=== PATIENT | male | born 1970 | race Caucasian/White ===

== ENCOUNTER 2021-03-01 17:20 | Inpatient (IN) | payer OTHER ==
[2021-03-01] MEDS ORDERED: ACETAMINOPHEN TAB 325 MG TAB PO STA (19:12)
--- NOTE | 2021-03-01 19:26 | ED ---
General Adult HPI - General Chief complaint: Recheck/Abnormal Lab/Rx Stated complaint: SOB/Weakness Time Seen by Provider: 03/01/21 19:06 Source: patient Mode of arrival: ambulatory Limitations: no limitations - History of Present Illness Initial comments: 50 year-old male patient presents to the emergency department for evaluation of multiple complaints. Patient believes he has COVID. States for the last 1.5 weeks he has had chills, body aches, vomiting, and diarrhea. State he does have a dry cough and shortness of breath as well. Denies ever having the COVID vaccine. Denies taking any medication for his symptoms. Denies any chest pain. States he has had lower extremity swelling over the last couple of weeks as well. Also states he has felt weak and confused. Denies any leg or calf pain. Does admit to smoking cigarettes. Patient denies any recent abdominal pain, constipation, back pain, numbness, tingling, dizziness, weakness, hematuria, dys uria, urinary urgency, urinary frequency, headache, visual changes, or any other complaints. - Related Data Home Medications Medication Instructions Recorded Confirmed Omeprazole Magnesium [PriLOSEC OTC] 20 mg PO BID PRN 03/01/21 03/01/21 Allergies Allergy/AdvReac Type Severity Reaction Status Date / Time Penicillins Allergy Unknown Verified 03/01/21 19:33 Review of Systems ROS Statement: Those systems with pertinent positive or pertinent negative responses have been documented in the HPI. ROS Other: All systems not noted in ROS Statement are negative. Past Medical History Past Medical History: GERD/Reflux History of Any Multi-Drug Resistant Organisms: None Reported Past Surgical History: No Surgical Hx Reported Past Psychological History: No Psychological Hx Reported Smoking Status: Current every day smoker Past Alcohol Use History: None Reported Past Drug Use History: None Reported General Exam Limitations: no limitations General appearance: alert, in no apparent distress, other (This is a well- developed, well-nourished adult male patient in no acute distress. Vital signs upon presentation are temperature 99.6F, pulse 109, respirations 20, blood pressure 111/75, pulse ox 99% on room air.) Eye exam: Present: normal appearance, PERRL, EOMI. Absent: scleral icterus, conjunctival injection, periorbital swelling ENT exam: Present: normal exam, normal oropharynx, mucous membranes moist Respiratory exam: Present: normal lung sounds bilaterally. Absent: respiratory distress, wheezes, rales, rhonchi, stridor Cardiovascular Exam: Present: normal rhythm, tachycardia, normal heart sounds. Absent: systolic murmur, diastolic murmur, rubs, gallop, clicks GI/Abdominal exam: Present: soft, normal bowel sounds. Absent: distended, tenderness, guarding, rebound, rigid Neurological exam: Present: alert, oriented X3, CN II-XII intact Psychiatric exam: Present: normal affect, normal mood Skin exam: Present: warm, dry, intact, normal color. Absent: rash Course Vital Signs 03/01/21 03/01/21 03/01/21 17:42 19:47 23:59 Temperature 99.6 F 98.1 F 98.2 F Pulse Rate 109 H 88 73 Respiratory 20 16 16 Rate Blood Pressure 111/75 110/77 106/73 O2 Sat by Pulse 99 98 96 Oximetry EKG Findings - EKG Comments: EKG Findings:: EKG obtained in 1949 shows normal sinus rhythm with prolonged QT interval. Ventricular rate is 88, NV interval 156, QRS duration 86, QT 446, QTC 539. No evidence of ST elevation or depression. Medical Decision Making - Medical Decision Making 50-year-old male patient presents for evaluation of feeling generally unwell, diarrhea, vomiting, shortness of breath, cough, chills. Wanted to be tested for Covid. Covid test was negative. White blood cell count is normal. D-dimer was 6.55, sodium 124, potassium 3.0, lactic acid 2.7, calcium 7.1, magnesium 1.3. Liver enzymes are mildly elevated. Total bili is 1.4. LDH was 1574. C- reactive protein 1.6. Urinalysis negative. Patient did admit to heavy alcohol use, states he quit 3 weeks ago. He admitted to the hospital for electrolyte replacement and further evaluation. He is agreeable this plan. Case discussed with my attending Dr. Cameron. - Lab Data Result diagrams: 03/01/21 19:12 03/01/21 19:12 Lab Results 03/01/21 03/01/21 03/01/21 Range/Units 19:12 19:12 19:12 WBC 8.2 (3.8-10.6) k/uL RBC 3.50 L (4.30-5.90) m/uL Hgb 13.3 (13.0-17.5) gm/dL Hct 39.1 (39.0-53.0) % MCV 111.6 H (80.0-100.0) fL MCH 37.8 H (25.0-35.0) pg MCHC 33.9 (31.0-37.0) g/dL RDW 15.8 H (11.5-15.5) % Plt Count 206 (150-450) k/uL MPV 7.3 Neutrophils % 86 % Lymphocytes % 8 % Monocytes % 4 % Eosinophils % 0 % Basophils % 1 % Neutrophils # 7.1 (1.3-7.7) k/uL Lymphocytes # 0.6 L (1.0-4.8) k/uL Monocytes # 0.4 (0-1.0) k/uL Eosinophils # 0.0 (0-0.7) k/uL Basophils # 0.0 (0-0.2) k/uL Manual Slide Review Performed Macrocytosis Marked A PT 13.8 H (9.0-12.0) sec INR 1.4 H (<1.2) APTT 26.5 (22.0-30.0) sec D-Dimer 6.55 H (<0.60) mg/L FEU Sodium 124 L (137-145) mmol/L Potassium 3.0 L (3.5-5.1) mmol/L Chloride 98 (98-107) mmol/L Carbon Dioxide 25 (22-30) mmol/L Anion Gap 1 mmol/L BUN 3 L (9-20) mg/dL Creatinine 0.49 L (0.66-1.25) mg/dL Est GFR (CKD-EPI)AfAm >90 (>60 ml/min/1.73 sqM) Est GFR (CKD-EPI)NonAf >90 (>60 ml/min/1.73 sqM) Glucose 96 (74-99) mg/dL Lactic Ac Sepsis Rflx Plasma Lactic Acid Flavio (0.7-2.0) mmol/L Calcium 7.1 L (8.4-10.2) mg/dL Magnesium 1.3 L (1.6-2.3) mg/dL Total Bilirubin 1.4 H (0.2-1.3) mg/dL AST 88 H (17-59) U/L ALT 59 H (4-49) U/L Alkaline Phosphatase 113 (38-126) U/L Lactate Dehydrogenase 1574 H (313-618) U/L C-Reactive Protein 1.6 H (<1.0) mg/dL NT-Pro-B Natriuret Pep pg/mL Total Protein 6.6 (6.3-8.2) g/dL Albumin 2.5 L (3.5-5.0) g/dL Urine Color Urine Appearance (Clear) Urine pH (5.0-8.0) Ur Specific [place] (1.001-1.035) Urine Protein (Negative) Urine Glucose (UA) (Negative) Urine Ketones (Negative) Urine Blood (Negative) Urine Nitrite (Negative) Urine Bilirubin (Negative) Urine Urobilinogen (<2.0) mg/dL Ur Leukocyte Esterase (Negative) Coronavirus (PCR) (Not Detectd) 03/01/21 03/01/21 03/01/21 Range/Units 19:12 19:12 19:13 WBC (3.8-10.6) k/uL RBC (4.30-5.90) m/uL Hgb (13.0-17.5) gm/dL Hct (39.0-53.0) % MCV (80.0-100.0) fL MCH (25.0-35.0) pg MCHC (31.0-37.0) g/dL RDW (11.5-15.5) % Plt Count (150-450) k/uL MPV Neutrophils % % Lymphocytes % % Monocytes % % Eosinophils % % Basophils % % Neutrophils # (1.3-7.7) k/uL Lymphocytes # (1.0-4.8) k/uL Monocytes # (0-1.0) k/uL Eosinophils # (0-0.7) k/uL Basophils # (0-0.2) k/uL Manual Slide Review Macrocytosis PT (9.0-12.0) sec INR (<1.2) APTT (22.0-30.0) sec D-Dimer (<0.60) mg/L FEU Sodium (137-145) mmol/L Potassium (3.5-5.1) mmol/L Chloride (98-107) mmol/L Carbon Dioxide (22-30) mmol/L Anion Gap mmol/L BUN (9-20) mg/dL Creatinine (0.66-1.25) mg/dL Est GFR (CKD-EPI)AfAm (>60 ml/min/1.73 sqM) Est GFR (CKD-EPI)NonAf (>60 ml/min/1.73 sqM) Glucose (74-99) mg/dL Lactic Ac Sepsis Rflx Plasma Lactic Acid Flavio 2.7 H* (0.7-2.0) mmol/L Calcium (8.4-10.2) mg/dL Magnesium (1.6-2.3) mg/dL Total Bilirubin (0.2-1.3) mg/dL AST (17-59) U/L ALT (4-49) U/L Alkaline Phosphatase (38-126) U/L Lactate Dehydrogenase (313-618) U/L C-Reactive Protein (<1.0) mg/dL NT-Pro-B Natriuret Pep 827 pg/mL Total Protein (6.3-8.2) g/dL Albumin (3.5-5.0) g/dL Urine Color Urine Appearance (Clear) Urine pH (5.0-8.0) Ur Specific [place] (1.001-1.035) Urine Protein (Negative) Urine Glucose (UA) (Negative) Urine Ketones (Negative) Urine Blood (Negative) Urine Nitrite (Negative) Urine Bilirubin (Negative) Urine Urobilinogen (<2.0) mg/dL Ur Leukocyte Esterase (Negative) Coronavirus (PCR) Not Detected (Not Detectd) 03/01/21 03/01/21 Range/Units 19:59 21:07 WBC (3.8-10.6) k/uL RBC (4.30-5.90) m/uL Hgb (13.0-17.5) gm/dL Hct (39.0-53.0) % MCV (80.0-100.0) fL MCH (25.0-35.0) pg MCHC (31.0-37.0) g/dL RDW (11.5-15.5) % Plt Count (150-450) k/uL MPV Neutrophils % % Lymphocytes % % Monocytes % % Eosinophils % % Basophils % % Neutrophils # (1.3-7.7) k/uL Lymphocytes # (1.0-4.8) k/uL Monocytes # (0-1.0) k/uL Eosinophils # (0-0.7) k/uL Basophils # (0-0.2) k/uL Manual Slide Review Macrocytosis PT (9.0-12.0) sec INR (<1.2) APTT (22.0-30.0) sec D-Dimer (<0.60) mg/L FEU Sodium (137-145) mmol/L Potassium (3.5-5.1) mmol/L Chloride (98-107) mmol/L Carbon Dioxide (22-30) mmol/L Anion Gap mmol/L BUN (9-20) mg/dL Creatinine (0.66-1.25) mg/dL Est GFR (CKD-EPI)AfAm (>60 ml/min/1.73 sqM) Est GFR (CKD-EPI)NonAf (>60 ml/min/1.73 sqM) Glucose (74-99) mg/dL Lactic Ac Sepsis Rflx Y Plasma Lactic Acid Flavio (0.7-2.0) mmol/L Calcium (8.4-10.2) mg/dL Magnesium (1.6-2.3) mg/dL Total Bilirubin (0.2-1.3) mg/dL AST (17-59) U/L ALT (4-49) U/L Alkaline Phosphatase (38-126) U/L Lactate Dehydrogenase (313-618) U/L C-Reactive Protein (<1.0) mg/dL NT-Pro-B Natriuret Pep pg/mL Total Protein (6.3-8.2) g/dL Albumin (3.5-5.0) g/dL Urine Color Light Yellow Urine Appearance Clear (Clear) Urine pH 6.5 (5.0-8.0) Ur Specific [place] 1.023 (1.001-1.035) Urine Protein Negative (Negative) Urine Glucose (UA) Negative (Negative) Urine Ketones Negative (Negative) Urine Blood Negative (Negative) Urine Nitrite Negative (Negative) Urine Bilirubin Negative (Negative) Urine Urobilinogen <2.0 (<2.0) mg/dL Ur Leukocyte Esterase Negative (Negative) Coronavirus (PCR) (Not Detectd) - Radiology Data Radiology results: report reviewed, image reviewed Single view X-ray of the chest is obtained. Report was reviewed in its entirety. Impression by Dr. Vitale shows some pleural fluid and atelectasis at both lung bases. Bilateral lower lobe pneumonia is not excluded. CT chest angio for PE shows no evidence of pulmonary embolism. Bilateral pleural effusions and basilar atelectasis. Abdominal ascites. Liver is slightly irregular that could be cirrhosis. Venous Doppler duplex of left lower extremity was obtained. Report was reviewed in its entirety. Impression by Dr. Vitale shows no evidence of DVT in the left leg. Disposition Clinical Impression: Pleural effusion, Weakness, Hypomagnesemia, Hypokalemia, Hyponatremia Disposition: ADMITTED IP TO THIS [facility] Condition: Serious Decision to Admit Reason: Admit from EC Decision Date: 03/01/21 Decision Time: 22:57
[2021-03-01 19:52] LABS: Basophils % (A) 1 %; Eosinophils % (A) 0 %; HCT 39.1 % (39.0-53.0); HGB 13.3 gm/dL (13.0-17.5); Lymphocytes # (A) 0.6 k/uL (1.0-4.8); Lymphocytes % (A) 8 %; MCH 37.8 pg (25.0-35.0); MCHC 33.9 g/dL (31.0-37.0); MCV 111.6 fL (80.0-100.0); Macrocytosis Marked; Mean Platelet Volume 7.3; Monocytes # (A) 0.4 k/uL (0-1.0); Monocytes % (A) 4 %; Neutrophils # (A) 7.1 k/uL (1.3-7.7); Neutrophils % (A) 86 %; Platelet Count 206 k/uL (150-450); RDW 15.8 % (11.5-15.5); WBC 8.2 k/uL (3.8-10.6)
[2021-03-01 19:56] LABS: ALT 59 U/L (4-49); AST 88 U/L (17-59); African American GFR (CKD) >90 (>60 ml/min/1.73 sqM); Albumin 2.5 g/dL (3.5-5.0); Alkaline Phosphatase 113 U/L (38-126); Anion Gap 1 mmol/L; Blood Urea Nitrogen 3 mg/dL (9-20); C Reactive Protein 1.6 mg/dL (<1.0); Calcium 7.1 mg/dL (8.4-10.2); Carbon Dioxide 25 mmol/L (22-30); Chloride 98 mmol/L (98-107); Glucose 96 mg/dL (74-99); LDH 1574 U/L (313-618); Magnesium 1.3 mg/dL (1.6-2.3); Non-African American GFR(CKD) >90 (>60 ml/min/1.73 sqM); Sodium 124 mmol/L (137-145); Total Bilirubin 1.4 mg/dL (0.2-1.3); Total Protein 6.6 g/dL (6.3-8.2)
[2021-03-01 20:02] LABS: INR 1.4 (<1.2); Partial Thromboplastin Time 26.5 sec (22.0-30.0); Prothrombin Time 13.8 sec (9.0-12.0)
[2021-03-01] MEDS ORDERED: Magnesium Replacement Protocol 1 EACH MISC MISCELLANE PRN (20:05)
[2021-03-01] MEDS ORDERED: POTASSIUM CHLORIDE ER 20 MEQ TAB.ER PO STA (20:05)
[2021-03-01] MEDS ORDERED: SODIUM CHLORIDE 0.9% 1,000 ML IV ONE (20:06)
--- NOTE | 2021-03-01 20:14 | XR ---
EXAMINATION TYPE: XR chest 1V portable DATE OF EXAM: 03/01/2021 COMPARISON: NONE HISTORY: Cough and fever TECHNIQUE: Single view FINDINGS: There is some atelectasis and blunting at the lung bases. There is no gross heart failure. Heart size is normal. Bony thorax is intact. IMPRESSION: There is some pleural fluid and atelectasis at both lung bases. Bilateral lower lobe pneu monia not excluded.
[2021-03-01] MEDS: MAGNESIUM SULFATE-D5W PMX 1 GM in DEXTROSE/WATER 1 100ML.BAG IVPB SCH ×2 (20:36→22:36)
[2021-03-01 21:10] LABS: Appearance,Urine Clear (Clear); Bilirubin,Urine Negative (Negative); Blood,Urine Negative (Negative); Color,Urine Light Yellow; Glucose,Urine (UA) Negative (Negative); Ketones,Urine Negative (Negative); Leukocyte Esterase,Urine Negative (Negative); Nitrite,Urine Negative (Negative); PH, Urine 6.5 (5.0-8.0); Protein,Urine Negative (Negative); Specific Gravity,Urine 1.023 (1.001-1.035); Urobilinogen,Urine <2.0 mg/dL (<2.0)
--- NOTE | 2021-03-01 21:36 | CT ---
EXAMINATION TYPE: CT chest angio for PE DATE OF EXAM: 03/01/2021 COMPARISON: None HISTORY: SOB and weakness CT DLP: 330.7 mGycm Automated exposure control for dose reduction was used. CONTRAST: Performed with IV Contrast, patient injected with 100 mL of Isovue 370. Images obtained from the thoracic inlet to the diaphragm with IV contrast. There are 3-D post process ed images. There is moderate right pleural effusion. There is small left pleural effusion. There is moderate chante unt of abdominal ascites fluid. Heart size is normal. There is no pericardial effusion. There are no hilar masses. There is no medias tinal adenopathy. There are no hilar masses. Thoracic aorta appears intact. Ascending aorta measures 3.6 cm. There is no aneurysm or dissection. There is no evidence of filling defect in the pulmonary arteries. The thoracic spine is intact. Sternum is intact. I see no bony destructive process. IMPRESSION: No evidence of pulmonary embolism. Bilateral pleural effusions and basilar atelectasis. Abdominal ascites. Liver is slightly irregular that could be cirrhosis.
[2021-03-01] MEDS ORDERED: NALOXONE 0.4 MG/ML 1 ML VIAL IV PRN (22:52)
--- NOTE | 2021-03-01 23:49 | US ---
EXAMINATION TYPE: US venous doppler duplex LE LT DATE OF EXAM: 03/01/2021 11:34 PM COMPARISON: NONE CLINICAL HISTORY: Left leg swelling; pos d-dimer. Swelling, pos d-dimer per order. SIDE PERFORMED: Left TECHNIQUE: The lower extremity deep venous system is examined utilizing real time linear array sonog christopher with graded compression, doppler sonography and color-flow sonography. VESSELS IMAGED: Common Femoral Vein Deep Femoral Vein Greater Saphenous Vein * Femoral Vein Popliteal Vein Small Saphenous Vein * Proximal Calf Veins (* superficial vessels) Left Leg: No evidence of DVT in veins imaged at this time. IMPRESSION: No evidence of deep vein thrombosis in the left leg.
[2021-03-02 00:26] LABS: Lactic Acid, Venous 1.6 mmol/L (0.7-2.0)
[2021-03-02 05:02] LABS: Ferritin 1251.1 ng/mL (22.0-322.0)
[2021-03-02] MEDS ORDERED: ONDANSETRON 4 MG/2 ML VIAL IVP PRN (05:59)
[2021-03-02] MEDS ORDERED: ACETAMINOPHEN TAB 325 MG TAB PO PRN (05:59)
[2021-03-02 08:51] LABS: African American GFR (CKD) >90 (>60 ml/min/1.73 sqM); Anion Gap 6 mmol/L; Blood Urea Nitrogen <2 mg/dL (9-20); Calcium 7.4 mg/dL (8.4-10.2); Carbon Dioxide 26 mmol/L (22-30); Chloride 103 mmol/L (98-107); Glucose 87 mg/dL (74-99); Magnesium 2.1 mg/dL (1.6-2.3); Non-African American GFR(CKD) >90 (>60 ml/min/1.73 sqM); Potassium 3.2 mmol/L (3.5-5.1); Sodium 135 mmol/L (137-145)
[2021-03-02] MEDS ORDERED: Potassium Replacement Protocol 1 EACH MISC MISCELLANE PRN (08:55)
[2021-03-02] MEDS ORDERED: PANTOPRAZOLE 40 MG/10 ML VIAL IVP SCH (09:00)
[2021-03-02] MEDS: HEPARIN SODIUM,PORCINE/PF 5,000 UNIT/0.5 ML SYRINGE SQ SCH ×3 (09:33→22:41)
[2021-03-02] MEDS: VANCOMYCIN 125 MG CAPSULE PO SCH ×4 (09:33→22:42)
[2021-03-02] MEDS: POTASSIUM CHLORIDE ER 20 MEQ TAB.ER PO SCH (09:41)
[2021-03-02] MEDS: SODIUM CHLORIDE 0.9% 1,000 ML IV SCH (10:55)
--- NOTE | 2021-03-02 12:18 | US ---
EXAMINATION TYPE: US abdomen limited DATE OF EXAM: 03/02/2021 COMPARISON: Chest CT CLINICAL HISTORY: ascites. ETOH abuse, ascites EXAM MEASUREMENTS: Liver Length: 13.2 cm CBD: 0.5 cm Right Kidney: 11.8 x 5.4 x 5.7 cm Pancreas: 3mm panc duct, otherwise difficult to visualize Liver: Left lobe enlarged, right lobe small in size with lobulated contour consistent with cirrhosis Gallbladder: Surgically absent Evidence for sonographic Small's sign: No CBD: wnl Right Kidney: wnl Please note: Mild amount of ascites present IMPRESSION: 1. Ascites. 2. Ultrasound changes suggestive for cirrhosis of the liver. 3. Pancreatic duct at the proximal body is 3 mm. Normal less than 2 mm. Consider additional workup of the pancreas which has some limitation on this evaluation.
--- NOTE | 2021-03-02 12:21 | P.CNPUL ---
History of Present Illness Consult date: 03/02/21 Requesting physician: Brooklyn Marcano Reason for consult: pleural effusion, other Chief complaint: Bilateral pleural effusions History of present illness: 50-year-old white male patient with history of liver cirrhosis, EtOH abuse, current every day smoker, who came into the emergency department on 03/01/2021 for evaluation of multiple complaints. Patient believed he has the COVID 19. He states for the past 1,5-2 weeks he has had chills, body aches, multiple episodes of diarrhea on a daily basis. Denies recent antibiotic use, reports some dry cough and shortness of breath. He has not been vaccinated for COVID- 19. Denies any known COVID-19 positive contacts. Denies any chest pain. States she lost 15-20 pounds in the last several weeks. He has had increased lower extremity swelling. His been feeling weak and confused. Reports abdominal bloating, but no abdominal pain, no urinary symptoms. His chest x-ray shows some atelectasis and blunting at the lung bases consistent with small pleural effusions. Lab work has been reviewed, patient was tested for C. diff and was found to be positive, he was started on oral vancomycin. His white count is normal at 8.2, hemoglobin is 13.3, INR is 1.4, d-dimer 6.5, sodium is 124, potassium is 3.0, chloride is 98, CO2 is 25, BUN is 3, creatinine 0.49, lactic acid is 2.7, calcium was 7.1, magnesium was 1.3, total bilirubin was 1.4, AST was 88, ALT was 59, alkaline phosphatase was 113, ammonia level was 29, LDH was 1574, CRP was 1.6, proBNP was 827, pro calcitonin level was negative at 0.09, urinalysis was within normal limits, COVID-19 PCR was negative. US Doppler of the left lower extremity showed no evidence of DVT. CT chest showed no evidence of pulmonary embolism, bilateral pleural effusions and basilar atelectasis. A digital abdominal ascites, and irregular liver with correlation to cirrhosis. Patient states he does not follow up with the GI specialist on the regular basis, he recently moved to this area, and had previously seen a GI specialist at a [facility]. He states he refused a liver biopsy, states he continues to drink cold [place] 3 weeks he did not drink at all. Patient continues to have frequent episodes of liquid diarrhea, but appears to be reading comfortably, he is on room air pulse ox of 94%, afebrile, he does get short of breath with exertion, denies any cough, denies any chest pain, no wheezing, lungs are clear, diminished at the bases. Ultrasound the chest has been ordered and pending at this time. Ultrasound of the abdomen has been ordered and pending at this time Review of Systems All systems: negative Constitutional: Denies chills, Denies fever Eyes: denies blurred vision, denies pain Ears, nose, mouth and throat: Denies headache, Denies sore throat Cardiovascular: Denies chest pain, Denies shortness of breath Respiratory: Denies cough Gastrointestinal: Reports abdominal pain, Reports diarrhea, Denies nausea, Denies vomiting Musculoskeletal: Denies myalgias Integumentary: Denies pruritus, Denies rash Neurological: Denies numbness, Denies weakness Psychiatric: Denies anxiety, Denies depression Endocrine: Denies fatigue, Denies weight change Past Medical History Past Medical History: GERD/Reflux History of Any Multi-Drug Resistant Organisms: None Reported Past Surgical History: No Surgical Hx Reported Past Anesthesia/Blood Transfusion Reactions: No Reported Reaction Past Psychological History: No Psychological Hx Reported Smoking Status: Current every day smoker Past Alcohol Use History: None Reported, Heavy Past Drug Use History: None Reported Medications and Allergies Home Medications Medication Instructions Recorded Confirmed Type Omeprazole Magnesium [PriLOSEC OTC] 20 mg PO BID PRN 03/01/21 03/01/21 History Allergies Allergy/AdvReac Type Severity Reaction Status Date / Time Penicillins Allergy Unknown Verified 03/01/21 19:33 Physical Exam Vitals: Vital Signs Temp Pulse Pulse Resp BP BP Pulse Ox 03/02/21 07:37 97 03/02/21 05:57 98.9 F 83 15 104/70 94 L 03/02/21 01:15 98.1 F 73 15 101/69 99 03/01/21 23:59 98.2 F 73 16 106/73 96 03/01/21 20:21 16 03/01/21 19:47 98.1 F 88 16 110/77 98 03/01/21 17:42 99.6 F 109 H 20 111/75 99 Intake and Output 03/01/21 03/02/21 03/02/21 22:59 06:59 14:59 Other: Voiding Method Toilet # Bowel Movements 1 Weight 77.111 kg 77.111 kg GENERAL EXAM: Alert, pleasant, chronically ill-looking, 50-year-old white male, resting in bed, on room air pulse ox of 97% comfortable in no apparent distress. HEAD: Normocephalic/atraumatic. EYES: Normal reaction of pupils, equal size. Conjunctiva pink, sclera white. NOSE: Clear with pink turbinates. THROAT: No erythema or exudates. NECK: No masses, no JVD, no thyroid enlargement, no adenopathy. CHEST: No chest wall deformity. Symmetrical expansion. LUNGS: Equal air entry with no crackles, wheeze, rhonchi or dullness. Diminished breath sounds at the bases CVS: Regular rate and rhythm, normal S1 and S2, no gallops, no murmurs, no rubs ABDOMEN: Soft, nontender. No hepatosplenomegaly, normal bowel sounds, no guarding or rigidity. Abdomen is distended, but nontender EXTREMITIES: No clubbing, no cyanosis, 2+ pulses and upper and lower extremities. Mild nonpitting edema involving bilateral lower extremities, chronic venous stasis discoloration of lower extremities MUSCULOSKELETAL: Muscle strength and tone normal. SPINE: No scoliosis or deformity SKIN: No rashes CENTRAL NERVOUS SYSTEM: Alert and oriented -3. No focal deficits, tone is normal in all 4 extremities. PSYCHIATRIC: Alert and oriented -3. Appropriate affect. Intact judgment and insight. Results - Laboratory Findings CBC and BMP: 03/01/21 19:12 03/02/21 07:48 PT/INR, D-dimer PT 13.8 sec (9.0-12.0) H 03/01/21 19:12 INR 1.4 (<1.2) H 03/01/21 19:12 D-Dimer 6.55 mg/L FEU (<0.60) H 03/01/21 19:12 Abnormal lab findings: Abnormal Labs 03/01/21 03/01/21 03/01/21 19:12 19:12 19:12 RBC 3.50 L MCV 111.6 H MCH 37.8 H RDW 15.8 H Lymphocytes # 0.6 L Macrocytosis Marked A PT 13.8 H INR 1.4 H D-Dimer 6.55 H Sodium 124 L Potassium 3.0 L BUN 3 L Creatinine 0.49 L Plasma Lactic Acid Flavio Calcium 7.1 L Magnesium 1.3 L Ferritin 1251.1 H Total Bilirubin 1.4 H AST 88 H ALT 59 H Lactate Dehydrogenase 1574 H C-Reactive Protein 1.6 H Albumin 2.5 L C. difficile (EIA) Intrp 03/01/21 03/02/21 03/02/21 19:12 03:30 07:48 RBC MCV MCH RDW Lymphocytes # Macrocytosis PT INR D-Dimer Sodium 135 L Potassium 3.2 L BUN <2 L Creatinine 0.40 L Plasma Lactic Acid Flavio 2.7 H* Calcium 7.4 L Magnesium Ferritin Total Bilirubin AST ALT Lactate Dehydrogenase C-Reactive Protein Albumin C. difficile (EIA) Intrp Positive A - Diagnostic Findings Chest x-ray: report reviewed, image reviewed CT scan - chest: report reviewed, image reviewed Additional studies: Left leg Doppler ultrasound results reviewed, EKG reviewed Assessment and Plan Plan: Assessment: #1. Small bilateral pleural effusions, related to abdominal ascites, secondary to liver cirrhosis. Possibility of pneumonia is felt to be less likely. COVID- 19 PCR negative #2. Acute C. difficile infection with multiple episodes of diarrhea #3. Dehydration #4. Acute and multiple electrolyte abnormalities related to C. diff colitis, and dehydration, including hyponatremia, hypokalemia, hypomagnesemia, being corrected per protocol and IV fluids #5. Liver cirrhosis, possibly related to EtOH, hepatitis panel is pending. Patient has previously refused a liver biopsy, currently not under the observation of a GI specialist #6. History of heavy EtOH use #7. Elevated d-dimer, CTA chest showed no evidence of pulmonary embolism, left lower extremity DVT was ruled out by a Doppler ultrasound #8. Chronic smoker #9. GERD/reflux Plan: We'll obtain ultrasound of the chest and ultrasound of the abdomen Chest x-ray and CT chest reviewed and the pleural effusions are small, will not likely be able to drain Depending on the findings of the ultrasound of the abdomen patient may need a paracentesis We'll obtain hepatitis panel Continue oral vancomycin for C. diff, IV hydration with 0.9 normal saline at 75 ML Correct electrolytes per protocol No evidence of any respiratory distress We'll continue to follow and make further recommendations Consult GI specialist for liver cirrhosis I performed a history & physical examination of the patient and discussed their management with my nurse practitioner, Estephania Tejada. I reviewed the nurse practitioner's note and agree with the documented findings and plan of care. Lung sounds are positive for diminished breath sounds. The findings and the im pression was discussed with the patient. I attest to the documentation by the nurse practitioner. Time with Patient: Greater than 30
[2021-03-02] MEDS: MAGNESIUM SULFATE-D5W PMX 1 GM in DEXTROSE/WATER 1 100ML.BAG IVPB SCH ×3 (14:22→14:23)
[2021-03-02 15:01] VITALS: BMI 23.7
[2021-03-02 18:51] LABS: Hepatitis A Antibody IgM Non-Reactive (Non-Reactive); Hepatitis B Core IgM Non-Reactive (Non-Reactive); Hepatitis B Surface Antigen Non-Reactive (Non-Reactive); Hepatitis C IgG Antibody Non-Reactive (Non-Reactive)
[2021-03-02] MEDS: PANTOPRAZOLE 40 MG TABLET PO SCH (22:41)
--- NOTE | 2021-03-03 00:56 | CONS ---
CONSULTATION DATE OF SERVICE: 03/02/2021 REASON FOR CONSULTATION: C difficile colitis. HISTORY OF PRESENT ILLNESS: The patient is a 50-year-old male presenting to the ER last evening for evaluation of multiple symptoms. The patient has been complaining of chills, body aches and vomiting and diarrhea. Symptoms have been going on for about a week and a half. The patient did have a dry cough and shortness of breath on minimal exertion. No sputum production though. The patient has been complaining of diarrhea with multiple loose stools during the day every hour on the hour. No blood or mucus in the stools. The patient is not very clear if he has been exposed to antibiotic in the recent past. No urinary symptoms. On presentation to the hospital, the patient was afebrile. No fever has been recorded subsequently. The patient did have a normal white count with lymphopenia. D dimer was elevated as well as lactic acid. BUN and creatinine were normal. Liver enzymes were mildly elevated and as well as LDH. Procalcitonin was normal. Urine was negative. Auguste PCR came back negative. Stool for C difficile came back positive and hepatitis profile was negative. The patient did have a chest x-ray. Pleural fluid and atelectasis at both lung bases. Bilateral lower lobe pneumonia not excluded. The patient did have a CT angiogram of the chest that was negative for PE. Patient has bilateral effusion and basilar atelectasis, did not show any ground glass opacity with the Covid 19 infection. The patient has been started on vancomycin. Infectious Disease was consulted for further management. REVIEW OF SYSTEMS: Positive points have been mentioned in HPI. Rest of the systems are negative. PAST MEDICAL HISTORY: Gastroesophageal reflux disease. PAST SURGICAL HISTORY: No surgeries. SOCIAL HISTORY: Current everyday smoker. No drinking or drug use. FAMILY HISTORY: No pertinent findings noticed. ALLERGIES: ALLERGIES TO PENICILLIN WITH A RASH. NO HISTORY OF ANAPHYLAXIS. MEDICATIONS: The patient currently on vancomycin. He is on Protonix, Zofran, Narcan, heparin and Tylenol. PHYSICAL EXAMINATION: Blood pressure 111/77, pulse of 83, temperature 98.3. He is 98% on room air. General description is a middle-aged male lying in bed in no distress. No tachypnea or accessory muscles of respiration use. HEENT: Examination shows pallor. No scleral icterus. Oral mucous membranes dry. NECK: Trachea central. No thyromegaly. LUNGS unlabored breathing. Clear to auscultation anteriorly. HEART S1, S2. Regular rate and rhythm. ABDOMEN: Soft, mildly distended, tender to touch. No guarding or rigidity. EXTREMITIES: No edema of the feet. SKIN examination: No rash or mass palpable. NEUROLOGICAL: Patient is awake, alert, oriented times three. Mood and affect normal. LABS: Hemoglobin is 13.8, white count 8.2, BUN of 3, creatinine 0.49, liver enzymes are elevated. 1.6, procalcitonin 0.09. DIAGNOSTIC IMPRESSION AND PLAN: 1. Patient admitted to hospital with generalized body aches, fever and chills, abdominal pain, diarrhea with multiple loose stools, now with positive stool for C diff, likely etiology of his symptoms. 2. Patient with some effusion and atelectasis clinically not behaving as pneumonia. PLAN: 1. Vancomycin 125 mg p.o. q.6 hours. 2. Discontinue Protonix. May need workup for any GI symptoms. 3. Patient advised to increase the probiotic and yogurt intake. 4. We will follow on his clinical condition and further adjust medication if needed. Thank you for this consultation. We will follow this patient along with you. MMODL / IJN: [id number] /
[2021-03-03] MEDS: SODIUM CHLORIDE 0.9% 1,000 ML IV SCH ×2 (03:41→13:04)
[2021-03-03] MEDS ORDERED: PANTOPRAZOLE 40 MG TABLET PO SCH (07:30)
[2021-03-03 07:52] LABS: Basophils % (A) 1 %; Eosinophils # (A) 0.1 k/uL (0-0.7); Eosinophils % (A) 1 %; HCT 37.8 % (39.0-53.0); HGB 12.4 gm/dL (13.0-17.5); Hypochromasia Slight; Lymphocytes # (A) 0.8 k/uL (1.0-4.8); Lymphocytes % (A) 10 %; MCH 37.5 pg (25.0-35.0); MCHC 32.8 g/dL (31.0-37.0); MCV 114.3 fL (80.0-100.0); Macrocytosis Marked; Mean Platelet Volume 7.9; Monocytes # (A) 0.5 k/uL (0-1.0); Monocytes % (A) 6 %; Neutrophils # (A) 6.2 k/uL (1.3-7.7); Neutrophils % (A) 80 %; Platelet Count 194 k/uL (150-450); RBC 3.31 m/uL (4.30-5.90); RDW 14.6 % (11.5-15.5); WBC 7.8 k/uL (3.8-10.6)
[2021-03-03] MEDS: HEPARIN SODIUM,PORCINE/PF 5,000 UNIT/0.5 ML SYRINGE SQ SCH ×3 (08:01→22:57)
[2021-03-03] MEDS: NICOTINE 14MG/24HR PATCH TRANSDERM SCH (08:01)
[2021-03-03] MEDS: VANCOMYCIN 125 MG CAPSULE PO SCH ×4 (08:01→22:57)
[2021-03-03] MEDS: PANTOPRAZOLE 40 MG TABLET PO SCH (08:01)
[2021-03-03 08:02] LABS: African American GFR (CKD) >90 (>60 ml/min/1.73 sqM); Anion Gap 2 mmol/L; Blood Urea Nitrogen 3 mg/dL (9-20); Calcium 7.7 mg/dL (8.4-10.2); Carbon Dioxide 28 mmol/L (22-30); Chloride 105 mmol/L (98-107); Glucose 99 mg/dL (74-99); Non-African American GFR(CKD) >90 (>60 ml/min/1.73 sqM); Potassium 3.4 mmol/L (3.5-5.1); Sodium 135 mmol/L (137-145)
[2021-03-03] MEDS ORDERED: POTASSIUM CHLORIDE ER 20 MEQ TAB.ER PO STA (08:16)
--- NOTE | 2021-03-03 09:45 | P.HPIM ---
History of Present Illness H&P Date: 03/02/21 This is a 50-year-old male who came in with complaints of feeling generalized weakness, headache, shortness of breath and experiencing symptoms of Covid and has been tested in the outpatient setting at local pharmacies with negative 3 and 1 send out test was emailed to him stating indeterminant and also was having extreme amounts of diarrhea and some abdominal discomfort and distention. Patient's electrolytes were deficient and replaced per protocol. Sodium level on admission is 124 with a potassium of 3.0 and magnesium was 1.3. Lactic acid elevated at 2.7. ALT, AST elevated and CRP elevated as well 1.6. BNP is 827. Patient was tested again here for Covid and was negative. Patient also had C. diff testing which was found to be positive and being started on oral vancomycin. Pulmonary was consulted. Chest x-ray on admission showed some pleural fluid and atelectasis at both lung bases with bilateral lower lobe pneumonia not excluded. Patient underwent CTA due to elevated d-dimer and continued shortness of breath showing no evidence of pulmonary embolism with bilateral pleural effusions and basilar atelectasis along with abdominal ascites and the liver is slightly irregular but could represent cirrhosis. Abdominal ultrasound ordered along with pulmonary consult. Patient is currently on oxygen via nasal cannula. Ammonia level was 29 and repeat lactic acid was 1.6. Review of Systems Constitutional: Reports chills, Reports fever, Reports lethargy, Reports malaise, Reports poor appetite, Reports weakness Ears, nose, mouth and throat: Denies headache, Denies sore throat Cardiovascular: Reports shortness of breath Respiratory: Reports cough, Reports dyspnea Gastrointestinal: Reports abdominal pain, Reports bloating, Reports change in bowel habits, Reports diarrhea, Reports excessive gas, Reports nausea Musculoskeletal: Reports myalgias Integumentary: Denies pruritus, Denies rash Neurological: Reports headaches, Reports weakness Psychiatric: Denies anxiety, Denies depression Endocrine: Denies fatigue, Denies weight change Past Medical History Past Medical History: GERD/Reflux History of Any Multi-Drug Resistant Organisms: None Reported Past Surgical History: No Surgical Hx Reported Past Anesthesia/Blood Transfusion Reactions: No Reported Reaction Past Psychological History: No Psychological Hx Reported Smoking Status: Current every day smoker Past Alcohol Use History: None Reported, Rare (patient reports recently quit when symptoms started 1.5 weeks ago, fiancee states it is daily) Past Drug Use History: None Reported Medications and Allergies Home Medications Medication Instructions Recorded Confirmed Type Omeprazole Magnesium [PriLOSEC OTC] 20 mg PO BID PRN 03/01/21 03/01/21 History Allergies Allergy/AdvReac Type Severity Reaction Status Date / Time Penicillins Allergy Unknown Verified 03/01/21 19:33 Physical Exam Vitals: Vital Signs Temp Pulse Pulse Resp BP BP Pulse Ox 03/02/21 07:37 97 03/02/21 05:57 98.9 F 83 15 104/70 94 L 03/02/21 01:15 98.1 F 73 15 101/69 99 03/01/21 23:59 98.2 F 73 16 106/73 96 03/01/21 20:21 16 03/01/21 19:47 98.1 F 88 16 110/77 98 03/01/21 17:42 99.6 F 109 H 20 111/75 99 Intake and Output 03/01/21 03/02/21 03/02/21 22:59 06:59 14:59 Other: Voiding Method Toilet # Bowel Movements 1 Weight 77.111 kg 77.111 kg GENERAL: The patient is alert and oriented x3, not in any acute distress. discheveled, unkempt HEENT: Pupils are round and equally reacting to light. EOMI. No scleral icterus. No conjunctival pallor. Normocephalic, atraumatic. No pharyngeal erythema. No thyromegaly. CARDIOVASCULAR: S1 and S2 present. No murmurs, rubs, or gallops. PULMONARY: Diminished breath sounds bilaterally with no wheezing or rhonchi noted. ABDOMEN: Soft, nontender, distended, normoactive bowel sounds. No palpable organomegaly. MUSCULOSKELETAL: No joint swelling or deformity. EXTREMITIES: No cyanosis, clubbing, no bilateral lower extremity edema noted NEUROLOGICAL: Gross neurological examination did not reveal any focal deficits. Diffusely weak SKIN: No rashes. no petechiae. Results CBC & Chem 7: 03/03/21 07:21 03/03/21 07:21 Labs: Abnormal Lab Results - Last 24 Hours (Table) 03/01/21 03/01/21 03/01/21 Range/Units 19:12 19:12 19:12 RBC 3.50 L (4.30-5.90) m/uL MCV 111.6 H (80.0-100.0) fL MCH 37.8 H (25.0-35.0) pg RDW 15.8 H (11.5-15.5) % Lymphocytes # 0.6 L (1.0-4.8) k/uL Macrocytosis Marked A PT 13.8 H (9.0-12.0) sec INR 1.4 H (<1.2) D-Dimer 6.55 H (<0.60) mg/L FEU Sodium 124 L (137-145) mmol/L Potassium 3.0 L (3.5-5.1) mmol/L BUN 3 L (9-20) mg/dL Creatinine 0.49 L (0.66-1.25) mg/dL Plasma Lactic Acid Flavio (0.7-2.0) mmol/L Calcium 7.1 L (8.4-10.2) mg/dL Magnesium 1.3 L (1.6-2.3) mg/dL Ferritin 1251.1 H (22.0-322.0) ng/mL Total Bilirubin 1.4 H (0.2-1.3) mg/dL AST 88 H (17-59) U/L ALT 59 H (4-49) U/L Lactate Dehydrogenase 1574 H (313-618) U/L C-Reactive Protein 1.6 H (<1.0) mg/dL Albumin 2.5 L (3.5-5.0) g/dL C. difficile (EIA) Intrp (Negative) 03/01/21 03/02/21 03/02/21 Range/Units 19:12 03:30 07:48 RBC (4.30-5.90) m/uL MCV (80.0-100.0) fL MCH (25.0-35.0) pg RDW (11.5-15.5) % Lymphocytes # (1.0-4.8) k/uL Macrocytosis PT (9.0-12.0) sec INR (<1.2) D-Dimer (<0.60) mg/L FEU Sodium 135 L (137-145) mmol/L Potassium 3.2 L (3.5-5.1) mmol/L BUN <2 L (9-20) mg/dL Creatinine 0.40 L (0.66-1.25) mg/dL Plasma Lactic Acid Flavio 2.7 H* (0.7-2.0) mmol/L Calcium 7.4 L (8.4-10.2) mg/dL Magnesium (1.6-2.3) mg/dL Ferritin (22.0-322.0) ng/mL Total Bilirubin (0.2-1.3) mg/dL AST (17-59) U/L ALT (4-49) U/L Lactate Dehydrogenase (313-618) U/L C-Reactive Protein (<1.0) mg/dL Albumin (3.5-5.0) g/dL C. difficile (EIA) Intrp Positive A (Negative) Thrombosis Risk Factor Assmnt - DVT/VTE Prophylaxis DVT/VTE Prophylaxis: Pharmacologic Prophylaxis ordered - Choose All That Apply Any of the Below Risk Factors Present?: Yes Each Factor Represents 1 point: Serious lung disease incl. pneumonia (< 1month) Other Risk Factors: No Other congenital or acquired thrombophilia - If yes, enter type in comment: No Thrombosis Risk Factor Assessment Total Risk Factor Score: 1 Thrombosis Risk Factor Assessment Level: Low Risk Assessment and Plan Assessment: Abdominal pain with diarrhea, present on admission C. diff Lactic acidosis, present on admission possibly secondary to above Shortness of breath with bilateral pleural effusions noted on CT Pulmonary embolism ruled out on CT with elevated d-dimer Generalized weakness Continued ongoing nicotine dependence Possibly alcoholic cirrhosis as noted on scan Gastroesophageal reflux disease Alcohol abuse DVT prophylaxis Full code Plan: Patient will be continued current medications pulmonary has been consulted for p leural effusions noted on CT and elevated d-dimer which showed no evidence of PE. Patient also showing some mild ascites and most likely liver cirrhosis noted on scans and GI was consulted although no GI coverage at this time. Patient was found to have C. diff positive and was started on oral Vanco and will continue and have consulted infectious disease. Patient is negative for COVID-19. Patient continues on oxygen and discussed with nursing staff about weaning FiO2 as tolerated as patient does not use oxygen in the outpatient setting. Encouraged oral intake along with increasing activity. Time with Patient: Greater than 30
--- NOTE | 2021-03-03 11:21 | P.PN ---
Subjective Progress Note Date: 03/03/21 Principal diagnosis: Small bilateral pleural effusions 50-year-old white male patient with history of liver cirrhosis, EtOH abuse, current every day smoker, who came into the emergency department on 03/01/2021 for evaluation of multiple complaints. Patient believed he has the COVID 19. He states for the past 1,5-2 weeks he has had chills, body aches, multiple episodes of diarrhea on a daily basis. Denies recent antibiotic use, reports some dry cough and shortness of breath. He has not been vaccinated for COVID- 19. Denies any known COVID-19 positive contacts. Denies any chest pain. States she lost 15-20 pounds in the last several weeks. He has had increased lower extremity swelling. His been feeling weak and confused. Reports abdominal bloating, but no abdominal pain, no urinary symptoms. His chest x-ray shows some atelectasis and blunting at the lung bases consistent with small pleural effusions. Lab work has been reviewed, patient was tested for C. diff and was found to be positive, he was started on oral vancomycin. His white count is normal at 8.2, hemoglobin is 13.3, INR is 1.4, d-dimer 6.5, sodium is 124, potassium is 3.0, chloride is 98, CO2 is 25, BUN is 3, creatinine 0.49, lactic acid is 2.7, calcium was 7.1, magnesium was 1.3, total bilirubin was 1.4, AST was 88, ALT was 59, alkaline phosphatase was 113, ammonia level was 29, LDH was 1574, CRP was 1.6, proBNP was 827, pro calcitonin level was negative at 0.09, urinalysis was within normal limits, COVID-19 PCR was negative. US Doppler of the left lower extremity showed no evidence of DVT. CT chest showed no evidence of pulmonary embolism, bilateral pleural effusions and basilar atelectasis. A digital abdominal ascites, and irregular liver with correlation to cirrhosis. Patient states he does not follow up with the GI specialist on the regular basis, he recently moved to this area, and had previously seen a GI specialist at a [facility]. He states he refused a liver biopsy, states he continues to drink cold [place] 3 weeks he did not drink at all. Patient continues to have frequent episodes of liquid diarrhea, but appears to be reading comfortably, he is on room air pulse ox of 94%, afebrile, he does get short of breath with exertion, denies any cough, denies any chest pain, no wheezing, lungs are clear, diminished at the bases. Ultrasound the chest has been ordered and pending at this time. Ultrasound of the abdomen has been ordered and pending at this time On 03/03/2021 patient seen in follow-up on medical surgical floor. He is awake and alert, in no acute distress, he is on 2 L of oxygen pulse ox is 98%. Reports no worsening cough, no chest discomfort no worsening shortness of breath. His been afebrile, hemodynamically has been stable, remains on vancomycin for C. diff colitis. His abdominal ultrasound showed mild amount of ascites, enlarged left lobe of the liver, and small right lobe which was lobulated consistent with cirrhosis. We consulted GI service for evaluation. Hepatitis spent was negative. GI service consultation is not available this week. From pulmonary perspective he has remained stable. Reports no acute even ts overnight Objective - Vital Signs Vital signs: Vital Signs Temp 98.5 F 03/03/21 08:26 Pulse 78 03/03/21 08:26 Resp 17 03/03/21 08:26 BP 104/74 03/03/21 08:26 Pulse Ox 98 03/03/21 08:26 Intake & Output 03/02/21 03/03/21 03/03/21 18:59 06:59 18:59 Weight 77.111 kg Other: # Voids 2 # Bowel Movements 2 - Exam GENERAL EXAM: Alert, pleasant, chronically ill-looking, 50-year-old white male, resting in bed, on room air pulse ox of 97% comfortable in no apparent distress. HEAD: Normocephalic/atraumatic. EYES: Normal reaction of pupils, equal size. Conjunctiva pink, sclera white. NOSE: Clear with pink turbinates. THROAT: No erythema or exudates. NECK: No masses, no JVD, no thyroid enlargement, no adenopathy. CHEST: No chest wall deformity. Symmetrical expansion. LUNGS: Equal air entry with no crackles, wheeze, rhonchi or dullness. Dimin ished breath sounds at the bases CVS: Regular rate and rhythm, normal S1 and S2, no gallops, no murmurs, no rubs ABDOMEN: Soft, nontender. No hepatosplenomegaly, normal bowel sounds, no guarding or rigidity. Abdomen is distended, but nontender EXTREMITIES: No clubbing, no cyanosis, 2+ pulses and upper and lower extremities. Mild nonpitting edema involving bilateral lower extremities, chronic venous stasis discoloration of lower extremities MUSCULOSKELETAL: Muscle strength and tone normal. SPINE: No scoliosis or deformity SKIN: No rashes CENTRAL NERVOUS SYSTEM: Alert and oriented -3. No focal deficits, tone is normal in all 4 extremities. PSYCHIATRIC: Alert and oriented -3. Appropriate affect. Intact judgment and insight. - Labs CBC & Chem 7: 03/03/21 07:21 08 07:21 Labs: Abnormal Lab Results - Last 24 Hours (Table) 03/03/21 03/03/21 Range/Units 07:21 07:21 RBC 3.31 L (4.30-5.90) m/uL Hgb 12.4 L (13.0-17.5) gm/dL Hct 37.8 L (39.0-53.0) % MCV 114.3 H (80.0-100.0) fL MCH 37.5 H (25.0-35.0) pg Lymphocytes # 0.8 L (1.0-4.8) k/uL Macrocytosis Marked A Sodium 135 L (137-145) mmol/L Potassium 3.4 L (3.5-5.1) mmol/L BUN 3 L (9-20) mg/dL Creatinine 0.45 L (0.66-1.25) mg/dL Calcium 7.7 L (8.4-10.2) mg/dL Assessment and Plan Plan: Assessment: #1. Small bilateral pleural effusions, related to abdominal ascites, secondary to liver cirrhosis. Possibility of pneumonia is felt to be less likely. COVID- 19 PCR negative #2. Acute C. difficile infection with multiple episodes of diarrhea #3. Dehydration #4. Acute and multiple electrolyte abnormalities related to C. diff colitis, and dehydration, including hyponatremia, hypokalemia, hypomagnesemia, being corrected per protocol and IV fluids #5. Liver cirrhosis, possibly related to EtOH, hepatitis panel is pending. Wiley krause has previously refused a liver biopsy, currently not under the observation of a GI specialist #6. History of heavy EtOH use #7. Elevated d-dimer, CTA chest showed no evidence of pulmonary embolism, left lower extremity DVT was ruled out by a Doppler ultrasound #8. Chronic smoker #9. GERD/reflux #10. Mild ascites seen on the ultrasound of the abdomen and pelvis Plan: Patient is breathing comfortably, maintaining stable O2 saturations on 2 L of oxygen Wean FiO2 Ultrasound of the abdomen and pelvis shows mild amount of ascites We'll defer to the GI service to make a recommendation regarding the paracentesis From pulmonary perspective patient is stable, does not require thoracentesis Pulmonary service will sign off and follow on as-needed basis. I performed a history & physical examination of the patient and discussed their management with my nurse practitioner, Estephania Tejada. I reviewed the nurse practitioner's note and agree with the documented findings and plan of care. Lung sounds are positive for diminished breath sounds. The findings and the impression was discussed with the patient. I attest to the documentation by the nurse practitioner. Time with Patient: Less than 30
[2021-03-03] MEDS ORDERED: ALPRAZolam 0.5 MG TAB PO STA (15:21)
--- NOTE | 2021-03-03 23:43 | PN ---
PROGRESS NOTE DATE OF SERVICE: 03/03/2021. REASON FOR FOLLOW UP: C difficile colitis. INTERVAL HISTORY: Patient is currently afebrile. The patient is breathing comfortably. The patient has slight decreased intensity. No vomiting or significant abdominal pain. No urinary symptoms. EXAMINATION: Blood pressure 108/72 with a pulse of 69, temperature 98.6, 95% on 2 L nasal cannula. General description is a middle-aged male lying in bed in no distress. Respiratory system: Unlabored breathing, clear to auscultation anteriorly. Heart S1, S2. Regular rate and rhythm. Abdomen: Soft, no tenderness. LAB: Hemoglobin 12.4, white count 7.9, BUN of 3, creatinine 0.45. DIAGNOSTIC IMPRESSION AND PLAN: Patient with C difficile colitis for which the patient is currently covered with oral vancomycin to continue. Advised to increase probiotic and yogurt intake and continue supportive care. MMODL / IJN: [id number] /
--- NOTE | 2021-03-04 01:38 | P.PN ---
Subjective Progress Note Date: 03/03/21 This is a 50-year-old male who came in with complaints of feeling generalized weakness, headache, shortness of breath and experiencing symptoms of Covid and has been tested in the outpatient setting at local pharmacies with negative 3 and 1 send out test was emailed to him stating indeterminant and also was having extreme amounts of diarrhea and some abdominal discomfort and distention. Patient's electrolytes were deficient and replaced per protocol. Sodium level on admission is 124 with a potassium of 3.0 and magnesium was 1.3. Lactic acid elevated at 2.7. ALT, AST elevated and CRP elevated as well 1.6. BNP is 827. Patient was tested again here for Covid and was negative. Patient also had C. diff testing which was found to be positive and being started on oral vancomycin. Pulmonary was consulted. Chest x-ray on admission showed some pleural fluid and atelectasis at both lung bases with bilateral lower lobe pneumonia not excluded. Patient underwent CTA due to elevated d-dimer and continued shortness of breath showing no evidence of pulmonary embolism with bilateral pleural effusions and basilar atelectasis along with abdominal ascites and the liver is slightly irregular but could represent cirrhosis. Abdominal ultrasound ordered along with pulmonary consult. Patient is currently on oxygen via nasal cannula. Ammonia level was 29 and repeat lactic acid was 1.6. 03/03/2021 Patient is seen in follow up and continues to have multiple episodes of diarrhea. Patient maintained on oral vancomycin. Patient is tolerating diet and no reports of nausea or vomiting noted. Patient potassium low at 3.4 and will replace and repeat am labs. Wean FI02 as tolerated, currently on 2 L via NC with 98% saturation rate. Encouraged increase activity. Infectious disease and pulmonary following. Physical Exam: GENERAL: The patient is alert and oriented x3, not in any acute distress. discheveled, unkempt HEENT: Pupils are round and equally reacting to light. EOMI. No scleral icterus. No conjunctival pallor. Normocephalic, atraumatic. No pharyngeal erythema. No thyromegaly. CARDIOVASCULAR: S1 and S2 present. No murmurs, rubs, or gallops. PULMONARY: Diminished breath sounds bilaterally with no wheezing or rhonchi noted. ABDOMEN: Soft, nontender, distended, normoactive bowel sounds. No palpable organomegaly. MUSCULOSKELETAL: No joint swelling or deformity. EXTREMITIES: No cyanosis, clubbing, no bilateral lower extremity edema noted NEUROLOGICAL: Gross neurological examination did not reveal any focal deficits. Diffusely weak SKIN: No rashes. no petechiae. Assessment and Plan: Abdominal pain with diarrhea, present on admission C. diff Lactic acidosis, present on admission possibly secondary to above hypokalema Shortness of breath with bilateral pleural effusions noted on CT Pulmonary embolism ruled out on CT with elevated d-dimer Generalized weakness Continued ongoing nicotine dependence Possibly alcoholic cirrhosis as noted on scan Gastroesophageal reflux disease Alcohol abuse DVT prophylaxis Full code Plan: Patient will be continued on vancomycin with infectious disease following. Encouraged oral intake and increase activity. Patient continues with diarrhea but states is improving. Pulmonary following as well. Patient denies any worsening shortness of breath. Discussed with nursing staff about weaning FI02 as tolerated along with the patient. Potassium 3.4 today and will replace per protocol. Patient to follow up outpatient for liver cirrhosis. Anticipate discharge in 24 hours. Objective - Vital Signs Vital signs: Vital Signs Temp 97.9 F 03/03/21 02:00 Pulse 81 03/03/21 02:00 Resp 17 03/03/21 02:00 BP 114/78 03/03/21 02:00 Pulse Ox 100 03/03/21 07:38 Intake & Output 03/02/21 03/03/21 03/03/21 18:59 06:59 18:59 Weight 77.111 kg Other: # Voids 2 # Bowel Movements 2 - Labs CBC & Chem 7: 03/03/21 07:21 03/03/21 07:21 Labs: Abnormal Lab Results - Last 24 Hours (Table) 03/02/21 03/03/21 Range/Units 07:48 07:21 RBC 3.31 L (4.30-5.90) m/uL Hgb 12.4 L (13.0-17.5) gm/dL Hct 37.8 L (39.0-53.0) % MCV 114.3 H (80.0-100.0) fL MCH 37.5 H (25.0-35.0) pg Lymphocytes # 0.8 L (1.0-4.8) k/uL Macrocytosis Marked A Sodium 135 L (137-145) mmol/L Potassium 3.2 L (3.5-5.1) mmol/L BUN <2 L (9-20) mg/dL Creatinine 0.40 L (0.66-1.25) mg/dL Calcium 7.4 L (8.4-10.2) mg/dL
[2021-03-04] MEDS: SODIUM CHLORIDE 0.9% 1,000 ML IV SCH ×2 (03:28→16:56)
[2021-03-04] MEDS: HEPARIN SODIUM,PORCINE/PF 5,000 UNIT/0.5 ML SYRINGE SQ SCH ×3 (08:12→22:58)
[2021-03-04] MEDS: NICOTINE 14MG/24HR PATCH TRANSDERM SCH (08:12)
[2021-03-04] MEDS: VANCOMYCIN 125 MG CAPSULE PO SCH ×4 (08:12→22:58)
[2021-03-04 09:05] LABS: African American GFR (CKD) >90 (>60 ml/min/1.73 sqM); Anion Gap 4 mmol/L; Blood Urea Nitrogen <2 mg/dL (9-20); Calcium 7.9 mg/dL (8.4-10.2); Carbon Dioxide 25 mmol/L (22-30); Chloride 107 mmol/L (98-107); Glucose 97 mg/dL (74-99); Non-African American GFR(CKD) >90 (>60 ml/min/1.73 sqM); Potassium 3.8 mmol/L (3.5-5.1); Sodium 136 mmol/L (137-145)
--- NOTE | 2021-03-04 13:01 | P.PN ---
Subjective Progress Note Date: 03/04/21 This is a 50-year-old male who came in with complaints of feeling generalized weakness, headache, shortness of breath and experiencing symptoms of Covid and has been tested in the outpatient setting at local pharmacies with negative 3 and 1 send out test was emailed to him stating indeterminant and also was having extreme amounts of diarrhea and some abdominal discomfort and distention. Patient's electrolytes were deficient and replaced per protocol. Sodium level on admission is 124 with a potassium of 3.0 and magnesium was 1.3. Lactic acid elevated at 2.7. ALT, AST elevated and CRP elevated as well 1.6. BNP is 827. Patient was tested again here for Covid and was negative. Patient also had C. diff testing which was found to be positive and being started on oral vancomycin. Pulmonary was consulted. Chest x-ray on admission showed some pleural fluid and atelectasis at both lung bases with bilateral lower lobe pneumonia not excluded. Patient underwent CTA due to elevated d-dimer and continued shortness of breath showing no evidence of pulmonary embolism with bilateral pleural effusions and basilar atelectasis along with abdominal ascites and the liver is slightly irregular but could represent cirrhosis. Abdominal ultrasound ordered along with pulmonary consult. Patient is currently on oxygen via nasal cannula. Ammonia level was 29 and repeat lactic acid was 1.6. 03/03/2021 Patient is seen in follow up and continues to have multiple episodes of diarrhea. Patient maintained on oral vancomycin. Patient is tolerating diet and no reports of nausea or vomiting noted. Patient potassium low at 3.4 and will replace and repeat am labs. Wean FI02 as tolerated, currently on 2 L via NC with 98% saturation rate. Encouraged increase activity. Infectious disease and pulmonary following. 03/04/2021 Patient is evaluated at the bedside today, sitting on adjuvant bed. He states t hat he is still having multiple episodes of diarrhea, denies blood. Patient is maintained on oral vancomycin, for a positive C. diff. Patient states that he had been having diarrhea 2-3 weeks prior to admission. Today patient is tolerating his diet, he reports no nausea or vomiting. He denies any abdominal pain or cramping. Patient's potassium level has been repleted today at a level of 3.8, continue to monitor and replace as needed. Patient states that he is feeling shortness of breath with activity, he reports mild intermittent nonproductive cough. He denies any chest pain, palpitations. Patient is wearing nasal cannula, he does not wear oxygen at home. Patient is a lifelong smoker, he is wearing a nicotine patch at this time. Patient is counseled on smoking cessation. Patient states that he does not have a history of COPD. Repeat chest x-ray has been ordered to follow-up. Patient is being evaluated pulmonary services, who at this time are not recommending a thoracentesis. Patient can wean his O2 as tolerated. Patient will follow-up with GI services outpatient, to evaluate for ascites. Patient has a remote history of EtOH abuse, patient states that he is not a current every drinker, hepatitis panel is negative. Patient is quite anxious today, patient has been ordered a Xanax as needed during this hospital stay. Patient is being followed by infectious disease for the C. diff. Vital signs are stable at this time, patient is 93% on room air. Continue with current medication recommendations. Continue with nicotine patch. ROS: Constitutional: Denied any fatigue denied any fever. Cardio vascular: denied any chest pain, palpitations Gastrointestinal denied any nausea vomiting, reports diarrhea Pulmonary: Reports exertional dyspnea, cough Neurologic denied any new focal deficits All inpatient medications were reviewed and appropriate changes in these medications as dictated in the interval history and assessment and plan. PHYSICAL EXAMINATION: GENERAL: The patient is alert and oriented x3, not in any acute distress. Well developed, well nourished. HEENT: Pupils are round and equally reacting to light. EOMI. No scleral icterus. No conjunctival pallor. Normocephalic, atraumatic. No pharyngeal erythema. No thyromegaly. CARDIOVASCULAR: S1 and S2 present. No murmurs, rubs, or gallops. PULMONARY: Chest is clear to auscultation, no wheezing or crackles. bilateral posterior bases diminished. ABDOMEN: Soft, nontender, nondistended, normoactive bowel sounds. No palpable organomegaly. MUSCULOSKELETAL: No joint swelling or deformity. EXTREMITIES: No cyanosis, clubbing, or pedal edema. NEUROLOGICAL: Gross neurological examination did not reveal any focal deficits. SKIN: No rashes. Assessment and Plan: Abdominal pain with diarrhea, present on admission C. diff Lactic acidosis, present on admission possibly secondary to above hypokalema , repleted continue to monitor Shortness of breath with bilateral pleural effusions noted on CT, repeat chest x-ray ordered Pulmonary embolism ruled out on CT with elevated d-dimer Generalized weakness, PT consult Continued ongoing nicotine dependence, nicotine patch ordered Possibly alcoholic cirrhosis as noted on scan, GI follow-up, I educated on EtOH cessation Gastroesophageal reflux disease Anxiety, related to hospitalization, tobacco useXanax has been ordered for hospital stay. Alcohol abuse DVT prophylaxisheparin subcu, early ambulation Full code Plan: Patient will be continued on vancomycin with infectious disease following. Encouraged oral intake and increase activity. Patient continues with diarrhea but states is improving. Pulmonary following as well. Patient reports increasing shortness of breath today, chest x-ray will be ordered to follow-up. Patient to encourage ambulation, incentive spirometry use. Patient is to continue on nicotine patch. Patient will follow-up with GI services outpatient. Continue to monitor lites and replace as needed. Continue Xanax as needed for anxiety. Objective - Vital Signs Vital signs: Vital Signs Temp 98.1 F 03/04/21 08:00 Pulse 107 H 03/04/21 08:00 Resp 16 03/04/21 08:00 BP 122/87 03/04/21 08:00 Pulse Ox 93 L 03/04/21 08:00 Intake & Output 03/03/21 03/04/21 03/04/21 18:59 06:59 18:59 Intake Total 750 Balance 750 Intake: Intake, IV Titration 750 Amount Sodium Chloride 0.9% 1, 750 000 ml @ 75 mls/hr IV . [id number] JAYDEN Rx#:[id number] Other: # Voids 3 0 - Labs CBC & Chem 7: 03/03/21 07:21 03/04/21 07:54 Labs: Abnormal Lab Results - Last 24 Hours (Table) 03/04/21 Range/Units 07:54 Sodium 136 L (137-145) mmol/L BUN <2 L (9-20) mg/dL Creatinine 0.37 L (0.66-1.25) mg/dL Calcium 7.9 L (8.4-10.2) mg/dL Assessment and Plan Time with Patient: Greater than 30
--- NOTE | 2021-03-04 13:40 | XR ---
EXAMINATION TYPE: XR chest 1V portable DATE OF EXAM: 03/04/2021 COMPARISON: 03/01/2021 INDICATION: Dyspnea TECHNIQUE: Single frontal view of the chest is obtained. FINDINGS: The heart size is normal. The pulmonary vasculature is normal. There is elevation left diaphragm. Linear opacity is present in the left base may represent some atel ectasis. IMPRESSION: 1. Elevation left diaphragm likely relating to some atelectasis. Findings are increased from comparis on.
[2021-03-04] MEDS: ALPRAZolam 0.25 MG TAB PO PRN (14:54)
--- NOTE | 2021-03-04 16:50 | PN ---
PROGRESS NOTE DATE OF SERVICE: 03/04/2021 REASON FOR FOLLOW UP: C difficile colitis. INTERVAL HISTORY: The patient is afebrile. The patient is still complaining of feeling anxious and shortness of breath. No chest pain. No cough. No abdominal pain or any worsening diarrhea. PHYSICAL EXAMINATION: Blood pressure 93/69 with a pulse of 83, temperature 98.5. He is 96% on 2 L nasal cannula. General description is a middle-aged male lying in bed in no distress. Respiratory system: Unlabored breathing, clear to auscultation anteriorly. Heart S1, S2. Regular rate and rhythm. Abdomen soft, no tenderness. LABS: Hemoglobin is 12.4, white count 7.8, creatinine 0.37. DIAGNOSTIC IMPRESSION AND PLAN: Patient with C difficile colitis diarrhea, seemed to be improving with oral vancomycin, to continue and finish a 10 day course of therapy and close followup. Continue supportive care. MMODL / IJN: [id number] /
[2021-03-05] MEDS: ALPRAZolam 0.25 MG TAB PO PRN ×2 (02:29→10:24)
[2021-03-05] MEDS: SODIUM CHLORIDE 0.9% 1,000 ML IV SCH ×2 (05:37→22:38)
[2021-03-05 09:40] LABS: HCT 37.6 % (39.6-50.0); HGB 11.7 g/dL (13.0-17.0); MCH 35.8 pg (27.0-32.0); MCHC 31.1 g/dL (32.0-37.0); Mean Platelet Volume 9.6 fL (9.5-12.2); Platelet Count 182 X 10*3/uL (140-440); RBC 3.27 X 10*6/uL (4.40-5.60); RDW 14.7 % (11.5-14.5); WBC 8.46 X 10*3/uL (4.50-10.00)
[2021-03-05 10:05] LABS: African American GFR (CKD) 160.5 (60.0-200.0); Blood Urea Nitrogen <5.0 mg/dL (9.0-27.0); Calcium 7.9 mg/dL (8.7-10.3); Carbon Dioxide 27.5 mmol/L (21.6-31.8); Chloride 104 mmol/L (96-109); Glucose 77 mg/dL (70-110); Non-African American GFR(CKD) 138.5 (60.0-200.0); Potassium 3.8 mmol/L (3.5-5.5); Sodium 134 mmol/L (135-145)
[2021-03-05] MEDS: NICOTINE 14MG/24HR PATCH TRANSDERM SCH (10:24)
[2021-03-05] MEDS: PANTOPRAZOLE 40 MG TABLET PO PRN ×2 (10:24→17:56)
[2021-03-05] MEDS: HEPARIN SODIUM,PORCINE/PF 5,000 UNIT/0.5 ML SYRINGE SQ SCH ×3 (10:24→23:22)
[2021-03-05] MEDS: VANCOMYCIN 125 MG CAPSULE PO SCH ×4 (10:46→23:22)
--- NOTE | 2021-03-05 12:39 | P.PN ---
Subjective Progress Note Date: 03/05/21 This is a 50-year-old male who came in with complaints of feeling generalized weakness, headache, shortness of breath and experiencing symptoms of Covid and has been tested in the outpatient setting at local pharmacies with negative 3 and 1 send out test was emailed to him stating indeterminant and also was having extreme amounts of diarrhea and some abdominal discomfort and distention. Patient's electrolytes were deficient and replaced per protocol. Sodium level on admission is 124 with a potassium of 3.0 and magnesium was 1.3. Lactic acid elevated at 2.7. ALT, AST elevated and CRP elevated as well 1.6. BNP is 827. Patient was tested again here for Covid and was negative. Patient also had C. diff testing which was found to be positive and being started on oral vancomycin. Pulmonary was consulted. Chest x-ray on admission showed some pleural fluid and atelectasis at both lung bases with bilateral lower lobe pneumonia not excluded. Patient underwent CTA due to elevated d-dimer and continued shortness of breath showing no evidence of pulmonary embolism with bilateral pleural effusions and basilar atelectasis along with abdominal ascites and the liver is slightly irregular but could represent cirrhosis. Abdominal ultrasound ordered along with pulmonary consult. Patient is currently on oxygen via nasal cannula. Ammonia level was 29 and repeat lactic acid was 1.6. 03/03/2021 Patient is seen in follow up and continues to have multiple episodes of diarrhea. Patient maintained on oral vancomycin. Patient is tolerating diet and no reports of nausea or vomiting noted. Patient potassium low at 3.4 and will replace and repeat am labs. Wean FI02 as tolerated, currently on 2 L via NC with 98% saturation rate. Encouraged increase activity. Infectious disease and pulmonary following. 03/04/2021 Patient is evaluated at the bedside today, sitting on adjuvant bed. He states t hat he is still having multiple episodes of diarrhea, denies blood. Patient is maintained on oral vancomycin, for a positive C. diff. Patient states that he had been having diarrhea 2-3 weeks prior to admission. Today patient is tolerating his diet, he reports no nausea or vomiting. He denies any abdominal pain or cramping. Patient's potassium level has been repleted today at a level of 3.8, continue to monitor and replace as needed. Patient states that he is feeling shortness of breath with activity, he reports mild intermittent nonproductive cough. He denies any chest pain, palpitations. Patient is wearing nasal cannula, he does not wear oxygen at home. Patient is a lifelong smoker, he is wearing a nicotine patch at this time. Patient is counseled on smoking cessation. Patient states that he does not have a history of COPD. Repeat chest x-ray has been ordered to follow-up. Patient is being evaluated pulmonary services, who at this time are not recommending a thoracentesis. Patient can wean his O2 as tolerated. Patient will follow-up with GI services outpatient, to evaluate for ascites. Patient has a remote history of EtOH abuse, patient states that he is not a current every drinker, hepatitis panel is negative. Patient is quite anxious today, patient has been ordered a Xanax as needed during this hospital stay. Patient is being followed by infectious disease for the C. diff. Vital signs are stable at this time, patient is 93% on room air. Continue with current medication recommendations. Continue with nicotine patch. 03/05/2021 Patient is evaluated today, resting in bed. He states that he still having multiple episodes of diarrhea, denies any blood in stool. Patient is on oral Vanco for positive C. diff. Patient states that Xanax has improved his anxiety. He states that the nicotine patches are helping. Patient states that he feels still feels short of breath, chest x-ray revealed some atelectasis. Continue to encourage incentive spirometry. Can wean oxygen as tolerated. Patient remains 100% on 2 L of nasal cannula. Patient has a T-max of 99.2. Patient is maintained in a normal sinus rhythm, blood pressure 105/67. Patient is a lifelong smoker, patient states that he does not have a history of any COPD. Patient denies any chest pain, improving cough today. Patient denies any abdominal pain, cramping, nausea, vomiting. Patient states that he is tolerating a diet. Patient was resumed on his home dose of omeprazole for GI prophylaxis. Patient states last and that he went off of that he did have a GI bleed. Sodium level today is 134, patient is ordered for 0.9 at 75 mL/h however patient is refusing IV access at this time. We'll continue to monitor sodium levels. ROS: Constitutional: Denied any fatigue denied any fever. Cardio vascular: denied any chest pain, palpitations Gastrointestinal denied any nausea vomiting, reports diarrhea Pulmonary: Reports exertional dyspnea, cough Neurologic denied any new focal deficits All inpatient medications were reviewed and appropriate changes in these medications as dictated in the interval history and assessment and plan. PHYSICAL EXAMINATION: GENERAL: The patient is alert and oriented x3, not in any acute distress. Well developed, well nourished. HEENT: Pupils are round and equally reacting to light. EOMI. No scleral icterus. No conjunctival pallor. Normocephalic, atraumatic. No pharyngeal erythema. No thyromegaly. CARDIOVASCULAR: S1 and S2 present. No murmurs, rubs, or gallops. PULMONARY: Chest is clear to auscultation, no wheezing or crackles. bilateral posterior bases diminished. ABDOMEN: Soft, nontender, nondistended, normoactive bowel sounds. No palpable organomegaly. MUSCULOSKELETAL: No joint swelling or deformity. EXTREMITIES: No cyanosis, clubbing, or pedal edema. NEUROLOGICAL: Gross neurological examination did not reveal any focal deficits. SKIN: No rashes. Assessment and Plan: Abdominal pain with diarrhea, present on admission C. diff Lactic acidosis, present on admission possibly secondary to above hypokalema , repleted continue to monitor Shortness of breath with bilateral pleural effusions noted on CT, repeat chest x-ray ordered Pulmonary embolism ruled out on CT with elevated d-dimer Generalized weakness, PT consult Continued ongoing nicotine dependence, nicotine patch ordered Possibly alcoholic cirrhosis as noted on scan, GI follow-up, I educated on EtOH cessation Gastroesophageal reflux disease resume on Protonix Anxiety, related to hospitalization, tobacco useXanax has been ordered for hospital stay. Alcohol abuse DVT prophylaxisheparin subcu, early ambulation GI prophylaxis - Protonix Full code Plan: Patient will be continued on vancomycin with infectious disease following. Encouraged oral intake and increase activity. Patient continues with diarrhea but states is improving. Pulmonary following as well. Patient reports increasing shortness of breath today, chest x-ray will be ordered to follow-up. Incentive spirometer has been ordered. Patient is to continue on nicotine patch. Patient will follow-up with GI services outpatient. Continue to monitor lites and replace as needed. Continue Xanax as needed for anxiety. Patient is refusing IV access at this time, continue to monitor sodium levels. Objective - Vital Signs Vital signs: Vital Signs Temp 98.4 F 03/05/21 07:26 Pulse 102 H 03/05/21 07:26 Resp 17 08/08/21 07:26 BP 123/76 03/05/21 07:26 Pulse Ox 90 L 03/05/21 07:26 Intake & Output 03/04/21 03/05/21 03/05/21 18:59 06:59 18:59 Other: # Voids 5 # Bowel Movements 3 12 - Labs CBC & Chem 7: 03/05/21 06:11 03/05/21 06:11 Labs: Abnormal Lab Results - Last 24 Hours (Table) 03/05/21 03/05/21 Range/Units 06:11 06:11 RBC 3.27 L (4.40-5.60) X 10*6/uL Hgb 11.7 L (13.0-17.0) g/dL Hct 37.6 L (39.6-50.0) % MCV 115.0 H (80.0-97.0) fL MCH 35.8 H (27.0-32.0) pg MCHC 31.1 L (32.0-37.0) g/dL RDW 14.7 H (11.5-14.5) % Sodium 134 L (135-145) mmol/L Anion Gap 2.50 L (4.00-12.00) mmol/L BUN <5.0 L (9.0-27.0) mg/dL Creatinine 0.4 L (0.6-1.5) mg/dL Calcium 7.9 L (8.7-10.3) mg/dL Assessment and Plan Time with Patient: Greater than 30
[2021-03-06] MEDS: ALPRAZolam 0.25 MG TAB PO PRN ×2 (04:15→11:22)
--- NOTE | 2021-03-06 06:17 | PN ---
PROGRESS NOTE DATE OF SERVICE: 03/05/2021. REASON FOR CONSULTATION: C difficile colitis. INTERVAL HISTORY: Patient is afebrile. The patient is breathing more comfortably. Patient denies having any chest pain. No shortness of breath, cough, no abdominal pain. Still having significant diarrhea. Mentioned almost but no blood or mucous in the stools. PHYSICAL EXAMINATION: Blood pressure is 118/82 with a pulse of 90, temperature 98.6. He is 97% on 2 L nasal cannula. General description is a middle-aged male lying in bed in no distress. Respiratory system: Unlabored breathing, clear to auscultation anteriorly. Heart: S1, S2. Regular rate and rhythm. Abdomen: Soft, no tenderness. LABS: Hemoglobin 9.7, white count 14.4. BUN of 5, creatinine 0.4. DIAGNOSTIC IMPRESSION AND PLAN: Patient with C difficile colitis will add Questran for symptomatic relief. Continue with oral vancomycin and advised to increase his probiotic and yogurt intake. Continue supportive care. MMODL / IJN: [id number] /
[2021-03-06] MEDS: HEPARIN SODIUM,PORCINE/PF 5,000 UNIT/0.5 ML SYRINGE SQ SCH ×2 (09:31→17:49)
[2021-03-06] MEDS: CHOLESTYRAMINE (WITH SUGAR) 4 GM PACKET PO SCH ×2 (09:31→20:28)
[2021-03-06] MEDS: VANCOMYCIN 125 MG CAPSULE PO SCH ×3 (09:31→17:49)
[2021-03-06] MEDS: NICOTINE 14MG/24HR PATCH TRANSDERM SCH (09:31)
[2021-03-06] MEDS: SODIUM CHLORIDE 0.9% 1,000 ML IV SCH ×2 (09:32→20:28)
[2021-03-06] MEDS: PANTOPRAZOLE 40 MG TABLET PO PRN ×2 (09:35→17:52)
[2021-03-06 11:17] LABS: Albumin 2.1 g/dL (3.5-5.0); Albumin/Globulin Ratio 0.5; Bilirubin,Unconjugated 0.4 mg/dL (0.0-1.1); Globulin 3.9 g/dL; Total Bilirubin 0.9 mg/dL (0.2-1.3)
[2021-03-06 12:24] LABS: African American GFR (CKD) 160.5 (60.0-200.0); Blood Urea Nitrogen <5.0 mg/dL (9.0-27.0); Calcium 7.9 mg/dL (8.7-10.3); Carbon Dioxide 25.3 mmol/L (21.6-31.8); Chloride 104 mmol/L (96-109); Glucose 115 mg/dL (70-110); Non-African American GFR(CKD) 138.5 (60.0-200.0); Potassium 4.1 mmol/L (3.5-5.5); Sodium 136 mmol/L (135-145)
--- NOTE | 2021-03-06 15:33 | P.PN ---
Subjective Progress Note Date: 03/06/21 This is a 50-year-old male who came in with complaints of feeling generalized weakness, headache, shortness of breath and experiencing symptoms of Covid and has been tested in the outpatient setting at local pharmacies with negative 3 and 1 send out test was emailed to him stating indeterminant and also was having extreme amounts of diarrhea and some abdominal discomfort and distention. Patient's electrolytes were deficient and replaced per protocol. Sodium level on admission is 124 with a potassium of 3.0 and magnesium was 1.3. Lactic acid elevated at 2.7. ALT, AST elevated and CRP elevated as well 1.6. BNP is 827. Patient was tested again here for Covid and was negative. Patient also had C. diff testing which was found to be positive and being started on oral vancomycin. Pulmonary was consulted. Chest x-ray on admission showed some pleural fluid and atelectasis at both lung bases with bilateral lower lobe pneumonia not excluded. Patient underwent CTA due to elevated d-dimer and continued shortness of breath showing no evidence of pulmonary embolism with bilateral pleural effusions and basilar atelectasis along with abdominal ascites and the liver is slightly irregular but could represent cirrhosis. Abdominal ultrasound ordered along with pulmonary consult. Patient is currently on oxygen via nasal cannula. Ammonia level was 29 and repeat lactic acid was 1.6. 03/03/2021 Patient is seen in follow up and continues to have multiple episodes of diarrhea. Patient maintained on oral vancomycin. Patient is tolerating diet and no reports of nausea or vomiting noted. Patient potassium low at 3.4 and will replace and repeat am labs. Wean FI02 as tolerated, currently on 2 L via NC with 98% saturation rate. Encouraged increase activity. Infectious disease and pulmonary following. 03/04/2021 Patient is evaluated at the bedside today, sitting on adjuvant bed. He states t hat he is still having multiple episodes of diarrhea, denies blood. Patient is maintained on oral vancomycin, for a positive C. diff. Patient states that he had been having diarrhea 2-3 weeks prior to admission. Today patient is tolerating his diet, he reports no nausea or vomiting. He denies any abdominal pain or cramping. Patient's potassium level has been repleted today at a level of 3.8, continue to monitor and replace as needed. Patient states that he is feeling shortness of breath with activity, he reports mild intermittent nonproductive cough. He denies any chest pain, palpitations. Patient is wearing nasal cannula, he does not wear oxygen at home. Patient is a lifelong smoker, he is wearing a nicotine patch at this time. Patient is counseled on smoking cessation. Patient states that he does not have a history of COPD. Repeat chest x-ray has been ordered to follow-up. Patient is being evaluated pulmonary services, who at this time are not recommending a thoracentesis. Patient can wean his O2 as tolerated. Patient will follow-up with GI services outpatient, to evaluate for ascites. Patient has a remote history of EtOH abuse, patient states that he is not a current every drinker, hepatitis panel is negative. Patient is quite anxious today, patient has been ordered a Xanax as needed during this hospital stay. Patient is being followed by infectious disease for the C. diff. Vital signs are stable at this time, patient is 93% on room air. Continue with current medication recommendations. Continue with nicotine patch. 03/05/2021 Patient is evaluated today, resting in bed. He states that he still having multiple episodes of diarrhea, denies any blood in stool. Patient is on oral Vanco for positive C. diff. Patient states that Xanax has improved his anxiety. He states that the nicotine patches are helping. Patient states that he feels still feels short of breath, chest x-ray revealed some atelectasis. Continue to encourage incentive spirometry. Can wean oxygen as tolerated. Patient remains 100% on 2 L of nasal cannula. Patient has a T-max of 99.2. Patient is maintained in a normal sinus rhythm, blood pressure 105/67. Patient is a lifelong smoker, patient states that he does not have a history of any COPD. Patient denies any chest pain, improving cough today. Patient denies any abdominal pain, cramping, nausea, vomiting. Patient states that he is tolerating a diet. Patient was resumed on his home dose of omeprazole for GI prophylaxis. Patient states last and that he went off of that he did have a GI bleed. Sodium level today is 134, patient is ordered for 0.9 at 75 mL/h however patient is refusing IV access at this time. We'll continue to monitor sodium levels. 03/06/2021 Patient does have a history of smoking, uses a nicotine patch. Patient denies a history of COPD, however patient is found to be 84% on room air with a oxygen pulse ox test today. We'll continue to monitor patient overnight to trial weani ng O2. Pulmonary services has signed off, states the patient doesn't require any thoracentesis, paracentesis. Patient was evaluated bedside by GI services recommended outpatient follow-up in 2 weeks. There is no further treatments during this hospital stay for the ascites. Patient continues to have large quantities of diarrhea, continues on by mouth Vanco for C. diff colitis, added on questran from infectious disease services. ID is requesting the patient remained in the hospital overnight for further evaluation. Continue to encourage ambulation, continue to encourage incentive spirometer. His resumed on his home dose of Protonix for history of GERD. Patient denies chest pain, reports shortness of breath, cough. Patient had a negative Covid test on admission. Patient denies nausea, vomiting, abdominal pain. Reports diarrhea. Reports that he is tolerating a diet. ROS: Constitutional: Denied any fatigue denied any fever. Cardio vascular: denied any chest pain, palpitations Gastrointestinal denied any nausea vomiting, reports diarrhea Pulmonary: Reports exertional dyspnea, cough Neurologic denied any new focal deficits All inpatient medications were reviewed and appropriate changes in these medications as dictated in the interval history and assessment and plan. PHYSICAL EXAMINATION: GENERAL: The patient is alert and oriented x3, not in any acute distress. Well developed, well nourished. HEENT: Pupils are round and equally reacting to light. EOMI. No scleral icterus. No conjunctival pallor. Normocephalic, atraumatic. No pharyngeal erythema. No thyromegaly. CARDIOVASCULAR: S1 and S2 present. No murmurs, rubs, or gallops. PULMONARY: Chest is clear to auscultation, no wheezing or crackles. bilateral posterior bases diminished. ABDOMEN: Soft, nontender, nondistended, normoactive bowel sounds. No palpable organomegaly. MUSCULOSKELETAL: No joint swelling or deformity. EXTREMITIES: No cyanosis, clubbing, or pedal edema. NEUROLOGICAL: Gross neurological examination did not reveal any focal deficits. SKIN: No rashes. Assessment and Plan: Abdominal pain with diarrhea, present on admission C. diff colitis, on oral Vanco Lactic acidosis, present on admission possibly secondary to above, repeat level 1.6 hypokalema , repleted continue to monitor Shortness of breath with bilateral pleural effusions noted on CT, encourage incentive spirometry, nasal cannula Pulmonary embolism ruled out on CT with elevated d-dimer Generalized weakness, PT consult Continued ongoing nicotine dependence, nicotine patch ordered Possibly alcoholic cirrhosis as noted on scan, follow up with GI outpatient Gastroesophageal reflux disease resume on Protonix Anxiety, related to hospitalization, tobacco useXanax has been ordered for hos pital stay. Alcohol abuse DVT prophylaxisheparin subcu, early ambulation GI prophylaxis - Protonix Full code Plan: Patient will be continued on vancomycin with infectious disease following. Encouraged oral intake and increase activity. Patient continues with diarrhea IV added Questran. Continue to monitor overnight. Chest x-ray revealed some atelectasis, Incentive spirometer has been ordered. Pulmonary signed off at this time. This is a lifelong smoker. Patient is to continue on nicotine patch. Patient will follow-up with GI services outpatient. Continue to monitor lites and replace as needed. Continue Xanax as needed for anxiety. Patient is refusing IV access at this time, continue to monitor sodium levels. Patient may need to be discharged on home oxygen with a follow-up for pulmonary services, PFT. Objective - Vital Signs Vital signs: Vital Signs Temp 98.9 F 03/06/21 13:40 Pulse 92 03/06/21 13:40 Resp 20 03/06/21 13:40 BP 114/77 03/06/21 13:40 Pulse Ox 96 03/06/21 13:40 Intake & Output 03/05/21 03/06/21 03/06/21 18:59 06:59 18:59 Other: Voiding Method Toilet # Voids 1 2 # Bowel Movements 14 10 - Labs CBC & Chem 7: 03/05/21 06:11 03/06/21 07:17 Labs: Abnormal Lab Results - Last 24 Hours (Table) 03/06/21 03/06/21 Range/Units 07:17 07:17 BUN <5.0 L (9.0-27.0) mg/dL Creatinine 0.4 L (0.6-1.5) mg/dL Glucose 115 H (70-110) mg/dL Calcium 7.9 L (8.7-10.3) mg/dL Alkaline Phosphatase 137 H (38-126) U/L Total Protein 6.0 L (6.3-8.2) g/dL Albumin 2.1 L (3.5-5.0) g/dL Assessment and Plan Time with Patient: Greater than 30
--- NOTE | 2021-03-06 15:39 | P.CONS ---
History of Present Illness - Reason for Consult Consult date: 03/06/21 liver cirrhosis Requesting physician: Fletcher E Sheet - Chief Complaint shortness of breath, weakness, cough - History of Present Illness This is a 50-year-old white male who presented to the emergency department with complaints of shortness of breath, weakness, cough, chills and diarrhea. Patient states his symptoms had started one week prior to coming in for evaluation. His past medical history includes GERD, current every day smoker, and alcohol abuse. On admission he had elevation in his LFTs, abdominal ultrasound was obtained and showed abdominal ascites, ultrasound changes suggestive for cirrhosis of the liver, pancreatic duct at proximal body is 3 mm. history tetralogy was consulted on 03/02/2021 for transaminitis, however there was no gastroenterology coverage until today. He was also noted to be positive for C difficile cytotoxin. The patient was started on vancomycin. Patient states he drinks 6-8 beers daily for greater than 10 years duration. He states his last drink was approximately 2 weeks ago. He states he has known liver disease and was told that he had stage I liver disease approximately 4-5 years ago. He has not followed up with any PCP or gastroenterology. He has no previous history of paracentesis. He denies currently any abdominal pain, only bloating and diarrhea. He also states he had a history esophageal varices and underwent an EGD with banding at [facility] about 4 years ago. He denies any current hematemesis, black stools, or blood in his stool. No epigastric pain. On admission WBC 8.2, hemoglobin 13.3, hematocrit 39, platelet count 206,000, INR 1.4, total bilirubin 1.4, alkaline phosphatase 113, AST 88, ALT 59, hepatitis panel negative. Today's repeat total bilirubin 0.9, alkaline phosphatase 137, AST 48, ALT 31. Patient is currently denying any abdominal pain, nausea, or vomiting. Review of Systems REVIEW OF SYSTEMS: CARDIOPULMONARY: No chest pain or shortness of breath. Nonproductive cough. Gastrointestinal: No abdominal pain or distention.. No nausea or vomiting. No hematemesis, coffee-ground emesis. No rectal bleeding, or melena. Nonbloody diarrhea. GENITOURINARY: No dysuria or hematuria. MUSCULOSKELETAL: Reports normal range of motion., Joint pain. SKIN: No rashes. No jaundice. ENDOCRINE: No chills, fevers. No excessive weight gain or loss. No polydipsia or polyuria. PSYCHIATRIC: Unremarkable. NEUROLOGY: No change in mental status. Denies dizziness, headache. ENT: Vision unremarkable. CONSTITUTIONAL: No recent weight loss. No fever, chills, night sweats. Past Medical History Past Medical History: GERD/Reflux History of Any Multi-Drug Resistant Organisms: None Reported Past Surgical History: No Surgical Hx Reported Past Anesthesia/Blood Transfusion Reactions: No Reported Reaction Past Psychological History: No Psychological Hx Reported Smoking Status: Current every day smoker Past Alcohol Use History: None Reported, Rare (patient reports recently quit when symptoms started 1.5 weeks ago, fiancee states it is daily) Past Drug Use History: None Reported Medications and Allergies Home Medications Medication Instructions Recorded Confirmed Type Omeprazole Magnesium [PriLOSEC OTC] 20 mg PO BID PRN 03/01/21 03/01/21 History Allergies Allergy/AdvReac Type Severity Reaction Status Date / Time Penicillins Allergy Unknown Verified 03/01/21 19:33 Physical Exam Vitals: Vital Signs Temp Pulse Resp BP Pulse Ox 03/06/21 07:51 98.4 F 89 18 111/75 92 L 03/06/21 03:12 97.9 F 85 16 120/82 95 03/05/21 20:00 98.6 F 90 16 118/82 97 03/05/21 14:13 99.1 F 95 18 118/79 98 Intake and Output 03/05/21 03/06/21 03/06/21 22:59 06:59 14:59 Other: Voiding Method Toilet # Voids 1 2 # Bowel Movements 14 10 General appearance: The patient is alert, oriented, appears in no acute distress. HET: Head is normocephalic and atraumatic. Conjunctiva pink. Sclera anicteric. Neck: Supple without lymphadenopathy. Trachea midline. Heart: S1 S2. Regular rate and rhythm. Lungs: Clear to auscultation. Abdomen: Soft, nontender, nondistended with bowel sounds. No guarding or rigidity. Skin: No rashes. No jaundice. Extremities: Normal skin color and turgor. No pedal edema. Neurological: No focal deficits. Alert and oriented 3.. Results CBC & Chem 7: 03/05/21 06:11 03/06/21 07:17 US - abdomen: report reviewed (Ascites, ultrasound changes suggestive for cirrhosis of the liver. Pancreatic duct at the proximal body is 3 mm. Normal less than 2 mm. Consider additional workup of the pancreas which has some limitation on this evaluation.) Assessment and Plan (1) Alcoholic cirrhosis of liver Narrative/Plan: C 50-year-old white male who presented to the emergency department with complaints of shortness of breath, weakness, cough, chills, and diarrhea for one week's duration. Patient was noted to have elevated LFTs on admission. He has this significant history of alcohol abuse drinking 6-8 beers daily for the last 10-15 years duration. He is a current every day smoker. Patient states he was seen approximately 4 years ago at [facility] and diagnosed with liver cirrhosis at that time. States he has not followed with any PCP or net lead developer. No previous history of paracentesis. At that time during his hospitalization he also was diagnosed with an upper GI bleed and had an EGD showing esophageal varices with banding. The patient currently denies any black stools, blood in the stools, however has had multiple episodes of diarrhea and stool testing came back positive for C. difficile cytotoxin. Acute Hepatitis panel was negative. Patient had initial elevation in his LFTs on admission, they have trended down. Ultrasound of the abdomen shows changes suggestive for cirrhosis of the liver, ascites. Gallbladder surgically absent. Current Visit: Yes Status: Acute Code(s): K70.30 - ALCOHOLIC CIRRHOSIS OF LIVER WITHOUT ASCITES SNOMED Code(s): 441912117 Plan: 1. Continue symptomatic and supportive care 2. Continue vancomycin 3. Diabetes tolerated, recommend low-sodium 4. Recommend alcohol abstinence, this was discussed with patient in detail that further drinking of any alcohol can increase his risk for liver failure 5. Discussed with patient importance of follow-up with gastroenterology, recommend outpatient follow-up in 3-4 weeks to establish Thank you for this consultation, patient is cleared for discharge from gastroenterology with outpatient follow-up. Dr. East I agree with the dictator's note, documented as a scribe by Virginia Ackerman.
[2021-03-06] MEDS: BUDESONIDE 0.5 MG/2 ML NEBU INHALATION SCH (21:32)
[2021-03-07] MEDS: VANCOMYCIN 125 MG CAPSULE PO SCH ×3 (00:07→13:34)
[2021-03-07] MEDS: HEPARIN SODIUM,PORCINE/PF 5,000 UNIT/0.5 ML SYRINGE SQ SCH ×2 (00:07→09:40)
[2021-03-07] MEDS: ALPRAZolam 0.25 MG TAB PO PRN (00:12)
--- NOTE | 2021-03-07 08:00 | PN ---
PROGRESS NOTE DATE OF SERVICE: 03/06/2021 REASON FOR FOLLOWUP: C. dif colitis. INTERVAL HISTORY: The patient is afebrile. The patient is breathing comfortably. Still having significant diarrhea. No chest pain, shortness of breath, cough, no abdominal pain. PHYSICAL EXAMINATION: Blood pressure 106/73 with a pulse of 90, temperature 98.2. He is 99% on 3 L nasal cannula. General description is a middle-aged male lying in bed in no distress. Respiratory system: Unlabored breathing, clear to auscultation anteriorly. Heart S1, S2. Regular rate and rhythm. Abdomen soft, no tenderness. LABS: BUN 105, creatinine 0.4. DIAGNOSTIC IMPRESSION AND PLAN: Patient with C difficile colitis, some clinical improvement with diarrhea with oral Questran continue for 24 hours and the patient continued to finish therapy with oral vancomycin and Questran as needed. Continue supportive care. MMSULMAL / ERIBERTON: [id number] /
[2021-03-07] MEDS: BUDESONIDE 0.5 MG/2 ML NEBU INHALATION SCH (08:57)
[2021-03-07] MEDS: CHOLESTYRAMINE (WITH SUGAR) 4 GM PACKET PO SCH (09:40)
[2021-03-07] MEDS: NICOTINE 14MG/24HR PATCH TRANSDERM SCH (09:40)
[2021-03-07] MEDS: PANTOPRAZOLE 40 MG TABLET PO PRN (09:48)
[2021-03-07] MEDS: SODIUM CHLORIDE 0.9% 1,000 ML IV SCH (11:43)
[2021-03-07 15:06] VITALS: BP 109/75; PULSE 90; RESP 18; TEMP 98.9
--- NOTE | 2021-03-07 15:31 | P.DS ---
Providers Date of admission: 03/01/21 22:15 Attending physician: Geno Chase Consults: 03/02/21 05:59 Consult Physician Urgent Consulting Provider: Kassandra Justice Consult Reason/Comments: pleural effusions, elevated D dimer Do you want consulting provider notified?: Yes 03/02/21 09:25 Consult Physician Routine Consulting Provider: Lu Stephens Consult Reason/Comments: C. diff positive Do you want consulting provider notified?: Yes Primary care physician: Stated None Hospital Course: Final diagnosis Abdominal pain with diarrhea, present on admission C. diff colitis, on oral Vanco Lactic acidosis, present on admission possibly secondary to above, repeat level 1.6 hypokalema , repleted continue to monitor Shortness of breath with bilateral pleural effusions noted on CT, encourage incentive spirometry, nasal cannula Pulmonary embolism ruled out on CT with elevated d-dimer Generalized weakness, PT consult Continued ongoing nicotine dependence, nicotine patch ordered Possibly alcoholic cirrhosis as noted on scan, follow up with GI outpatient Gastroesophageal reflux disease resume on Protonix Anxiety, related to hospitalization, tobacco useXanax has been ordered for hospital stay. Alcohol abuse DVT prophylaxisheparin subcu, early ambulation GI prophylaxis - Protonix Full code Discharge disposition Patient is discharged home with home care services. Patient will continue on oral Vanco, question and will follow-up with us as disease for C. diff colitis. Patient is discharged with follow-up with primary care providers, pulmonary services. During this admission patient was requiring nasal cannula, at the time of discharge patient has his home oxygen and test, he was 96% on room air. Patient will also follow up with GI services for further workup regarding ascites that was discovered during this admission. Patient is educated on smoking cessation, patient is discharged on a nicotine patch. Hospital course This is a 50-year-old male who came in with complaints of feeling generalized weakness, headache, shortness of breath and experiencing symptoms of Covid and has been tested in the outpatient setting at local pharmacies with negative 3 and 1 send out test was emailed to him stating indeterminant and also was having extreme amounts of diarrhea and some abdominal discomfort and distention. Patient's electrolytes were deficient and replaced per protocol. Sodium level on admission is 124 with a potassium of 3.0 and magnesium was 1.3. Lactic acid elevated at 2.7. ALT, AST elevated and CRP elevated as well 1.6. BNP is 827. Patient was tested again here for Covid and was negative. Patient stated that he had been having diarrhea in copious amounts for 2 weeks leading up to this admission. Patient also had C. diff testing which was found to be positive and being started on oral vancomycin. Pulmonary was consulted. Chest x-ray on admission showed some pleural fluid and atelectasis at both lung bases with bilateral lower lobe pneumonia not excluded. Patient underwent CTA due to elevated d-dimer and continued shortness of breath showing no evidence of pulmonary embolism with bilateral pleural effusions and basilar atelectasis along with abdominal ascites and the liver is slightly irregular but could represent cirrhosis. Abdominal ultrasound ordered along with pulmonary consult. Patient is currently on oxygen via nasal cannula. Ammonia level was 29 and repeat lactic acid was 1.6. Abdominal ultrasound revealed ascites, ultrasound changes suggestive for cirrhosis of the liver, pancreatic duct at the proximal body is 3 mm, consider additional workup of the pancreas with some limitation in this evaluation. Patient was seen in consultation by GI services, who recommended a follow-up outpatient. Patient was counseled on alcohol cessation. Patient had a Doppler that was negative for DVT, at this time lower extremity edema has resolved. Vital signs have remained stable, afebrile, heart rate 90 sinus rhythm, blood pressure 109/75, 96% on room air. Patient's metabolic panel today is within normal limits. 03/07/2021 Patient was requesting to be discharged on Xanax, patient was given a prescription for 3 tablets, and will follow up with primary care provider. In addition patient was discharged on a nicotine patch, a trial of Pulmicort for shortness of breath, patient passed his home oxygen test today. Patient is a lifelong smoker he states that he was smoking up to 2 packs a day and at times since he was a teenager. Patient is given a recommendation to follow up with pulmonary services for primary function testing. Patient has been tolerating a diet this admission, patient states that he is still having some abdominal cramping, diarrhea. Patient will continue on antibiotics, and will follow-up with infectious disease. Patient has remained afebrile. Today patient denies chest pain, cough, denies shortness of breath with ambulation. Patient has been ambulating around the room, alert and oriented 3. Patient is understanding of this plan of care and is discharged home with home care services. See medication reconciliation for list of current medications. Patient Condition at Discharge: Fair Plan - Discharge Summary Discharge Rx Participant: No New Discharge Prescriptions: New Nicotine 14Mg/24Hr Patch [Habitrol] 1 patch TRANSDERM DAILY #14 patch Budesonide [Pulmicort Flexhaler] 2 puff INHALATION BID #1 each Cholestyramine (with Sugar) [Questran Packet] 4 gm PO BID@1000,2100 #28 packet Acetaminophen Tab [Tylenol] 650 mg PO Q6HR PRN tab PRN Reason: Fever And/ Or Pain Vancomycin 125 mg PO QID #32 capsule ALPRAZolam [Xanax] 0.25 mg PO DAILY PRN #3 tab PRN Reason: Anxiety Continue Omeprazole Magnesium [PriLOSEC OTC] 20 mg PO BID PRN PRN Reason: GERDS Discharge Medication List Omeprazole Magnesium [PriLOSEC OTC] 20 mg PO BID PRN 03/01/21 [History] ALPRAZolam [Xanax] 0.25 mg PO DAILY PRN #3 tab 03/07/21 [Rx] Acetaminophen Tab [Tylenol] 650 mg PO Q6HR PRN tab 03/07/21 [Rx] Budesonide [Pulmicort Flexhaler] 2 puff INHALATION BID #1 each 03/07/21 [Rx] Cholestyramine (with Sugar) [Questran Packet] 4 gm PO BID@1000,2100 #28 packet 03/07/21 [Rx] Nicotine 14Mg/24Hr Patch [Habitrol] 1 patch TRANSDERM DAILY #14 patch 03/07/21 [Rx] Vancomycin 125 mg PO QID #32 capsule 03/07/21 [Rx] Follow up Appointment(s)/Referral(s): Kassandra Justice MD [STAFF PHYSICIAN] - 03/30/21 2:00 pm Sissy Bergeron MD [REFERRING] - 03/14/21 10:30 am Jovanna Moncada MD [STAFF PHYSICIAN] - 03/21/21 4:15 pm Lu Stephens MD [STAFF PHYSICIAN] - 03/14/21 1:00 pm Patient Instructions/Handouts: C Diff (Clostridium Difficile) Infection (DC) Activity/Diet/Wound Care/Special Instructions: Patient is to continue on 8 more days of oral vanco for a total of 14 days of t herapy Patient is to take questran for 14 days. Continue to monitor diarrhea, please follow up with PCP if it worsens Follow up with GI Follow up with pulmonary, would recommend a PFT outpatient Patient with suspected COPD; educated on smoking cessation, trial pulmicort. Follow up with ID as needed for C.Dif colitis. Educated on smoking cessation Education on alochol cessation Discharge Disposition: HOME WITH HOME HEALTH SERVICES
--- NOTE | 2021-03-07 21:32 | P.PN ---
Progress Note - Text Progress Note Date: 03/07/21 REASON FOR FOLLOWUP: C. dif colitis. INTERVAL HISTORY: The patient remains to be afebrile. The patient is breathing comfortably. the pt diarrhea has decreased in frequency and slight forming. No chest pain, shortness of breath, cough has decreased and dry, no abdominal pain. PHYSICAL EXAMINATION: Blood pressure 110/75 with a pulse of 90, temperature 98.2. He is 99% on 3 L nasal cannula. General description is a middle-aged male lying in bed in no distress. Respiratory system: Unlabored breathing, clear to auscultation anteriorly. Heart S1, S2. Regular rate and rhythm. Abdomen soft, no tenderness. LABS: BUN 105, creatinine 0.4. DIAGNOSTIC IMPRESSION AND PLAN: Patient with C difficile colitis, some clinical improvement in diarrhea with oral Questran , the patient to finish therapy with oral vancomycin x 10 days and Questran as needed. Continue supportive care.
== END 2021-03-07 15:18 | disposition home health service (06) | DRG 371 ==
LOC: EC 17:20 → 4SSUR 22:15
PROVIDERS: ADMIT Hospitalist; ATTEND Hospitalist
DX: A04.72 Enterocolitis due to Clostridium difficile, not specified as recurrent (principal); I85.11 Secondary esophageal varices with bleeding; E87.1 Hypo-osmolality and hyponatremia; E87.2 Acidosis; J90 Pleural effusion, not elsewhere classified; J98.11 Atelectasis; K70.31 Alcoholic cirrhosis of liver with ascites; D72.810 Lymphocytopenia; R11.10 Vomiting, unspecified; R19.7 Diarrhea, unspecified; E83.42 Hypomagnesemia; E86.0 Dehydration; E87.6 Hypokalemia; F10.10 Alcohol abuse, uncomplicated; F17.210 Nicotine dependence, cigarettes, uncomplicated; F41.9 Anxiety disorder, unspecified; K21.9 Gastro-esophageal reflux disease without esophagitis; Z20.822 Contact with and (suspected) exposure to COVID-19; Z53.20 Procedure and treatment not carried out because of patient's decision for unspecified reasons; Z90.49 Acquired absence of other specified parts of digestive tract; Z87.19 Personal history of other diseases of the digestive system; Z88.0 Allergy status to penicillin
CPT/HCPCS: 36415; 71045; 71275; 76705; 80048; 80053; 80074; 80076; 81003; 82140; 82728; 83605; 83615; 83735; 83880; 84145; 85025; 85027; 85379; 85610; 85730; 86140; 87324; 87635; 93005; 94640; 94760; 96365; 96366; 99285

== ENCOUNTER 2021-07-09 12:18 | Inpatient (IN) | payer OTHER ==
[2021-07-09] MEDS ORDERED: SODIUM CHLORIDE 0.9% 1,000 ML IV ONE (12:31)
[2021-07-09] MEDS ORDERED: ONDANSETRON 4 MG/2 ML VIAL IM STA (12:33)
[2021-07-09] MEDS ORDERED: SODIUM CHLORIDE 0.9% 1,000 ML IV STA ×2 (12:33→12:41)
[2021-07-09] MEDS ORDERED: OCTREOTIDE 100 MCG/ML INJ IVP STA ×2 (12:33→22:59)
[2021-07-09] MEDS ORDERED: PANTOPRAZOLE 40 MG/10 ML VIAL IVP STA (12:33)
[2021-07-09] MEDS ORDERED: ADENOSINE 3 MG/ML 2 ML VIAL IVP STA (12:46)
[2021-07-09 12:55] LABS: Basophils # (A) 0.1 k/uL (0-0.2); Basophils % (A) 1 %; Eosinophils # (A) 0.5 k/uL (0-0.7); Eosinophils % (A) 5 %; HGB 10.6 gm/dL (13.0-17.5); Hypochromasia Slight; Lymphocytes # (A) 2.8 k/uL (1.0-4.8); Lymphocytes % (A) 27 %; MCH 32.8 pg (25.0-35.0); MCHC 31.3 g/dL (31.0-37.0); MCV 104.9 fL (80.0-100.0); Macrocytosis Moderate; Mean Platelet Volume 7.4; Monocytes # (A) 0.4 k/uL (0-1.0); Monocytes % (A) 4 %; Neutrophils # (A) 6.3 k/uL (1.3-7.7); Neutrophils % (A) 61 %; Platelet Count 218 k/uL (150-450); RBC 3.24 m/uL (4.30-5.90); RDW 13.9 % (11.5-15.5); WBC 10.5 k/uL (3.8-10.6)
[2021-07-09] MEDS ORDERED: ONDANSETRON 4 MG/2 ML VIAL IVP STA (12:55)
[2021-07-09 13:12] LABS: ALT 18 U/L (4-49); AST 32 U/L (17-59); African American GFR (CKD) >90 (>60 ml/min/1.73 sqM); Albumin 2.5 g/dL (3.5-5.0); Alkaline Phosphatase 55 U/L (38-126); Anion Gap 10 mmol/L; Blood Urea Nitrogen 15 mg/dL (9-20); Calcium 8.2 mg/dL (8.4-10.2); Carbon Dioxide 20 mmol/L (22-30); Chloride 108 mmol/L (98-107); Glucose 194 mg/dL (74-99); Lipase 421 U/L (23-300); Magnesium 1.7 mg/dL (1.6-2.3); Non-African American GFR(CKD) >90 (>60 ml/min/1.73 sqM); Potassium 4.4 mmol/L (3.5-5.1); Sodium 138 mmol/L (137-145); Total Bilirubin 0.4 mg/dL (0.2-1.3); Total Protein 5.8 g/dL (6.3-8.2)
[2021-07-09 13:17] LABS: INR 1.2 (<1.2); Partial Thromboplastin Time 24.3 sec (22.0-30.0); Prothrombin Time 12.3 sec (9.0-12.0)
--- NOTE | 2021-07-09 13:24 | ED ---
General Adult HPI - General Chief complaint: GI Bleed Stated complaint: gi bleed Time Seen by Provider: 07/09/21 12:27 Source: patient, EMS, RN notes reviewed, old records reviewed Mode of arrival: EMS - History of Present Illness Initial comments: Is a 51-year-old male with past medical history remarkable for alcohol abuse who presents emergency Department complaining of GI bleeding. Patient states that this morning he began having hematemesis as well as melanotic stools. He does have a history of GI bleeds. Believes he had banding done for esophageal varices previously. This was done at [facility]. He states that this morning he began having abdominal pain. He previously quit using alcohol, however since is giving has been using alcohol more frequently. Awoke today and began having episodes of hematemesis and melenic stools. States he chronically has low blood pressure with systolics ranging from 85-100. He currently endorses mild abdominal discomfort, but denies any chest pain, shortness of breath. States he feels cold. Denies any urinary complaints at this time. States he has no history of arrhythmias, and he appears to have a fast pulse. He presents over concern for GI bleed. - Related Data Home Medications Medication Instructions Recorded Confirmed Omeprazole Magnesium [PriLOSEC OTC] 20 mg PO BID 03/01/21 07/09/21 Cyanocobalamin (Vitamin B-12) 1,000 mcg PO DAILY 07/09/21 07/09/21 [Vitamin B-12] Multivitamins, Thera [Multivitamin 1 tab PO DAILY 07/09/21 07/09/21 (formulary)] Potassium Gluconate [Potassium 99 mg PO DAILY 07/09/21 07/09/21 Gluconate ER] Zolpidem [Ambien] 2.5 mg PO HS PRN 07/09/21 07/09/21 Previous Rx's Medication Instructions Recorded ALPRAZolam [Xanax] 0.25 mg PO DAILY PRN #3 tab 03/07/21 Allergies Allergy/AdvReac Type Severity Reaction Status Date / Time Penicillins Allergy Rash/Hives Verified 07/09/21 16:55 Review of Systems ROS Statement: Those systems with pertinent positive or pertinent negative responses have been documented in the HPI. Review of Systems: CONST: Denies fever EYES: Denies blurry vision ENT: Denies nasal congestion C/V: Denies Chest pain RESP: Denies shortness of breath GI: Endorses nonspecific abdominal pain. : Denies dysuria SKIN: Denies rash. MSK: Denies joint pain. NEURO: Denies headache ROS Other: All systems not noted in ROS Statement are negative. Past Medical History Past Medical History: GERD/Reflux History of Any Multi-Drug Resistant Organisms: None Reported Past Surgical History: Appendectomy Past Anesthesia/Blood Transfusion Reactions: No Reported Reaction Past Psychological History: No Psychological Hx Reported Smoking Status: Current every day smoker Past Alcohol Use History: None Reported, Rare Past Drug Use History: None Reported General Exam - General Exam Comments Initial Comments: General: Appears in no acute distress. HEAD: Normal with no signs of head trauma. EYES: PERRLA, EOMI, conjunctiva normal, no discharge. Conjunctiva are not pale. ENT: Hearing grossly intact, normal oropharynx. Dried blood surrounding mouth. RESPIRATORY: Clear breath sounds bilaterally. No wheezes, rales, or rhonchi. C/V: Tachycardic with a regular rhythm. S1 and S2 auscultated. Peripheral pulses are 2+ intact throughout. No peripheral edema. ABD: Abdomen is nondistended. Abdomen is soft. Patient is generalized tenderness that is nonfocal. No guarding. No rebound tenderness. No peritoneal signs. EXT: Normal range of motion, no obvious deformity SKIN: No rashes or lesions observed on exposed skin. NEURO: Alert and Oriented 4. No focal deficits. Course Vital Signs 07/09/21 07/09/21 07/09/21 12:19 12:48 12:50 Temperature 97.5 F L Pulse Rate 178 H 154 H 98 Respiratory 18 20 20 Rate Blood Pressure 93/69 80/58 76/65 O2 Sat by Pulse 93 L 99 99 Oximetry 07/09/21 07/09/21 07/09/21 12:55 13:00 13:10 Temperature Pulse Rate 101 H 100 90 Respiratory 20 20 20 Rate Blood Pressure 89/49 98/34 96/72 O2 Sat by Pulse 98 100 100 Oximetry 07/09/21 07/09/21 07/09/21 13:20 14:00 14:10 Temperature 98.2 F 98.2 F Pulse Rate 93 96 96 Respiratory 20 16 16 Rate Blood Pressure 97/68 89/61 85/62 O2 Sat by Pulse 100 100 100 Oximetry 07/09/21 07/09/21 07/09/21 14:40 15:20 15:30 Temperature 98.2 F 98.1 F 98.1 F Pulse Rate 99 99 100 Respiratory 16 18 18 Rate Blood Pressure 88/55 89/55 88/58 O2 Sat by Pulse 100 100 100 Oximetry 07/09/21 07/09/21 07/09/21 15:42 16:00 16:28 Temperature 98.1 F 98.6 F Pulse Rate 96 89 92 Respiratory 18 18 18 Rate Blood Pressure 93/63 85/69 95/65 O2 Sat by Pulse 100 100 99 Oximetry 07/09/21 07/09/21 07/09/21 16:35 16:45 17:15 Temperature 98.6 F 98.6 F 98.6 F Pulse Rate 92 77 85 Respiratory 18 18 18 Rate Blood Pressure 102/67 98/64 95/66 O2 Sat by Pulse 100 100 100 Oximetry 07/09/21 07/09/21 07/09/21 17:26 18:05 18:40 Temperature 98.6 F 98.6 F Pulse Rate 80 80 70 Respiratory 18 18 18 Rate Blood Pressure 96/64 94/65 103/78 O2 Sat by Pulse 100 100 100 Oximetry 07/09/21 20:02 Temperature Pulse Rate 82 Respiratory 18 Rate Blood Pressure 99/67 O2 Sat by Pulse 100 Oximetry Medical Decision Making - Medical Decision Making Based on patient's presentation and physical exam, I'm concerned for upper GI bleeding, protuberant with his history of a season banding. Patient has had ashley hematemesis and ashley melanotic stools. 2 large-bore IVs were placed. He was started 2 L fluid bolus. Laboratory studies were drawn and sent. EKG revealed supraventricular tachycardia that converted to normal sinus rhythm following 6 mg of IV adenosine. Patient is mildly hypotensive which is improving with fluids. He will be administered IV octreotide, Rocephin, Zofran, Protonix. Patient was in agreement this plan. 3 units of packed red blood cells were ordered for the patient. Laboratory studies remarkable for hemoglobin of 10.6, which is slightly below his baseline in the [place]. INR is mildly elevated to 1.2. Patient has an elevated lactic acid of 5.8. His no anion gap acidosis. Magnesium is 1.7. Remainder the labs are unremarkable. Lipase is mildly elevated to 421. On reevaluation, patient is feeling improved. Blood pressure is stabilized. Patient remains in normal sinus rhythm at this time. I discussed with him that I would like to transfer him as we do not have GI coverage at this hospital at this time. I did subsequently speak with all on-call surgeons, neither of which felt comfortable admitting the patient, as he does need GI coverage for poss ible esophageal varices. This is reasonable. I spoke with Dr. Olivarez who is not rehabilitation engineer who also declined the patient. Attempts will be made to transfer the patient. If it is a variceal bleed, he needs GI coverage present. I contacted multiple hospitals and emergency departments, including the entire [facility] system, [facility] system, [facility], [facility] system, other [facility] systems including [facility], as well as [facility]. All turned the patient down. [facility] also refused. I spoke with [facility] who accepted the patient, however there is a wait list to be admitted for and are refusing ED-ED transfers. They tentatively accepted the patient is a Gen. medicine floor admission. Accepting physician is Dr. Brewer. They do request repeat laboratory studies and updates over the course of his stay here. As the patient is pending transfer, however is a critical patient, I did speak with the admitting physician, Dr. Andres who accepted the patient still pending transfer. We do not have GI coverage tonight, however Elmer does return tomorrow morning and consult will be placed to Dr. Moncada. If GI requires surgery at that time, she will consult them. I spoke with the ICU attending on-call, Dr. Justice was in agreement to the admission, however we will negotiate with nursing staff and try to offload whichever staff is more overwhelmed, ED or ICU and may remain in the ICU. Transfer is still pending to afford at this time. I did contact them multiple times to update them on laboratory studies including repeat lactic acid which is normal. Following one unit packed RBCs, hemoglobin is 10.0. Repeat CBC is pending. Patient received 3 units pRBCs, and vital signs are main stable at this time. Patient will be admitted to our hospital under Dr. Andres for his an ICU admission pending transfer to [facility] and possible consult with GI. Both Dr. andres and I spoke with the patient regarding his CODE STATUS, as we do not have GI coverage here until tomorrow. He may remain here pending transfer to [facility] until tomorrow. We discussed that if he were to have an acute variceal GI bleed that is severe in nature causing him to code, is unlikely we will be able to properly treat him, as we do not have the specialty service he required. Patient is a temporary DNR/DNI until tomorrow or until transferred. Patient was in agreement with this plan. Conversation completed with Dr. Andres. At this time, patient was started on daily Rocephin, when necessary Zofran, and octreotide drip at 25 g an hour, as well as Protonix twice a day 40 mg. Patient is pending transfer to [facility]. Patient is in serious condition at this time. Patient is also admitted to our ICU pending transfer. - Lab Data Result diagrams: 07/09/21 15:13 07/09/21 12:30 Lab Results 07/09/21 07/09/21 07/09/21 Range/Units 12:30 12:30 12:30 WBC 10.5 (3.8-10.6) k/uL RBC 3.24 L (4.30-5.90) m/uL Hgb 10.6 L (13.0-17.5) gm/dL Hct 34.0 L (39.0-53.0) % MCV 104.9 H (80.0-100.0) fL MCH 32.8 (25.0-35.0) pg MCHC 31.3 (31.0-37.0) g/dL RDW 13.9 (11.5-15.5) % Plt Count 218 (150-450) k/uL MPV 7.4 Neutrophils % 61 % Lymphocytes % 27 % Monocytes % 4 % Eosinophils % 5 % Basophils % 1 % Neutrophils # 6.3 (1.3-7.7) k/uL Lymphocytes # 2.8 (1.0-4.8) k/uL Monocytes # 0.4 (0-1.0) k/uL Eosinophils # 0.5 (0-0.7) k/uL Basophils # 0.1 (0-0.2) k/uL Hypochromasia Slight Macrocytosis Moderate PT 12.3 H (9.0-12.0) sec INR 1.2 H (<1.2) APTT 24.3 (22.0-30.0) sec Sodium 138 (137-145) mmol/L Potassium 4.4 (3.5-5.1) mmol/L Chloride 108 H (98-107) mmol/L Carbon Dioxide 20 L (22-30) mmol/L Anion Gap 10 mmol/L BUN 15 (9-20) mg/dL Creatinine 0.94 (0.66-1.25) mg/dL Est GFR (CKD-EPI)AfAm >90 (>60 ml/min/1.73 sqM) Est GFR (CKD-EPI)NonAf >90 (>60 ml/min/1.73 sqM) Glucose 194 H (74-99) mg/dL Lactic Ac Sepsis Rflx Plasma Lactic Acid Flavio (0.7-2.0) mmol/L Calcium 8.2 L (8.4-10.2) mg/dL Magnesium 1.7 (1.6-2.3) mg/dL Total Bilirubin 0.4 (0.2-1.3) mg/dL AST 32 (17-59) U/L ALT 18 (4-49) U/L Alkaline Phosphatase 55 (38-126) U/L Troponin I (0.000-0.034) ng/mL Total Protein 5.8 L (6.3-8.2) g/dL Albumin 2.5 L (3.5-5.0) g/dL Lipase 421 H (23-300) U/L Blood Type Blood Type Confirm Blood Type Recheck Bld Type Recheck Status Antibody Screen Crossmatch Spec Expiration Date 07/09/21 07/09/21 07/09/21 Range/Units 12:30 12:30 12:30 WBC (3.8-10.6) k/uL RBC (4.30-5.90) m/uL Hgb (13.0-17.5) gm/dL Hct (39.0-53.0) % MCV (80.0-100.0) fL MCH (25.0-35.0) pg MCHC (31.0-37.0) g/dL RDW (11.5-15.5) % Plt Count (150-450) k/uL MPV Neutrophils % % Lymphocytes % % Monocytes % % Eosinophils % % Basophils % % Neutrophils # (1.3-7.7) k/uL Lymphocytes # (1.0-4.8) k/uL Monocytes # (0-1.0) k/uL Eosinophils # (0-0.7) k/uL Basophils # (0-0.2) k/uL Hypochromasia Macrocytosis PT (9.0-12.0) sec INR (<1.2) APTT (22.0-30.0) sec Sodium (137-145) mmol/L Potassium (3.5-5.1) mmol/L Chloride (98-107) mmol/L Carbon Dioxide (22-30) mmol/L Anion Gap mmol/L BUN (9-20) mg/dL Creatinine (0.66-1.25) mg/dL Est GFR (CKD-EPI)AfAm (>60 ml/min/1.73 sqM) Est GFR (CKD-EPI)NonAf (>60 ml/min/1.73 sqM) Glucose (74-99) mg/dL Lactic Ac Sepsis Rflx Plasma Lactic Acid Flavio 5.8 H* (0.7-2.0) mmol/L Calcium (8.4-10.2) mg/dL Magnesium (1.6-2.3) mg/dL Total Bilirubin (0.2-1.3) mg/dL AST (17-59) U/L ALT (4-49) U/L Alkaline Phosphatase (38-126) U/L Troponin I 0.013 (0.000-0.034) ng/mL Total Protein (6.3-8.2) g/dL Albumin (3.5-5.0) g/dL Lipase (23-300) U/L Blood Type A Positive Blood Type Confirm Blood Type Recheck No Previous Record Bld Type Recheck Status CABO Indicated Antibody Screen NEGATIVE Crossmatch See Detail Spec Expiration Date 07/12/2021 - 232907/09/21 07/09/21 07/09/21 Range/Units 12:34 13:18 15:13 WBC 12.0 H (3.8-10.6) k/uL RBC 2.97 L (4.30-5.90) m/uL Hgb 10.0 L (13.0-17.5) gm/dL Hct 30.5 L (39.0-53.0) % MCV 102.8 H (80.0-100.0) fL MCH 33.7 (25.0-35.0) pg MCHC 32.8 (31.0-37.0) g/dL RDW 14.1 (11.5-15.5) % Plt Count 153 (150-450) k/uL MPV 7.4 Neutrophils % % Lymphocytes % % Monocytes % % Eosinophils % % Basophils % % Neutrophils # (1.3-7.7) k/uL Lymphocytes # (1.0-4.8) k/uL Monocytes # (0-1.0) k/uL Eosinophils # (0-0.7) k/uL Basophils # (0-0.2) k/uL Hypochromasia Macrocytosis Slight PT (9.0-12.0) sec INR (<1.2) APTT (22.0-30.0) sec Sodium (137-145) mmol/L Potassium (3.5-5.1) mmol/L Chloride (98-107) mmol/L Carbon Dioxide (22-30) mmol/L Anion Gap mmol/L BUN (9-20) mg/dL Creatinine (0.66-1.25) mg/dL Est GFR (CKD-EPI)AfAm (>60 ml/min/1.73 sqM) Est GFR (CKD-EPI)NonAf (>60 ml/min/1.73 sqM) Glucose (74-99) mg/dL Lactic Ac Sepsis Rflx Y Plasma Lactic Acid Flavio (0.7-2.0) mmol/L Calcium (8.4-10.2) mg/dL Magnesium (1.6-2.3) mg/dL Total Bilirubin (0.2-1.3) mg/dL AST (17-59) U/L ALT (4-49) U/L Alkaline Phosphatase (38-126) U/L Troponin I (0.000-0.034) ng/mL Total Protein (6.3-8.2) g/dL Albumin (3.5-5.0) g/dL Lipase (23-300) U/L Blood Type Blood Type Confirm A Positive Blood Type Recheck Bld Type Recheck Status Antibody Screen Crossmatch Spec Expiration Date - EKG Data -: EKG Interpreted by Me EKG Comments: 12-lead Electrocardiogram Interpretation Note EKG was reviewed and interpreted by myself. 12-lead ECG performed at 1239 is interpreted by me as revealing SVT at a rate of 162 beats per minute. [place] is normal. AR interval is obtainable, QRS duration is 92 ms, QTc is 4 and 79 ms.. There were no ST or T wave abnormalities to suggest myocardial ischemia or injury. R wave progression across the precordium was satisfactory. By my interpretation this EKG is non-diagnostic for acute ischemia. Patient's new- onset supraventricular tachycardia. Following 6 mg of adenosine: 12-lead Electrocardiogram Interpretation Note EKG was reviewed and interpreted by myself. 12-lead ECG performed at 1247 is interpreted by me as revealing normal sinus rhythm at a rate of 100 beats per minute. [place] is normal. AR interval is 162 ms, QRS duration 70 ms, QTc is 428 ms.. There were no ST or T wave abnormalities to suggest myocardial ischemia or injury. R wave progression across the precordium was satisfactory. By my interpretation this EKG is non-diagnostic for acute ischemia. Critical Care Time Critical Care Time: Yes Total Critical Care Time: 80 Critical Care Time: Upon my evaluation, this patient had a high probability of imminent or life- threatening deterioration due to GI bleed, acute on chronic hypertension, SVT, which required my direct attention, intervention, and personal management. I have personally provided 80 minutes of critical care time exclusive of time spent on separately billable procedures. Time includes review of laboratory data, radiology results, discussion with consultants, and monitoring for potential decompensation. Interventions were performed as documented in my note. Disposition Clinical Impression: SVT (supraventricular tachycardia), GI bleed, History of esophageal varices, Melena, Lactic acidosis, Chronic hypotension Disposition: ADMITTED IP TO THIS HOSP Condition: Serious - Out of Hospital Transfer - Req. Specs Out of Hospital Transfer - Requested Specifics: Other Non-Acute (Pending floor transfer to [facility].)
--- NOTE | 2021-07-09 13:49 | XR ---
EXAMINATION TYPE: XR chest 1V portable DATE OF EXAM: 07/09/2021 1:29 PM COMPARISON:Chest radiographs from 03/04/2021 CLINICAL INDICATION:Male, 51 years old with history of pain; TECHNIQUE: Frontal view of the chest. FINDINGS: Lungs/Pleura: Interval resolution of left pleural effusion seen on prior. There is no evidence of ple ural effusion, focal consolidation, or pneumothorax. Pulmonary vascularity: Unremarkable. Heart/mediastinum: Cardiomediastinal silhouette is unremarkable. Musculoskeletal: No acute osseous pathology. IMPRESSION: No acute cardiopulmonary disease/process.
--- NOTE | 2021-07-09 14:51 | CT ---
EXAMINATION TYPE: CT abdomen pelvis wo/w con DATE OF EXAM: 07/09/2021 COMPARISON: None HISTORY: generalized pain, GI bleed CT DLP: 2069 mGycm Automated exposure control for dose reduction was used. CONTRAST: Performed without and with IV Contrast, patient injected with 100 mL of Isovue 300. There are 3-D pos t processed images. Lung bases are clear. There is no pleural effusion. Heart size is normal. There is no pericardial eff usion. There is small hiatal hernia. Stomach is large. There are clips from cholecystectomy. The bile ducts are not dilated. Spleen is intact. There is no evidence of pancreatic mass. Liver is intact. There is no adrenal mass. Kidneys show satisfactory contrast opacification. There is no hydronephrosi s. There are varicose veins at the spleen and gastroesophageal junction. There is no retroperitoneal adenopathy. Bladder distends smoothly. There is no inguinal hernia. There is no free fluid in the pel vis. There is no mesenteric edema. There is no ascites or free air. There is 3 x 2 cm umbilical hernia troy t contains fat. Appendix not seen. No sign of thickened appendix. There is no evidence of renal calcu fredy. There is mild lumbar levoscoliosis.The bony pelvis appears intact. The hip joints are intact. There is no evidence of contrast extravasation on the delayed images. IMPRESSION: No evidence of active GI bleeding. Splenic varices consistent with portal venous hypertension. No focal liver defect. Atherosclerotic va scular disease.
[2021-07-09 15:46] LABS: HCT 30.5 % (39.0-53.0); MCH 33.7 pg (25.0-35.0); MCHC 32.8 g/dL (31.0-37.0); MCV 102.8 fL (80.0-100.0); Macrocytosis Slight; Mean Platelet Volume 7.4; Platelet Count 153 k/uL (150-450); RBC 2.97 m/uL (4.30-5.90); RDW 14.1 % (11.5-15.5)
[2021-07-09] MEDS ORDERED: OCTREOTIDE 500 MCG in SODIUM CHLORIDE 0.9% 250 ML IV ONE (17:03)
[2021-07-09] MEDS: SODIUM CHLORIDE 0.9% 1,000 ML IV SCH (17:35)
[2021-07-09] MEDS: PANTOPRAZOLE 40 MG/10 ML VIAL IVP SCH ×2 (17:36→22:07)
--- NOTE | 2021-07-09 18:42 | P.HPIM ---
History of Present Illness H&P Date: 07/09/21 Chief Complaint: hematemesis 51-year-old man with medical history of alcoholic cirrhosis with esophageal varices which were previously banded 2 years ago at [facility], current alcohol use presented with abdominal pain and hematemesis. Patient says his pain started this morning around 10:30, and progressed to the point where he was starting to vomit significant amounts of blood, in addition he also noticed that he stools were melenic. In addition to the above complaints he is noted to have palpitations, chills. Patient presented for further evaluation due to concern over the large volume of blood that he was vomiting. Patient denies fevers, chest pain, cough, dyspnea, constipation, numbness/weakness of extremities. In the emergency room, patient was noted to be hypotensive and did have episodes of hematemesis of large volume. His lowest blood pressures were 76/30s, hemoglobin was 10.6 initially, INR was 1.2, initial lactic acid was 5.8. Ryan maharaj had been receiving 2 units of blood, with plans to receive 3 total in the emergency room. He also received 2 L initial bolus of fluids and was started on lactated Ringer's at 75 mL/h afterwards. Patient was also bolused with Protonix, somatostatin; Protonix 40 mg IV twice a day was ordered, somatostatin drip was ordered afterwards. We do not have GI coverage at this time, therefore surgery was consulted regarding doing an endoscopy with possibility of banding, however, given the severity of the bleed and the fact that it is hemodynamically significant and likely variceal, surgery does not offer banding in our facility. Therefore they felt the patient would be better served transferring to an outside facility, unfortunately, due to the pandemic spike of Covid cases, no ER is directly accepting transfers in our area. A total of 8-10+ facilities were contacted, and had similar capacity issues at their facilities, precluding the patient from being emergently transferred from the emergency room. However, patient was accepted to [facility] as an inpatient pending bed avai lability, which they identify will likely take days due to there being numerous patients of mine ahead of this patient. Also of note, our GI specialist will be available starting tomorrow morning, and may be able to provide the service that this patient needs here in [place]. In the meantime, hospitalist service was asked to admit the patient to the intensive care unit, and pulmonary was notified as well regarding this unfortunate situation for this patient. I discussed the situation with the patient at bedside, and we addressed goals of care in the event that he has another significant episode of hematemesis in our facility considering that we could not provide the care he needs to survive exsanguinating from a variceal bleed until tomorrow morning at the earliest. Patient understands that this is an unfortunate situation, and that should something happen before our specialty service is available to take care of him overnight, he would not want to be resuscitated or intubated. However, should he decline and code when the specialty service is available, or if he receives a bed from [facility], whichever comes first, he would like to be full code. Review of Systems All Systems reviewed and pertinent positives and negatives noted in HPI, all other symptoms are negative Past Medical History Past Medical History: GERD/Reflux History of Any Multi-Drug Resistant Organisms: None Reported Past Surgical History: Appendectomy Past Anesthesia/Blood Transfusion Reactions: No Reported Reaction Past Psychological History: No Psychological Hx Reported Smoking Status: Current every day smoker Past Alcohol Use History: None Reported, Rare Past Drug Use History: None Reported Medications and Allergies Home Medications Medication Instructions Recorded Confirmed Type Omeprazole Magnesium [PriLOSEC OTC] 20 mg PO BID 03/01/21 07/09/21 History ALPRAZolam [Xanax] 0.25 mg PO DAILY PRN #3 tab 03/07/21 07/09/21 Rx Cyanocobalamin (Vitamin B-12) 1,000 mcg PO DAILY 07/09/21 07/09/21 History [Vitamin B-12] Multivitamins, Thera [Multivitamin 1 tab PO DAILY 07/09/21 07/09/21 History (formulary)] Potassium Gluconate [Potassium 99 mg PO DAILY 07/09/21 07/09/21 History Gluconate ER] Zolpidem [Ambien] 2.5 mg PO HS PRN 07/09/21 07/09/21 History Allergies Allergy/AdvReac Type Severity Reaction Status Date / Time Penicillins Allergy Rash/Hives Verified 07/09/21 16:55 Physical Exam Osteopathic Statement: *. No significant issues noted on an osteopathic struct ural exam other than those noted in the History and Physical/Consult. Vitals: Vital Signs Temp Pulse Resp BP Pulse Ox 07/09/21 18:05 80 18 94/65 100 07/09/21 17:26 98.6 F 80 18 96/64 100 07/09/21 17:15 98.6 F 85 18 95/66 100 07/09/21 16:45 98.6 F 77 18 98/64 100 07/09/21 16:35 98.6 F 92 18 102/67 100 07/09/21 16:28 98.6 F 92 18 95/65 99 07/09/21 16:00 98.1 F 89 18 85/69 100 07/09/21 15:42 96 18 93/63 100 07/09/21 15:30 98.1 F 100 18 88/58 100 07/09/21 15:20 98.1 F 99 18 89/55 100 07/09/21 14:40 98.2 F 99 16 88/55 100 07/09/21 14:10 98.2 F 96 16 85/62 100 07/09/21 14:00 98.2 F 96 16 89/61 100 07/09/21 13:20 93 20 97/68 100 07/09/21 13:10 90 20 96/72 100 07/09/21 13:00 100 20 98/34 100 07/09/21 12:55 101 H 20 89/49 98 07/09/21 12:50 98 20 76/65 99 07/09/21 12:48 154 H 20 80/58 99 07/09/21 12:19 97.5 F L 178 H 18 93/69 93 L Intake and Output 07/09/21 07/09/21 07/09/21 06:59 14:59 22:59 Intake Total 0 620 Balance 0 620 Intake: Blood Product 0 620 Rc As-1 Unit 310 [id number] Rc As-1 Unit 0 310 [id number] Rc As-1 Unit 0 [id number] Other: Weight 86.636 kg Gen: awake, alert HEENT: normocephalic, atraumatic, good hearing acuity, moist mucous membranes Resp: good air exchange, breathing comfortably with no accessory muscle use, clear to auscultation bilaterally CVS: good distal perfusion x 4, regular rate and rhythm without murmurs, GI: Mild epigastric tenderness to palpation : no SPT, no CVAT, centeno catheter not present MSK: Trace bilateral pitting edema, no clubbing Neuro: non-focal, moving all extremities Psych: cooperative, anxious mood Results CBC & Chem 7: 07/09/21 15:13 07/09/21 12:30 Labs: Abnormal Lab Results - Last 24 Hours (Table) 07/09/21 07/09/21 07/09/21 Range/Units 12:30 12:30 12:30 WBC (3.8-10.6) k/uL RBC 3.24 L (4.30-5.90) m/uL Hgb 10.6 L (13.0-17.5) gm/dL Hct 34.0 L (39.0-53.0) % MCV 104.9 H (80.0-100.0) fL PT 12.3 H (9.0-12.0) sec INR 1.2 H (<1.2) Chloride 108 H (98-107) mmol/L Carbon Dioxide 20 L (22-30) mmol/L Glucose 194 H (74-99) mg/dL Plasma Lactic Acid Flavio (0.7-2.0) mmol/L Calcium 8.2 L (8.4-10.2) mg/dL Total Protein 5.8 L (6.3-8.2) g/dL Albumin 2.5 L (3.5-5.0) g/dL Lipase 421 H (23-300) U/L Crossmatch 07/09/21 07/09/21 07/09/21 Range/Units 12:30 12:30 15:13 WBC 12.0 H (3.8-10.6) k/uL RBC 2.97 L (4.30-5.90) m/uL Hgb 10.0 L (13.0-17.5) gm/dL Hct 30.5 L (39.0-53.0) % MCV 102.8 H (80.0-100.0) fL PT (9.0-12.0) sec INR (<1.2) Chloride (98-107) mmol/L Carbon Dioxide (22-30) mmol/L Glucose (74-99) mg/dL Plasma Lactic Acid Flavio 5.8 H* (0.7-2.0) mmol/L Calcium (8.4-10.2) mg/dL Total Protein (6.3-8.2) g/dL Albumin (3.5-5.0) g/dL Lipase (23-300) U/L Crossmatch See Detail Assessment and Plan Assessment: Acute blood loss anemia Variceal bleed -Admit inpatient in the ICU, telemetry -CBC every 6 hours -PPI IV twice a day -Somatostatin drip -GI consult in the morning -Transfer as soon as bed is available and [facility] or until specialist is harriett larson, which ever comes first -Pulmonary consult -Maintain 2 large bore IVs -Hold home medications -Strict nothing by mouth -Ceftriaxone 1 g every 24 hours -Continue IV fluids Supraventricular tachycardia -Return to sinus rhythm after adenosine 6 mg push -Continue to monitor on telemetry -Should patient develop SVT again, will likely require amiodarone Alcoholic cirrhosis Alcohol abuse disorder -Monitor for withdrawal -Alcohol cessation counseling Patient is a temporary DNR/DNI, see CODE STATUS comments in the orders
[2021-07-09] MEDS: ONDANSETRON 4 MG/2 ML VIAL IVP PRN (22:06)
[2021-07-09 22:12] LABS: MCH 32.2 pg (25.0-35.0); MCHC 33.3 g/dL (31.0-37.0); Mean Platelet Volume 7.8; Platelet Count 113 k/uL (150-450); RBC 3.11 m/uL (4.30-5.90); RDW 14.3 % (11.5-15.5); WBC 8.8 k/uL (3.8-10.6)
[2021-07-09 22:15] LABS: MCV 96.6 fL (80.0-100.0)
[2021-07-10] MEDS: OCTREOTIDE 500 MCG in SODIUM CHLORIDE 0.9% 250 ML IV SCH ×4 (00:09→20:29)
[2021-07-10 03:42] LABS: African American GFR (CKD) >90 (>60 ml/min/1.73 sqM); Anion Gap 3 mmol/L; Blood Urea Nitrogen 23 mg/dL (9-20); Calcium 6.8 mg/dL (8.4-10.2); Carbon Dioxide 18 mmol/L (22-30); Chloride 115 mmol/L (98-107); Glucose 110 mg/dL (74-99); Magnesium 1.6 mg/dL (1.6-2.3); Non-African American GFR(CKD) >90 (>60 ml/min/1.73 sqM); Potassium 5.3 mmol/L (3.5-5.1); Sodium 136 mmol/L (137-145)
[2021-07-10 04:02] LABS: Basophils % (A) 0 %; Eosinophils # (A) 0.1 k/uL (0-0.7); Eosinophils % (A) 0 %; HCT 26.3 % (39.0-53.0); HGB 8.7 gm/dL (13.0-17.5); Lymphocytes # (A) 1.3 k/uL (1.0-4.8); Lymphocytes % (A) 9 %; MCH 31.6 pg (25.0-35.0); MCHC 33.1 g/dL (31.0-37.0); MCV 95.5 fL (80.0-100.0); Mean Platelet Volume 8.1; Monocytes # (A) 0.8 k/uL (0-1.0); Monocytes % (A) 5 %; Neutrophils # (A) 13.4 k/uL (1.3-7.7); Neutrophils % (A) 85 %; RBC 2.75 m/uL (4.30-5.90); RDW 14.9 % (11.5-15.5); WBC 15.8 k/uL (3.8-10.6)
[2021-07-10 04:37] LABS: Platelet Count 86 k/uL (150-450)
[2021-07-10 05:46] LABS: Glucose,Whole Blood 132 mg/dL (75-99)
[2021-07-10] MEDS: SODIUM CHLORIDE 0.9% 1,000 ML IV SCH ×2 (06:37→19:34)
[2021-07-10 07:25] LABS: Basophils % (A) 0 %; Eosinophils # (A) 0.2 k/uL (0-0.7); Eosinophils % (A) 2 %; HCT 23.8 % (39.0-53.0); HGB 7.8 gm/dL (13.0-17.5); Hypochromasia Slight; Lymphocytes # (A) 2.1 k/uL (1.0-4.8); Lymphocytes % (A) 18 %; MCH 32.4 pg (25.0-35.0); MCHC 32.9 g/dL (31.0-37.0); MCV 98.4 fL (80.0-100.0); Macrocytosis Slight; Mean Platelet Volume 7.7; Monocytes # (A) 0.7 k/uL (0-1.0); Monocytes % (A) 6 %; Neutrophils # (A) 8.6 k/uL (1.3-7.7); Neutrophils % (A) 72 %; Platelet Count 113 k/uL (150-450); RBC 2.41 m/uL (4.30-5.90); RDW 15.7 % (11.5-15.5); WBC 11.9 k/uL (3.8-10.6)
[2021-07-10] MEDS: PROPRANOLOL 20 MG TAB PO SCH ×2 (08:13)
[2021-07-10] MEDS: PANTOPRAZOLE 40 MG/10 ML VIAL IVP SCH ×2 (08:20→19:34)
--- NOTE | 2021-07-10 10:08 | P.PN ---
Subjective Progress Note Date: 07/10/21 Spoke with patient this morning as well as GI ENVIRONMENTAL CONSERVATION OFFICER, patient will undergo endoscopy at noon today. Patient is received 4 units of blood, but his hemoglobin continues to drop. Blood pressure has been borderline. Objective - Vital Signs Vital signs: Vital Signs Temp 97.8 F 07/10/21 09:09 Pulse 76 07/10/21 09:09 Resp 18 07/10/21 09:09 BP 82/55 07/10/21 09:09 Pulse Ox 95 07/10/21 09:09 Intake & Output 07/09/21 07/10/21 07/10/21 18:59 06:59 18:59 Intake Total 930 833.459 747.417 Output Total 0 0 Balance 930 833.459 747.417 Weight 86.636 kg 88.5 kg Intake: IV 150 225 Sodium Chloride 0.9% 1, 150 225 000 ml @ 75 mls/hr IV . [id number] Rx#:[id number] Intake, IV Titration 76.459 205.417 Amount Octreotide 500 mcg In 76.459 Sodium Chloride 0.9% 250 ml @ 25 MCG/HR 12.5 mls/ hr IV .Q20H ONE Rx#: [id number] Octreotide 500 mcg In 205.417 Sodium Chloride 0.9% 250 ml @ 50 MCG/HR 25 mls/hr IV .Q10H [facility] Rx#: [id number] Blood Product 930 607 317 Ffp 24 Cpd Unit 297 [id number] Ffp 24 Cpd Unit 0 317 [id number] Rc As-1 Unit 310 [id number] Rc As-1 Unit 0 [id number] Rc As-1 Unit 310 [id number] Rc As-1 Unit 310 [id number] Rc As-1 Unit 310 [id number] Output: Urine 0 0 - Exam Gen: awake, alert HEENT: normocephalic, atraumatic, good hearing acuity, moist mucous membranes Resp: good air exchange, breathing comfortably with no accessory muscle use, clear to auscultation bilaterally CVS: good distal perfusion x 4, regular rate and rhythm without murmurs, GI: Mild epigastric tenderness to palpation : no SPT, no CVAT, centeno catheter not present MSK: Trace bilateral pitting edema, no clubbing Neuro: non-focal, moving all extremities Psych: cooperative, anxious mood - Labs CBC & Chem 7: 07/10/21 06:58 07/10/21 02:51 Labs: Abnormal Lab Results - Last 24 Hours (Table) 07/09/21 07/09/21 07/09/21 Range/Units 12:30 12:30 12:30 WBC (3.8-10.6) k/uL RBC 3.24 L (4.30-5.90) m/uL Hgb 10.6 L (13.0-17.5) gm/dL Hct 34.0 L (39.0-53.0) % MCV 104.9 H (80.0-100.0) fL RDW (11.5-15.5) % Plt Count (150-450) k/uL Neutrophils # (1.3-7.7) k/uL PT 12.3 H (9.0-12.0) sec INR 1.2 H (<1.2) Sodium (137-145) mmol/L Potassium (3.5-5.1) mmol/L Chloride 108 H (98-107) mmol/L Carbon Dioxide 20 L (22-30) mmol/L BUN (9-20) mg/dL Glucose 194 H (74-99) mg/dL POC Glucose (mg/dL) (75-99) mg/dL Plasma Lactic Acid Flavio (0.7-2.0) mmol/L Calcium 8.2 L (8.4-10.2) mg/dL Total Protein 5.8 L (6.3-8.2) g/dL Albumin 2.5 L (3.5-5.0) g/dL Lipase 421 H (23-300) U/L Crossmatch 07/09/21 07/09/21 07/09/21 Range/Units 12:30 12:30 15:13 WBC 12.0 H (3.8-10.6) k/uL RBC 2.97 L (4.30-5.90) m/uL Hgb 10.0 L (13.0-17.5) gm/dL Hct 30.5 L (39.0-53.0) % MCV 102.8 H (80.0-100.0) fL RDW (11.5-15.5) % Plt Count (150-450) k/uL Neutrophils # (1.3-7.7) k/uL PT (9.0-12.0) sec INR (<1.2) Sodium (137-145) mmol/L Potassium (3.5-5.1) mmol/L Chloride (98-107) mmol/L Carbon Dioxide (22-30) mmol/L BUN (9-20) mg/dL Glucose (74-99) mg/dL POC Glucose (mg/dL) (75-99) mg/dL Plasma Lactic Acid Flavio 5.8 H* (0.7-2.0) mmol/L Calcium (8.4-10.2) mg/dL Total Protein (6.3-8.2) g/dL Albumin (3.5-5.0) g/dL Lipase (23-300) U/L Crossmatch See Detail 07/09/21 07/10/21 07/10/21 Range/Units 22:04 02:51 02:51 WBC 15.8 H (3.8-10.6) k/uL RBC 3.11 L 2.75 L (4.30-5.90) m/uL Hgb 10.0 L 8.7 L (13.0-17.5) gm/dL Hct 30.0 L 26.3 L (39.0-53.0) % MCV (80.0-100.0) fL RDW (11.5-15.5) % Plt Count 113 L 86 L (150-450) k/uL Neutrophils # 13.4 H (1.3-7.7) k/uL PT (9.0-12.0) sec INR (<1.2) Sodium 136 L (137-145) mmol/L Potassium 5.3 H (3.5-5.1) mmol/L Chloride 115 H (98-107) mmol/L Carbon Dioxide 18 L (22-30) mmol/L BUN 23 H (9-20) mg/dL Glucose 110 H (74-99) mg/dL POC Glucose (mg/dL) (75-99) mg/dL Plasma Lactic Acid Flavio (0.7-2.0) mmol/L Calcium 6.8 L (8.4-10.2) mg/dL Total Protein (6.3-8.2) g/dL Albumin (3.5-5.0) g/dL Lipase (23-300) U/L Crossmatch 07/10/21 07/10/21 Range/Units 05:44 06:58 WBC 11.9 H (3.8-10.6) k/uL RBC 2.41 L (4.30-5.90) m/uL Hgb 7.8 L (13.0-17.5) gm/dL Hct 23.8 L (39.0-53.0) % MCV (80.0-100.0) fL RDW 15.7 H (11.5-15.5) % Plt Count 113 L (150-450) k/uL Neutrophils # 8.6 H (1.3-7.7) k/uL PT (9.0-12.0) sec INR (<1.2) Sodium (137-145) mmol/L Potassium (3.5-5.1) mmol/L Chloride (98-107) mmol/L Carbon Dioxide (22-30) mmol/L BUN (9-20) mg/dL Glucose (74-99) mg/dL POC Glucose (mg/dL) 132 H (75-99) mg/dL Plasma Lactic Acid Flavio (0.7-2.0) mmol/L Calcium (8.4-10.2) mg/dL Total Protein (6.3-8.2) g/dL Albumin (3.5-5.0) g/dL Lipase (23-300) U/L Crossmatch Assessment and Plan Assessment: Acute blood loss anemia Variceal bleed -Admit inpatient in the ICU, telemetry -CBC every 6 hours -PPI IV twice a day -Somatostatin drip -GI consult in the morning -Pulmonary consult -Maintain 2 large bore IVs -Hold home medications -Strict nothing by mouth -Ceftriaxone 1 g every 24 hours -Continue IV fluids Supraventricular tachycardia -Return to sinus rhythm after adenosine 6 mg push -Continue to monitor on telemetry -Should patient develop SVT again, will likely require amiodarone Alcoholic cirrhosis Alcohol abuse disorder -Monitor for withdrawal -Alcohol cessation counseling Patient is a temporary DNR/DNI, see CODE STATUS comments in the orders
[2021-07-10] MEDS ORDERED: VANCOMYCIN IV PER PHARMACY 1 EACH MISC MISCELLANE PRN (10:46)
[2021-07-10] MEDS ORDERED: SODIUM CHLORIDE 0.9% 1,000 ML IV ONE (10:47)
[2021-07-10 11:35] LABS: Glucose,Whole Blood 118 mg/dL (75-99)
--- NOTE | 2021-07-10 11:43 | P.CONS ---
History of Present Illness - Reason for Consult Consult date: 07/10/21 Upper GI bleed Requesting physician: Sarah Schmitt - Chief Complaint Abdoinal pain, hematemesis - History of Present Illness This is a 51-year-old male who presented to the emergency department yesterday afternoon with complaints of severe abdominal pain followed by vomiting bright red and dark red blood. He also reports have dark red and black bowel movements over the past couple of days as well. Apparently he has a history of alcohol abuse with prior diagnosis of cirrhosis of the liver with history of esophageal varices that required banding. He believes this was approximately 5 years ago with EGD done at [facility]. He also states he had a colonoscopy done at that time without any significant findings. While in the ER he continued to have large amounts of hematemesis with hypotension. He was admitted to the ICU and started on sandostatin. He has no other significant past medical history, and no history of anticoagulation or NSAID use. Admitting labs WBC 8.8 hemoglobin 10 hematocrit 30 platelet count 113,000, total bilirubin 0.4 AST 32 ALT 18 alkaline phosphatase 55 lipase 421. He was given a total of 4 units of PRBC transfusion and 2 units of fresh frozen plasma. His repeat hemoglobin today is 7.8. INR 1.2 platelet count 113,000. CT of the abdomen and pelvis showed no evidence of active bleeding. Splenic varices consistent with portal venous hypertension. No focal liver defect. Arthrosclerotic vascular disease. He currently denies any abdominal pain, nausea and vomiting are somewhat improved. Review of Systems REVIEW OF SYSTEMS: CARDIOPULMONARY: No chest pain or shortness of breath. Gastrointestinal: The patient had intermittent sharp abdominal pain. Nausea and vomiting with hematemesis. Reports a maroon to black colored stools over the last 1-2 days duration. GENITOURINARY: No dysuria or hematuria. MUSCULOSKELETAL: Reports normal range of motion., Joint pain. SKIN: No rashes. No jaundice. ENDOCRINE: No chills, fevers. No excessive weight gain or loss. No polydipsia or polyuria. PSYCHIATRIC: Unremarkable. NEUROLOGY: No change in mental status. Denies dizziness, headache. ENT: Vision unremarkable. CONSTITUTIONAL: No recent weight loss. No fever, chills, night sweats. Past Medical History Past Medical History: GERD/Reflux, GI Bleed Additional Past Medical History / Comment(s): esophageal varices History of Any Multi-Drug Resistant Organisms: None Reported Past Surgical History: Appendectomy Past Anesthesia/Blood Transfusion Reactions: No Reported Reaction Past Psychological History: No Psychological Hx Reported Smoking Status: Current every day smoker Past Alcohol Use History: None Reported, Rare Past Drug Use History: None Reported Medications and Allergies Home Medications Medication Instructions Recorded Confirmed Type Omeprazole Magnesium [PriLOSEC OTC] 20 mg PO BID 03/01/21 07/09/21 History ALPRAZolam [Xanax] 0.25 mg PO DAILY PRN #3 tab 03/07/21 07/09/21 Rx Cyanocobalamin (Vitamin B-12) 1,000 mcg PO DAILY 07/09/21 07/09/21 History [Vitamin B-12] Multivitamins, Thera [Multivitamin 1 tab PO DAILY 07/09/21 07/09/21 History (formulary)] Potassium Gluconate [Potassium 99 mg PO DAILY 07/09/21 07/09/21 History Gluconate ER] Zolpidem [Ambien] 2.5 mg PO HS PRN 07/09/21 07/09/21 History Allergies Allergy/AdvReac Type Severity Reaction Status Date / Time Penicillins Allergy Rash/Hives Verified 07/09/21 16:55 Physical Exam Vitals: Vital Signs Temp Pulse Resp BP Pulse Ox 07/10/21 07:06 98.6 F 84 18 85/62 93 L 07/10/21 07:00 78 18 92/59 93 L 07/10/21 06:33 99 F 81 15 92/59 94 L 07/10/21 06:23 98.9 F 77 15 92/59 96 07/10/21 06:03 99 F 80 16 92/59 95 07/10/21 06:00 99.2 F 71 12 94/60 95 07/10/21 04:00 79 18 84/58 99 07/10/21 03:34 98.1 F 75 20 79/52 99 07/10/21 03:04 98.5 F 74 20 71/39 100 07/10/21 02:54 98.7 F 74 20 80/54 100 07/10/21 01:09 74 18 88/54 100 07/10/21 00:45 98.4 F 75 20 82/57 100 07/10/21 00:15 98.4 F 82 18 95/59 100 07/10/21 00:05 97.9 F 96 20 101/58 100 07/09/21 22:47 110 H 18 75/48 99 07/09/21 22:09 118 H 18 83/51 100 07/09/21 20:02 82 18 99/67 100 07/09/21 18:40 98.6 F 70 18 103/78 100 07/09/21 18:05 80 18 94/65 100 07/09/21 17:26 98.6 F 80 18 96/64 100 07/09/21 17:15 98.6 F 85 18 95/66 100 07/09/21 16:45 98.6 F 77 18 98/64 100 07/09/21 16:35 98.6 F 92 18 102/67 100 07/09/21 16:28 98.6 F 92 18 95/65 99 07/09/21 16:00 98.1 F 89 18 85/69 100 07/09/21 15:42 96 18 93/63 100 07/09/21 15:30 98.1 F 100 18 88/58 100 07/09/21 15:20 98.1 F 99 18 89/55 100 07/09/21 14:40 98.2 F 99 16 88/55 100 07/09/21 14:10 98.2 F 96 16 85/62 100 07/09/21 14:00 98.2 F 96 16 89/61 100 07/09/21 13:20 93 20 97/68 100 07/09/21 13:10 90 20 96/72 100 07/09/21 13:00 100 20 98/34 100 07/09/21 12:55 101 H 20 89/49 98 07/09/21 12:50 98 20 76/65 99 07/09/21 12:48 154 H 20 80/58 99 07/09/21 12:19 97.5 F L 178 H 18 93/69 93 L Intake and Output 07/09/21 07/10/21 07/10/21 22:59 06:59 14:59 Intake Total 989.167 774.292 597.417 Output Total 0 0 Balance 989.167 774.292 597.417 Intake: IV 150 75 Sodium Chloride 0.9% 1, 150 75 000 ml @ 75 mls/hr IV . [id number] [facility] Rx#:[id number] Intake, IV Titration 59.167 17.292 205.417 Amount Octreotide 500 mcg In 59.167 17.292 Sodium Chloride 0.9% 250 ml @ 25 MCG/HR 12.5 mls/ hr IV .Q20H [facility] Rx#: [id number] Octreotide 500 mcg In 205.417 Sodium Chloride 0.9% 250 ml @ 50 MCG/HR 25 mls/hr IV .Q10H [facility] Rx#: [id number] Blood Product 930 607 317 Ffp 24 Cpd Unit 297 [id number] Ffp 24 Cpd Unit 0 317 [id number] Rc As-1 Unit 310 [id number] Rc As-1 Unit 310 [id number] Rc As-1 Unit 310 [id number] Rc As-1 Unit 310 [id number] Output: Urine 0 0 Other: Weight 88.5 kg General appearance: The patient is alert, oriented, appears in no acute distress. HET: Head is normocephalic and atraumatic. Conjunctiva pink. Sclera anicteric. Neck: Supple without lymphadenopathy. Trachea midline. Heart: S1 S2. Regular rate and rhythm. Lungs: Clear to auscultation. Abdomen: Soft, nontender, nondistended with bowel sounds. No guarding or rigidity. Skin: No rashes. No jaundice. Extremities: Normal skin color and turgor. No pedal edema. Neurological: No focal deficits. Alert and oriented x3. Results CBC & Chem 7: 07/10/21 06:58 07/10/21 02:51 Labs: Abnormal Lab Results - Last 24 Hours (Table) 07/09/21 07/09/21 07/09/21 Range/Units 12:30 12:30 12:30 WBC (3.8-10.6) k/uL RBC 3.24 L (4.30-5.90) m/uL Hgb 10.6 L (13.0-17.5) gm/dL Hct 34.0 L (39.0-53.0) % MCV 104.9 H (80.0-100.0) fL RDW (11.5-15.5) % Plt Count (150-450) k/uL Neutrophils # (1.3-7.7) k/uL PT 12.3 H (9.0-12.0) sec INR 1.2 H (<1.2) Sodium (137-145) mmol/L Potassium (3.5-5.1) mmol/L Chloride 108 H (98-107) mmol/L Carbon Dioxide 20 L (22-30) mmol/L BUN (9-20) mg/dL Glucose 194 H (74-99) mg/dL POC Glucose (mg/dL) (75-99) mg/dL Plasma Lactic Acid Flavio (0.7-2.0) mmol/L Calcium 8.2 L (8.4-10.2) mg/dL Total Protein 5.8 L (6.3-8.2) g/dL Albumin 2.5 L (3.5-5.0) g/dL Lipase 421 H (23-300) U/L Crossmatch 07/09/21 07/09/21 07/09/21 Range/Units 12:30 12:30 15:13 WBC 12.0 H (3.8-10.6) k/uL RBC 2.97 L (4.30-5.90) m/uL Hgb 10.0 L (13.0-17.5) gm/dL Hct 30.5 L (39.0-53.0) % MCV 102.8 H (80.0-100.0) fL RDW (11.5-15.5) % Plt Count (150-450) k/uL Neutrophils # (1.3-7.7) k/uL PT (9.0-12.0) sec INR (<1.2) Sodium (137-145) mmol/L Potassium (3.5-5.1) mmol/L Chloride (98-107) mmol/L Carbon Dioxide (22-30) mmol/L BUN (9-20) mg/dL Glucose (74-99) mg/dL POC Glucose (mg/dL) (75-99) mg/dL Plasma Lactic Acid Flavio 5.8 H* (0.7-2.0) mmol/L Calcium (8.4-10.2) mg/dL Total Protein (6.3-8.2) g/dL Albumin (3.5-5.0) g/dL Lipase (23-300) U/L Crossmatch See Detail 07/09/21 07/10/21 07/10/21 Range/Units 22:04 02:51 02:51 WBC 15.8 H (3.8-10.6) k/uL RBC 3.11 L 2.75 L (4.30-5.90) m/uL Hgb 10.0 L 8.7 L (13.0-17.5) gm/dL Hct 30.0 L 26.3 L (39.0-53.0) % MCV (80.0-100.0) fL RDW (11.5-15.5) % Plt Count 113 L 86 L (150-450) k/uL Neutrophils # 13.4 H (1.3-7.7) k/uL PT (9.0-12.0) sec INR (<1.2) Sodium 136 L (137-145) mmol/L Potassium 5.3 H (3.5-5.1) mmol/L Chloride 115 H (98-107) mmol/L Carbon Dioxide 18 L (22-30) mmol/L BUN 23 H (9-20) mg/dL Glucose 110 H (74-99) mg/dL POC Glucose (mg/dL) (75-99) mg/dL Plasma Lactic Acid Flavio (0.7-2.0) mmol/L Calcium 6.8 L (8.4-10.2) mg/dL Total Protein (6.3-8.2) g/dL Albumin (3.5-5.0) g/dL Lipase (23-300) U/L Crossmatch 07/10/21 07/10/21 Range/Units 05:44 06:58 WBC 11.9 H (3.8-10.6) k/uL RBC 2.41 L (4.30-5.90) m/uL Hgb 7.8 L (13.0-17.5) gm/dL Hct 23.8 L (39.0-53.0) % MCV (80.0-100.0) fL RDW 15.7 H (11.5-15.5) % Plt Count 113 L (150-450) k/uL Neutrophils # 8.6 H (1.3-7.7) k/uL PT (9.0-12.0) sec INR (<1.2) Sodium (137-145) mmol/L Potassium (3.5-5.1) mmol/L Chloride (98-107) mmol/L Carbon Dioxide (22-30) mmol/L BUN (9-20) mg/dL Glucose (74-99) mg/dL POC Glucose (mg/dL) 132 H (75-99) mg/dL Plasma Lactic Acid Flavio (0.7-2.0) mmol/L Calcium (8.4-10.2) mg/dL Total Protein (6.3-8.2) g/dL Albumin (3.5-5.0) g/dL Lipase (23-300) U/L Crossmatch CT scan - abdomen: report reviewed (On no evidence of active GI bleeding. Splenic varices consistent with portal venous hypertension. No focal liver defect. Arthrosclerotic vascular disease.) Assessment and Plan (1) GI bleed Narrative/Plan: 51-year-old male who presented to the emergency department yesterday with complaints of acute onset of abdominal pain associated with nausea and vomiting. States he began to vomit bright red and dark red blood. He was concern for esophageal varices as he has a history of previous esophageal variceal bleed status post banding approximately 5 years ago done at [facility]. He admits to a history of alcohol abuse for which he quit a few months ago. States he was drinking a few beers a day at least for last 10-15 years. States he has been diagnosed in the past with cirrhosis of the liver but does not follow up with anyone. The patient continued to have several episodes of large amounts of hematemesis while in the ER and through the night during his admission to ICU. Patient has esophageal varices related to portal hypertension. He is been transfused 4 units of PRBC transfusion and 2 units FFP. Plan is to proceed today with EGD. Patient is currently on Sandostatin as well. Current Visit: Yes Status: Acute Code(s): K92.2 - GASTROINTESTINAL HEMORRHAGE, UNSPECIFIED SNOMED Code(s): 08770873 (2) History of esophageal varices Current Visit: Yes Status: Acute Code(s): Z87.19 - PERSONAL HISTORY OF OTHER DISEASES OF THE DIGESTIVE SYSTEM SNOMED Code(s): 90107462164161915 (3) History of alcohol abuse Current Visit: Yes Status: Acute Code(s): F10.11 - ALCOHOL ABUSE, IN REMISSION SNOMED Code(s): 561843787 (4) Alcoholic cirrhosis of liver Current Visit: No Status: Acute Code(s): K70.30 - ALCOHOLIC CIRRHOSIS OF LIVER WITHOUT ASCITES SNOMED Code(s): 200152601 Plan: 1. Nothing by mouth 2. Continue Sandostatin for now 3. Continue to monitor hemoglobin, transfuse Hg less than 7 4. Patient is scheduled for EGD this afternoon 5. Alcohol abstinence Thank you for this consultation, we will continue to follow. Dr. Aryan Moncada I agree with the dictator's note, documented as a scribe by Virginia Ackerman.
[2021-07-10] MEDS ORDERED: VANCOMYCIN 1,750 MG in SODIUM CHLORIDE 0.9% 500 ML 500 ML IVPB ONE (12:00)
[2021-07-10] MEDS ORDERED: IV FLUID CONTINUATION 1,000 ML IV ONE (12:36)
[2021-07-10] MEDS ORDERED: PROPOFOL 10 MG/ML 20 ML VIAL IV ONE (12:37)
[2021-07-10] MEDS ORDERED: LIDOCAINE 1% INJ 10MG/ML (20 ML MDV) ONE (12:37)
[2021-07-10 12:46] LABS: Anisocytosis Slight; Basophils # (A) 0.1 k/uL (0-0.2); Basophils % (A) 1 %; Eosinophils # (A) 0.5 k/uL (0-0.7); Eosinophils % (A) 5 %; HCT 24.8 % (39.0-53.0); HGB 8.3 gm/dL (13.0-17.5); Lymphocytes # (A) 2.1 k/uL (1.0-4.8); Lymphocytes % (A) 21 %; MCH 31.9 pg (25.0-35.0); MCHC 33.4 g/dL (31.0-37.0); MCV 95.6 fL (80.0-100.0); Mean Platelet Volume 7.5; Monocytes # (A) 0.7 k/uL (0-1.0); Monocytes % (A) 7 %; Neutrophils # (A) 6.2 k/uL (1.3-7.7); Neutrophils % (A) 64 %; RDW 16.2 % (11.5-15.5); WBC 9.6 k/uL (3.8-10.6)
--- NOTE | 2021-07-10 12:46 | P.CNPUL ---
History of Present Illness Consult date: 07/10/21 Requesting physician: Akshat Marshall Reason for consult: other Chief complaint: Acute GI bleed History of present illness: 51-year-old white male patient with past medical history of EtOH abuse, history of liver cirrhosis with esophageal varices with previous banding 2 years ago at [facility], and previous GI bleeding, current every day smoker, who came into the emergency department on 07/09/2021 with complaints of abdominal pain, hematemesis, and passing black stools. Patient was having palpitations, he was chilled. Denied any shortness of breath, no chest pain, no cough, no dyspnea, no phlegm production. Patient was noted to be hypotensive in the emergency department with a blood pressure of 76/30. He was having episodes of large volume of hematemesis. Initial hemoglobin was 10.6, platelet count was 218, INR was 1.2, plasma lactic acid was 5.8 on presentation, renal profile was within normal limits with BUN of 15 creatinine 0.94, troponin was negative. Lipase was 421. COVID-19 PCR was negative, LFTs were within normal limits. Patient was transfused with 4 units of packed red blood cells, 4 subsequent drop in hemoglobin down to 7.8, and he will be receiving another unit of packed red blood cells this morning. He received 2 units of fresh frozen plasma, he also received 4 L in fluid boluses, and his maintenance IV fluids is 0.9 normal sinus at a rate of 75 ML per hour, patient's blood culture was positive for gram- positive cocci, and patient is on combination of Rocephin and vancomycin. Today's labs reveal white blood cell count of 11.9, hemoglobin of 7.8 as mentioned above with fifth unit of packed cells infusing, platelet count is 113, sodium is 136, potassium is 5.3, chloride is 1:15, CO2 is 18, BUN is 23, creatinine is 0.68. Patient is on Sandostatin at 50 mics per hour, he is on Protonix 40 mg twice daily, Zofran. He is awake and alert, breathing comfortably, it appears to be in no acute distress. No shortness of breath no chest pain, room air pulse ox is 94%, current blood pressure is 82/55. In sinus mechanism with a rate of 75 BPM, afebrile. Chest x-ray shows no acute cardiopulmonary disease. CT of the abdomen and pelvis showed no evidence of active GI bleeding, splenic varices consistent with portal venous hypertension, no focal liver defect. GI service has been consulted and patient is boarded for EGD this afternoon Review of Systems All systems: negative Constitutional: Denies chills, Denies fever Eyes: denies blurred vision, denies pain Ears, nose, mouth and throat: Denies headache, Denies sore throat Cardiovascular: Denies chest pain, Denies shortness of breath Respiratory: Reports dyspnea, Denies cough Gastrointestinal: Reports hematemesis, Reports melena, Denies abdominal pain, Denies diarrhea, Denies nausea, Denies vomiting Musculoskeletal: Denies myalgias Integumentary: Denies pruritus, Denies rash Neurological: Denies numbness, Denies weakness Psychiatric: Denies anxiety, Denies depression Endocrine: Denies fatigue, Denies weight change Past Medical History Past Medical History: GERD/Reflux, GI Bleed Additional Past Medical History / Comment(s): esophageal varices History of Any Multi-Drug Resistant Organisms: None Reported Past Surgical History: Appendectomy Past Anesthesia/Blood Transfusion Reactions: No Reported Reaction Past Psychological History: No Psychological Hx Reported Smoking Status: Current every day smoker Past Alcohol Use History: None Reported, Rare Past Drug Use History: None Reported Medications and Allergies Home Medications Medication Instructions Recorded Confirmed Type Omeprazole Magnesium [PriLOSEC OTC] 20 mg PO BID 03/01/21 07/09/21 History ALPRAZolam [Xanax] 0.25 mg PO DAILY PRN #3 tab 03/07/21 07/09/21 Rx Cyanocobalamin (Vitamin B-12) 1,000 mcg PO DAILY 07/09/21 07/09/21 History [Vitamin B-12] Multivitamins, Thera [Multivitamin 1 tab PO DAILY 07/09/21 07/09/21 History (formulary)] Potassium Gluconate [Potassium 99 mg PO DAILY 07/09/21 07/09/21 History Gluconate ER] Zolpidem [Ambien] 2.5 mg PO HS PRN 07/09/21 07/09/21 History Allergies Allergy/AdvReac Type Severity Reaction Status Date / Time Penicillins Allergy Rash/Hives Verified 07/09/21 16:55 Physical Exam Vitals: Vital Signs Temp Pulse Resp BP Pulse Ox 07/10/21 10:00 75 14 82/55 94 L 07/10/21 09:39 71 15 83/49 94 L 07/10/21 09:09 97.8 F 76 18 82/55 95 07/10/21 09:00 80 13 91/57 92 L 07/10/21 08:59 98.2 F 79 13 88/57 94 L 07/10/21 08:00 80 19 85/52 95 07/10/21 07:06 98.6 F 84 18 85/62 93 L 07/10/21 07:00 78 18 92/59 93 L 07/10/21 06:33 99 F 81 15 92/59 94 L 07/10/21 06:23 98.9 F 77 15 92/59 96 07/10/21 06:03 99 F 80 16 92/59 95 07/10/21 06:00 99.2 F 71 12 94/60 95 07/10/21 04:00 79 18 84/58 99 07/10/21 03:34 98.1 F 75 20 79/52 99 07/10/21 03:04 98.5 F 74 20 71/39 100 07/10/21 02:54 98.7 F 74 20 80/54 100 07/10/21 01:09 74 18 88/54 100 07/10/21 00:45 98.4 F 75 20 82/57 100 07/10/21 00:15 98.4 F 82 18 95/59 100 07/10/21 00:05 97.9 F 96 20 101/58 100 07/09/21 22:47 110 H 18 75/48 99 07/09/21 22:09 118 H 18 83/51 100 07/09/21 20:02 82 18 99/67 100 07/09/21 18:40 98.6 F 70 18 103/78 100 07/09/21 18:05 80 18 94/65 100 07/09/21 17:26 98.6 F 80 18 96/64 100 07/09/21 17:15 98.6 F 85 18 95/66 100 07/09/21 16:45 98.6 F 77 18 98/64 100 07/09/21 16:35 98.6 F 92 18 102/67 100 07/09/21 16:28 98.6 F 92 18 95/65 99 07/09/21 16:00 98.1 F 89 18 85/69 100 07/09/21 15:42 96 18 93/63 100 07/09/21 15:30 98.1 F 100 18 88/58 100 07/09/21 15:20 98.1 F 99 18 89/55 100 07/09/21 14:40 98.2 F 99 16 88/55 100 07/09/21 14:10 98.2 F 96 16 85/62 100 07/09/21 14:00 98.2 F 96 16 89/61 100 07/09/21 13:20 93 20 97/68 100 07/09/21 13:10 90 20 96/72 100 07/09/21 13:00 100 20 98/34 100 07/09/21 12:55 101 H 20 89/49 98 07/09/21 12:50 98 20 76/65 99 07/09/21 12:48 154 H 20 80/58 99 Intake and Output 07/09/21 07/10/21 07/10/21 22:59 06:59 14:59 Intake Total 989.167 774.292 817.000 Output Total 0 300 Balance 989.167 774.292 517.000 Intake: IV 150 225 Sodium Chloride 0.9% 1, 150 225 000 ml @ 75 mls/hr IV . [id number] [facility] Rx#:[id number] Intake, IV Titration 59.167 17.292 275.000 Amount Octreotide 500 mcg In 59.167 17.292 Sodium Chloride 0.9% 250 ml @ 25 MCG/HR 12.5 mls/ hr IV .Q20H [facility] Rx#: [id number] Octreotide 500 mcg In 275.000 Sodium Chloride 0.9% 250 ml @ 50 MCG/HR 25 mls/hr IV .Q10H [facility] Rx#: [id number] Blood Product 930 607 317 Ffp 24 Cpd Unit 297 [id number] Ffp 24 Cpd Unit 0 317 [id number] Rc As-1 Unit 310 [id number] Rc As-1 Unit 0 [id number] Rc As-1 Unit 310 [id number] Rc As-1 Unit 310 [id number] Rc As-1 Unit 310 [id number] Output: Urine 0 300 Other: Weight 88.5 kg GENERAL EXAM: Alert, pleasant, cooperative, 51-year-old white male, on room air, resting comfortably in the bed in the ICU, patient is being transfused with his fifth unit of pack red blood cells, he is on Sandostatin infusion for acute GI bleeding, comfortable in no apparent distress. HEAD: Normocephalic/atraumatic. EYES: Normal reaction of pupils, equal size. Conjunctiva pink, sclera white. NOSE: Clear with pink turbinates. THROAT: No erythema or exudates. NECK: No masses, no JVD, no thyroid enlargement, no adenopathy. CHEST: No chest wall deformity. Symmetrical expansion. LUNGS: Equal air entry with no crackles, wheeze, rhonchi or dullness. CVS: Regular rate and rhythm, normal S1 and S2, no gallops, no murmurs, no rubs ABDOMEN: Soft, nontender. No hepatosplenomegaly, normal bowel sounds, no guarding or rigidity. EXTREMITIES: No clubbing, no edema, no cyanosis, 2+ pulses and upper and lower extremities. MUSCULOSKELETAL: Muscle strength and tone normal. SPINE: No scoliosis or deformity SKIN: No rashes CENTRAL NERVOUS SYSTEM: Alert and oriented -3. No focal deficits, tone is normal in all 4 extremities. PSYCHIATRIC: Alert and oriented -3. Appropriate affect. Intact judgment and insight. Results - Laboratory Findings CBC and BMP: 07/10/21 06:58 07/10/21 02:51 PT/INR, D-dimer PT 12.3 sec (9.0-12.0) H 07/09/21 12:30 INR 1.2 (<1.2) H 07/09/21 12:30 Abnormal lab findings: Abnormal Labs 07/09/21 07/09/21 07/09/21 12:30 12:30 12:30 WBC RBC 3.24 L Hgb 10.6 L Hct 34.0 L MCV 104.9 H RDW Plt Count Neutrophils # PT 12.3 H INR 1.2 H Sodium Potassium Chloride 108 H Carbon Dioxide 20 L BUN Glucose 194 H POC Glucose (mg/dL) Plasma Lactic Acid Flavio Calcium 8.2 L Total Protein 5.8 L Albumin 2.5 L Lipase 421 H Crossmatch 07/09/21 07/09/21 07/09/21 12:30 12:30 15:13 WBC 12.0 H RBC 2.97 L Hgb 10.0 L Hct 30.5 L MCV 102.8 H RDW Plt Count Neutrophils # PT INR Sodium Potassium Chloride Carbon Dioxide BUN Glucose POC Glucose (mg/dL) Plasma Lactic Acid Flavio 5.8 H* Calcium Total Protein Albumin Lipase Crossmatch See Detail 07/09/21 07/10/21 07/10/21 22:04 02:51 02:51 WBC 15.8 H RBC 3.11 L 2.75 L Hgb 10.0 L 8.7 L Hct 30.0 L 26.3 L MCV RDW Plt Count 113 L 86 L Neutrophils # 13.4 H PT INR Sodium 136 L Potassium 5.3 H Chloride 115 H Carbon Dioxide 18 L BUN 23 H Glucose 110 H POC Glucose (mg/dL) Plasma Lactic Acid Flavio Calcium 6.8 L Total Protein Albumin Lipase Crossmatch 07/10/21 07/10/21 07/10/21 05:44 06:58 11:33 WBC 11.9 H RBC 2.41 L Hgb 7.8 L Hct 23.8 L MCV RDW 15.7 H Plt Count 113 L Neutrophils # 8.6 H PT INR Sodium Potassium Chloride Carbon Dioxide BUN Glucose POC Glucose (mg/dL) 132 H 118 H Plasma Lactic Acid Flavio Calcium Total Protein Albumin Lipase Crossmatch - Diagnostic Findings Chest x-ray: report reviewed, image reviewed Additional studies: EKG reviewed Assessment and Plan Plan: Assessment: #1. Acute GI blood loss anemia, patient presented with multiple episodes of hematemesis, and melena, status post transfusion with 5 units of packed red blood cells and 2 units of FFP #2. Hypotension, likely related to hemorrhagic shock related to acute GI blood loss anemia #3. Esophageal varices, EtOH related liver cirrhosis, patient has a history of banding at [facility] 2 years ago #4. History of EtOH use, last drink was yesterday on 07/09/2021 #5. Gram-positive bacteremia, patient is covered with Rocephin and vancomycin, will await final blood cultures #6. Lactic acidosis related to acute hemorrhagic shock, improved with IV hydration and blood transfusion #7. Current smoker #8. Reported history of seizures, used to be on Tegretol, currently not on any medication. Details of diagnosis is not known to us. Patient states has not had a seizure in a long time Plan: Continue Sandostatin Patient has been fluid resuscitated He has been transfused with 5 units of blood and 2 units of FFP Blood pressures are still marginal The patient is fairly asymptomatic, Continue monitoring H&H's continue monitoring for further hematemesis and melena EGD is booked for this afternoon Continue close monitoring in the ICU afterwards CIWA protocol Continue Protonix I performed a history & physical examination of the patient and discussed their management with my nurse practitioner, Estephania Tejada. I reviewed the nurse practitioner's note and agree with the documented findings and plan of care. Lung sounds are positive for clear breath sounds throughout the lung silva. The findings and the impression was discussed with the patient. I attest to the documentation by the nurse practitioner. Time with Patient: Greater than 30
--- NOTE | 2021-07-10 12:51 | P.PCN ---
Date of Procedure: 07/10/21 Procedure(s) Performed: BRIEF HISTORY: Patient is a 51-year-old, pleasant, white male with history of alkaline cirrhosis of the prior history of esophageal variceal bleeding was admitted hospital with hematemesis. 4 episodes of hematemesis in addition to black tarry stools and received 4 units of PRBC transfusion in the ER yesterday. This morning hemoglobin was at 7.8 g/dL and received the fifth unit of PRBC transfusion. Currently on IV Sandostatin and IV Protonix. He scheduled for an upper endoscopy to evaluate the source of upper GI bleed. PROCEDURE PERFORMED: Esophagogastroduodenoscopy. PREOPERATIVE DIAGNOSIS: Acute upper GI bleed. IV sedation per anesthesia. PROCEDURE: After informed consent was obtained, the patient was brought into the endoscopy unit. IV sedation was administered by Anesthesia under continuous monitoring. Initially the Olympus GIF-140 video endoscope was inserted into the mouth. Esophagus intubated without any difficulty. It was gradually advanced into the stomach and duodenum and carefully examined. The bulb and the second part of the duodenum appeared normal. The scope at this time was withdrawn to the stomach, adequately insufflated with air, and upon careful examination, mucosa of the antrum, body, cardia appeared normal. In the fundus of the stomach with a small clot identified and the clots were aspirated. Immediately there were gastric varices identified. One of the varix was large and there was a nipple sign noted suggestive of recent bleed but there was no active bleeding noted during the examination. The scope was then withdrawn into the esophagus. The GE junction was located at 39 cm from the incisors. The esophagus appeared normal. There were no erosions or ulcerations seen. No esophageal varices seen and the patient tolerated the procedure well. IMPRESSION: 1. Large fundal varix with a nipple sign suggestive of recent gastric variceal bleeding but no active bleeding currently. 2. Small clots noted in the fundus of the stomach 3. No evidence of esophageal varices. RECOMMENDATIONS: The findings of this examination were discussed with the patient. At this time will continue on IV Sandostatin. We will make arrangements for him to be transferred to a tertiary and stated for TIPS procedure to prevent recurrent gastric variceal bleeding. In the meantime monitor CBC every 6 hours and transfuse as needed and maintain hemoglobin around 7 g/dL..
[2021-07-10 13:03] LABS: Platelet Count 95 k/uL (150-450)
[2021-07-10 16:31] LABS: Anisocytosis Slight; Basophils % (A) 0 %; Eosinophils # (A) 0.6 k/uL (0-0.7); Eosinophils % (A) 6 %; HCT 26.1 % (39.0-53.0); HGB 8.6 gm/dL (13.0-17.5); Lymphocytes # (A) 1.7 k/uL (1.0-4.8); Lymphocytes % (A) 18 %; MCH 31.8 pg (25.0-35.0); MCHC 33.1 g/dL (31.0-37.0); MCV 96.1 fL (80.0-100.0); Mean Platelet Volume 7.7; Monocytes # (A) 0.6 k/uL (0-1.0); Monocytes % (A) 6 %; Neutrophils # (A) 6.5 k/uL (1.3-7.7); Neutrophils % (A) 68 %; Platelet Count 107 k/uL (150-450); RBC 2.72 m/uL (4.30-5.90); RDW 16.3 % (11.5-15.5); WBC 9.6 k/uL (3.8-10.6)
[2021-07-10 17:33] LABS: Glucose,Whole Blood 119 mg/dL (75-99)
[2021-07-10] MEDS: VANCOMYCIN 1,500 MG in SODIUM CHLORIDE 0.9% 250 ML IVPB SCH (19:34)
[2021-07-10 21:06] LABS: Anisocytosis Slight; Basophils % (A) 0 %; Eosinophils # (A) 0.4 k/uL (0-0.7); Eosinophils % (A) 5 %; HGB 8.1 gm/dL (13.0-17.5); Lymphocytes # (A) 1.6 k/uL (1.0-4.8); Lymphocytes % (A) 19 %; MCH 31.4 pg (25.0-35.0); MCHC 32.5 g/dL (31.0-37.0); MCV 96.5 fL (80.0-100.0); Mean Platelet Volume 7.7; Monocytes # (A) 0.6 k/uL (0-1.0); Monocytes % (A) 7 %; Neutrophils # (A) 5.4 k/uL (1.3-7.7); Neutrophils % (A) 66 %; Platelet Count 101 k/uL (150-450); RBC 2.59 m/uL (4.30-5.90); RDW 16.4 % (11.5-15.5); WBC 8.2 k/uL (3.8-10.6)
[2021-07-11 00:50] LABS: Anisocytosis Slight; HCT 25.4 % (39.0-53.0); HGB 8.1 gm/dL (13.0-17.5); MCH 30.9 pg (25.0-35.0); MCHC 32.1 g/dL (31.0-37.0); MCV 96.5 fL (80.0-100.0); Macrocytosis Slight; Mean Platelet Volume 7.4; Platelet Count 104 k/uL (150-450); RBC 2.63 m/uL (4.30-5.90); RDW 16.4 % (11.5-15.5); WBC 8.2 k/uL (3.8-10.6)
[2021-07-11] MEDS ORDERED: Magnesium Replacement Protocol 1 EACH MISC MISCELLANE PRN (01:02)
[2021-07-11 01:07] LABS: Eosinophils # (M) 1.07 k/uL (0-0.7); Lymphocytes # (M) 0.98 k/uL (1.0-4.8); Monocytes # (M) 0.33 k/uL (0-1.0); Neutrophils # (M) 5.82 k/uL (1.3-7.7); Neutrophils % (M) 71 %; Nucleated Red Blood Cells 0 /100 WBC (0-0); Total Cells Counted 100
[2021-07-11] MEDS: MAGNESIUM SULFATE-D5W PMX 1 GM in DEXTROSE/WATER 1 100ML.BAG IVPB SCH ×2 (01:54→02:53)
[2021-07-11 03:46] LABS: Basophils # (A) 0.1 k/uL (0-0.2); Basophils % (A) 1 %; Eosinophils # (A) 0.5 k/uL (0-0.7); Eosinophils % (A) 6 %; HCT 24.4 % (39.0-53.0); Lymphocytes # (A) 1.7 k/uL (1.0-4.8); Lymphocytes % (A) 21 %; MCHC 32.6 g/dL (31.0-37.0); MCV 95.1 fL (80.0-100.0); Mean Platelet Volume 7.9; Monocytes # (A) 0.6 k/uL (0-1.0); Monocytes % (A) 7 %; Neutrophils # (A) 5.1 k/uL (1.3-7.7); Neutrophils % (A) 63 %; RBC 2.57 m/uL (4.30-5.90); WBC 8.1 k/uL (3.8-10.6)
[2021-07-11 04:01] LABS: Platelet Count 93 k/uL (150-450)
[2021-07-11] MEDS: VANCOMYCIN 1,500 MG in SODIUM CHLORIDE 0.9% 250 ML IVPB SCH (04:54)
[2021-07-11] MEDS ORDERED: ALPRAZolam 0.25 MG TAB PO PRN (04:59)
[2021-07-11] MEDS: ZOLPIDEM 5 MG TAB PO PRN (05:07)
[2021-07-11 05:48] LABS: Glucose,Whole Blood 112 mg/dL (75-99)
[2021-07-11] MEDS: OCTREOTIDE 500 MCG in SODIUM CHLORIDE 0.9% 250 ML IV SCH ×2 (06:51→16:48)
[2021-07-11] MEDS: PANTOPRAZOLE 40 MG/10 ML VIAL IVP SCH ×2 (08:53→20:34)
[2021-07-11 09:04] LABS: Basophils % (A) 0 %; Eosinophils # (A) 0.6 k/uL (0-0.7); Eosinophils % (A) 7 %; HCT 24.1 % (39.0-53.0); HGB 8.2 gm/dL (13.0-17.5); Lymphocytes # (A) 1.7 k/uL (1.0-4.8); Lymphocytes % (A) 21 %; MCH 32.3 pg (25.0-35.0); MCHC 33.9 g/dL (31.0-37.0); MCV 95.2 fL (80.0-100.0); Mean Platelet Volume 7.5; Monocytes # (A) 0.7 k/uL (0-1.0); Monocytes % (A) 9 %; Neutrophils # (A) 4.9 k/uL (1.3-7.7); Neutrophils % (A) 61 %; RBC 2.53 m/uL (4.30-5.90); RDW 15.8 % (11.5-15.5)
--- NOTE | 2021-07-11 09:08 | P.PN ---
Subjective Progress Note Date: 07/11/21 Principal diagnosis: Patient feels okay still weak Constitutional: No acute distress, conversant, pleasant Eyes: Anicteric sclerae, moist conjunctiva, no lid-lag PERRLA ENMT: NC/AT Oropharynx clear, no erythema, exudates Neck: Supple, FROM, no masses, or JVD No carotid bruits No thyromegaly Lungs: Clear to auscultation Clear to percussion Normal respiratory effort, no accessory muscle use Cardiovascular: Heart regular in rate and rhythm, No murmurs, gallops, or rubs No peripheral edema Abdominal: Soft Nontender, no guarding, rebound or rigidity Abdomen moving with respiration Normoactive bowel sounds No hepatomegaly, No splenomegaly No palpable mass No abdominal wall hernia noted Skin: Normal temperature, tone, texture, turgor No induration No subcutaneous nodules No rash, lesions No ulcers Extremities: No digital cyanosis No clubbing Pedal pulses intact and symmetrical Radial pulses intact and symmetrical Normal gait and station No calf tenderness Psychiatric:Alert and oriented to person, place and time Appropriate affect Intact judgement Neuro: Muscles Strength 5/5 in all 4 extremities Sensation to light touch grossly present throughout Cranial nerves II-XII grossly intact No focal sensory deficits Acute blood loss anemia Variceal bleed -Admit inpatient in the ICU, telemetry -CBC every 6 hours -PPI IV twice a day -Somatostatin drip -GI consult in the morning -Pulmonary consult -Maintain 2 large bore IVs -Hold home medications -Strict nothing by mouth -Ceftriaxone 1 g every 24 hours -Continue IV fluids Supraventricular tachycardia -Return to sinus rhythm after adenosine 6 mg push -Continue to monitor on telemetry -Should patient develop SVT again, will likely require amiodarone Alcoholic cirrhosis Alcohol abuse disorder -Monitor for withdrawal -Patient continues to be weak difficulty transferring the patient on her level of care bedside available at this time Objective - Vital Signs Vital signs: Vital Signs Temp 98 F 07/11/21 04:00 Pulse 66 07/11/21 07:00 Resp 11 L 07/11/21 07:00 BP 99/63 07/11/21 07:00 Pulse Ox 95 07/11/21 07:00 Intake & Output 07/10/21 07/11/21 07/11/21 18:59 06:59 18:59 Intake Total 2427.000 1533.333 Output Total 300 2100 Balance 2127.000 -566.667 Weight 91 kg Intake: IV 525 1050 Sodium Chloride 0.9% 1, 425 1050 000 ml @ 75 mls/hr IV . [id number] [facility] Rx#:[id number] Intake, IV Titration 1275.000 483.333 Amount Octreotide 500 mcg In 275.000 483.333 Sodium Chloride 0.9% 250 ml @ 50 MCG/HR 25 mls/hr IV .Q10H [facility] Rx#: [id number] Sodium Chloride 0.9% 1, 1000 000 ml @ 999 mls/hr IV . Q1H1M [facility] Rx#:[id number] Blood Product 627 Ffp 24 Cpd Unit 317 [id number] Rc As-1 Unit 310 [id number] Output: Urine 300 2100 - Labs CBC & Chem 7: 07/11/21 03:28 07/10/21 02:51 Labs: Abnormal Lab Results - Last 24 Hours (Table) 07/09/21 07/10/21 07/10/21 Range/Units 12:30 11:33 12:13 RBC 2.60 L (4.30-5.90) m/uL Hgb 8.3 L (13.0-17.5) gm/dL Hct 24.8 L (39.0-53.0) % RDW 16.2 H (11.5-15.5) % Plt Count 95 L (150-450) k/uL Lymphocytes # (Manual) (1.0-4.8) k/uL Eosinophils # (Manual) (0-0.7) k/uL POC Glucose (mg/dL) 118 H (75-99) mg/dL Crossmatch See Detail 07/10/21 07/10/21 07/10/21 Range/Units 16:19 17:32 20:00 RBC 2.72 L 2.59 L (4.30-5.90) m/uL Hgb 8.6 L 8.1 L (13.0-17.5) gm/dL Hct 26.1 L 25.0 L (39.0-53.0) % RDW 16.3 H 16.4 H (11.5-15.5) % Plt Count 107 L 101 L (150-450) k/uL Lymphocytes # (Manual) (1.0-4.8) k/uL Eosinophils # (Manual) (0-0.7) k/uL POC Glucose (mg/dL) 119 H (75-99) mg/dL Crossmatch 07/10/21 07/11/21 07/11/21 Range/Units 23:53 03:28 05:46 RBC 2.63 L 2.57 L (4.30-5.90) m/uL Hgb 8.1 L 8.0 L (13.0-17.5) gm/dL Hct 25.4 L 24.4 L (39.0-53.0) % RDW 16.4 H 16.0 H (11.5-15.5) % Plt Count 104 L 93 L (150-450) k/uL Lymphocytes # (Manual) 0.98 L (1.0-4.8) k/uL Eosinophils # (Manual) 1.07 H (0-0.7) k/uL POC Glucose (mg/dL) 112 H (75-99) mg/dL Crossmatch Microbiology - Last 24 Hours (Table) 07/09/21 12:44 Blood Culture Gram Stain - Preliminary Blood Blood Culture - Preliminary Staphylococcus epidermidis 07/09/21 13:02 Blood Culture Gram Stain - Preliminary Blood 07/09/21 13:02 Blood Culture - Final Blood 07/09/21 12:44 Blood Culture - Final Blood
[2021-07-11 09:10] LABS: Platelet Count 95 k/uL (150-450)
--- NOTE | 2021-07-11 09:58 | P.PN ---
Subjective Progress Note Date: 07/11/21 Principal diagnosis: Acute GI bleed 51-year-old white male patient with past medical history of EtOH abuse, history of liver cirrhosis with esophageal varices with previous banding 2 years ago at [facility], and previous GI bleeding, current every day smoker, who came into the emergency department on 07/09/2021 with complaints of abdominal pain, hematemesis, and passing black stools. Patient was having palpitations, he was chilled. Denied any shortness of breath, no chest pain, no cough, no dyspnea, no phlegm production. Patient was noted to be hypotensive in the emergency department with a blood pressure of 76/30. He was having episodes of large volume of hematemesis. Initial hemoglobin was 10.6, platelet count was 218, INR was 1.2, plasma lactic acid was 5.8 on presentation, renal profile was within normal limits with BUN of 15 creatinine 0.94, troponin was negative. Lipase was 421. COVID-19 PCR was negative, LFTs were within normal limits. Patient was transfused with 4 units of packed red blood cells, 4 subsequent drop in hemoglobin down to 7.8, and he will be receiving another unit of packed red blood cells this morning. He received 2 units of fresh frozen plasma, he also received 4 L in fluid boluses, and his maintenance IV fluids is 0.9 normal sinus at a rate of 75 ML per hour, patient's blood culture was positive for gram-posit mary cocci, and patient is on combination of Rocephin and vancomycin. Today's labs reveal white blood cell count of 11.9, hemoglobin of 7.8 as mentioned above with fifth unit of packed cells infusing, platelet count is 113, sodium is 136, potassium is 5.3, chloride is 1:15, CO2 is 18, BUN is 23, creatinine is 0.68. Patient is on Sandostatin at 50 mics per hour, he is on Protonix 40 mg twice daily, Zofran. He is awake and alert, breathing comfortably, it appears to be in no acute distress. No shortness of breath no chest pain, room air pulse ox is 94%, current blood pressure is 82/55. In sinus mechanism with a rate of 75 BPM, afebrile. Chest x-ray shows no acute cardiopulmonary disease. CT of the abdomen and pelvis showed no evidence of active GI bleeding, splenic varices consistent with portal venous hypertension, no focal liver defect. GI service has been consulted and patient is boarded for EGD this afternoon On 07/11/2021 patient seen in follow-up in intensive care unit, he is awake and alert, appears a bit fatigued and pale but no acute distress, abdomen is soft, no nausea or vomiting, no episodes of hematemesis or melena overnight. He was transfused with 5 units of packed red blood cells yesterday and 2 units of fresh frozen plasma, today's labs show hemoglobin of 8.2, platelet count is 95, his BNP is still pending for today. His white count is 8.0. Breathing comfortable, no complaints of shortness of breath or chest pain. Tolerating sips of clear liquids. He is status post EGD which showed large fundal varix with the nipple sign suggestive of recent gastric variceal bleeding but no active bleeding, small clots in the fundus of the stomach, and no evidence of esophageal varices. The recommendation was made by the GI service to continue on IV Sandostatin, and to transfer the patient to a tertiary care facility for TIPS procedure to prevent recurrent gastric variceal bleeding. Patient continues on H&H's every 6 hours per GI service recommendations. He is not requiring any vasopressor support, he is in sinus mechanism, he remains on Sandostatin 50 mg per hour, and point tenderness and uterine rate of 75 ML per hour. Objective - Vital Signs Vital signs: Vital Signs Temp 98 F 07/11/21 04:00 Pulse 66 07/11/21 07:00 Resp 11 L 07/11/21 07:00 BP 99/63 07/11/21 07:00 Pulse Ox 95 07/11/21 07:00 Intake & Output 07/10/21 07/11/21 07/11/21 18:59 06:59 18:59 Intake Total 2427.000 1533.333 Output Total 300 2100 Balance 2127.000 -566.667 Weight 91 kg Intake: IV 525 1050 Sodium Chloride 0.9% 1, 425 1050 000 ml @ 75 mls/hr IV . [id number] [facility] Rx#:[id number] Intake, IV Titration 1275.000 483.333 Amount Octreotide 500 mcg In 275.000 483.333 Sodium Chloride 0.9% 250 ml @ 50 MCG/HR 25 mls/hr IV .Q10H [facility] Rx#: [id number] Sodium Chloride 0.9% 1, 1000 000 ml @ 999 mls/hr IV . Q1H1M [facility] Rx#:[id number] Blood Product 627 Ffp 24 Cpd Unit 317 [id number] Rc As-1 Unit 310 [id number] Output: Urine 300 2100 - Exam GENERAL EXAM: Alert, pleasant, cooperative, 51-year-old white male, on room air, resting comfortably in the bed in the ICU, he is on Sandostatin infusion for acute GI bleeding, comfortable in no apparent distress. HEAD: Normocephalic/atraumatic. EYES: Normal reaction of pupils, equal size. Conjunctiva pink, sclera white. NOSE: Clear with pink turbinates. THROAT: No erythema or exudates. NECK: No masses, no JVD, no thyroid enlargement, no adenopathy. CHEST: No chest wall deformity. Symmetrical expansion. LUNGS: Equal air entry with no crackles, wheeze, rhonchi or dullness. CVS: Regular rate and rhythm, normal S1 and S2, no gallops, no murmurs, no rubs ABDOMEN: Soft, nontender. No hepatosplenomegaly, normal bowel sounds, no guardi ng or rigidity. EXTREMITIES: No clubbing, no edema, no cyanosis, 2+ pulses and upper and lower extremities. MUSCULOSKELETAL: Muscle strength and tone normal. SPINE: No scoliosis or deformity SKIN: No rashes CENTRAL NERVOUS SYSTEM: Alert and oriented -3. No focal deficits, tone is normal in all 4 extremities. PSYCHIATRIC: Alert and oriented -3. Appropriate affect. Intact judgment and insight. - Labs CBC & Chem 7: 07/11/21 08:31 07/10/21 02:51 Labs: Abnormal Lab Results - Last 24 Hours (Table) 07/09/21 07/10/21 07/10/21 Range/Units 12:30 11:33 12:13 RBC 2.60 L (4.30-5.90) m/uL Hgb 8.3 L (13.0-17.5) gm/dL Hct 24.8 L (39.0-53.0) % RDW 16.2 H (11.5-15.5) % Plt Count 95 L (150-450) k/uL Lymphocytes # (Manual) (1.0-4.8) k/uL Eosinophils # (Manual) (0-0.7) k/uL POC Glucose (mg/dL) 118 H (75-99) mg/dL Crossmatch See Detail 07/10/21 07/10/21 07/10/21 Range/Units 16:19 17:32 20:00 RBC 2.72 L 2.59 L (4.30-5.90) m/uL Hgb 8.6 L 8.1 L (13.0-17.5) gm/dL Hct 26.1 L 25.0 L (39.0-53.0) % RDW 16.3 H 16.4 H (11.5-15.5) % Plt Count 107 L 101 L (150-450) k/uL Lymphocytes # (Manual) (1.0-4.8) k/uL Eosinophils # (Manual) (0-0.7) k/uL POC Glucose (mg/dL) 119 H (75-99) mg/dL Crossmatch 07/10/21 07/11/21 07/11/21 Range/Units 23:53 03:28 05:46 RBC 2.63 L 2.57 L (4.30-5.90) m/uL Hgb 8.1 L 8.0 L (13.0-17.5) gm/dL Hct 25.4 L 24.4 L (39.0-53.0) % RDW 16.4 H 16.0 H (11.5-15.5) % Plt Count 104 L 93 L (150-450) k/uL Lymphocytes # (Manual) 0.98 L (1.0-4.8) k/uL Eosinophils # (Manual) 1.07 H (0-0.7) k/uL POC Glucose (mg/dL) 112 H (75-99) mg/dL Crossmatch 07/11/21 Range/Units 08:31 RBC 2.53 L (4.30-5.90) m/uL Hgb 8.2 L (13.0-17.5) gm/dL Hct 24.1 L (39.0-53.0) % RDW 15.8 H (11.5-15.5) % Plt Count 95 L (150-450) k/uL Lymphocytes # (Manual) (1.0-4.8) k/uL Eosinophils # (Manual) (0-0.7) k/uL POC Glucose (mg/dL) (75-99) mg/dL Crossmatch Microbiology - Last 24 Hours (Table) 07/09/21 12:44 Blood Culture Gram Stain - Preliminary Blood Blood Culture - Preliminary Staphylococcus epidermidis 07/09/21 13:02 Blood Culture Gram Stain - Preliminary Blood 07/09/21 13:02 Blood Culture - Final Blood 07/09/21 12:44 Blood Culture - Final Blood Assessment and Plan Plan: Assessment: #1. Acute GI blood loss anemia, patient presented with multiple episodes of hematemesis, and melena, status post transfusion with 5 units of packed red blood cells and 2 units of FFP #2. Hypotension, likely related to hemorrhagic shock related to acute GI blood loss anemia, not requiring any vasopressor support, patient was fluid resuscitated and transfused with blood products and currently blood pressure has improved #3. Status post EGD on 07/09/2021 showing large fundal varix and evidence of recent gastric variceal bleeding, and small clots, no evidence of esophageal varices, continues on Sandostatin #4. History of esophageal varices, EtOH related liver cirrhosis, patient has a history of banding at [facility] 2 years ago #5. History of EtOH use, last drink was yesterday on 07/09/2021 #6. Gram-positive bacteremia, patient is covered with Rocephin and vancomycin, will await final blood cultures #7. Lactic acidosis related to acute hemorrhagic shock, improved with IV hydration and blood transfusion #8. Current smoker #9. Reported history of seizures, used to be on Tegretol, currently not on any medication. Details of diagnosis is not known to us. Patient states has not had a seizure in a long time Plan: Hemodynamic patient is improved, is not requiring vasopressor support Continues on Sandostatin Continue IV fluids at 75 ML per hour Continue serial H&H's every 6 hours EGD results have been noted and the recommendation is to transfer the patient to a tertiary care facility for a TIPS procedure Discharge planning has started the process however there were no available beds at [facility] yesterday May need to try a different facility No rebleeding overnight, no hematemesis no melena Tolerating sips of clear liquids Continue close monitoring in the ICU CIWA protocol Continue Protonix I performed a history & physical examination of the patient and discussed their management with my nurse practitioner, Estephania Tejada. I reviewed the nurse practitioner's note and agree with the documented findings and plan of care. Lung sounds are positive for clear breath sounds throughout the lung silva. The findings and the impression was discussed with the patient. I attest to the documentation by the nurse practitioner. Time with Patient: Greater than 30
--- NOTE | 2021-07-11 10:30 | P.PN ---
Subjective Progress Note Date: 07/11/21 Principal diagnosis: Hematemesis This a 51-year-old male with a history of alcohol abuse in the past. Also significant history of esophageal varices for which he underwent EGD and variceal banding approximately 5 years ago. The patient had presented with abdominal pain followed by multiple episodes of bloody emesis. Yesterday he underwent an EGD with findings of large fundal varix with a nipple sign suggestive of recent gastric air cell bleeding but no active bleeding currently. Small clots noted in the fundus of the stomach. No evidence of esophageal varices. Recommendations were to continue IV Sandostatin and continue process of transfer to tertiary center for TIPSS procedure to prevent recurrent gastric variceal bleeding. He is seen and evaluated in the ICU today. He remains on IV Sandostatin. He denied any further abdominal pain, nausea, or vomiting since his procedure yesterday. His hemoglobin at 10 25 was 8.0, repeat this morning is 8.2. Platelet 95,000. He is status post units of PRBC transfusion and 2 units of FFP. He has been afebrile. Blood pressures have stabilized. Objective - Vital Signs Vital signs: Vital Signs Temp 98 F 07/11/21 04:00 Pulse 66 07/11/21 07:00 Resp 11 L 07/11/21 07:00 BP 99/63 07/11/21 07:00 Pulse Ox 95 07/11/21 07:00 Intake & Output 07/10/21 07/11/21 07/11/21 18:59 06:59 18:59 Intake Total 2427.000 1533.333 Output Total 300 2100 Balance 2127.000 -566.667 Weight 91 kg Intake: IV 525 1050 Sodium Chloride 0.9% 1, 425 1050 000 ml @ 75 mls/hr IV . [id number] [facility] Rx#:[id number] Intake, IV Titration 1275.000 483.333 Amount Octreotide 500 mcg In 275.000 483.333 Sodium Chloride 0.9% 250 ml @ 50 MCG/HR 25 mls/hr IV .Q10H [facility] Rx#: [id number] Sodium Chloride 0.9% 1, 1000 000 ml @ 999 mls/hr IV . Q1H1M [facility] Rx#:[id number] Blood Product 627 Ffp 24 Cpd Unit 317 [id number] Rc As-1 Unit 310 [id number] Output: Urine 300 2100 - Exam General appearance: The patient is alert, oriented, appears in no acute distress. HET: Head is normocephalic and atraumatic. Conjunctiva pink. Sclera anicteric. Neck: Supple without lymphadenopathy. Abdomen: Soft, nontender, nondistended with bowel sounds. No guarding or rigidity. Extremities: Normal skin color and turgor. No pedal edema Skin: No rashes, no jaundice Neurological: No focal deficits. Alert and oriented x3. - Labs CBC & Chem 7: 07/11/21 11:55 07/10/21 02:51 Labs: Abnormal Lab Results - Last 24 Hours (Table) 07/09/21 07/10/21 07/10/21 Range/Units 12:30 11:33 12:13 RBC 2.60 L (4.30-5.90) m/uL Hgb 8.3 L (13.0-17.5) gm/dL Hct 24.8 L (39.0-53.0) % RDW 16.2 H (11.5-15.5) % Plt Count 95 L (150-450) k/uL Lymphocytes # (Manual) (1.0-4.8) k/uL Eosinophils # (Manual) (0-0.7) k/uL POC Glucose (mg/dL) 118 H (75-99) mg/dL Crossmatch See Detail 07/10/21 07/10/21 07/10/21 Range/Units 16:19 17:32 20:00 RBC 2.72 L 2.59 L (4.30-5.90) m/uL Hgb 8.6 L 8.1 L (13.0-17.5) gm/dL Hct 26.1 L 25.0 L (39.0-53.0) % RDW 16.3 H 16.4 H (11.5-15.5) % Plt Count 107 L 101 L (150-450) k/uL Lymphocytes # (Manual) (1.0-4.8) k/uL Eosinophils # (Manual) (0-0.7) k/uL POC Glucose (mg/dL) 119 H (75-99) mg/dL Crossmatch 07/10/21 07/11/21 07/11/21 Range/Units 23:53 03:28 05:46 RBC 2.63 L 2.57 L (4.30-5.90) m/uL Hgb 8.1 L 8.0 L (13.0-17.5) gm/dL Hct 25.4 L 24.4 L (39.0-53.0) % RDW 16.4 H 16.0 H (11.5-15.5) % Plt Count 104 L 93 L (150-450) k/uL Lymphocytes # (Manual) 0.98 L (1.0-4.8) k/uL Eosinophils # (Manual) 1.07 H (0-0.7) k/uL POC Glucose (mg/dL) 112 H (75-99) mg/dL Crossmatch Microbiology - Last 24 Hours (Table) 07/09/21 12:44 Blood Culture Gram Stain - Preliminary Blood Blood Culture - Preliminary Staphylococcus epidermidis 07/09/21 13:02 Blood Culture Gram Stain - Preliminary Blood 07/09/21 13:02 Blood Culture - Final Blood 07/09/21 12:44 Blood Culture - Final Blood Assessment and Plan (1) GI bleed Narrative/Plan: 51-year-old male who presented to the emergency department yesterday with complaints of acute onset of abdominal pain associated with nausea and vomiting. States he began to vomit bright red and dark red blood. He was concern for esophageal varices as he has a history of previous esophageal variceal bleed status post banding approximately 5 years ago done at [facility]. He admits to a history of alcohol abuse for which he quit a few months ago. States he was drinking a few beers a day at least for last 10-15 years. States he has been diagnosed in the past with cirrhosis of the liver but does not follow up with anyone. The patient continued to have several episodes of large amounts of hematemesis while in the ER and through the night during his admission to ICU. Patient has esophageal varices related to portal hypertension. He is been transfused 4 units of PRBC transfusion and 2 units FFP. Plan is to proceed today with EGD. Patient is currently on Sandostatin as well. Yesterday he underwent an EGD with findings of large fundal varix with a nipple sign suggestive of recent gastric air cell bleeding but no active bleeding c urrently. Small clots noted in the fundus of the stomach. No evidence of esophageal varices. Recommendations were to continue IV Sandostatin and continue process of transfer to tertiary [place] for TIPS procedure to prevent recurrent gastric variceal bleeding. He is no longer having any nausea or vomiting. No hematemesis since prior to his procedure yesterday. Hemoglobin is stable at 8.2. Will continue with the every 4 hour CBC. Current Visit: Yes Status: Acute Code(s): K92.2 - GASTROINTESTINAL HEMORRHAGE, UNSPECIFIED SNOMED Code(s): 15642008 (2) Gastric varices Narrative/Plan: Recommend transfer to tertiary center for TIPS procedure for gastric varices secondary to portal hypertension from alcoholic cirrhosis of the liver. Current Visit: Yes Status: Acute Code(s): I86.4 - GASTRIC VARICES SNOMED Code(s): 08281254 (3) History of esophageal varices Current Visit: Yes Status: Acute Code(s): Z87.19 - PERSONAL HISTORY OF OTHER DISEASES OF THE DIGESTIVE SYSTEM SNOMED Code(s): 39970267641878864 (4) History of alcohol abuse Current Visit: Yes Status: Acute Code(s): F10.11 - ALCOHOL ABUSE, IN REMISSION SNOMED Code(s): 828601111 (5) Alcoholic cirrhosis of liver Current Visit: No Status: Acute Code(s): K70.30 - ALCOHOLIC CIRRHOSIS OF LIVER WITHOUT ASCITES SNOMED Code(s): 499579174 Plan: 1. Clear liquid diet 2. Continue Sandostatin for next 24-48 hours 3. Continue to monitor hemoglobin, transfuse Hg less than 7 4. EGD performed with evidence of gastric varices, recommendation is for transfer the patient to tertiary center for TIPS procedure 5. Alcohol abstinence Thank you for this consultation, we will continue to follow. Dr. Aryan Moncada I agree with the dictator's note, documented as a scribe by Virginia Ackerman.
[2021-07-11 12:04] LABS: Anisocytosis Slight; Basophils % (A) 0 %; Eosinophils # (A) 0.5 k/uL (0-0.7); Eosinophils % (A) 6 %; HCT 24.7 % (39.0-53.0); HGB 8.2 gm/dL (13.0-17.5); Lymphocytes # (A) 1.4 k/uL (1.0-4.8); Lymphocytes % (A) 19 %; MCHC 33.2 g/dL (31.0-37.0); MCV 96.4 fL (80.0-100.0); Mean Platelet Volume 7.9; Monocytes # (A) 0.5 k/uL (0-1.0); Monocytes % (A) 7 %; Neutrophils # (A) 4.8 k/uL (1.3-7.7); Neutrophils % (A) 66 %; RBC 2.56 m/uL (4.30-5.90); RDW 16.5 % (11.5-15.5); WBC 7.3 k/uL (3.8-10.6)
[2021-07-11 12:16] LABS: Platelet Count 94 k/uL (150-450)
[2021-07-11 16:11] LABS: Anisocytosis Slight; Basophils % (A) 1 %; Eosinophils # (A) 0.4 k/uL (0-0.7); Eosinophils % (A) 7 %; HCT 25.6 % (39.0-53.0); HGB 8.2 gm/dL (13.0-17.5); Hypochromasia Slight; Lymphocytes # (A) 1.2 k/uL (1.0-4.8); Lymphocytes % (A) 18 %; MCH 31.7 pg (25.0-35.0); MCHC 32.2 g/dL (31.0-37.0); MCV 98.3 fL (80.0-100.0); Macrocytosis Slight; Mean Platelet Volume 7.5; Monocytes # (A) 0.4 k/uL (0-1.0); Monocytes % (A) 6 %; Neutrophils # (A) 4.4 k/uL (1.3-7.7); Neutrophils % (A) 67 %; Platelet Count 101 k/uL (150-450); RDW 16.3 % (11.5-15.5); WBC 6.6 k/uL (3.8-10.6)
[2021-07-11] MEDS: SODIUM CHLORIDE 0.9% 1,000 ML IV SCH ×2 (18:13→23:54)
[2021-07-11 21:05] LABS: Anisocytosis Slight; Basophils % (A) 0 %; Eosinophils # (A) 0.5 k/uL (0-0.7); Eosinophils % (A) 5 %; HCT 25.5 % (39.0-53.0); HGB 8.6 gm/dL (13.0-17.5); Lymphocytes # (A) 1.1 k/uL (1.0-4.8); Lymphocytes % (A) 13 %; MCH 32.4 pg (25.0-35.0); MCHC 33.7 g/dL (31.0-37.0); Mean Platelet Volume 8.2; Monocytes # (A) 0.4 k/uL (0-1.0); Monocytes % (A) 5 %; Neutrophils # (A) 6.4 k/uL (1.3-7.7); Neutrophils % (A) 75 %; RBC 2.66 m/uL (4.30-5.90); RDW 16.5 % (11.5-15.5); WBC 8.6 k/uL (3.8-10.6)
[2021-07-11 21:18] LABS: Platelet Count 91 k/uL (150-450)
[2021-07-12 00:03] LABS: Glucose,Whole Blood 130 mg/dL (75-99)
[2021-07-12 01:03] LABS: Anisocytosis Slight; Basophils % (A) 0 %; Eosinophils # (A) 0.4 k/uL (0-0.7); Eosinophils % (A) 5 %; HCT 26.8 % (39.0-53.0); HGB 8.4 gm/dL (13.0-17.5); Lymphocytes # (A) 1.5 k/uL (1.0-4.8); Lymphocytes % (A) 17 %; MCH 30.7 pg (25.0-35.0); MCHC 31.6 g/dL (31.0-37.0); MCV 97.2 fL (80.0-100.0); Macrocytosis Slight; Mean Platelet Volume 7.5; Monocytes # (A) 0.5 k/uL (0-1.0); Monocytes % (A) 6 %; Neutrophils # (A) 6.3 k/uL (1.3-7.7); Neutrophils % (A) 71 %; Platelet Count 110 k/uL (150-450); RBC 2.75 m/uL (4.30-5.90); RDW 16.3 % (11.5-15.5); WBC 8.9 k/uL (3.8-10.6)
[2021-07-12] MEDS: ZOLPIDEM 5 MG TAB PO PRN (01:07)
[2021-07-12] MEDS: OCTREOTIDE 500 MCG in SODIUM CHLORIDE 0.9% 250 ML IV SCH ×3 (03:47→22:48)
[2021-07-12 04:22] LABS: Basophils % (A) 0 %; Eosinophils # (A) 0.5 k/uL (0-0.7); Eosinophils % (A) 6 %; HCT 25.6 % (39.0-53.0); HGB 8.3 gm/dL (13.0-17.5); Lymphocytes # (A) 1.4 k/uL (1.0-4.8); Lymphocytes % (A) 19 %; MCH 31.6 pg (25.0-35.0); MCHC 32.4 g/dL (31.0-37.0); MCV 97.5 fL (80.0-100.0); Monocytes # (A) 0.5 k/uL (0-1.0); Monocytes % (A) 7 %; Neutrophils % (A) 67 %; Platelet Count 106 k/uL (150-450); RBC 2.63 m/uL (4.30-5.90); RDW 15.9 % (11.5-15.5); WBC 7.6 k/uL (3.8-10.6)
[2021-07-12 05:07] LABS: African American GFR (CKD) >90 (>60 ml/min/1.73 sqM); Anion Gap 3 mmol/L; Blood Urea Nitrogen 6 mg/dL (9-20); Calcium 7.6 mg/dL (8.4-10.2); Carbon Dioxide 25 mmol/L (22-30); Chloride 109 mmol/L (98-107); Glucose 109 mg/dL (74-99); Magnesium 1.5 mg/dL (1.6-2.3); Non-African American GFR(CKD) >90 (>60 ml/min/1.73 sqM); Potassium 3.6 mmol/L (3.5-5.1); Sodium 137 mmol/L (137-145)
[2021-07-12] MEDS: ONDANSETRON 4 MG/2 ML VIAL IVP PRN (08:29)
[2021-07-12] MEDS: PANTOPRAZOLE 40 MG/10 ML VIAL IVP SCH ×2 (08:29→20:29)
[2021-07-12 08:46] LABS: Anisocytosis Slight; Basophils % (A) 0 %; Eosinophils # (A) 0.4 k/uL (0-0.7); Eosinophils % (A) 6 %; HCT 24.6 % (39.0-53.0); HGB 7.9 gm/dL (13.0-17.5); Lymphocytes # (A) 1.3 k/uL (1.0-4.8); Lymphocytes % (A) 19 %; MCH 31.2 pg (25.0-35.0); MCHC 32.2 g/dL (31.0-37.0); MCV 96.9 fL (80.0-100.0); Mean Platelet Volume 8.4; Monocytes # (A) 0.4 k/uL (0-1.0); Monocytes % (A) 6 %; Neutrophils # (A) 4.6 k/uL (1.3-7.7); Neutrophils % (A) 67 %; Platelet Count 100 k/uL (150-450); RBC 2.54 m/uL (4.30-5.90); RDW 16.1 % (11.5-15.5); WBC 6.8 k/uL (3.8-10.6)
[2021-07-12] MEDS ORDERED: HALOPERIDOL LACTATE 5 MG/ML 1 ML VIAL IVP PRN (09:13)
[2021-07-12] MEDS ORDERED: MORPHINE SULFATE 4 MG/ML SYRINGE ONE (10:01)
[2021-07-12] MEDS ORDERED: SUCCINYLCHOLINE CHLORIDE VIAL 200 MG/10 ML VIAL IV ONE (10:01)
[2021-07-12] MEDS ORDERED: LORazepam 2 MG/ML INJ ONE (10:02)
[2021-07-12] MEDS ORDERED: CISATRACURIUM 2 MG/ML 5 ML VIAL IV ONE ×2 (10:07→10:10)
[2021-07-12] MEDS ORDERED: CALCIUM GLUCONATE 2 GM in SODIUM CHLORIDE 0.9% 100 ML IVPB ONE (10:25)
[2021-07-12] MEDS ORDERED: SODIUM CHLORIDE 0.9% 1,000 ML IV ONE (10:25)
[2021-07-12] MEDS ORDERED: Potassium Replacement Protocol 1 EACH MISC MISCELLANE PRN (10:27)
[2021-07-12] MEDS ORDERED: Magnesium Replacement Protocol 1 EACH MISC MISCELLANE PRN (10:28)
[2021-07-12 10:30] LABS: ABG Base Excess -12.5 mmol/L; ABG HCO3 15 mmol/L (21-25); ABG PCO2 39 mmHg (35-45); ABG PH 7.21 (7.35-7.45); ABG PO2 >400 mmHg (83-108); ABG TCO2 17 mmol/L (19-24); Allen Test Performed? Yes
[2021-07-12] MEDS ORDERED: SODIUM BICARB 8.4% 50 ML SYR (1 MEQ/ML) IV STA (10:33)
[2021-07-12] MEDS ORDERED: propofoL 100 ML IV ONE (10:39)
[2021-07-12] MEDS: MAGNESIUM SULFATE-D5W PMX 1 GM in DEXTROSE/WATER 1 100ML.BAG IVPB SCH ×2 (10:48→11:59)
--- NOTE | 2021-07-12 10:56 | XR ---
EXAMINATION TYPE: XR chest 1V portable DATE OF EXAM: 07/12/2021 CLINICAL HISTORY: Difficulty breathing had to be intubated. TECHNIQUE: Single AP portable upright view of the chest is obtained. COMPARISON: Chest x-ray from 3 days earlier FINDINGS: New orogastric tube projects below diaphragm. No endotracheal tube terminates superior aor tic knob level approximately 4 cm above maxwell. New left internal jugular central venous catheter ter minates in right atrium. No pneumothorax noted. Diminished inspiration currently with left basilar opacity redemonstrated. Cardiac silhouette size st able and within normal limits. Cholecystectomy clips are redemonstrated. Osseous structures are intac t. IMPRESSION: 1. Satisfactory positioning of new endotracheal and orogastric tubes. No pneumothorax after left-side d central venous catheter placement. 2. Diminished inspiration with new small to tiny left pleural effusion and associated left basilar at electasis and/or infiltrate.
[2021-07-12] MEDS ORDERED: NOREPINEPHRIN 4 MG-0.9% NS PMX 4 MG/250 ML ML IV ONE (11:00)
--- NOTE | 2021-07-12 11:11 | CDI ---
Documentation Clarification Form Date: 07/12/2021 10:46:07 AM From: Magalie Pereyra RN CCDS Admit Date: 07/09/2021 05:09:00 PM Patient Name: Lyle Sheets Visit Number: [id number] Discharge Date: ATTENTION: The Clinical Documentation Specialists (CDI) and [facility] Coding Staff appreciate your assistance in clarifying documentation. Please respond to the clarification below the line at the bottom and electronically sign. The CDI & [facility] Coding staff will review the response and follow-up if needed. Please note: Queries are made part of the Legal Health Record. If you have any questions, please contact the author of this message via ITS. Dr. Tony Trevizo There is documentation of bacteremia 07/10, Die Caster Consult. Bacteremia is considered a lab finding. Additional clarification regarding bacteremia is requested. Patient history/risk factors: 51-year-old male presents to the ED with abdominal pain and hematemesis. Medical history: Esophageal varices, Alcoholic cirrhosis, Alcohol Abuse disorder and GERD Clinical Indicators: VSS: 07/09B/P 93/69, HR 178, Temp 97.5 F, RR 18, SpO2 93% ra WBC: 07/09 12.0 Left Shift: 07/09 6.3 Blood Culture: 07/09 Coagulase Negative Staph Consult: Die Caster 07/10 Gram-positive bacteremia, patient is covered with Rocephin and Vancomycin, will await final blood cultures. Treatment: Antibiotics: 07/09 Ceftriaxone 1gm IVPB x 1; 07/10 to Ceftriaxone 1gm IVPB Q24HR, 07/10 Vancomycin 1,750mg IVPB x 1; 07/10 to 07/11 Vancomycin 1,500mg IVPB Q8H Fluids: 07/09 0.9NS 1L bolus x 1; 07/09 0.9NS 1l bolus x 1; 07/09 0.9NS 1L bolus x 1; 07/10 0.9NS 1l bolus x 1, 0.9NS 1L bolus x 1. Please provide additional clarification regarding the etiology/cause and/or clinical significance of the bacteremia: [ ] Bacteremia is related to sepsis [ ] Bacteremia is due to infectious process, please specify: [ ] Bacteremia is not clinically significant [ ] Other, please specify [ ] Unable to determine (Template Last Revised: September 2020) bacteremia etiology not clear MTDD
--- NOTE | 2021-07-12 11:17 | P.PN ---
Subjective Progress Note Date: 07/12/21 Principal diagnosis: Acute GI bleed 51-year-old white male patient with past medical history of EtOH abuse, history of liver cirrhosis with esophageal varices with previous banding 2 years ago at [facility], and previous GI bleeding, current every day smoker, who came into the emergency department on 07/09/2021 with complaints of abdominal pain, hematemesis, and passing black stools. Patient was having palpitations, he was chilled. Denied any shortness of breath, no chest pain, no cough, no dyspnea, no phlegm production. Patient was noted to be hypotensive in the emergency department with a blood pressure of 76/30. He was having episodes of large volume of hematemesis. Initial hemoglobin was 10.6, platelet count was 218, INR was 1.2, plasma lactic acid was 5.8 on presentation, renal profile was within normal limits with BUN of 15 creatinine 0.94, troponin was negative. Lipase was 421. COVID-19 PCR was negative, LFTs were within normal limits. Patient was transfused with 4 units of packed red blood cells, 4 subsequent drop in hemoglobin down to 7.8, and he will be receiving another unit of packed red blood cells this morning. He received 2 units of fresh frozen plasma, he also received 4 L in fluid boluses, and his maintenance IV fluids is 0.9 normal sinus at a rate of 75 ML per hour, patient's blood culture was positive for gram-posit mary cocci, and patient is on combination of Rocephin and vancomycin. Today's labs reveal white blood cell count of 11.9, hemoglobin of 7.8 as mentioned above with fifth unit of packed cells infusing, platelet count is 113, sodium is 136, potassium is 5.3, chloride is 1:15, CO2 is 18, BUN is 23, creatinine is 0.68. Patient is on Sandostatin at 50 mics per hour, he is on Protonix 40 mg twice daily, Zofran. He is awake and alert, breathing comfortably, it appears to be in no acute distress. No shortness of breath no chest pain, room air pulse ox is 94%, current blood pressure is 82/55. In sinus mechanism with a rate of 75 BPM, afebrile. Chest x-ray shows no acute cardiopulmonary disease. CT of the abdomen and pelvis showed no evidence of active GI bleeding, splenic varices consistent with portal venous hypertension, no focal liver defect. GI service has been consulted and patient is boarded for EGD this afternoon On 07/11/2021 patient seen in follow-up in intensive care unit, he is awake and alert, appears a bit fatigued and pale but no acute distress, abdomen is soft, no nausea or vomiting, no episodes of hematemesis or melena overnight. He was transfused with 5 units of packed red blood cells yesterday and 2 units of fresh frozen plasma, today's labs show hemoglobin of 8.2, platelet count is 95, his BNP is still pending for today. His white count is 8.0. Breathing comfortable, no complaints of shortness of breath or chest pain. Tolerating sips of clear liquids. He is status post EGD which showed large fundal varix with the nipple sign suggestive of recent gastric variceal bleeding but no active bleeding, small clots in the fundus of the stomach, and no evidence of esophageal varices. The recommendation was made by the GI service to continue on IV Sandostatin, and to transfer the patient to a tertiary care facility for TIPS procedure to prevent recurrent gastric variceal bleeding. Patient continues on H&H's every 6 hours per GI service recommendations. He is not requiring any vasopressor support, he is in sinus mechanism, he remains on Sandostatin 50 mg per hour, and point tenderness and uterine rate of 75 ML per hour. On 07/12/2021 patient seen in follow-up in the intensive care unit, this morning he had 2 large bloody bowel movements. He was started on some clear liquids yesterday, today his breakfast has been held, he is increasingly more confused, he is hypotensive, his hemoglobin is down to 7.9 this morning, 1 unit of packed red blood cells has been ordered. His 0.9 normal saline is infusing a rate of 75 ML per hour, he is on room air with pulse ox of 93%, he is tachycardic, in sinus mechanism. He is nauseous, has not vomited, his had blood pressures as low as 77/63. Abdomen is soft. Patient is currently #13 on the waiting list for [facility]. The [facility], and [facility] are not accepting transfers at all due to no availability of beds. Patient continues on octreotide at 50 mg per hour. He is on Protonix 40 mg twice daily and empiric antibiotics in the form of Rocephin. His blood cultures came back positive for coagulase-negative staph and Staphylococcus epidermidis, compatible with contamination. Discharge planning also reached out to [facility], which does not offer the service the patient needs. Discussed case with the GI service and apparently the gastric varix is rather large and patient does need the TIPS procedure with possible banding. NG tube was inserted, and bloody output was suctioned out of patient's stoma, at the same time patient decompensated acutely, and the decision was made to intubate and place the patient on mechanical ventilator, patient was given 1 L bolus, he is being urgently transfused with 2 more units of blood for a total of 3 units of blood today, and 2 units of fresh frozen plasma were ordered and pending at this time. Patient was successfully intubated by Dr. Pace, placed on mechanical ventilator, left IJ central line was placed, and right radial arterial line was placed. Blood gas was obtained and pO2 was greater than 400, pCO2 was 39, and pH of 7.21. This is on the ventilator settings assist control with a rate of 24, tidal volumes 450, FiO2 of 100% and PEEP of 5. Chest x-ray shows satisfactory position of the new ET tube and orogastric tubes, no pneumothorax after left-sided central venous catheter placement, diminished inspiration with new small to tiny left pleural effusion and associated left basilar atelectasis. Objective - Vital Signs Vital signs: Vital Signs Temp 98.1 F 07/12/21 10:47 Pulse 154 H 07/12/21 10:47 Resp 154 H 07/12/21 10:47 BP 146/82 07/12/21 10:47 Pulse Ox 93 L 07/12/21 07:00 Intake & Output 07/11/21 07/12/21 07/12/21 18:59 06:59 18:59 Intake Total 1849.75 1870 1245 Output Total 1301 1400 200 Balance 548.75 470 1045 Weight 92 kg Intake: IV 825 900 75 Sodium Chloride 0.9% 1, 825 900 75 000 ml @ 75 mls/hr IV . [id number] Rx#:[id number] Intake, IV Titration 248.75 250 Amount Octreotide 500 mcg In 248.75 250 Sodium Chloride 0.9% 250 ml @ 50 MCG/HR 25 mls/hr IV .Q10H [facility] Rx#: [id number] Oral 776 720 Tube Feeding 240 Blood Product 930 Ffp 24 Cpd Unit 0 [id number] Rc As-1 Unit 310 [id number] Rc As-1 Unit 310 [id number] Rc As-1 Unit 310 [id number] Output: Urine 1300 1400 200 Stool 1 Other: Voiding Method Urinal # Voids 1 - Exam GENERAL EXAM: Intubated, sedated 51-year-old white male, new intubated, on assist control mode of ventilation with a rate of 24, Tylox 450, FiO2 of 100% and PEEP of 5 he is on Sandostatin infusion for acute GI bleeding, NG tube is draining bloody output HEAD: Normocephalic/atraumatic. EYES: Normal reaction of pupils, equal size. Conjunctiva pink, sclera white. NOSE: Clear with pink turbinates. THROAT: No erythema or exudates. NECK: No masses, no JVD, no thyroid enlargement, no adenopathy. CHEST: No chest wall deformity. Symmetrical expansion. LUNGS: Equal air entry with no crackles, wheeze, rhonchi or dullness. CVS: Regular rate and rhythm, normal S1 and S2, no gallops, no murmurs, no rubs ABDOMEN: Soft, nontender. No hepatosplenomegaly, normal bowel sounds, no guarding or rigidity. EXTREMITIES: No clubbing, no edema, no cyanosis, 2+ pulses and upper and lower extremities. MUSCULOSKELETAL: Muscle strength and tone normal. SPINE: No scoliosis or deformity SKIN: No rashes CENTRAL NERVOUS SYSTEM: Sedated, and intubated. No focal deficits, tone is normal in all 4 extremities. - Labs CBC & Chem 7: 07/12/21 08:14 07/12/21 03:37 Labs: Abnormal Lab Results - Last 24 Hours (Table) 07/09/21 07/11/21 07/11/21 Range/Units 12:30 11:55 15:57 RBC 2.56 L 2.60 L (4.30-5.90) m/uL Hgb 8.2 L 8.2 L (13.0-17.5) gm/dL Hct 24.7 L 25.6 L (39.0-53.0) % RDW 16.5 H 16.3 H (11.5-15.5) % Plt Count 94 L 101 L (150-450) k/uL ABG pH (7.35-7.45) ABG pO2 (83-108) mmHg ABG HCO3 (21-25) mmol/L ABG Total CO2 (19-24) mmol/L ABG O2 Saturation (94-97) % Chloride (98-107) mmol/L BUN (9-20) mg/dL Creatinine (0.66-1.25) mg/dL Glucose (74-99) mg/dL POC Glucose (mg/dL) (75-99) mg/dL Calcium (8.4-10.2) mg/dL Magnesium (1.6-2.3) mg/dL Crossmatch See Detail 07/11/21 07/12/21 07/12/21 Range/Units 21:00 00:01 00:22 RBC 2.66 L 2.75 L (4.30-5.90) m/uL Hgb 8.6 L 8.4 L (13.0-17.5) gm/dL Hct 25.5 L 26.8 L (39.0-53.0) % RDW 16.5 H 16.3 H (11.5-15.5) % Plt Count 91 L 110 L (150-450) k/uL ABG pH (7.35-7.45) ABG pO2 (83-108) mmHg ABG HCO3 (21-25) mmol/L ABG Total CO2 (19-24) mmol/L ABG O2 Saturation (94-97) % Chloride (98-107) mmol/L BUN (9-20) mg/dL Creatinine (0.66-1.25) mg/dL Glucose (74-99) mg/dL POC Glucose (mg/dL) 130 H (75-99) mg/dL Calcium (8.4-10.2) mg/dL Magnesium (1.6-2.3) mg/dL Crossmatch 07/12/21 07/12/21 07/12/21 Range/Units 03:37 03:37 08:14 RBC 2.63 L 2.54 L (4.30-5.90) m/uL Hgb 8.3 L 7.9 L (13.0-17.5) gm/dL Hct 25.6 L 24.6 L (39.0-53.0) % RDW 15.9 H 16.1 H (11.5-15.5) % Plt Count 106 L 100 L (150-450) k/uL ABG pH (7.35-7.45) ABG pO2 (83-108) mmHg ABG HCO3 (21-25) mmol/L ABG Total CO2 (19-24) mmol/L ABG O2 Saturation (94-97) % Chloride 109 H (98-107) mmol/L BUN 6 L (9-20) mg/dL Creatinine 0.47 L (0.66-1.25) mg/dL Glucose 109 H (74-99) mg/dL POC Glucose (mg/dL) (75-99) mg/dL Calcium 7.6 L (8.4-10.2) mg/dL Magnesium 1.5 L (1.6-2.3) mg/dL Crossmatch 07/12/21 Range/Units 10:26 RBC (4.30-5.90) m/uL Hgb (13.0-17.5) gm/dL Hct (39.0-53.0) % RDW (11.5-15.5) % Plt Count (150-450) k/uL ABG pH 7.21 L (7.35-7.45) ABG pO2 >400 H (83-108) mmHg ABG HCO3 15 L (21-25) mmol/L ABG Total CO2 17 L (19-24) mmol/L ABG O2 Saturation 100.0 H (94-97) % Chloride (98-107) mmol/L BUN (9-20) mg/dL Creatinine (0.66-1.25) mg/dL Glucose (74-99) mg/dL POC Glucose (mg/dL) (75-99) mg/dL Calcium (8.4-10.2) mg/dL Magnesium (1.6-2.3) mg/dL Crossmatch Microbiology - Last 24 Hours (Table) 07/09/21 13:02 Blood Culture Gram Stain - Preliminary Blood Blood Culture - Preliminary Coagulase Negative Staph Assessment and Plan Plan: Assessment: #1. Acute hypoxic respiratory failure related to shock, related to acute blood loss, patient required intubation and placement on mechanical ventilator on 07/12/2021 #2. Acute GI blood loss anemia, patient presented with multiple episodes of hematemesis, and melena, status post transfusion with units of packed red blood cells and 2 units of FFP #3. Hypotension, likely related to hemorrhagic shock related to acute GI blood loss anemia, requiring fluid resuscitation, and multiple blood products patient has received 8 units of packed red blood cells so far, and a total of 4 units of FFP #4. Status post EGD on 07/09/2021 showing large fundal varix and evidence of recent gastric variceal bleeding, and small clots, no evidence of esophageal varices, continues on Sandostatin #5. History of esophageal varices, EtOH related liver cirrhosis, patient has a history of banding at [facility] 2 years ago #6. History of EtOH use, last drink was yesterday on 07/09/2021 #7. Gram-positive bacteremia, patient is covered with Rocephin and vancomycin, will await final blood cultures #8. Lactic acidosis related to acute hemorrhagic shock, improved with IV hydrat ion and blood transfusion #9. Current smoker #10. Reported history of seizures, used to be on Tegretol, currently not on any medication. Details of diagnosis is not known to us. Patient states has not had a seizure in a long time Plan: Patient has clinically significant with deteriorated with evidence of active bleeding and hypotension Patient has been transfused with 3 units of packed red blood cells this morning, and will receive 2 additional units of fresh frozen plasma He was emergently intubated placed on mechanical ventilator for evidence of hemorrhagic shock Current vent settings are assist-control with a rate of 24, tidal volume 450, FiO2 100%, and PEEP of 5 Central line Artline have been placed Patient received 1 L bolus, we'll give the patient 2 g of calcium chloride Use propofol for sedation We'll continue following serial H&H's Continue Sandostatin and IV Protonix Patient's condition is critical We'll consult Dr. Urbina from general surgery Still working on trying to transfer the patient to the [facility] and patient is #13 on the waiting list with no availability of beds at other facilities including [facility], the , [facility] Discussed case with GI service We'll continue to stabilize the patient and continue with supportive care until we can get the patient to another facility Overall prognosis is extremely poor and guarded I performed a history & physical examination of the patient and discussed their management with my nurse practitioner, Estephania Tejada. I reviewed the nurse practitioner's note and agree with the documented findings and plan of care. Lung sounds are positive for clear breath sounds throughout the lung silva. The findings and the impression was discussed with the patient. I attest to the documentation by the nurse practitioner. Time with Patient: Greater than 30
--- NOTE | 2021-07-12 11:27 | P.PN ---
Subjective Progress Note Date: 07/12/21 Principal diagnosis: patient actively bleeding this morning and in distress has to be intubated Constitutional: In distress Eyes: Anicteric sclerae, moist conjunctiva, no lid-lag PERRLA ENMT: NC/AT Oropharynx clear, no erythema, exudates Neck: Supple, FROM, Cardiovascular: No peripheral edema Abdominal: No abdominal wall hernia noted Skin: Yellowish Extremities: No digital cyanosis No clubbing Pedal pulses intact and symmetrical Radial pulses intact and symmetrical Normal gait and station No calf tenderness Psychiatric: More sleepy Neuro: g weakness Variceal bleed -Has to be intubated -CBC every 6 hours -PPI IV twice a day -Somatostatin drip -Due to gastric lysis due to gastric varices -Pulmonary consult -Maintain 2 large bore IVs -Hold home medications -Strict nothing by mouth -Ceftriaxone 1 g every 24 hours -Continue IV fluids Supraventricular tachycardia -Return to sinus rhythm after adenosine 6 mg push -Continue to monitor on telemetry -Should patient develop SVT again, will likely require amiodarone Alcoholic cirrhosis Alcohol abuse disorder -Monitor for withdrawal -Patient continues to be weak difficulty transferring the patient on her level of care bedside available at this time Attempt to transfer the patient to multiple hospitals no success no beds available Patient currently is intubated and more stabilized discussed with gastroenter ology the patient needs urgent TIPS due to gastric vericies Objective - Vital Signs Vital signs: Vital Signs Temp 97.3 F L 07/12/21 11:04 Pulse 109 H 07/12/21 11:04 Resp 24 07/12/21 11:04 BP 77/39 07/12/21 11:04 Pulse Ox 93 L 07/12/21 07:00 Intake & Output 07/11/21 07/12/21 07/12/21 18:59 06:59 18:59 Intake Total 1849.75 1870 1891.76 Output Total 1301 1400 200 Balance 548.75 470 1691.76 Weight 92 kg Intake: IV 825 900 75 Sodium Chloride 0.9% 1, 825 900 75 000 ml @ 75 mls/hr IV . [id number] [facility] Rx#:[id number] Intake, IV Titration 248.75 250 2.76 Amount Octreotide 500 mcg In 248.75 250 Sodium Chloride 0.9% 250 ml @ 50 MCG/HR 25 mls/hr IV .Q10H [facility] Rx#: [id number] propofoL 1,000 mg In 2.76 Empty Bag 1 bag @ Titrate IV .Q0M [facility] Rx#: [id number] Oral 776 720 Tube Feeding 240 Blood Product 1574 Ffp 24 Cpd Unit 337 [id number] Ffp 24 Cpd Unit 307 [id number] Rc As-1 Unit 310 [id number] Rc As-1 Unit 310 [id number] Rc As-1 Unit 310 [id number] Output: Urine 1300 1400 200 Stool 1 Other: Voiding Method Urinal # Voids 1 - Labs CBC & Chem 7: 07/12/21 08:14 07/12/21 03:37 Labs: Abnormal Lab Results - Last 24 Hours (Table) 07/09/21 07/11/21 07/11/21 Range/Units 12:30 11:55 15:57 RBC 2.56 L 2.60 L (4.30-5.90) m/uL Hgb 8.2 L 8.2 L (13.0-17.5) gm/dL Hct 24.7 L 25.6 L (39.0-53.0) % RDW 16.5 H 16.3 H (11.5-15.5) % Plt Count 94 L 101 L (150-450) k/uL ABG pH (7.35-7.45) ABG pO2 (83-108) mmHg ABG HCO3 (21-25) mmol/L ABG Total CO2 (19-24) mmol/L ABG O2 Saturation (94-97) % Chloride (98-107) mmol/L BUN (9-20) mg/dL Creatinine (0.66-1.25) mg/dL Glucose (74-99) mg/dL POC Glucose (mg/dL) (75-99) mg/dL Calcium (8.4-10.2) mg/dL Magnesium (1.6-2.3) mg/dL Crossmatch See Detail 07/11/21 07/12/21 07/12/21 Range/Units 21:00 00:01 00:22 RBC 2.66 L 2.75 L (4.30-5.90) m/uL Hgb 8.6 L 8.4 L (13.0-17.5) gm/dL Hct 25.5 L 26.8 L (39.0-53.0) % RDW 16.5 H 16.3 H (11.5-15.5) % Plt Count 91 L 110 L (150-450) k/uL ABG pH (7.35-7.45) ABG pO2 (83-108) mmHg ABG HCO3 (21-25) mmol/L ABG Total CO2 (19-24) mmol/L ABG O2 Saturation (94-97) % Chloride (98-107) mmol/L BUN (9-20) mg/dL Creatinine (0.66-1.25) mg/dL Glucose (74-99) mg/dL POC Glucose (mg/dL) 130 H (75-99) mg/dL Calcium (8.4-10.2) mg/dL Magnesium (1.6-2.3) mg/dL Crossmatch 07/12/21 07/12/21 07/12/21 Range/Units 03:37 03:37 08:14 RBC 2.63 L 2.54 L (4.30-5.90) m/uL Hgb 8.3 L 7.9 L (13.0-17.5) gm/dL Hct 25.6 L 24.6 L (39.0-53.0) % RDW 15.9 H 16.1 H (11.5-15.5) % Plt Count 106 L 100 L (150-450) k/uL ABG pH (7.35-7.45) ABG pO2 (83-108) mmHg ABG HCO3 (21-25) mmol/L ABG Total CO2 (19-24) mmol/L ABG O2 Saturation (94-97) % Chloride 109 H (98-107) mmol/L BUN 6 L (9-20) mg/dL Creatinine 0.47 L (0.66-1.25) mg/dL Glucose 109 H (74-99) mg/dL POC Glucose (mg/dL) (75-99) mg/dL Calcium 7.6 L (8.4-10.2) mg/dL Magnesium 1.5 L (1.6-2.3) mg/dL Crossmatch 07/12/21 Range/Units 10:26 RBC (4.30-5.90) m/uL Hgb (13.0-17.5) gm/dL Hct (39.0-53.0) % RDW (11.5-15.5) % Plt Count (150-450) k/uL ABG pH 7.21 L (7.35-7.45) ABG pO2 >400 H (83-108) mmHg ABG HCO3 15 L (21-25) mmol/L ABG Total CO2 17 L (19-24) mmol/L ABG O2 Saturation 100.0 H (94-97) % Chloride (98-107) mmol/L BUN (9-20) mg/dL Creatinine (0.66-1.25) mg/dL Glucose (74-99) mg/dL POC Glucose (mg/dL) (75-99) mg/dL Calcium (8.4-10.2) mg/dL Magnesium (1.6-2.3) mg/dL Crossmatch Microbiology - Last 24 Hours (Table) 07/09/21 13:02 Blood Culture Gram Stain - Preliminary Blood Blood Culture - Preliminary Coagulase Negative Staph
--- NOTE | 2021-07-12 11:45 | P.PN ---
Subjective Progress Note Date: 07/12/21 Principal diagnosis: Hematemesis This a 51-year-old male with a history of alcohol abuse in the past. Also significant history of esophageal varices for which he underwent EGD and variceal banding approximately 5 years ago. The patient had presented with abdominal pain followed by multiple episodes of bloody emesis. Yesterday he underwent an EGD with findings of large fundal varix with a nipple sign suggestive of recent gastric air cell bleeding but no active bleeding currently. Small clots noted in the fundus of the stomach. No evidence of esophageal varices. Recommendations were to continue IV Sandostatin and continue process of transfer to tertiary center for TIPS procedure to prevent recurrent gastric variceal bleeding. He is seen and evaluated in the ICU today. He remains on IV Sandostatin. He is complaining of extreme nausea. He he is pale. Initially he had no emesis but later in the morning hartman bloody emesis that was bright red. He is somewhat agitated. His hemoglobin this morning was initially 8.3 at 3:30 and repeat at 80 and was 7.9. Objective - Vital Signs Vital signs: Vital Signs Temp 98.2 F 07/12/21 04:00 Pulse 75 07/12/21 07:00 Resp 15 07/12/21 07:00 BP 97/65 07/12/21 07:00 Pulse Ox 93 L 07/12/21 07:00 Intake & Output 07/11/21 07/12/21 07/12/21 18:59 06:59 18:59 Intake Total 1849.75 1870 315 Output Total 1301 1400 200 Balance 548.75 470 115 Weight 92 kg Intake: IV 825 900 75 Sodium Chloride 0.9% 1, 825 900 75 000 ml @ 75 mls/hr IV . [id number] JAYDEN Rx#:[id number] Intake, IV Titration 248.75 250 Amount Octreotide 500 mcg In 248.75 250 Sodium Chloride 0.9% 250 ml @ 50 MCG/HR 25 mls/hr IV .Q10H JAYDEN Rx#: [id number] Oral 776 720 Tube Feeding 240 Output: Urine 1300 1400 200 Stool 1 Other: Voiding Method Urinal # Voids 1 - Exam General appearance: The patient is alert, oriented, appears more agitated. Pale. HET: Head is normocephalic and atraumatic. Conjunctiva pink. Sclera anicteric. Neck: Supple without lymphadenopathy. Abdomen: Soft, epigastric tenderness, nondistended with bowel sounds. No guarding or rigidity. Extremities: Normal skin color and turgor. No pedal edema Skin: No rashes, no jaundice Neurological: No focal deficits. Alert and oriented x3. - Labs CBC & Chem 7: 07/12/21 08:14 07/12/21 03:37 Labs: Abnormal Lab Results - Last 24 Hours (Table) 07/09/21 07/11/21 07/11/21 Range/Units 12:30 08:31 11:55 RBC 2.53 L 2.56 L (4.30-5.90) m/uL Hgb 8.2 L 8.2 L (13.0-17.5) gm/dL Hct 24.1 L 24.7 L (39.0-53.0) % RDW 15.8 H 16.5 H (11.5-15.5) % Plt Count 95 L 94 L (150-450) k/uL Chloride (98-107) mmol/L BUN (9-20) mg/dL Creatinine (0.66-1.25) mg/dL Glucose (74-99) mg/dL POC Glucose (mg/dL) (75-99) mg/dL Calcium (8.4-10.2) mg/dL Magnesium (1.6-2.3) mg/dL Crossmatch See Detail 07/11/21 07/11/21 07/12/21 Range/Units 15:57 21:00 00:01 RBC 2.60 L 2.66 L (4.30-5.90) m/uL Hgb 8.2 L 8.6 L (13.0-17.5) gm/dL Hct 25.6 L 25.5 L (39.0-53.0) % RDW 16.3 H 16.5 H (11.5-15.5) % Plt Count 101 L 91 L (150-450) k/uL Chloride (98-107) mmol/L BUN (9-20) mg/dL Creatinine (0.66-1.25) mg/dL Glucose (74-99) mg/dL POC Glucose (mg/dL) 130 H (75-99) mg/dL Calcium (8.4-10.2) mg/dL Magnesium (1.6-2.3) mg/dL Crossmatch 07/12/21 07/12/21 07/12/21 Range/Units 00:22 03:37 03:37 RBC 2.75 L 2.63 L (4.30-5.90) m/uL Hgb 8.4 L 8.3 L (13.0-17.5) gm/dL Hct 26.8 L 25.6 L (39.0-53.0) % RDW 16.3 H 15.9 H (11.5-15.5) % Plt Count 110 L 106 L (150-450) k/uL Chloride 109 H (98-107) mmol/L BUN 6 L (9-20) mg/dL Creatinine 0.47 L (0.66-1.25) mg/dL Glucose 109 H (74-99) mg/dL POC Glucose (mg/dL) (75-99) mg/dL Calcium 7.6 L (8.4-10.2) mg/dL Magnesium 1.5 L (1.6-2.3) mg/dL Crossmatch 07/12/21 Range/Units 08:14 RBC 2.54 L (4.30-5.90) m/uL Hgb 7.9 L (13.0-17.5) gm/dL Hct 24.6 L (39.0-53.0) % RDW 16.1 H (11.5-15.5) % Plt Count 100 L (150-450) k/uL Chloride (98-107) mmol/L BUN (9-20) mg/dL Creatinine (0.66-1.25) mg/dL Glucose (74-99) mg/dL POC Glucose (mg/dL) (75-99) mg/dL Calcium (8.4-10.2) mg/dL Magnesium (1.6-2.3) mg/dL Crossmatch Microbiology - Last 24 Hours (Table) 07/09/21 13:02 Blood Culture Gram Stain - Preliminary Blood Blood Culture - Preliminary Coagulase Negative Staph Assessment and Plan (1) GI bleed Narrative/Plan: 51-year-old male who presented to the emergency department yesterday with complaints of acute onset of abdominal pain associated with nausea and vomiting. States he began to vomit bright red and dark red blood. He was concern for esophageal varices as he has a history of previous esophageal variceal bleed status post banding approximately 5 years ago done at [facility]. He admits to a history of alcohol abuse for which he quit a few months ago. States he was drinking a few beers a day at least for last 10-15 years. States he has been diagnosed in the past with cirrhosis of the liver but does not follow up with anyone. The patient continued to have several episodes of large amounts of hematemesis while in the ER and through the night during his admission to ICU. Patient has esophageal varices related to portal hypertension. He is been transfused 4 units of PRBC transfusion and 2 units FFP. Plan is to proceed today with EGD. Patient is currently on Sandostatin as well. Yesterday he underwent an EGD with findings of large fundal varix with a nipple sign suggestive of recent gastric air cell bleeding but no active bleeding currently. Small clots noted in the fundus of the stomach. No evidence of esophageal varices. Recommendations were to continue IV Sandostatin and continue process of transfer to tertiary center for TIPS procedure to prevent recurrent gastric variceal bleeding. He is no longer having any nausea or vomiting. No hematemesis since prior to his procedure yesterday. Hemoglobin is stable at 8.2. Will continue with the every 4 hour CBC. Current Visit: Yes Status: Acute Code(s): K92.2 - GASTROINTESTINAL HEMORRHAGE, UNSPECIFIED SNOMED Code(s): 26113504 (2) Gastric varices Narrative/Plan: Recommend transfer to tertiary center for TIPS procedure for gastric varices secondary to portal hypertension from alcoholic cirrhosis of the liver. Recommend NG tube. Continue ICU management consider some sedation related to agitation. This was discussed with Primary Medical team Dr. Trevizo. Current Visit: Yes Status: Acute Code(s): I86.4 - GASTRIC VARICES SNOMED Code(s): 12268848 (3) History of esophageal varices Current Visit: Yes Status: Acute Code(s): Z87.19 - PERSONAL HISTORY OF OTHER DISEASES OF THE DIGESTIVE SYSTEM SNOMED Code(s): 65015982433524262 (4) History of alcohol abuse Current Visit: Yes Status: Acute Code(s): F10.11 - ALCOHOL ABUSE, IN REMISSION SNOMED Code(s): 700523441 (5) Alcoholic cirrhosis of liver Current Visit: No Status: Acute Code(s): K70.30 - ALCOHOLIC CIRRHOSIS OF LIVER WITHOUT ASCITES SNOMED Code(s): 542204976 Plan: 1. Continue symptomatic and supportive care as per ICU management 2. NPO 3. Continue Sandostatin 4. Continue to monitor hemoglobin, transfuse Hg less than 7. Avoid over transfusing at may increase portal hypertension and risk for gastric variceal bleed. 5. EGD performed with evidence of gastric varices, recommendation is for tra nsfer the patient to tertiary center for TIPS procedure 6. Alcohol abstinence 7. Place NG tube intermittent suction Thank you for this consultation, we will continue to follow. Dr. Aryan Moncada I agree with the dictator's note, documented as a scribe by Virginia Ackerman.
[2021-07-12 11:56] LABS: Anisocytosis Slight; Basophils % (A) 0 %; Eosinophils # (A) 0.1 k/uL (0-0.7); Eosinophils % (A) 1 %; Lymphocytes # (A) 0.8 k/uL (1.0-4.8); Lymphocytes % (A) 5 %; MCH 32.1 pg (25.0-35.0); MCHC 32.9 g/dL (31.0-37.0); MCV 97.4 fL (80.0-100.0); Macrocytosis Slight; Mean Platelet Volume 8.7; Monocytes # (A) 0.7 k/uL (0-1.0); Monocytes % (A) 5 %; Neutrophils # (A) 13.3 k/uL (1.3-7.7); Neutrophils % (A) 89 %; RBC 1.84 m/uL (4.30-5.90); WBC 14.9 k/uL (3.8-10.6)
[2021-07-12 12:08] LABS: HCT 17.9 % (39.0-53.0); HGB 5.9 gm/dL (13.0-17.5)
[2021-07-12 12:44] LABS: Glucose,Whole Blood 244 mg/dL (75-99)
[2021-07-12 12:46] LABS: Platelet Count 69 k/uL (150-450)
--- NOTE | 2021-07-12 13:15 | P.GSCN ---
History of Present Illness Consult date: 07/12/21 History of present illness: 51-year-old male with history of alcohol cirrhosis and esophageal varices presented to the emergency department with concerns of bloody emesis. Initially, the emergency department did attempt to transfer the patient to a tertiary care facility that would be able to provide the services for variceal bleed, however due to the COVID-19 pandemic and hospital bed shortage in the state, placement was not possible for this patient. He was admitted to the medical service and GI evaluation was performed. He did undergo EGD with no e vidence of active bleed at that time. However, patient continues to have drop in hemoglobin and after intubation today and nasogastric tube placement, significant amount of bright red blood was noted. Currently, hemoglobin is 5.8 and patient is receiving further transfusion.The patient is currently on a wait list to have acceptance to a tertiary care center and [facility] for definitive treatment. Review of Systems ROS unobtainable: due to endotracheal tube Past Medical History Past Medical History: GERD/Reflux, GI Bleed Additional Past Medical History / Comment(s): esophageal varices History of Any Multi-Drug Resistant Organisms: None Reported Past Surgical History: Appendectomy Past Anesthesia/Blood Transfusion Reactions: No Reported Reaction Past Psychological History: No Psychological Hx Reported Smoking Status: Current every day smoker Past Alcohol Use History: None Reported, Rare Past Drug Use History: None Reported Medications and Allergies Home Medications Medication Instructions Recorded Confirmed Type Omeprazole Magnesium [PriLOSEC OTC] 20 mg PO BID 03/01/21 07/09/21 History ALPRAZolam [Xanax] 0.25 mg PO DAILY PRN #3 tab 03/07/21 07/09/21 Rx Cyanocobalamin (Vitamin B-12) 1,000 mcg PO DAILY 07/09/21 07/09/21 History [Vitamin B-12] Multivitamins, Thera [Multivitamin 1 tab PO DAILY 07/09/21 07/09/21 History (formulary)] Potassium Gluconate [Potassium 99 mg PO DAILY 07/09/21 07/09/21 History Gluconate ER] Zolpidem [Ambien] 2.5 mg PO HS PRN 07/09/21 07/09/21 History Allergies Allergy/AdvReac Type Severity Reaction Status Date / Time Penicillins Allergy Rash/Hives Verified 07/09/21 16:55 Surgical - Exam Osteopathic Statement: *. No significant issues noted on an osteopathic structural exam other than those noted in the History and Physical/Consult. Vital Signs Temp Pulse Resp BP Pulse Ox 97.5 F L 178 H 18 93/69 93 L 07/09/21 12:19 07/09/21 12:19 07/09/21 12:19 07/09/21 12:19 07/09/21 12:19 - General Intubated and sedated - Neck trachea midline - Respiratory Vented - Abdomen Soft, distended, no rebound or guarding Results - Labs 07/12/21 11:26 07/12/21 03:37 Abnormal Lab Results - Last 24 Hours (Table) 07/09/21 07/11/21 07/11/21 Range/Units 12:30 15:57 21:00 WBC (3.8-10.6) k/uL RBC 2.60 L 2.66 L (4.30-5.90) m/uL Hgb 8.2 L 8.6 L (13.0-17.5) gm/dL Hct 25.6 L 25.5 L (39.0-53.0) % RDW 16.3 H 16.5 H (11.5-15.5) % Plt Count 101 L 91 L (150-450) k/uL ABG pH (7.35-7.45) ABG pO2 (83-108) mmHg ABG HCO3 (21-25) mmol/L ABG Total CO2 (19-24) mmol/L ABG O2 Saturation (94-97) % Chloride (98-107) mmol/L BUN (9-20) mg/dL Creatinine (0.66-1.25) mg/dL Glucose (74-99) mg/dL POC Glucose (mg/dL) (75-99) mg/dL Calcium (8.4-10.2) mg/dL Magnesium (1.6-2.3) mg/dL Crossmatch See Detail 07/12/21 07/12/21 07/12/21 Range/Units 00:01 00:22 03:37 WBC (3.8-10.6) k/uL RBC 2.75 L 2.63 L (4.30-5.90) m/uL Hgb 8.4 L 8.3 L (13.0-17.5) gm/dL Hct 26.8 L 25.6 L (39.0-53.0) % RDW 16.3 H 15.9 H (11.5-15.5) % Plt Count 110 L 106 L (150-450) k/uL ABG pH (7.35-7.45) ABG pO2 (83-108) mmHg ABG HCO3 (21-25) mmol/L ABG Total CO2 (19-24) mmol/L ABG O2 Saturation (94-97) % Chloride (98-107) mmol/L BUN (9-20) mg/dL Creatinine (0.66-1.25) mg/dL Glucose (74-99) mg/dL POC Glucose (mg/dL) 130 H (75-99) mg/dL Calcium (8.4-10.2) mg/dL Magnesium (1.6-2.3) mg/dL Crossmatch 07/12/21 07/12/21 07/12/21 Range/Units 03:37 08:14 10:26 WBC (3.8-10.6) k/uL RBC 2.54 L (4.30-5.90) m/uL Hgb 7.9 L (13.0-17.5) gm/dL Hct 24.6 L (39.0-53.0) % RDW 16.1 H (11.5-15.5) % Plt Count 100 L (150-450) k/uL ABG pH 7.21 L (7.35-7.45) ABG pO2 >400 H (83-108) mmHg ABG HCO3 15 L (21-25) mmol/L ABG Total CO2 17 L (19-24) mmol/L ABG O2 Saturation 100.0 H (94-97) % Chloride 109 H (98-107) mmol/L BUN 6 L (9-20) mg/dL Creatinine 0.47 L (0.66-1.25) mg/dL Glucose 109 H (74-99) mg/dL POC Glucose (mg/dL) (75-99) mg/dL Calcium 7.6 L (8.4-10.2) mg/dL Magnesium 1.5 L (1.6-2.3) mg/dL Crossmatch 07/12/21 07/12/21 Range/Units 11:26 12:42 WBC 14.9 H (3.8-10.6) k/uL RBC 1.84 L (4.30-5.90) m/uL Hgb 5.9 L* D (13.0-17.5) gm/dL Hct 17.9 L* (39.0-53.0) % RDW 16.0 H (11.5-15.5) % Plt Count (150-450) k/uL ABG pH (7.35-7.45) ABG pO2 (83-108) mmHg ABG HCO3 (21-25) mmol/L ABG Total CO2 (19-24) mmol/L ABG O2 Saturation (94-97) % Chloride (98-107) mmol/L BUN (9-20) mg/dL Creatinine (0.66-1.25) mg/dL Glucose (74-99) mg/dL POC Glucose (mg/dL) 244 H (75-99) mg/dL Calcium (8.4-10.2) mg/dL Magnesium (1.6-2.3) mg/dL Crossmatch Microbiology - Last 24 Hours (Table) 07/09/21 13:02 Blood Culture Gram Stain - Preliminary Blood Blood Culture - Preliminary Coagulase Negative Staph Diabetes panel 07/12/21 Range/Units 03:37 Sodium 137 (137-145) mmol/L Potassium 3.6 (3.5-5.1) mmol/L Chloride 109 H (98-107) mmol/L Carbon Dioxide 25 (22-30) mmol/L BUN 6 L (9-20) mg/dL Creatinine 0.47 L (0.66-1.25) mg/dL Glucose 109 H (74-99) mg/dL Calcium 7.6 L (8.4-10.2) mg/dL Calcium panel 07/12/21 Range/Units 03:37 Calcium 7.6 L (8.4-10.2) mg/dL Pituitary panel 07/12/21 Range/Units 03:37 Sodium 137 (137-145) mmol/L Potassium 3.6 (3.5-5.1) mmol/L Chloride 109 H (98-107) mmol/L Carbon Dioxide 25 (22-30) mmol/L BUN 6 L (9-20) mg/dL Creatinine 0.47 L (0.66-1.25) mg/dL Glucose 109 H (74-99) mg/dL Calcium 7.6 L (8.4-10.2) mg/dL Adrenal panel 07/12/21 Range/Units 03:37 Sodium 137 (137-145) mmol/L Potassium 3.6 (3.5-5.1) mmol/L Chloride 109 H (98-107) mmol/L Carbon Dioxide 25 (22-30) mmol/L BUN 6 L (9-20) mg/dL Creatinine 0.47 L (0.66-1.25) mg/dL Glucose 109 H (74-99) mg/dL Calcium 7.6 L (8.4-10.2) mg/dL Assessment and Plan Plan: 51-year-old male with alcoholic cirrhosis, portal hypertension and concern for intermittent variceal bleeding. Patient did require intubation today for airway maintenance. Nasogastric tube was inserted with significant bleeding. Based on patient's current hemoglobin, he is receiving further transfusions. Patient is on octreotide therapy as well. GI has evaluated the patient and are recommending transfer for evaluation for shunting. I do agree with this recommendation. At this point with intermittent variceal bleeding and patient's previous history of requiring banding, decompression with portosystemic shunting would be the next form of therapy. This is not a procedure that is performed in the [facility] and the patient is awaiting transfer to [facility] for definitive treatment. The only other surgical option that has shown success for surgical decompression is orthotopic liver transplantation. T his also would require transfer to tertiary care facility and availability of transplant. At this point, I would continue with current management while awaiting bed at tertiary care facility..
[2021-07-12] MEDS: POTASSIUM CHLORIDE 10 MEQ in WATER FOR INJECTION 1 100ML.BAG IVPB SCH ×2 (13:32→16:53)
[2021-07-12] MEDS: NOREPINEPHRINE 8 MG in SODIUM CHLORIDE 0.9% 250 ML IV SCH (13:46)
[2021-07-12] MEDS ORDERED: ROCURONIUM 10 MG/ML (5 ML VIAL) IV ONE (14:28)
--- NOTE | 2021-07-12 15:40 | P.PCN ---
Date of Procedure: 07/12/21 Procedure(s) Performed: BRIEF HISTORY: Patient is a 51-year-old, pleasant, white male with history of occult cirrhosis of the liver admitted hospital 3 days ago with acute gastric the recent bleeding. He had an upper endoscopy done 2 days ago that showed large fundal gastric varices with a nipple sign but no active bleeding. Patient has been on Sandostatin drip. Attempts at transferring the patient to a tertiary institute has been unsuccessful.. This morning patient started having significant active bleeding. He was intubated and currently sedated. Hemoglobin dropped to 5.9 g/dL. He received 2 more units appeared basically transition. He scheduled for repeat upper endoscopy with black Ruiz tube placement. PROCEDURE PERFORMED: Esophagogastroduodenoscopy with black Ruiz tube placement. PREOPERATIVE DIAGNOSIS: Acute gastric the recent bleeding. IV sedation per anesthesia. PROCEDURE: After informed consent was obtained, the patient was brought into the endoscopy unit. IV sedation was administered by Anesthesia under continuous monitoring. Initially the Olympus GIF-140 video endoscope was inserted into the mouth. Esophagus intubated without any difficulty. It was gradually advanced into the stomach and duodenum and carefully examined. The bulb and the second part of the duodenum appeared normal. The scope at this time was withdrawn to the stomach, adequately insufflated with air, and upon careful examination there was significant amount of bleeding noted in the stomach. At this time using a guidewire technique the Nika tube after multiple attempts was advanced into the stomach. The gastric balloon was inflated with 300 mL of air. General traction was applied and the tube was tied to a helmet for continued to not. The Nika tube was connected to suction. Patient tolerated the procedure well. IMPRESSION: 1. Large amount of blood in the stomach. 2. Successful placement of liquid material into the stomach and the gastric balloon was inflated and traction was applied and was tried to the health that as described above. RECOMMENDATIONS: The findings of this examination were discussed with the patient as well as his family. He'll be monitored in the ICU. We'll continue to monitor CBC and transfuse as needed..
--- NOTE | 2021-07-12 15:57 | XR ---
EXAMINATION TYPE: XR chest 1V DATE OF EXAM: 07/12/2021 CLINICAL HISTORY: Neha tube placement. TECHNIQUE: Single AP portable supine view of the chest is obtained. COMPARISON: Chest x-ray from earlier today FINDINGS: Stable endotracheal tube and left internal jugular central venous catheter. New large bore feeding tube projects below diaphragm. Improved inspiration currently with bibasilar opacities now present. Cardiac silhouette size stable a nd within normal limits. Cholecystectomy clips are redemonstrated. Osseous structures are intact. IMPRESSION: Small left greater right pleural effusions with associated left greater than right bibasi lar acute atelectasis and/or infiltrate. Other findings as noted above.
--- NOTE | 2021-07-12 15:59 | XR ---
EXAMINATION TYPE: XR abdomen 1V DATE OF EXAM: 07/12/2021 3:50 PM CLINICAL HISTORY: Tube placement. TECHNIQUE: Two supine KUB images of the abdomen are obtained. COMPARISON: CT abdomen and pelvis 3 days ago. FINDINGS: New large caliber feeding tube projects below diaphragm. Gas prominent small bowel loops in the lower abdomen and pelvis is not present. Gas seen in nondistended colon along the periphery. Und erlying levoconvex scoliosis redemonstrated. Small left greater than right pleural effusions now pres ent. IMPRESSION: As above.
[2021-07-12] MEDS: SODIUM CHLORIDE 0.9% 1,000 ML IV SCH (16:30)
[2021-07-12 19:55] LABS: Basophils % (A) 0 %; Eosinophils # (A) 0.2 k/uL (0-0.7); Eosinophils % (A) 1 %; HCT 31.5 % (39.0-53.0); Lymphocytes # (A) 1.4 k/uL (1.0-4.8); Lymphocytes % (A) 9 %; MCH 30.9 pg (25.0-35.0); MCHC 34.9 g/dL (31.0-37.0); Mean Platelet Volume 8.5; Monocytes # (A) 0.9 k/uL (0-1.0); Monocytes % (A) 6 %; Neutrophils # (A) 13.1 k/uL (1.3-7.7); Neutrophils % (A) 83 %; Platelet Count 61 k/uL (150-450); RBC 3.56 m/uL (4.30-5.90); RDW 15.4 % (11.5-15.5); WBC 15.8 k/uL (3.8-10.6)
[2021-07-12 20:08] LABS: MCV 88.5 fL (80.0-100.0)
[2021-07-12] MEDS: CHLORHEXIDINE GLUCONATE 15 ML CUP MUCOUS MEM SCH (20:29)
--- NOTE | 2021-07-12 20:32 | PCN ---
PROCEDURE NOTE PULMONARY/CRITICAL CARE PROCEDURE NOTE: PROCEDURE PERFORMED: Right radial art line. PREOP DIAGNOSIS: Frequent blood draws and blood gas monitoring. POSTOP DIAGNOSIS: Frequent blood draws and blood gas monitoring. GROOVER AND TURNER: Dr. Pace, Dr. Thao, Dr. Tejada. ARTERIAL LINE PLACEMENT: Indications: Hemodynamic monitoring. A time-out was completed verifying correct patient, procedure, site, positioning, and implant(s) or special equipment if applicable. Gurjit's test was performed to ensure adequate perfusion. The patient's right wrist was prepped and draped in sterile fashion. 1% Lidocaine was used to anesthetize the area. An 18G Arrow arterial line was introduced into the radial artery. The catheter was threaded over the guide wire and the needle was removed with appropriate pulsatile blood return. Blood loss was minimal. The catheter was then sutured in place to the skin and a sterile dressing applied. Perfusion to the extremity distal to the point of catheter insertion was checked and found to be adequate. The patient tolerated the procedure well and there were no complications. We used the right radial artery. There was no immediate complication. There was good blood return and waveform. The catheter was sutured in place. The patient tolerated the procedure well. There was no immediate complication. MMODL / IJN: [id number] /
--- NOTE | 2021-07-12 20:38 | PCN ---
PROCEDURE NOTE PROCEDURE PERFORMED: Emergent intubation. OPERATORS: Dr. Pace, Dr. Thao, Dr. Tejada. DESCRIPTION OF PROCEDURE: We used #8 endotracheal tube. I used a standard laryngoscope with #3 Brennan blade. The patient was sedated with 2 mg of Ativan 5 mg morphine, and received 3 mL or 60 mg of succinylcholine before the procedure. After the patient was adequately sedated and paralyzed, the laryngoscope was inserted into the vallecula. There was good visualization of the glottic opening. A #8 endotracheal tube was placed through the glottic opening with a stylet in place. The stylet was removed. The commercial helicopter pilot balloon was inflated on the endotracheal tube. There was good color change on the qualitative capnography. The endotracheal tube was secured. The patient was connected to the ventilator. There was no immediate complication. The patient tolerated the procedure well. A chest x-ray was ordered to check placement. MMODL / IJN: [id number] /
--- NOTE | 2021-07-12 20:38 | PCN ---
PROCEDURE NOTE TRIPLE LUMEN CATHETER PLACEMENT: OPERATORS: Dr. Pace, Dr. Thao and Dr. Tejada Indication: Hemodynamic monitoring/Intravenous access. PREOP DIAGNOSIS: Administration of fluids and pressors. POSTOP DIAGNOSIS: Administration of fluids and pressors. A time-out was completed verifying correct patient, procedure, site, positioning, and implant(s) or special equipment if applicable. The patient was placed in a dependent position appropriate for triple lumen catheter placement based on the vein to be cannulated. The patient's left neck was prepped and draped in sterile fashion. 1% Lidocaine was used to anesthetize the surrounding skin area. A triple lumen 9F Cordis catheter was introduced into the internal jugular vein using Seldinger technique. The catheter was threaded smoothly over the guide wire and appropriate blood return was obtained. Each lumen of the catheter was evacuated of air and flushed with sterile saline. The catheter was then sutured in place to the skin and a sterile dressing applied. Perfusion to the extremity distal to the point of catheter insertion was checked and found to be adequate. There was informed consent and universal timeout. We used the left internal jugular vein. We did a posterior approach. There was good blood return from all 3 ports. The patient tolerated the procedure well. The catheter was sutured in place. Chest x-ray was ordered to check catheter placement. Rule out pneumothorax. Again the patient tolerated the procedure well without complication. Sterile dressing was applied by the nurse after the catheter was sutured in place. MMODL / IJN: [id number] /
[2021-07-12] MEDS: CISATRACURIUM 200 MG in SODIUM CHLORIDE 0.9% 180 ML IV SCH (23:31)
[2021-07-12 23:35] LABS: Glucose,Whole Blood 113 mg/dL (75-99)
[2021-07-13 00:14] LABS: Basophils % (A) 0 %; Eosinophils # (A) 0.3 k/uL (0-0.7); Eosinophils % (A) 2 %; HCT 30.9 % (39.0-53.0); HGB 11.1 gm/dL (13.0-17.5); Lymphocytes # (A) 1.4 k/uL (1.0-4.8); Lymphocytes % (A) 11 %; MCV 88.7 fL (80.0-100.0); Monocytes # (A) 0.9 k/uL (0-1.0); Monocytes % (A) 7 %; Neutrophils # (A) 9.9 k/uL (1.3-7.7); Neutrophils % (A) 78 %; RBC 3.49 m/uL (4.30-5.90); RDW 15.8 % (11.5-15.5); WBC 12.7 k/uL (3.8-10.6)
[2021-07-13 00:15] LABS: Platelet Count 61 k/uL (150-450)
[2021-07-13] MEDS: SODIUM CHLORIDE 0.9% 1,000 ML IV SCH ×2 (02:09→18:29)
[2021-07-13 04:23] LABS: Anisocytosis Slight; Basophils % (A) 0 %; Eosinophils # (A) 0.5 k/uL (0-0.7); Eosinophils % (A) 4 %; HCT 30.8 % (39.0-53.0); HGB 10.9 gm/dL (13.0-17.5); Lymphocytes # (A) 1.6 k/uL (1.0-4.8); Lymphocytes % (A) 11 %; MCH 31.4 pg (25.0-35.0); MCHC 35.4 g/dL (31.0-37.0); MCV 88.7 fL (80.0-100.0); Mean Platelet Volume 9.1; Monocytes # (A) 0.9 k/uL (0-1.0); Monocytes % (A) 7 %; Neutrophils # (A) 10.7 k/uL (1.3-7.7); Neutrophils % (A) 77 %; Platelet Count 78 k/uL (150-450); RBC 3.47 m/uL (4.30-5.90); RDW 16.7 % (11.5-15.5); WBC 13.9 k/uL (3.8-10.6)
[2021-07-13 04:31] LABS: African American GFR (CKD) >90 (>60 ml/min/1.73 sqM); Anion Gap 2 mmol/L; Blood Urea Nitrogen 11 mg/dL (9-20); Carbon Dioxide 23 mmol/L (22-30); Chloride 112 mmol/L (98-107); Glucose 110 mg/dL (74-99); Magnesium 1.7 mg/dL (1.6-2.3); Non-African American GFR(CKD) >90 (>60 ml/min/1.73 sqM); Potassium 3.7 mmol/L (3.5-5.1); Sodium 137 mmol/L (137-145)
[2021-07-13] MEDS: MAGNESIUM SULFATE-D5W PMX 1 GM in DEXTROSE/WATER 1 100ML.BAG IVPB SCH ×2 (05:45→06:46)
[2021-07-13] MEDS: POTASSIUM CHLORIDE 10 MEQ in WATER FOR INJECTION 1 100ML.BAG IVPB SCH ×2 (05:50→06:41)
[2021-07-13 05:59] LABS: ABG Base Excess 2.1 mmol/L; ABG HCO3 25 mmol/L (21-25); ABG Oxygen Saturation 95.6 % (94-97); ABG PCO2 31 mmHg (35-45); ABG PH 7.51 (7.35-7.45); ABG PO2 68 mmHg (83-108); ABG TCO2 26 mmol/L (19-24); Allen Test Performed? Yes
--- NOTE | 2021-07-13 07:09 | XR ---
EXAMINATION TYPE: XR chest 1V portable DATE OF EXAM: 07/13/2021 CLINICAL HISTORY: Neha tube progress study. TECHNIQUE: Single AP portable upright view of the chest is obtained. COMPARISON: Chest x-ray from one day earlier And older studies. FINDINGS: Stable endotracheal tube and left internal jugular central venous catheter. Stable large b ore Neha tube projects below diaphragm. Persistent bibasilar opacities. Cardiac silhouette size stable and within normal limits. Cholecystect mohsen clips are redemonstrated. Osseous structures are intact. IMPRESSION: Persistent small to moderate size bilateral pleural effusions with associated bibasilar a telectasis and/or infiltrate. No significant change from one day earlier.
[2021-07-13] MEDS: OCTREOTIDE 500 MCG in SODIUM CHLORIDE 0.9% 250 ML IV SCH ×2 (08:43→18:35)
[2021-07-13] MEDS: CHLORHEXIDINE GLUCONATE 15 ML CUP MUCOUS MEM SCH ×2 (08:48→20:24)
[2021-07-13] MEDS: PANTOPRAZOLE 40 MG/10 ML VIAL IVP SCH ×2 (08:48→20:24)
[2021-07-13] MEDS ORDERED: FUROSEMIDE 10 MG/ML 4 ML VIAL IV STA (09:16)
--- NOTE | 2021-07-13 09:35 | P.PN ---
Subjective Progress Note Date: 07/13/21 Principal diagnosis: Acute GI bleed 51-year-old white male patient with past medical history of EtOH abuse, history of liver cirrhosis with esophageal varices with previous banding 2 years ago at [facility], and previous GI bleeding, current every day smoker, who came into the emergency department on 07/09/2021 with complaints of abdominal pain, hematemesis, and passing black stools. Patient was having palpitations, he was chilled. Denied any shortness of breath, no chest pain, no cough, no dyspnea, no phlegm production. Patient was noted to be hypotensive in the emergency department with a blood pressure of 76/30. He was having episodes of large volume of hematemesis. Initial hemoglobin was 10.6, platelet count was 218, INR was 1.2, plasma lactic acid was 5.8 on presentation, renal profile was within normal limits with BUN of 15 creatinine 0.94, troponin was negative. Lipase was 421. COVID-19 PCR was negative, LFTs were within normal limits. Patient was transfused with 4 units of packed red blood cells, 4 subsequent drop in hemoglobin down to 7.8, and he will be receiving another unit of packed red blood cells this morning. He received 2 units of fresh frozen plasma, he also received 4 L in fluid boluses, and his maintenance IV fluids is 0.9 normal sinus at a rate of 75 ML per hour, patient's blood culture was positive for gram-posit mary cocci, and patient is on combination of Rocephin and vancomycin. Today's labs reveal white blood cell count of 11.9, hemoglobin of 7.8 as mentioned above with fifth unit of packed cells infusing, platelet count is 113, sodium is 136, potassium is 5.3, chloride is 1:15, CO2 is 18, BUN is 23, creatinine is 0.68. Patient is on Sandostatin at 50 mics per hour, he is on Protonix 40 mg twice daily, Zofran. He is awake and alert, breathing comfortably, it appears to be in no acute distress. No shortness of breath no chest pain, room air pulse ox is 94%, current blood pressure is 82/55. In sinus mechanism with a rate of 75 BPM, afebrile. Chest x-ray shows no acute cardiopulmonary disease. CT of the abdomen and pelvis showed no evidence of active GI bleeding, splenic varices consistent with portal venous hypertension, no focal liver defect. GI service has been consulted and patient is boarded for EGD this afternoon On 07/11/2021 patient seen in follow-up in intensive care unit, he is awake and alert, appears a bit fatigued and pale but no acute distress, abdomen is soft, no nausea or vomiting, no episodes of hematemesis or melena overnight. He was transfused with 5 units of packed red blood cells yesterday and 2 units of fresh frozen plasma, today's labs show hemoglobin of 8.2, platelet count is 95, his BNP is still pending for today. His white count is 8.0. Breathing comfortable, no complaints of shortness of breath or chest pain. Tolerating sips of clear liquids. He is status post EGD which showed large fundal varix with the nipple sign suggestive of recent gastric variceal bleeding but no active bleeding, small clots in the fundus of the stomach, and no evidence of esophageal varices. The recommendation was made by the GI service to continue on IV Sandostatin, and to transfer the patient to a tertiary care facility for TIPS procedure to prevent recurrent gastric variceal bleeding. Patient continues on H&H's every 6 hours per GI service recommendations. He is not requiring any vasopressor support, he is in sinus mechanism, he remains on Sandostatin 50 mg per hour, and point tenderness and uterine rate of 75 ML per hour. On 07/12/2021 patient seen in follow-up in the intensive care unit, this morning he had 2 large bloody bowel movements. He was started on some clear liquids yesterday, today his breakfast has been held, he is increasingly more confused, he is hypotensive, his hemoglobin is down to 7.9 this morning, 1 unit of packed red blood cells has been ordered. His 0.9 normal saline is infusing a rate of 75 ML per hour, he is on room air with pulse ox of 93%, he is tachycardic, in sinus mechanism. He is nauseous, has not vomited, his had blood pressures as low as 77/63. Abdomen is soft. Patient is currently #13 on the waiting list for [facility]. The [place] system, and [facility] are not accepting transfers at all due to no availability of beds. Patient continues on octreotide at 50 mg per hour. He is on Protonix 40 mg twice daily and empiric antibiotics in the form of Rocephin. His blood cultures came back positive for coagulase-negative staph and Staphylococcus epidermidis, compatible with contamination. Discharge planning also reached out to [facility], which does not offer the service the patient needs. Discussed case with the GI service and apparently the gastric varix is rather large and patient does need the TIPS procedure with possible banding. NG tube was inserted, and bloody output was suctioned out of patient's stoma, at the same time patient decompensated acutely, and the decision was made to intubate and place the patient on mechanical ventilator, patient was given 1 L bolus, he is being urgently transfused with 2 more units of blood for a total of 3 units of blood today, and 2 units of fresh frozen plasma were ordered and pending at this time. Patient was successfully intubated by Dr. Pace, placed on mechanical ventilator, left IJ central line was placed, and right radial arterial line was placed. Blood gas was obtained and pO2 was greater than 400, pCO2 was 39, and pH of 7.21. This is on the ventilator settings assist control with a rate of 24, tidal volumes 450, FiO2 of 100% and PEEP of 5. Chest x-ray shows satisfactory position of the new ET tube and orogastric tubes, no pneumothorax after left-sided central venous catheter placement, diminished inspiration with new small to tiny left pleural effusion and associated left basilar atelectasis. On 07/13/2021 patient seen in follow-up in intensive care unit, yesterday he was emergently intubated, placed on mechanical ventilator because of hemorrhagic shock. He was given multiple blood products, 6 units of pack red blood cells yesterday for a total of 11 units this admission, and 2 units of FFP yesterday for a total of 4 units of FFP this admission. Nika tube was placed by GI service. It still remains in place this morning, has been minimal bloody output from the gastric port of the Nika tube overnight, hemodynamically patient is stable, norepinephrine drip was used overnight, and was discontinued this morning. His 0.9 normal saline is running at 75 ML per hour, and Diprivan is at 50 mics per kilo per minute. Nimbex is a 2 mics per kilo per minute. Sandostatin infusing at 50 mics per hour. His vent settings are assist-control with a rate of 24, tidal vital was 450, FiO2 40% and PEEP of 5. His blood gas this morning shows pH of 7.51, a CO2 of 31, and pO2 of 68 this was done and the above-mentioned vent settings and subsequently his rate was dropped down to 18. This morning's chest x-ray shows persistent small to moderate-sized bilateral pleural effusions with associated bibasilar atelectasis. This morning's blood work has been reviewed showing white blood cell count of 13.9, hemoglobin of 10.9, sodium is 137, potassium is 3.7, chloride is 112, CO2 is 23, BUN is 11, creatinine 0.59. Patient's blood cultures showed staph hominis, and Staphylococcus epidermidis. Patient remains on Rocephin. Patient is afebrile. Yesterday multiple attempts were made to transfer the patient to tertiary care facility including [facility], [facility], [facility], [facility], [facility] in [place], and all facilities have no available beds. Abdomen is soft, overnight patient did have a few maroon-colored liquid stools. Urine output is dark, and in the order of 10-15 ML per hour. We'll give the patient on dose of IV Lasix today. His total weight is up by 6 kg since admission. Objective - Vital Signs Vital signs: Vital Signs Temp 98.3 F 07/13/21 04:00 Pulse 98 07/13/21 07:00 Resp 24 07/13/21 07:00 BP 124/80 07/12/21 16:58 Pulse Ox 92 L 07/13/21 07:00 Intake & Output 07/12/21 07/13/21 07/13/21 18:59 06:59 18:59 Intake Total 8171.087 1722.702 344.977 Output Total 1568 227 Balance 6603.087 1495.702 344.977 Weight 92.5 kg Intake: IV 1825 1002 Sodium Chloride 0.9% 1, 1825 975 000 ml @ 75 mls/hr IV . [id number] [facility] Rx#:[id number] pressure bag 27 Intake, IV Titration 1202.087 720.702 344.977 Amount Calcium Gluconate 2 gm In 100 Sodium Chloride 0.9% 100 ml @ 100 mls/hr IVPB ONCE ONE Rx#:[id number] Cisatracurium 200 mg In 22.816 Sodium Chloride 0.9% 180 ml @ 1 MCG/KG/MIN 5.52 mls/hr IV .Q24H [facility] Rx#: [id number] Magnesium Sulfate-D5w Pmx 200 1 gm In Dextrose/Water 1 100ml.bag @ 100 mls/hr IVPB Q1H [facility] Rx#: [id number] Magnesium Sulfate-D5w Pmx 100 1 gm In Dextrose/Water 1 100ml.bag @ 100 mls/hr IVPB Q1H [facility] Rx#: [id number] Norepinephrine 8 mg In 159.476 67.233 Sodium Chloride 0.9% 250 ml @ 0.05 MCG/KG/MIN 8. 901 mls/hr IV .Q24H [facility] Rx#:[id number] Octreotide 500 mcg In 244.583 230.833 247.917 Sodium Chloride 0.9% 250 ml @ 50 MCG/HR 25 mls/hr IV .Q10H [facility] Rx#: [id number] Potassium Chloride 10 meq 200 In Water For Injection 1 100ml.bag @ 100 mls/hr IVPB Q1H [facility] Rx#: [id number] Potassium Chloride 10 meq 100 In Water For Injection 1 100ml.bag @ 100 mls/hr IVPB Q1H [facility] Rx#: [id number] cefTRIAXone 1 gm In 50 Sodium Chloride 0.9% 50 ml @ 100 mls/hr IVPB Q24HR [facility] Rx#:[id number] propofoL 1,000 mg In 148.028 199.82 97.06 Empty Bag 1 bag @ Titrate IV .Q0M [facility] Rx#: [id number] propofoL 100 ml @ 0 mls/ 100 hr IV .STK-[facility] Rx#: [id number] Tube Feeding 240 Blood Product 4904 Ffp 24 Cpd Unit 337 [id number] Ffp 24 Cpd Unit 307 [id number] Rc As-1 Unit 310 [id number] Rc As-1 Unit 310 [id number] Rc As-1 Unit 310 [id number] Rc As-1 Unit 310 [id number] Rc As-1 Unit 310 [id number] Rc As-1 Unit 310 [id number] Output: Gastric Drainage 1300 Urine 265 225 Stool 3 2 Other: Voiding Method Indwelling Catheter Indwelling Catheter # Bowel Movements 1 1 ABP, PAP, CO, CI - Last Documented Arterial Blood Pressure 129/70 - Exam GENERAL EXAM: Intubated, sedated 51-year-old white male, new intubated, on assist control mode of ventilation with a rate of 24, Tidal volume 450, FiO2 of 40% and PEEP of 5 he is on Sandostatin infusion for acute GI bleeding, NG tube is draining bloody output HEAD: Normocephalic/atraumatic.Nika helmet in place EYES: Normal reaction of pupils, equal size. Conjunctiva pink, sclera white. NOSE: Clear with pink turbinates. NGT in place MOUTH: ETT in place, Nika tube is in place connected to a helmet on head THROAT: No erythema or exudates. NECK: No masses, no JVD, no thyroid enlargement, no adenopathy. CHEST: No chest wall deformity. Symmetrical expansion. LUNGS: Equal air entry with no crackles, wheeze, rhonchi or dullness. CVS: Regular rate and rhythm, normal S1 and S2, no gallops, no murmurs, no rubs ABDOMEN: Soft, nontender. No hepatosplenomegaly, normal bowel sounds, no guarding or rigidity. EXTREMITIES: No clubbing, no edema, no cyanosis, 2+ pulses and upper and lower extremities. MUSCULOSKELETAL: Muscle strength and tone normal. SPINE: No scoliosis or deformity SKIN: No rashes CENTRAL NERVOUS SYSTEM: Sedated, and intubated. No focal deficits, tone is normal in all 4 extremities. - Labs CBC & Chem 7: 07/13/21 04:10 07/13/21 04:10 Labs: Abnormal Lab Results - Last 24 Hours (Table) 07/09/21 07/12/21 07/12/21 Range/Units 12:30 10:26 11:26 WBC 14.9 H (3.8-10.6) k/uL RBC 1.84 L (4.30-5.90) m/uL Hgb 5.9 L* D (13.0-17.5) gm/dL Hct 17.9 L* (39.0-53.0) % RDW 16.0 H (11.5-15.5) % Plt Count 69 L (150-450) k/uL Neutrophils # 13.3 H (1.3-7.7) k/uL Lymphocytes # 0.8 L (1.0-4.8) k/uL ABG pH 7.21 L (7.35-7.45) ABG pCO2 (35-45) mmHg ABG pO2 >400 H (83-108) mmHg ABG HCO3 15 L (21-25) mmol/L ABG Total CO2 17 L (19-24) mmol/L ABG O2 Saturation 100.0 H (94-97) % Chloride (98-107) mmol/L Creatinine (0.66-1.25) mg/dL Glucose (74-99) mg/dL POC Glucose (mg/dL) (75-99) mg/dL Calcium (8.4-10.2) mg/dL Crossmatch See Detail 07/12/21 07/12/21 07/12/21 Range/Units 12:42 19:44 23:32 WBC 15.8 H (3.8-10.6) k/uL RBC 3.56 L (4.30-5.90) m/uL Hgb 11.0 L D (13.0-17.5) gm/dL Hct 31.5 L (39.0-53.0) % RDW (11.5-15.5) % Plt Count 61 L (150-450) k/uL Neutrophils # 13.1 H (1.3-7.7) k/uL Lymphocytes # (1.0-4.8) k/uL ABG pH (7.35-7.45) ABG pCO2 (35-45) mmHg ABG pO2 (83-108) mmHg ABG HCO3 (21-25) mmol/L ABG Total CO2 (19-24) mmol/L ABG O2 Saturation (94-97) % Chloride (98-107) mmol/L Creatinine (0.66-1.25) mg/dL Glucose (74-99) mg/dL POC Glucose (mg/dL) 244 H 113 H (75-99) mg/dL Calcium (8.4-10.2) mg/dL Crossmatch 07/13/21 07/13/21 07/13/21 Range/Units 00:00 04:10 04:10 WBC 12.7 H 13.9 H (3.8-10.6) k/uL RBC 3.49 L 3.47 L (4.30-5.90) m/uL Hgb 11.1 L 10.9 L (13.0-17.5) gm/dL Hct 30.9 L 30.8 L (39.0-53.0) % RDW 15.8 H 16.7 H (11.5-15.5) % Plt Count 61 L 78 L (150-450) k/uL Neutrophils # 9.9 H 10.7 H (1.3-7.7) k/uL Lymphocytes # (1.0-4.8) k/uL ABG pH (7.35-7.45) ABG pCO2 (35-45) mmHg ABG pO2 (83-108) mmHg ABG HCO3 (21-25) mmol/L ABG Total CO2 (19-24) mmol/L ABG O2 Saturation (94-97) % Chloride 112 H (98-107) mmol/L Creatinine 0.59 L (0.66-1.25) mg/dL Glucose 110 H (74-99) mg/dL POC Glucose (mg/dL) (75-99) mg/dL Calcium 7.0 L (8.4-10.2) mg/dL Crossmatch 07/13/21 Range/Units 05:55 WBC (3.8-10.6) k/uL RBC (4.30-5.90) m/uL Hgb (13.0-17.5) gm/dL Hct (39.0-53.0) % RDW (11.5-15.5) % Plt Count (150-450) k/uL Neutrophils # (1.3-7.7) k/uL Lymphocytes # (1.0-4.8) k/uL ABG pH 7.51 H (7.35-7.45) ABG pCO2 31 L (35-45) mmHg ABG pO2 68 L (83-108) mmHg ABG HCO3 (21-25) mmol/L ABG Total CO2 26 H (19-24) mmol/L ABG O2 Saturation (94-97) % Chloride (98-107) mmol/L Creatinine (0.66-1.25) mg/dL Glucose (74-99) mg/dL POC Glucose (mg/dL) (75-99) mg/dL Calcium (8.4-10.2) mg/dL Crossmatch Microbiology - Last 24 Hours (Table) 07/09/21 13:02 Blood Culture Gram Stain - Final Blood Blood Culture - Preliminary Staph hominis sub sp. hominis 07/09/21 12:44 Blood Culture Gram Stain - Preliminary Blood Blood Culture - Preliminary Staphylococcus epidermidis Coagulase Negative Staph Assessment and Plan Plan: Assessment: #1. Acute hypoxic respiratory failure related to shock, related to acute blood loss, patient required intubation and placement on mechanical ventilator on 07/12/2021 in part for airway maintenance as well. On 07/13/2021 he remains sedated and paralyzed, Nika tube is in place and patient remains on Sandostatin. Awaiting transfer to a tertiary care facility for TIPS procedure #2. Acute GI blood loss anemia, patient presented with multiple episodes of hematemesis, and melena, status post transfusion with 11 units of packed red blood cells and 4 units of FFP, today's hemoglobin is 10.9 on 07/13/2021 #3. Hypotension, likely related to hemorrhagic shock related to acute GI blood loss anemia, requiring fluid resuscitation, and multiple blood products patient has received 11 units of packed red blood cells so far, and a total of 4 units of FFP. And did require norepinephrine support briefly, it is currently discontinued as blood pressure has improved #4. Status post EGD on 07/09/2021 showing large fundal varix and evidence of recent gastric variceal bleeding, and small clots, no evidence of esophageal varices, continues on Sandostatin #5. History of esophageal varices, EtOH related liver cirrhosis, patient has a history of banding at [facility] 2 years ago #6. History of EtOH use, last drink was yesterday on 07/09/2021 #7. Gram-positive bacteremia, patient is covered with Rocephin and vancomycin, blood cultures show staph epidermidis, coagulase negative staph and staph hominis, likely related to a skin contaminant. Remains on Rocephin, mycin has been discontinued #8. Lactic acidosis related to acute hemorrhagic shock, improved with IV hydra tion and blood transfusion #9. Current smoker #10. Reported history of seizures, used to be on Tegretol, currently not on any medication. Details of diagnosis is not known to us. Patient states has not had a seizure in a long time Plan: Hemodynamically patient is more stable Norepinephrine drip has been discontinued Today's hemoglobin is 10.9 [address]ika tube remains in place Patient continues on Sandostatin Urine output is marginal, we will give him a Lasix challenge Patient received 11 units of packed red blood cells and 4 units of FFP Today's blood gas has been reviewed, we'll drop the respiratory rate to 18, continue with tidal volume of 450, FiO2 40% and PEEP of 5 Continue IV Protonix Still working on trying to transfer the patient to the [facility] and [facility], multiple other facilities were tried including [facility], the [facility], [facility], [facility]. Still no available beds related to COVID-19 pandemic Overall prognosis is guarded I performed a history & physical examination of the patient and discussed their management with my nurse practitioner, Estephania Tejada. I reviewed the nurse practitioner's note and agree with the documented findings and plan of care. Lung sounds are positive for clear breath sounds throughout the lung silva. The findings and the impression was discussed with the patient. I attest to the documentation by the nurse practitioner. Time with Patient: Greater than 30
--- NOTE | 2021-07-13 10:05 | P.PN ---
Progress Note - Text Progress Note Date: 07/13/21 Patient is intubated Constitutional: Intubated Eyes: Anicteric sclerae, moist conjunctiva, no lid-lag PERRLA ENMT: NC/AT Oropharynx clear, no erythema, exudates Neck: Supple, FROM, Cardiovascular: edema Abdominal: No abdominal wall hernia noted Skin: Yellowish Chest decreased breath sounds bilaterally Extremities: No digital cyanosis No clubbing Pedal pulses intact and symmetrical Radial pulses intact and symmetrical Normal gait and station No calf tenderness Psychiatric: More sleepy Neuro: g weakness Variceal bleed -Has to be intubated -CBC every 6 hours -PPI IV twice a day -Somatostatin drip -Due to gastric lysis due to gastric varices -Pulmonary consult -Maintain 2 large bore IVs -Hold home medications -Strict nothing by mouth -Ceftriaxone 1 g every 24 hours -Continue IV fluids Supraventricular tachycardia -Return to sinus rhythm after adenosine 6 mg push -Continue to monitor on telemetry -Should patient develop SVT again, will likely require amiodarone Alcoholic cirrhosis Alcohol abuse disorder -Monitor for withdrawal -Patient continues to be weak difficulty transferring the patient on her level of care bedside available at this time Attempt to transfer the patient to multiple hospitals no success no beds available Patient currently is intubated and more stabilized discussed with gastroenterology the patient needs urgent TIPS due to gastric vericies Continue to try to attempt to transfer the patient to high level of care for TIPS procedure
[2021-07-13] MEDS: NOREPINEPHRINE 8 MG in SODIUM CHLORIDE 0.9% 250 ML IV SCH (11:49)
[2021-07-13 11:53] LABS: Glucose,Whole Blood 113 mg/dL (75-99)
--- NOTE | 2021-07-13 14:34 | US ---
EXAMINATION TYPE: US abdomen limited DATE OF EXAM: 07/13/2021 COMPARISON: CT abdomen and pelvis 4 days ago CLINICAL HISTORY: assess for fluid pocket. ICU intubated patient with GI bleed, history of cirrhosis Trace amount of ascites anterior to heterogeneous hyperechoic liver. No significant ascites in the bi lateral lower quadrants or left upper quadrant. IMPRESSION: As above.
--- NOTE | 2021-07-13 15:17 | P.PN ---
Subjective Progress Note Date: 07/13/21 Patient seen and examined at bedside. Nika tube placed yesterday by gastroenterology. Patient is currently intubated and sedated. Objective - Vital Signs Vital signs: Vital Signs Temp 98.3 F 07/13/21 12:00 Pulse 96 07/13/21 14:00 Resp 20 07/13/21 14:00 BP 124/80 07/12/21 16:58 Pulse Ox 99 07/13/21 14:00 Intake & Output 07/12/21 07/13/21 07/13/21 18:59 06:59 18:59 Intake Total 8171.087 6998.546 5763.977 Output Total 1568 227 531 Balance 6603.087 1495.702 471.977 Weight 92.5 kg 92.5 kg Intake: IV 1825 1002 558 Sodium Chloride 0.9% 1, 1825 975 525 000 ml @ 75 mls/hr IV . [id number] [facility] Rx#:[id number] pressure bag 27 33 Intake, IV Titration 1202.087 720.702 444.977 Amount Calcium Gluconate 2 gm In 100 Sodium Chloride 0.9% 100 ml @ 100 mls/hr IVPB ONCE ONE Rx#:[id number] Cisatracurium 200 mg In 22.816 Sodium Chloride 0.9% 180 ml @ 1 MCG/KG/MIN 5.52 mls/hr IV .Q24H [facility] Rx#: [id number] Magnesium Sulfate-D5w Pmx 200 1 gm In Dextrose/Water 1 100ml.bag @ 100 mls/hr IVPB Q1H [facility] Rx#: [id number] Magnesium Sulfate-D5w Pmx 100 1 gm In Dextrose/Water 1 100ml.bag @ 100 mls/hr IVPB Q1H [facility] Rx#: [id number] Norepinephrine 8 mg In 159.476 67.233 Sodium Chloride 0.9% 250 ml @ 0.05 MCG/KG/MIN 8. 901 mls/hr IV .Q24H [facility] Rx#:[id number] Octreotide 500 mcg In 244.583 230.833 247.917 Sodium Chloride 0.9% 250 ml @ 50 MCG/HR 25 mls/hr IV .Q10H [facility] Rx#: [id number] Potassium Chloride 10 meq 200 In Water For Injection 1 100ml.bag @ 100 mls/hr IVPB Q1H [facility] Rx#: [id number] Potassium Chloride 10 meq 100 In Water For Injection 1 100ml.bag @ 100 mls/hr IVPB Q1H [facility] Rx#: [id number] cefTRIAXone 1 gm In 50 Sodium Chloride 0.9% 50 ml @ 100 mls/hr IVPB Q24HR [facility] Rx#:[id number] propofoL 1,000 mg In 148.028 199.82 197.06 Empty Bag 1 bag @ Titrate IV .Q0M [facility] Rx#: [id number] propofoL 100 ml @ 0 mls/ 100 hr IV .[facility]-MED ONE Rx#: [id number] Tube Feeding 240 Blood Product 4904 Ffp 24 Cpd Unit 337 [id number] Ffp 24 Cpd Unit 307 [id number] Rc As-1 Unit 310 [id number] Rc As-1 Unit 310 [id number] Rc As-1 Unit 310 [id number] Rc As-1 Unit 310 [id number] Rc As-1 Unit 310 [id number] Rc As-1 Unit 310 [id number] Output: Gastric Drainage 1300 Urine 265 225 530 Stool 3 2 1 Other: Voiding Method Indwelling Catheter Indwelling Catheter Indwelling Catheter # Bowel Movements 1 1 ABP, PAP, CO, CI - Last Documented Arterial Blood Pressure 143/73 - Constitutional General appearance: Present: no acute distress - Respiratory Details: Intubated - Gastrointestinal General gastrointestinal: Present: distended - Labs CBC & Chem 7: 07/13/21 04:10 07/13/21 04:10 Labs: Abnormal Lab Results - Last 24 Hours (Table) 07/09/21 07/12/21 07/12/21 Range/Units 12:30 19:44 23:32 WBC 15.8 H (3.8-10.6) k/uL RBC 3.56 L (4.30-5.90) m/uL Hgb 11.0 L D (13.0-17.5) gm/dL Hct 31.5 L (39.0-53.0) % RDW (11.5-15.5) % Plt Count 61 L (150-450) k/uL Neutrophils # 13.1 H (1.3-7.7) k/uL ABG pH (7.35-7.45) ABG pCO2 (35-45) mmHg ABG pO2 (83-108) mmHg ABG Total CO2 (19-24) mmol/L Chloride (98-107) mmol/L Creatinine (0.66-1.25) mg/dL Glucose (74-99) mg/dL POC Glucose (mg/dL) 113 H (75-99) mg/dL Calcium (8.4-10.2) mg/dL Crossmatch See Detail 07/13/21 07/13/21 07/13/21 Range/Units 00:00 04:10 04:10 WBC 12.7 H 13.9 H (3.8-10.6) k/uL RBC 3.49 L 3.47 L (4.30-5.90) m/uL Hgb 11.1 L 10.9 L (13.0-17.5) gm/dL Hct 30.9 L 30.8 L (39.0-53.0) % RDW 15.8 H 16.7 H (11.5-15.5) % Plt Count 61 L 78 L (150-450) k/uL Neutrophils # 9.9 H 10.7 H (1.3-7.7) k/uL ABG pH (7.35-7.45) ABG pCO2 (35-45) mmHg ABG pO2 (83-108) mmHg ABG Total CO2 (19-24) mmol/L Chloride 112 H (98-107) mmol/L Creatinine 0.59 L (0.66-1.25) mg/dL Glucose 110 H (74-99) mg/dL POC Glucose (mg/dL) (75-99) mg/dL Calcium 7.0 L (8.4-10.2) mg/dL Crossmatch 07/13/21 07/13/21 Range/Units 05:55 11:51 WBC (3.8-10.6) k/uL RBC (4.30-5.90) m/uL Hgb (13.0-17.5) gm/dL Hct (39.0-53.0) % RDW (11.5-15.5) % Plt Count (150-450) k/uL Neutrophils # (1.3-7.7) k/uL ABG pH 7.51 H (7.35-7.45) ABG pCO2 31 L (35-45) mmHg ABG pO2 68 L (83-108) mmHg ABG Total CO2 26 H (19-24) mmol/L Chloride (98-107) mmol/L Creatinine (0.66-1.25) mg/dL Glucose (74-99) mg/dL POC Glucose (mg/dL) 113 H (75-99) mg/dL Calcium (8.4-10.2) mg/dL Crossmatch Microbiology - Last 24 Hours (Table) 07/09/21 13:02 Blood Culture Gram Stain - Final Blood Blood Culture - Preliminary Staph hominis sub sp. hominis 07/09/21 12:44 Blood Culture Gram Stain - Preliminary Blood Blood Culture - Preliminary Staphylococcus epidermidis Coagulase Negative Staph Assessment and Plan Plan: 07/12 51-year-old male with alcoholic cirrhosis, portal hypertension and concern for intermittent variceal bleeding. Patient did require intubation today for airway maintenance. Nasogastric tube was inserted with significant bleeding. Based on patient's current hemoglobin, he is receiving further transfusions. Patient is on octreotide therapy as well. GI has evaluated the patient and are recommending transfer for evaluation for shunting. I do agree with this recommendation. At this point with intermittent variceal bleeding and patient's previous history of requiring banding, decompression with portosystemic shunting would be the next form of therapy. This is not a procedure that is performed in the [facility] and the patient is awaiting transfer to [facility] for definitive treatment. The only other surgical option that has shown success for surgical decompression is orthotopic liver transplantation. This also would require transfer to tertiary care facility and availability of transplant. At this point, I would continue with current management while awaiting bed at tertiary care facility. 07/13 Due to continued concern for variceal bleed, Nika tube was placed by gastroenterology yesterday. Currently, patient is awaiting transfer for TIPS procedure. Continue ICU management.
--- NOTE | 2021-07-13 15:46 | P.PN ---
Subjective Progress Note Date: 07/13/21 Principal diagnosis: Hematemesis This a 51-year-old male with a history of alcohol abuse in the past. Also significant history of esophageal varices for which he underwent EGD and variceal banding approximately 5 years ago. The patient had presented with abdominal pain followed by multiple episodes of bloody emesis. Yesterday he underwent an EGD with findings of large fundal varix with a nipple sign suggestive of recent gastric air cell bleeding but no active bleeding currently. Small clots noted in the fundus of the stomach. No evidence of esophageal varices. Recommendations were to continue IV Sandostatin and continue process of transfer to tertiary center for TIPS procedure to prevent recurrent gastric variceal bleeding. 07/13/2021 The patient was seen and evaluated in the ICU as a follow-up. Yesterday he was intubated and underwent an EGD with a Nika tube placement. He initially had approximately 300 mL out maroon colored blood. He has approximately 100 mL out through the night. He has had 3-4 maroon colored bowel movements through the night. His vital signs have stabilized. His hemoglobin was 10.9 this morning. There are still awaiting transfer possible transfer to [facility] per primary medicine. Objective - Vital Signs Vital signs: Vital Signs Temp 98.3 F 07/13/21 04:00 Pulse 98 07/13/21 07:00 Resp 24 07/13/21 07:00 BP 124/80 07/12/21 16:58 Pulse Ox 92 L 07/13/21 07:00 Intake & Output 07/12/21 07/13/21 07/13/21 18:59 06:59 18:59 Intake Total 8171.087 1722.702 344.977 Output Total 1568 227 Balance 6603.087 1495.702 344.977 Weight 92.5 kg Intake: IV 1825 1002 Sodium Chloride 0.9% 1, 1825 975 000 ml @ 75 mls/hr IV . [id number] [facility] Rx#:[id number] pressure bag 27 Intake, IV Titration 1202.087 720.702 344.977 Amount Calcium Gluconate 2 gm In 100 Sodium Chloride 0.9% 100 ml @ 100 mls/hr IVPB ONCE ONE Rx#:[id number] Cisatracurium 200 mg In 22.816 Sodium Chloride 0.9% 180 ml @ 1 MCG/KG/MIN 5.52 mls/hr IV .Q24H [facility] Rx#: [id number] Magnesium Sulfate-D5w Pmx 200 1 gm In Dextrose/Water 1 100ml.bag @ 100 mls/hr IVPB Q1H [facility] Rx#: [id number] Magnesium Sulfate-D5w Pmx 100 1 gm In Dextrose/Water 1 100ml.bag @ 100 mls/hr IVPB Q1H [facility] Rx#: [id number] Norepinephrine 8 mg In 159.476 67.233 Sodium Chloride 0.9% 250 ml @ 0.05 MCG/KG/MIN 8. 901 mls/hr IV .Q24H [facility] Rx#:[id number] Octreotide 500 mcg In 244.583 230.833 247.917 Sodium Chloride 0.9% 250 ml @ 50 MCG/HR 25 mls/hr IV .Q10H [facility] Rx#: [id number] Potassium Chloride 10 meq 200 In Water For Injection 1 100ml.bag @ 100 mls/hr IVPB Q1H [facility] Rx#: [id number] Potassium Chloride 10 meq 100 In Water For Injection 1 100ml.bag @ 100 mls/hr IVPB Q1H [facility] Rx#: [id number] cefTRIAXone 1 gm In 50 Sodium Chloride 0.9% 50 ml @ 100 mls/hr IVPB Q24HR [facility] Rx#:[id number] propofoL 1,000 mg In 148.028 199.82 97.06 Empty Bag 1 bag @ Titrate IV .Q0M [facility] Rx#: [id number] propofoL 100 ml @ 0 mls/ 100 hr IV .[facility] Rx#: [id number] Tube Feeding 240 Blood Product 4904 Ffp 24 Cpd Unit 337 [id number] Ffp 24 Cpd Unit 307 [id number] Rc As-1 Unit 310 [id number] Rc As-1 Unit 310 [id number] Rc As-1 Unit 310 [id number] Rc As-1 Unit 310 [id number] Rc As-1 Unit 310 [id number] Rc As-1 Unit 310 [id number] Output: Gastric Drainage 1300 Urine 265 225 Stool 3 2 Other: Voiding Method Indwelling Catheter Indwelling Catheter # Bowel Movements 1 1 ABP, PAP, CO, CI - Last Documented Arterial Blood Pressure 129/70 - Exam General appearance: The patient is sedated and intubated. Nika tube and helmet in place HET: Head is normocephalic and atraumatic. Conjunctiva pink. Sclera anicteric. Neck: Supple without lymphadenopathy. Abdomen: Soft, nondistended with bowel sounds. No guarding or rigidity. Extremities: Normal skin color and turgor. No pedal edema Skin: No rashes, no jaundice Neurological: Sedated and intubated. - Labs CBC & Chem 7: 07/13/21 04:10 07/13/21 04:10 Labs: Abnormal Lab Results - Last 24 Hours (Table) 07/09/21 07/12/21 07/12/21 Range/Units 12:30 10:26 11:26 WBC 14.9 H (3.8-10.6) k/uL RBC 1.84 L (4.30-5.90) m/uL Hgb 5.9 L* D (13.0-17.5) gm/dL Hct 17.9 L* (39.0-53.0) % RDW 16.0 H (11.5-15.5) % Plt Count 69 L (150-450) k/uL Neutrophils # 13.3 H (1.3-7.7) k/uL Lymphocytes # 0.8 L (1.0-4.8) k/uL ABG pH 7.21 L (7.35-7.45) ABG pCO2 (35-45) mmHg ABG pO2 >400 H (83-108) mmHg ABG HCO3 15 L (21-25) mmol/L ABG Total CO2 17 L (19-24) mmol/L ABG O2 Saturation 100.0 H (94-97) % Chloride (98-107) mmol/L Creatinine (0.66-1.25) mg/dL Glucose (74-99) mg/dL POC Glucose (mg/dL) (75-99) mg/dL Calcium (8.4-10.2) mg/dL Crossmatch See Detail 07/12/21 07/12/21 07/12/21 Range/Units 12:42 19:44 23:32 WBC 15.8 H (3.8-10.6) k/uL RBC 3.56 L (4.30-5.90) m/uL Hgb 11.0 L D (13.0-17.5) gm/dL Hct 31.5 L (39.0-53.0) % RDW (11.5-15.5) % Plt Count 61 L (150-450) k/uL Neutrophils # 13.1 H (1.3-7.7) k/uL Lymphocytes # (1.0-4.8) k/uL ABG pH (7.35-7.45) ABG pCO2 (35-45) mmHg ABG pO2 (83-108) mmHg ABG HCO3 (21-25) mmol/L ABG Total CO2 (19-24) mmol/L ABG O2 Saturation (94-97) % Chloride (98-107) mmol/L Creatinine (0.66-1.25) mg/dL Glucose (74-99) mg/dL POC Glucose (mg/dL) 244 H 113 H (75-99) mg/dL Calcium (8.4-10.2) mg/dL Crossmatch 07/13/21 07/13/21 07/13/21 Range/Units 00:00 04:10 04:10 WBC 12.7 H 13.9 H (3.8-10.6) k/uL RBC 3.49 L 3.47 L (4.30-5.90) m/uL Hgb 11.1 L 10.9 L (13.0-17.5) gm/dL Hct 30.9 L 30.8 L (39.0-53.0) % RDW 15.8 H 16.7 H (11.5-15.5) % Plt Count 61 L 78 L (150-450) k/uL Neutrophils # 9.9 H 10.7 H (1.3-7.7) k/uL Lymphocytes # (1.0-4.8) k/uL ABG pH (7.35-7.45) ABG pCO2 (35-45) mmHg ABG pO2 (83-108) mmHg ABG HCO3 (21-25) mmol/L ABG Total CO2 (19-24) mmol/L ABG O2 Saturation (94-97) % Chloride 112 H (98-107) mmol/L Creatinine 0.59 L (0.66-1.25) mg/dL Glucose 110 H (74-99) mg/dL POC Glucose (mg/dL) (75-99) mg/dL Calcium 7.0 L (8.4-10.2) mg/dL Crossmatch 07/13/21 Range/Units 05:55 WBC (3.8-10.6) k/uL RBC (4.30-5.90) m/uL Hgb (13.0-17.5) gm/dL Hct (39.0-53.0) % RDW (11.5-15.5) % Plt Count (150-450) k/uL Neutrophils # (1.3-7.7) k/uL Lymphocytes # (1.0-4.8) k/uL ABG pH 7.51 H (7.35-7.45) ABG pCO2 31 L (35-45) mmHg ABG pO2 68 L (83-108) mmHg ABG HCO3 (21-25) mmol/L ABG Total CO2 26 H (19-24) mmol/L ABG O2 Saturation (94-97) % Chloride (98-107) mmol/L Creatinine (0.66-1.25) mg/dL Glucose (74-99) mg/dL POC Glucose (mg/dL) (75-99) mg/dL Calcium (8.4-10.2) mg/dL Crossmatch Microbiology - Last 24 Hours (Table) 07/09/21 13:02 Blood Culture Gram Stain - Final Blood Blood Culture - Preliminary Staph hominis sub sp. hominis 07/09/21 12:44 Blood Culture Gram Stain - Preliminary Blood Blood Culture - Preliminary Staphylococcus epidermidis Coagulase Negative Staph Assessment and Plan (1) GI bleed Narrative/Plan: 51-year-old male who presented to the emergency department yesterday with complaints of acute onset of abdominal pain associated with nausea and vomiting. States he began to vomit bright red and dark red blood. He was concern for esophageal varices as he has a history of previous esophageal variceal bleed status post banding approximately 5 years ago done at [facility]. He admits to a history of alcohol abuse for which he quit a few months ago. States he was drinking a few beers a day at least for last 10-15 years. States he has been diagnosed in the past with cirrhosis of the liver but does not follow up with anyone. The patient continued to have several episodes of large amounts of hematemesis while in the ER and through the night during his admission to ICU. Patient has esophageal varices related to portal hypertension. He is been transfused 4 units of PRBC transfusion and 2 units FFP. Plan is to proceed toda y with EGD. Patient is currently on Sandostatin as well. Yesterday he underwent an EGD with findings of large fundal varix with a nipple sign suggestive of recent gastric air cell bleeding but no active bleeding currently. Small clots noted in the fundus of the stomach. No evidence of esophageal varices. Recommendations were to continue IV Sandostatin and continue process of transfer to tertiary center for TIPS procedure to prevent recurrent gastric variceal bleeding. He is no longer having any nausea or vomiting. No hematemesis since prior to his procedure yesterday. Hemoglobin is stable at 8.2. Will continue with the every 4 hour CBC. Current Visit: Yes Status: Acute Code(s): K92.2 - GASTROINTESTINAL HEMORRHAGE, UNSPECIFIED SNOMED Code(s): 45124857 (2) Gastric varices Narrative/Plan: Recommend transfer to tertiary center for TIPS procedure for gastric varices secondary to portal hypertension from alcoholic cirrhosis of the liver. Recommend NG tube. Continue ICU management consider some sedation related to agitation. This was discussed with Primary Medical team Dr. Trevizo. Repeat EGD with Nika tube placed. Still recommend transfer to tertiary center for TIPS procedure. Continue with Nika tube for now. Current Visit: Yes Status: Acute Code(s): I86.4 - GASTRIC VARICES SNOMED Code(s): 97920533 (3) History of esophageal varices Current Visit: Yes Status: Acute Code(s): Z87.19 - PERSONAL HISTORY OF OTHER DISEASES OF THE DIGESTIVE SYSTEM SNOMED Code(s): 85490641765575971 (4) History of alcohol abuse Current Visit: Yes Status: Acute Code(s): F10.11 - ALCOHOL ABUSE, IN REMISSION SNOMED Code(s): 966324342 (5) Alcoholic cirrhosis of liver Current Visit: No Status: Acute Code(s): K70.30 - ALCOHOLIC CIRRHOSIS OF LIVER WITHOUT ASCITES SNOMED Code(s): 896464744 Plan: 1. Continue symptomatic and supportive care as per ICU management 2. NPO 3. Continue Sandostatin 4. Continue to monitor hemoglobin, transfuse Hg less than 7. Avoid over transfusing at may increase portal hypertension and risk for gastric variceal bleed. 5. EGD performed with evidence of gastric varices, recommendation is for transfer the patient to tertiary center for TIPS procedure 6. Alcohol abstinence 7. EGD with Nika tube and helmet placed 8. Continued recommendation for transfer to tertiary center. Primary medicine as well as case management has reached out to several tertiary hospitals and at this time there are still no beds available for transfer. Continue to check daily. Thank you for this consultation, we will continue to follow. Dr. Aryan Moncada I agree with the dictator's note, documented as a scribe by Virginia Ackerman.
[2021-07-13] MEDS ORDERED: MVI, ADULT NO.4 WITH VIT K 10 ML, TRACE (CONC-1ML/DOSE) 1 ML in AMINO ACID 5%-D20W+LYTE... IV SCH ×3 (16:00)
[2021-07-13] MEDS: CISATRACURIUM 200 MG in SODIUM CHLORIDE 0.9% 180 ML IV SCH (16:54)
[2021-07-13 17:41] LABS: Glucose,Whole Blood 129 mg/dL (75-99)
[2021-07-13 23:49] LABS: Glucose,Whole Blood 134 mg/dL (75-99)
[2021-07-14 00:05] LABS: Allen Test Performed? Yes
[2021-07-14 00:06] LABS: Anisocytosis Slight; Basophils # (A) 0.1 k/uL (0-0.2); Basophils % (A) 0 %; Eosinophils # (A) 1.1 k/uL (0-0.7); Eosinophils % (A) 8 %; HCT 29.5 % (39.0-53.0); Lymphocytes # (A) 1.6 k/uL (1.0-4.8); Lymphocytes % (A) 11 %; MCH 31.2 pg (25.0-35.0); MCHC 33.8 g/dL (31.0-37.0); MCV 92.5 fL (80.0-100.0); Mean Platelet Volume 8.2; Monocytes % (A) 7 %; Neutrophils # (A) 9.9 k/uL (1.3-7.7); Neutrophils % (A) 72 %; Platelet Count 88 k/uL (150-450); Poikilocytosis Slight; RBC 3.19 m/uL (4.30-5.90); RDW 18.4 % (11.5-15.5); WBC 13.8 k/uL (3.8-10.6)
[2021-07-14 00:16] LABS: ABG Base Excess 1.4 mmol/L; ABG HCO3 26 mmol/L (21-25); ABG PCO2 42 mmHg (35-45); ABG PH 7.41 (7.35-7.45); ABG PO2 48 mmHg (83-108); ABG TCO2 27 mmol/L (19-24)
[2021-07-14] MEDS: OCTREOTIDE 500 MCG in SODIUM CHLORIDE 0.9% 250 ML IV SCH ×3 (03:57→23:18)
[2021-07-14 04:39] LABS: ALT 31 U/L (4-49); AST 50 U/L (17-59); African American GFR (CKD) >90 (>60 ml/min/1.73 sqM); Albumin 1.8 g/dL (3.5-5.0); Alkaline Phosphatase 49 U/L (38-126); Anion Gap 4 mmol/L; Blood Urea Nitrogen 13 mg/dL (9-20); Calcium 7.1 mg/dL (8.4-10.2); Carbon Dioxide 23 mmol/L (22-30); Chloride 109 mmol/L (98-107); Glucose 124 mg/dL (74-99); Magnesium 1.9 mg/dL (1.6-2.3); Non-African American GFR(CKD) >90 (>60 ml/min/1.73 sqM); Phosphorus 4.3 mg/dL (2.5-4.5); Sodium 136 mmol/L (137-145); Total Bilirubin 0.5 mg/dL (0.2-1.3); Total Protein 4.3 g/dL (6.3-8.2)
[2021-07-14 05:24] LABS: Anisocytosis Slight; HCT 30.7 % (39.0-53.0); HGB 10.2 gm/dL (13.0-17.5); MCH 30.9 pg (25.0-35.0); MCHC 33.2 g/dL (31.0-37.0); MCV 93.1 fL (80.0-100.0); Macrocytosis Slight; Mean Platelet Volume 8.4; Platelet Count 91 k/uL (150-450); Poikilocytosis Slight; RBC 3.29 m/uL (4.30-5.90); RDW 18.9 % (11.5-15.5); WBC 14.3 k/uL (3.8-10.6)
[2021-07-14] MEDS: MAGNESIUM SULFATE-D5W PMX 1 GM in DEXTROSE/WATER 1 100ML.BAG IVPB SCH ×2 (05:51→09:55)
[2021-07-14] MEDS: SODIUM CHLORIDE 0.9% 1,000 ML IV SCH ×2 (05:52→19:19)
[2021-07-14 06:01] LABS: Eosinophils # (M) 1.72 k/uL (0-0.7); Lymphocytes # (M) 0.86 k/uL (1.0-4.8); Monocytes # (M) 0.86 k/uL (0-1.0); Neutrophils # (M) 10.87 k/uL (1.3-7.7); Neutrophils % (M) 76 %; Nucleated Red Blood Cells 0 /100 WBC (0-0); Total Cells Counted 100
[2021-07-14 06:10] LABS: ABG Base Excess 1.5 mmol/L; ABG HCO3 26 mmol/L (21-25); ABG Oxygen Saturation 99.6 % (94-97); ABG PCO2 42 mmHg (35-45); ABG PH 7.41 (7.35-7.45); ABG PO2 140 mmHg (83-108); ABG TCO2 28 mmol/L (19-24); Allen Test Performed? Yes
[2021-07-14 06:14] LABS: Glucose,Whole Blood 126 mg/dL (75-99)
--- NOTE | 2021-07-14 06:23 | XR ---
EXAMINATION TYPE: XR chest 1V portable DATE OF EXAM: 07/14/2021 CLINICAL HISTORY: Difficulty breathing progress study. TECHNIQUE: Single AP portable semiupright view of the chest is obtained. COMPARISON: Chest x-ray from one day earlier and older studies. FINDINGS: Stable endotracheal tube and left internal jugular central venous catheter. Stable large b ore Neha tube projects below diaphragm. Persistent right greater than left bibasilar opacities. Cardiac silhouette size stable and within nor mal limits. Age-indeterminate fracture deformity right proximal humerus felt present. IMPRESSION: Persistent small to moderate size bilateral pleural effusions with associated bibasilar a telectasis and/or infiltrate. No significant change from one day earlier.
[2021-07-14] MEDS ORDERED: CISATRACURIUM 2 MG/ML 5 ML VIAL IV ONE (08:04)
[2021-07-14 09:26] VITALS: BMI 29.5
[2021-07-14] MEDS: PANTOPRAZOLE 40 MG/10 ML VIAL IVP SCH ×2 (09:53→20:45)
[2021-07-14] MEDS: CHLORHEXIDINE GLUCONATE 15 ML CUP MUCOUS MEM SCH ×2 (09:55→20:45)
--- NOTE | 2021-07-14 10:23 | P.PN ---
Subjective Progress Note Date: 07/14/21 Principal diagnosis: Patient is still intubated Constitutional: Intubated Eyes: Anicteric sclerae, moist conjunctiva, no lid-lag PERRLA ENMT: NC/AT Oropharynx clear, no erythema, exudates Neck: Supple, FROM, Cardiovascular: edema Abdominal: No abdominal wall hernia noted Skin: Yellowish Chest decreased breath sounds bilaterally Extremities: No digital cyanosis No clubbing Pedal pulses intact and symmetrical Radial pulses intact and symmetrical Normal gait and station No calf tenderness Psychiatric: More sleepy Neuro: g weakness Variceal bleed - intubated -CBC every 6 hours -PPI IV twice a day -Somatostatin drip -Due to gastric lysis due to gastric varices -Pulmonary consult -Maintain 2 large bore IVs -Hold home medications -Strict nothing by mouth -Ceftriaxone 1 g every 24 hours -Continue IV fluids Supraventricular tachycardia -Return to sinus rhythm after adenosine 6 mg push -Continue to monitor on telemetry -Should patient develop SVT again, will likely require amiodarone Alcoholic cirrhosis Alcohol abuse disorder - -Patient continues to be weak difficulty transferring the patient on her level of care bedside available at this time Attempt to transfer the patient to multiple hospitals no success no beds available Patient currently is intubated and more stabilized discussed with gastroenterology the patient needs urgent TIPS due to gastric vericies Continue to try to attempt to transfer the patient to high level of care for TIPS procedure We will continue try to arrange for the patient to be transferred to high level of care status post balloon of the gastric verscies Objective - Vital Signs Vital signs: Vital Signs Temp 98.7 F 07/14/21 09:00 Pulse 102 H 07/14/21 09:00 Resp 20 07/14/21 09:00 BP 118/75 07/14/21 02:00 Pulse Ox 96 07/14/21 09:00 Intake & Output 07/13/21 07/14/21 07/14/21 18:59 06:59 18:59 Intake Total 5819.638 6604.667 579 Output Total 991 586 85 Balance 758.972 2441.667 494 Weight 92.5 kg 96 kg 96 kg Intake: IV 882 1269 279 Mvi, Adult No.4 with Vit 300 120 K 10 ml Trace (Conc-1Ml/ Dose) 1 ml In Amino Acid 5%-D20w+Lytes*E* 1,000 ml @ 30 mls/hr IV .Q24H [facility] Rx#:[id number] Sodium Chloride 0.9% 1, 825 900 135 000 ml @ 20 mls/hr IV . Q24H [facility] Rx#:[id number] pressure bag 57 69 24 Intake, IV Titration 1029.004 598.667 300 Amount Cisatracurium 200 mg In 146.28 89.24 Sodium Chloride 0.9% 180 ml @ 1 MCG/KG/MIN 5.52 mls/hr IV .Q24H [facility] Rx#: [id number] Magnesium Sulfate-D5w Pmx 200 1 gm In Dextrose/Water 1 100ml.bag @ 100 mls/hr IVPB Q1H [facility] Rx#: [id number] Octreotide 500 mcg In 494.584 234.167 Sodium Chloride 0.9% 250 ml @ 50 MCG/HR 25 mls/hr IV .Q10H [facility] Rx#: [id number] propofoL 1,000 mg In 388.14 275.26 100 Empty Bag 1 bag @ Titrate IV .Q0M [facility] Rx#: [id number] Output: Gastric Drainage 300 200 Urine 690 385 85 Stool 1 1 Other: Voiding Method Indwelling Catheter Indwelling Catheter # Bowel Movements 1 1 ABP, PAP, CO, CI - Last Documented Arterial Blood Pressure 153/79 - Labs CBC & Chem 7: 07/14/21 04:09 07/14/21 04:09 Labs: Abnormal Lab Results - Last 24 Hours (Table) 07/13/21 07/13/21 07/13/21 Range/Units 11:51 17:40 23:44 WBC 13.8 H (3.8-10.6) k/uL RBC 3.19 L (4.30-5.90) m/uL Hgb 10.0 L (13.0-17.5) gm/dL Hct 29.5 L (39.0-53.0) % RDW 18.4 H (11.5-15.5) % Plt Count 88 L (150-450) k/uL Neutrophils # 9.9 H (1.3-7.7) k/uL Neutrophils # (Manual) (1.3-7.7) k/uL Lymphocytes # (Manual) (1.0-4.8) k/uL Eosinophils # 1.1 H (0-0.7) k/uL Eosinophils # (Manual) (0-0.7) k/uL ABG pO2 (83-108) mmHg ABG HCO3 (21-25) mmol/L ABG Total CO2 (19-24) mmol/L ABG O2 Saturation (94-97) % Sodium (137-145) mmol/L Chloride (98-107) mmol/L Creatinine (0.66-1.25) mg/dL Glucose (74-99) mg/dL POC Glucose (mg/dL) 113 H 129 H (75-99) mg/dL Calcium (8.4-10.2) mg/dL Total Protein (6.3-8.2) g/dL Albumin (3.5-5.0) g/dL 07/13/21 07/14/21 07/14/21 Range/Units 23:48 00:00 04:09 WBC (3.8-10.6) k/uL RBC (4.30-5.90) m/uL Hgb (13.0-17.5) gm/dL Hct (39.0-53.0) % RDW (11.5-15.5) % Plt Count (150-450) k/uL Neutrophils # (1.3-7.7) k/uL Neutrophils # (Manual) (1.3-7.7) k/uL Lymphocytes # (Manual) (1.0-4.8) k/uL Eosinophils # (0-0.7) k/uL Eosinophils # (Manual) (0-0.7) k/uL ABG pO2 48 L* (83-108) mmHg ABG HCO3 26 H (21-25) mmol/L ABG Total CO2 27 H (19-24) mmol/L ABG O2 Saturation 84.0 L (94-97) % Sodium 136 L (137-145) mmol/L Chloride 109 H (98-107) mmol/L Creatinine 0.54 L (0.66-1.25) mg/dL Glucose 124 H (74-99) mg/dL POC Glucose (mg/dL) 134 H (75-99) mg/dL Calcium 7.1 L (8.4-10.2) mg/dL Total Protein 4.3 L (6.3-8.2) g/dL Albumin 1.8 L (3.5-5.0) g/dL 07/14/21 07/14/21 07/14/21 Range/Units 04:09 06:12 06:30 WBC 14.3 H (3.8-10.6) k/uL RBC 3.29 L (4.30-5.90) m/uL Hgb 10.2 L (13.0-17.5) gm/dL Hct 30.7 L (39.0-53.0) % RDW 18.9 H (11.5-15.5) % Plt Count 91 L (150-450) k/uL Neutrophils # (1.3-7.7) k/uL Neutrophils # (Manual) 10.87 H (1.3-7.7) k/uL Lymphocytes # (Manual) 0.86 L (1.0-4.8) k/uL Eosinophils # (0-0.7) k/uL Eosinophils # (Manual) 1.72 H (0-0.7) k/uL ABG pO2 140 H (83-108) mmHg ABG HCO3 26 H (21-25) mmol/L ABG Total CO2 28 H (19-24) mmol/L ABG O2 Saturation 99.6 H (94-97) % Sodium (137-145) mmol/L Chloride (98-107) mmol/L Creatinine (0.66-1.25) mg/dL Glucose (74-99) mg/dL POC Glucose (mg/dL) 126 H (75-99) mg/dL Calcium (8.4-10.2) mg/dL Total Protein (6.3-8.2) g/dL Albumin (3.5-5.0) g/dL Microbiology - Last 24 Hours (Table) 07/14/21 03:55 Sputum Culture - Preliminary Sputum 07/09/21 13:02 Blood Culture Gram Stain - Final Blood Blood Culture - Final Staph hominis sub sp. hominis
--- NOTE | 2021-07-14 10:25 | P.PN ---
Subjective Progress Note Date: 07/14/21 Principal diagnosis: Acute GI bleed 51-year-old white male patient with past medical history of EtOH abuse, history of liver cirrhosis with esophageal varices with previous banding 2 years ago at [facility], and previous GI bleeding, current every day smoker, who came into the emergency department on 07/09/2021 with complaints of abdominal pain, hematemesis, and passing black stools. Patient was having palpitations, he was chilled. Denied any shortness of breath, no chest pain, no cough, no dyspnea, no phlegm production. Patient was noted to be hypotensive in the emergency department with a blood pressure of 76/30. He was having episodes of large volume of hematemesis. Initial hemoglobin was 10.6, platelet count was 218, INR was 1.2, plasma lactic acid was 5.8 on presentation, renal profile was within normal limits with BUN of 15 creatinine 0.94, troponin was negative. Lipase was 421. COVID-19 PCR was negative, LFTs were within normal limits. Patient was transfused with 4 units of packed red blood cells, 4 subsequent drop in hemoglobin down to 7.8, and he will be receiving another unit of packed red blood cells this morning. He received 2 units of fresh frozen plasma, he also received 4 L in fluid boluses, and his maintenance IV fluids is 0.9 normal sinus at a rate of 75 ML per hour, patient's blood culture was positive for gram-posit mary cocci, and patient is on combination of Rocephin and vancomycin. Today's labs reveal white blood cell count of 11.9, hemoglobin of 7.8 as mentioned above with fifth unit of packed cells infusing, platelet count is 113, sodium is 136, potassium is 5.3, chloride is 1:15, CO2 is 18, BUN is 23, creatinine is 0.68. Patient is on Sandostatin at 50 mics per hour, he is on Protonix 40 mg twice daily, Zofran. He is awake and alert, breathing comfortably, it appears to be in no acute distress. No shortness of breath no chest pain, room air pulse ox is 94%, current blood pressure is 82/55. In sinus mechanism with a rate of 75 BPM, afebrile. Chest x-ray shows no acute cardiopulmonary disease. CT of the abdomen and pelvis showed no evidence of active GI bleeding, splenic varices consistent with portal venous hypertension, no focal liver defect. GI service has been consulted and patient is boarded for EGD this afternoon On 07/11/2021 patient seen in follow-up in intensive care unit, he is awake and alert, appears a bit fatigued and pale but no acute distress, abdomen is soft, no nausea or vomiting, no episodes of hematemesis or melena overnight. He was transfused with 5 units of packed red blood cells yesterday and 2 units of fresh frozen plasma, today's labs show hemoglobin of 8.2, platelet count is 95, his BNP is still pending for today. His white count is 8.0. Breathing comfortable, no complaints of shortness of breath or chest pain. Tolerating sips of clear liquids. He is status post EGD which showed large fundal varix with the nipple sign suggestive of recent gastric variceal bleeding but no active bleeding, small clots in the fundus of the stomach, and no evidence of esophageal varices. The recommendation was made by the GI service to continue on IV Sandostatin, and to transfer the patient to a tertiary care facility for TIPS procedure to prevent recurrent gastric variceal bleeding. Patient continues on H&H's every 6 hours per GI service recommendations. He is not requiring any vasopressor support, he is in sinus mechanism, he remains on Sandostatin 50 mg per hour, and point tenderness and uterine rate of 75 ML per hour. On 07/12/2021 patient seen in follow-up in the intensive care unit, this morning he had 2 large bloody bowel movements. He was started on some clear liquids yesterday, today his breakfast has been held, he is increasingly more confused, he is hypotensive, his hemoglobin is down to 7.9 this morning, 1 unit of packed red blood cells has been ordered. His 0.9 normal saline is infusing a rate of 75 ML per hour, he is on room air with pulse ox of 93%, he is tachycardic, in sinus mechanism. He is nauseous, has not vomited, his had blood pressures as low as 77/63. Abdomen is soft. Patient is currently #13 on the waiting list for [facility]. The [place] system, and [facility] are not accepting transfers at all due to no availability of beds. Patient continues on octreotide at 50 mg per hour. He is on Protonix 40 mg twice daily and empiric antibiotics in the form of Rocephin. His blood cultures came back positive for coagulase-negative staph and Staphylococcus epidermidis, compatible with contamination. Discharge planning also reached out to [facility], which does not offer the service the patient needs. Discussed case with the GI service and apparently the gastric varix is rather large and patient does need the TIPS procedure with possible banding. NG tube was inserted, and bloody output was suctioned out of patient's stoma, at the same time patient decompensated acutely, and the decision was made to intubate and place the patient on mechanical ventilator, patient was given 1 L bolus, he is being urgently transfused with 2 more units of blood for a total of 3 units of blood today, and 2 units of fresh frozen plasma were ordered and pending at this time. Patient was successfully intubated by Dr. Pace, placed on mechanical ventilator, left IJ central line was placed, and right radial arterial line was placed. Blood gas was obtained and pO2 was greater than 400, pCO2 was 39, and pH of 7.21. This is on the ventilator settings assist control with a rate of 24, tidal volumes 450, FiO2 of 100% and PEEP of 5. Chest x-ray shows satisfactory position of the new ET tube and orogastric tubes, no pneumothorax after left-sided central venous catheter placement, diminished inspiration with new small to tiny left pleural effusion and associated left basilar atelectasis. On 07/13/2021 patient seen in follow-up in intensive care unit, yesterday he was emergently intubated, placed on mechanical ventilator because of hemorrhagic shock. He was given multiple blood products, 6 units of pack red blood cells yesterday for a total of 11 units this admission, and 2 units of FFP yesterday for a total of 4 units of FFP this admission. Nika tube was placed by GI service. It still remains in place this morning, has been minimal bloody output from the gastric port of the Nika tube overnight, hemodynamically patient is stable, norepinephrine drip was used overnight, and was discontinued this morning. His 0.9 normal saline is running at 75 ML per hour, and Diprivan is at 50 mics per kilo per minute. Nimbex is a 2 mics per kilo per minute. Sandostatin infusing at 50 mics per hour. His vent settings are assist-control with a rate of 24, tidal vital was 450, FiO2 40% and PEEP of 5. His blood gas this morning shows pH of 7.51, a CO2 of 31, and pO2 of 68 this was done and the above-mentioned vent settings and subsequently his rate was dropped down to 18. This morning's chest x-ray shows persistent small to moderate-sized bilateral pleural effusions with associated bibasilar atelectasis. This morning's blood work has been reviewed showing white blood cell count of 13.9, hemoglobin of 10.9, sodium is 137, potassium is 3.7, chloride is 112, CO2 is 23, BUN is 11, creatinine 0.59. Patient's blood cultures showed staph hominis, and Staphylococcus epidermidis. Patient remains on Rocephin. Patient is afebrile. Yesterday multiple attempts were made to transfer the patient to tertiary care facility including [facility], [facility], [facility], [facility], [facility] in [place], and all facilities have no available beds. Abdomen is soft, overnight patient did have a few maroon-colored liquid stools. Urine output is dark, and in the order of 10-15 ML per hour. We'll give the patient on dose of IV Lasix today. His total weight is up by 6 kg since admission. On 07/14/2021 patient seen in follow-up in the intensive care unit, he remains intubated, sedated and paralyzed on assist-control mode of ventilation with a rate of 18, Tylenol level was 150, FiO2 of 60% and PEEP of 10, this morning's blood gas shows pO2 of 140, pCO2 of 42, and pH of 7.41, this was done and FiO2 of 70% and subsequently ability has been dropped down to 60 and then 50%. He is currently on Diprivan at 50 mics per kilo per minute, Sandostatin 50 mics per hour, Nimbex is at 1 mics per kilo per minute and 0.9 normal saline at a rate of 75 ML per hour, he was started on TPN at 30 ML per hour yesterday for nutritional support. Today's chest x-ray shows persistent small to moderate- sized bilateral pleural effusions with associated bibasilar atelectasis. No s ignificant change from one day earlier. Nika tube still remains in place, patient has put out 600 mL of dark bloody drainage from the gastric port of the Nika tube. Patient did have one maroon colored dark bowel movement last night. His been afebrile, he remains on Rocephin for empiric antibiotic coverage. Sputum culture has been sent, pending, patient received 1 dose of Lasix yesterday, he has produced 1.5 L in the urine output, overall remains significantly positive fluid balance, overall 10 kg since admission. Today's labs have been reviewed, hemoglobin is 10.2, platelet count is 91, white count of 14.3, sodium is 136, potassium is 4.0, chloride is 109, BUN is 13, creatinine of 0.54. LFTs are within normal limits. Urine output remains low in the order of 20-35 ML per hour. We're still trying to find bed availability at multiple tertiary care facilities, with no success Objective - Vital Signs Vital signs: Vital Signs Temp 98.7 F 07/14/21 09:00 Pulse 102 H 07/14/21 09:00 Resp 20 07/14/21 09:00 BP 118/75 07/14/21 02:00 Pulse Ox 96 07/14/21 09:00 Intake & Output 07/13/21 07/14/21 07/14/21 18:59 06:59 18:59 Intake Total 4112.123 7208.667 579 Output Total 991 586 85 Balance 279.132 7653.667 494 Weight 92.5 kg 96 kg 96 kg Intake: IV 882 1269 279 Mvi, Adult No.4 with Vit 300 120 K 10 ml Trace (Conc-1Ml/ Dose) 1 ml In Amino Acid 5%-D20w+Lytes*E* 1,000 ml @ 30 mls/hr IV .Q24H JAYDEN Rx#:[id number] Sodium Chloride 0.9% 1, 825 900 135 000 ml @ 20 mls/hr IV . Q24H JAYDEN Rx#:[id number] pressure bag 57 69 24 Intake, IV Titration 1029.004 598.667 300 Amount Cisatracurium 200 mg In 146.28 89.24 Sodium Chloride 0.9% 180 ml @ 1 MCG/KG/MIN 5.52 mls/hr IV .Q24H JAYDEN Rx#: [id number] Magnesium Sulfate-D5w Pmx 200 1 gm In Dextrose/Water 1 100ml.bag @ 100 mls/hr IVPB Q1H JAYDEN Rx#: [id number] Octreotide 500 mcg In 494.584 234.167 Sodium Chloride 0.9% 250 ml @ 50 MCG/HR 25 mls/hr IV .Q10H JAYDEN Rx#: [id number] propofoL 1,000 mg In 388.14 275.26 100 Empty Bag 1 bag @ Titrate IV .Q0M JAYDEN Rx#: [id number] Output: Gastric Drainage 300 200 Urine 690 385 85 Stool 1 1 Other: Voiding Method Indwelling Catheter Indwelling Catheter # Bowel Movements 1 1 ABP, PAP, CO, CI - Last Documented Arterial Blood Pressure 153/79 - Exam GENERAL EXAM: Intubated, sedated 51-year-old white male, new intubated, on assist control mode of ventilation with a rate of 24, Tidal volume 450, FiO2 of 50% and PEEP of 10 he is on Sandostatin infusion for acute GI bleeding, gastric port of the Nika tube is draining bloody output, in the order of 600 ml overnight HEAD: Normocephalic/atraumatic.Nika helmet in place EYES: Normal reaction of pupils, equal size. Conjunctiva pink, sclera white. NOSE: Clear with pink turbinates. NGT in place MOUTH: ETT in place, Nika tube is in place connected to a helmet on head THROAT: No erythema or exudates. NECK: No masses, no JVD, no thyroid enlargement, no adenopathy. CHEST: No chest wall deformity. Symmetrical expansion. LUNGS: Equal air entry with no crackles, wheeze, rhonchi or dullness. CVS: Regular rate and rhythm, normal S1 and S2, no gallops, no murmurs, no rubs ABDOMEN: Soft, nontender. No hepatosplenomegaly, normal bowel sounds, no guarding or rigidity. EXTREMITIES: No clubbing, no edema, no cyanosis, 2+ pulses and upper and lower extremities. MUSCULOSKELETAL: Muscle strength and tone normal. SPINE: No scoliosis or deformity SKIN: No rashes CENTRAL NERVOUS SYSTEM: Sedated, and intubated, and paralyzed. No focal deficits, tone is normal in all 4 extremities. - Labs CBC & Chem 7: 07/14/21 04:09 07/14/21 04:09 Labs: Abnormal Lab Results - Last 24 Hours (Table) 07/13/21 07/13/21 07/13/21 Range/Units 11:51 17:40 23:44 WBC 13.8 H (3.8-10.6) k/uL RBC 3.19 L (4.30-5.90) m/uL Hgb 10.0 L (13.0-17.5) gm/dL Hct 29.5 L (39.0-53.0) % RDW 18.4 H (11.5-15.5) % Plt Count 88 L (150-450) k/uL Neutrophils # 9.9 H (1.3-7.7) k/uL Neutrophils # (Manual) (1.3-7.7) k/uL Lymphocytes # (Manual) (1.0-4.8) k/uL Eosinophils # 1.1 H (0-0.7) k/uL Eosinophils # (Manual) (0-0.7) k/uL ABG pO2 (83-108) mmHg ABG HCO3 (21-25) mmol/L ABG Total CO2 (19-24) mmol/L ABG O2 Saturation (94-97) % Sodium (137-145) mmol/L Chloride (98-107) mmol/L Creatinine (0.66-1.25) mg/dL Glucose (74-99) mg/dL POC Glucose (mg/dL) 113 H 129 H (75-99) mg/dL Calcium (8.4-10.2) mg/dL Total Protein (6.3-8.2) g/dL Albumin (3.5-5.0) g/dL 07/13/21 07/14/21 07/14/21 Range/Units 23:48 00:00 04:09 WBC (3.8-10.6) k/uL RBC (4.30-5.90) m/uL Hgb (13.0-17.5) gm/dL Hct (39.0-53.0) % RDW (11.5-15.5) % Plt Count (150-450) k/uL Neutrophils # (1.3-7.7) k/uL Neutrophils # (Manual) (1.3-7.7) k/uL Lymphocytes # (Manual) (1.0-4.8) k/uL Eosinophils # (0-0.7) k/uL Eosinophils # (Manual) (0-0.7) k/uL ABG pO2 48 L* (83-108) mmHg ABG HCO3 26 H (21-25) mmol/L ABG Total CO2 27 H (19-24) mmol/L ABG O2 Saturation 84.0 L (94-97) % Sodium 136 L (137-145) mmol/L Chloride 109 H (98-107) mmol/L Creatinine 0.54 L (0.66-1.25) mg/dL Glucose 124 H (74-99) mg/dL POC Glucose (mg/dL) 134 H (75-99) mg/dL Calcium 7.1 L (8.4-10.2) mg/dL Total Protein 4.3 L (6.3-8.2) g/dL Albumin 1.8 L (3.5-5.0) g/dL 07/14/21 07/14/21 07/14/21 Range/Units 04:09 06:12 06:30 WBC 14.3 H (3.8-10.6) k/uL RBC 3.29 L (4.30-5.90) m/uL Hgb 10.2 L (13.0-17.5) gm/dL Hct 30.7 L (39.0-53.0) % RDW 18.9 H (11.5-15.5) % Plt Count 91 L (150-450) k/uL Neutrophils # (1.3-7.7) k/uL Neutrophils # (Manual) 10.87 H (1.3-7.7) k/uL Lymphocytes # (Manual) 0.86 L (1.0-4.8) k/uL Eosinophils # (0-0.7) k/uL Eosinophils # (Manual) 1.72 H (0-0.7) k/uL ABG pO2 140 H (83-108) mmHg ABG HCO3 26 H (21-25) mmol/L ABG Total CO2 28 H (19-24) mmol/L ABG O2 Saturation 99.6 H (94-97) % Sodium (137-145) mmol/L Chloride (98-107) mmol/L Creatinine (0.66-1.25) mg/dL Glucose (74-99) mg/dL POC Glucose (mg/dL) 126 H (75-99) mg/dL Calcium (8.4-10.2) mg/dL Total Protein (6.3-8.2) g/dL Albumin (3.5-5.0) g/dL Microbiology - Last 24 Hours (Table) 07/14/21 03:55 Sputum Culture - Preliminary Sputum 07/09/21 13:02 Blood Culture Gram Stain - Final Blood Blood Culture - Final Staph hominis sub sp. hominis Assessment and Plan Plan: Assessment: #1. Acute hypoxic respiratory failure related to shock, related to acute blood loss, patient required intubation and placement on mechanical ventilator on 07/12/2021 in part for airway maintenance as well. On 07/13/2021 he remains sedated and paralyzed, Nika tube is in place and patient remains on Sandostatin. Awaiting transfer to a tertiary care facility for TIPS procedure #2. Acute GI blood loss anemia, patient presented with multiple episodes of hematemesis, and melena, status post transfusion with 11 units of packed red blood cells and 4 units of FFP, today's hemoglobin is 10.2 on 07/14/2021 #3. Hypotension, likely related to hemorrhagic shock related to acute GI blood loss anemia, requiring fluid resuscitation, and multiple blood products patient has received 11 units of packed red blood cells so far, and a total of 4 units of FFP. And did require norepinephrine support briefly, it is currently discontinued as blood pressure has improved #4. Status post EGD on 07/09/2021 showing large fundal varix and evidence of recent gastric variceal bleeding, and small clots, no evidence of esophageal varices, continues on Sandostatin #5. History of esophageal varices, EtOH related liver cirrhosis, patient has a history of banding at [facility] 2 years ago #6. History of EtOH use, last drink was yesterday on 07/09/2021 #7. Gram-positive bacteremia, patient is covered with Rocephin and vancomycin, blood cultures show staph epidermidis, coagulase negative staph and staph hominis, likely related to a skin contaminant. Remains on Rocephin, Vancomycin has been discontinued #8. Lactic acidosis related to acute hemorrhagic shock, improved with IV hydration and blood transfusion #9. Current smoker #10. Reported history of seizures, used to be on Tegretol, currently not on any medication. Details of diagnosis is not known to us. Patient states has not had a seizure in a long time Plan: Patient had 600 mL of dark bloody output from the gastric port of the Nika tube in the last 24 hours Nika tube still remains in place, nearing 48 hours since placement Patient still remains intubated and sedated and paralyzed Today's chest x-ray and blood gases have been reviewed FiO2 has been dropped down to 50% We will give 2 more doses of IV Lasix 40 mg Cut back IV fluids to KVO Today's hemoglobin is 10.2 Continue IV Protonix and Sandostatin Still working on trying to transfer the patient to the [facility] and [facility], multiple other facilities were tried including [facility], [facility], [facility], [facility]. Still no available beds related to COVID-19 pandemic, will call them again to check availability Overall prognosis is guarded I performed a history & physical examination of the patient and discussed their management with my nurse practitioner, Estephania Tejada. I reviewed the nurse practitioner's note and agree with the documented findings and plan of care. Lung sounds are positive for clear breath sounds throughout the lung silva. The findings and the impression was discussed with the patient. I attest to the documentation by the nurse practitioner. Time with Patient: Greater than 30
[2021-07-14 11:29] LABS: Glucose,Whole Blood 118 mg/dL (75-99)
--- NOTE | 2021-07-14 12:02 | P.PN ---
Subjective Progress Note Date: 07/14/21 Patient seen and examined at bedside. Still awaiting transfer. Nika tube still in place. Objective - Vital Signs Vital signs: Vital Signs Temp 98.7 F 07/14/21 09:00 Pulse 102 H 07/14/21 09:00 Resp 20 07/14/21 09:00 BP 118/75 07/14/21 02:00 Pulse Ox 96 07/14/21 09:00 Intake & Output 07/13/21 07/14/21 07/14/21 18:59 06:59 18:59 Intake Total 2069.101 5709.667 579 Output Total 991 586 85 Balance 964.307 7991.667 494 Weight 92.5 kg 96 kg 96 kg Intake: IV 882 1269 279 Mvi, Adult No.4 with Vit 300 120 K 10 ml Trace (Conc-1Ml/ Dose) 1 ml In Amino Acid 5%-D20w+Lytes*E* 1,000 ml @ 30 mls/hr IV .Q24H JAYDEN Rx#:[id number] Sodium Chloride 0.9% 1, 825 900 135 000 ml @ 20 mls/hr IV . Q24H JAYDEN Rx#:[id number] pressure bag 57 69 24 Intake, IV Titration 1029.004 598.667 300 Amount Cisatracurium 200 mg In 146.28 89.24 Sodium Chloride 0.9% 180 ml @ 1 MCG/KG/MIN 5.52 mls/hr IV .Q24H JAYDEN Rx#: [id number] Magnesium Sulfate-D5w Pmx 200 1 gm In Dextrose/Water 1 100ml.bag @ 100 mls/hr IVPB Q1H JAYDEN Rx#: [id number] Octreotide 500 mcg In 494.584 234.167 Sodium Chloride 0.9% 250 ml @ 50 MCG/HR 25 mls/hr IV .Q10H JAYDEN Rx#: [id number] propofoL 1,000 mg In 388.14 275.26 100 Empty Bag 1 bag @ Titrate IV .Q0M JAYDEN Rx#: [id number] Output: Gastric Drainage 300 200 Urine 690 385 85 Stool 1 1 Other: Voiding Method Indwelling Catheter Indwelling Catheter # Bowel Movements 1 1 ABP, PAP, CO, CI - Last Documented Arterial Blood Pressure 153/79 - Constitutional General appearance: Present: no acute distress - Gastrointestinal General gastrointestinal: Present: distended - Labs CBC & Chem 7: 07/14/21 04:09 07/14/21 04:09 Labs: Abnormal Lab Results - Last 24 Hours (Table) 07/13/21 07/13/21 07/13/21 Range/Units 17:40 23:44 23:48 WBC 13.8 H (3.8-10.6) k/uL RBC 3.19 L (4.30-5.90) m/uL Hgb 10.0 L (13.0-17.5) gm/dL Hct 29.5 L (39.0-53.0) % RDW 18.4 H (11.5-15.5) % Plt Count 88 L (150-450) k/uL Neutrophils # 9.9 H (1.3-7.7) k/uL Neutrophils # (Manual) (1.3-7.7) k/uL Lymphocytes # (Manual) (1.0-4.8) k/uL Eosinophils # 1.1 H (0-0.7) k/uL Eosinophils # (Manual) (0-0.7) k/uL ABG pO2 (83-108) mmHg ABG HCO3 (21-25) mmol/L ABG Total CO2 (19-24) mmol/L ABG O2 Saturation (94-97) % Sodium (137-145) mmol/L Chloride (98-107) mmol/L Creatinine (0.66-1.25) mg/dL Glucose (74-99) mg/dL POC Glucose (mg/dL) 129 H 134 H (75-99) mg/dL Calcium (8.4-10.2) mg/dL Total Protein (6.3-8.2) g/dL Albumin (3.5-5.0) g/dL 07/14/21 07/14/21 07/14/21 Range/Units 00:00 04:09 04:09 WBC 14.3 H (3.8-10.6) k/uL RBC 3.29 L (4.30-5.90) m/uL Hgb 10.2 L (13.0-17.5) gm/dL Hct 30.7 L (39.0-53.0) % RDW 18.9 H (11.5-15.5) % Plt Count 91 L (150-450) k/uL Neutrophils # (1.3-7.7) k/uL Neutrophils # (Manual) 10.87 H (1.3-7.7) k/uL Lymphocytes # (Manual) 0.86 L (1.0-4.8) k/uL Eosinophils # (0-0.7) k/uL Eosinophils # (Manual) 1.72 H (0-0.7) k/uL ABG pO2 48 L* (83-108) mmHg ABG HCO3 26 H (21-25) mmol/L ABG Total CO2 27 H (19-24) mmol/L ABG O2 Saturation 84.0 L (94-97) % Sodium 136 L (137-145) mmol/L Chloride 109 H (98-107) mmol/L Creatinine 0.54 L (0.66-1.25) mg/dL Glucose 124 H (74-99) mg/dL POC Glucose (mg/dL) (75-99) mg/dL Calcium 7.1 L (8.4-10.2) mg/dL Total Protein 4.3 L (6.3-8.2) g/dL Albumin 1.8 L (3.5-5.0) g/dL 07/14/21 07/14/21 07/14/21 Range/Units 06:12 06:30 11:28 WBC (3.8-10.6) k/uL RBC (4.30-5.90) m/uL Hgb (13.0-17.5) gm/dL Hct (39.0-53.0) % RDW (11.5-15.5) % Plt Count (150-450) k/uL Neutrophils # (1.3-7.7) k/uL Neutrophils # (Manual) (1.3-7.7) k/uL Lymphocytes # (Manual) (1.0-4.8) k/uL Eosinophils # (0-0.7) k/uL Eosinophils # (Manual) (0-0.7) k/uL ABG pO2 140 H (83-108) mmHg ABG HCO3 26 H (21-25) mmol/L ABG Total CO2 28 H (19-24) mmol/L ABG O2 Saturation 99.6 H (94-97) % Sodium (137-145) mmol/L Chloride (98-107) mmol/L Creatinine (0.66-1.25) mg/dL Glucose (74-99) mg/dL POC Glucose (mg/dL) 126 H 118 H (75-99) mg/dL Calcium (8.4-10.2) mg/dL Total Protein (6.3-8.2) g/dL Albumin (3.5-5.0) g/dL Microbiology - Last 24 Hours (Table) 07/14/21 03:55 Sputum Culture - Preliminary Sputum 07/09/21 13:02 Blood Culture Gram Stain - Final Blood Blood Culture - Final Staph hominis sub sp. hominis Assessment and Plan Plan: 07/12 51-year-old male with alcoholic cirrhosis, portal hypertension and concern for intermittent variceal bleeding. Patient did require intubation today for airway maintenance. Nasogastric tube was inserted with significant bleeding. Based on patient's current hemoglobin, he is receiving further transfusions. Patient is on octreotide therapy as well. GI has evaluated the patient and are r ecommending transfer for evaluation for shunting. I do agree with this recommendation. At this point with intermittent variceal bleeding and patient's previous history of requiring banding, decompression with portosystemic shunting would be the next form of therapy. This is not a procedure that is performed in the [facility] and the patient is awaiting transfer to [facility] for definitive treatment. The only other surgical option that has shown success for surgical decompression is orthotopic liver transplantation. This also would require transfer to tertiary care facility and availability of transplant. At this point, I would continue with current management while awaiting bed at tertiary care facility. 07/13 Due to continued concern for variceal bleed, Nika tube was placed by gastroenterology yesterday. Currently, patient is awaiting transfer for TIPS procedure. Continue ICU management. 07/14 Hemoglobin is 10.2. Nika tube continues to remain in place. Patient will significantly benefit from transfer for this procedure and removal of Nika tube. Continue ICU management.
[2021-07-14 12:13] LABS: Glucose,Whole Blood 117 mg/dL (75-99)
[2021-07-14] MEDS: FUROSEMIDE 10 MG/ML 4 ML VIAL IV SCH ×2 (12:41→20:45)
[2021-07-14] MEDS: NOREPINEPHRINE 8 MG in SODIUM CHLORIDE 0.9% 250 ML IV SCH (12:47)
[2021-07-14 13:20] LABS: Anisocytosis Slight; Basophils % (A) 0 %; Eosinophils # (A) 1.3 k/uL (0-0.7); Eosinophils % (A) 9 %; HCT 32.6 % (39.0-53.0); HGB 10.9 gm/dL (13.0-17.5); Lymphocytes # (A) 1.1 k/uL (1.0-4.8); Lymphocytes % (A) 7 %; MCH 30.8 pg (25.0-35.0); MCHC 33.3 g/dL (31.0-37.0); MCV 92.4 fL (80.0-100.0); Mean Platelet Volume 8.3; Monocytes % (A) 7 %; Neutrophils # (A) 11.3 k/uL (1.3-7.7); Neutrophils % (A) 76 %; Platelet Count 111 k/uL (150-450); Poikilocytosis Slight; RBC 3.53 m/uL (4.30-5.90); RDW 18.6 % (11.5-15.5); WBC 14.9 k/uL (3.8-10.6)
--- NOTE | 2021-07-14 13:38 | P.PN ---
Subjective Progress Note Date: 07/14/21 Principal diagnosis: Hematemesis This a 51-year-old male with a history of alcohol abuse in the past. Also significant history of esophageal varices for which he underwent EGD and variceal banding approximately 5 years ago. The patient had presented with abdominal pain followed by multiple episodes of bloody emesis. Yesterday he underwent an EGD with findings of large fundal varix with a nipple sign suggestive of recent gastric air cell bleeding but no active bleeding currently. Small clots noted in the fundus of the stomach. No evidence of esophageal varices. Recommendations were to continue IV Sandostatin and continue process of transfer to tertiary center for TIPS procedure to prevent recurrent gastric variceal bleeding. 07/13/2021 The patient was seen and evaluated in the ICU as a follow-up. Yesterday he was intubated and underwent an EGD with a Nika tube placement. He initially had approximately 300 mL out maroon colored blood. He has approximately 100 mL out through the night. He has had 3-4 maroon colored bowel movements through the night. His vital signs have stabilized. His hemoglobin was 10.9 this morning. There are still awaiting transfer possible transfer to [facility] per primary medicine. 07/14/2021 Patient is seen and examined in the ICU as a follow-up. He is status post EGD with Nika tube placement. This morning he has had 500-600 mL of maroon colored output from tube. His hemoglobin is stable at 10.2. Blood pressure has been stable, patient has been tachycardic and he has been afebrile. Again multiple calls have been made to area tertiary hospitals by case management and primary medicine for transfer for TIPS procedure. Apparently patient has been accepted at [facility] but is awaiting availability of a bed. Multiple other tertiary centers have been contacted however at this time again there is no availability of a bed for transfer. Objective - Vital Signs Vital signs: Vital Signs Temp 98 F 07/14/21 04:00 Pulse 98 07/14/21 07:00 Resp 18 07/14/21 07:00 BP 118/75 07/14/21 02:00 Pulse Ox 97 07/14/21 07:00 Intake & Output 07/13/21 07/14/21 07/14/21 18:59 06:59 18:59 Intake Total 2382.895 1093.667 211 Output Total 991 586 20 Balance 897.709 0374.667 191 Weight 92.5 kg 96 kg Intake: IV 882 1269 111 Mvi, Adult No.4 with Vit 300 30 K 10 ml Trace (Conc-1Ml/ Dose) 1 ml In Amino Acid 5%-D20w+Lytes*E* 1,000 ml @ 30 mls/hr IV .Q24H JAYDEN Rx#:[id number] Sodium Chloride 0.9% 1, 825 900 75 000 ml @ 75 mls/hr IV . [id number] JAYDEN Rx#:[id number] pressure bag 57 69 6 Intake, IV Titration 1029.004 598.667 100 Amount Cisatracurium 200 mg In 146.28 89.24 Sodium Chloride 0.9% 180 ml @ 1 MCG/KG/MIN 5.52 mls/hr IV .Q24H JAYDEN Rx#: [id number] Magnesium Sulfate-D5w Pmx 100 1 gm In Dextrose/Water 1 100ml.bag @ 100 mls/hr IVPB Q1H JAYDEN Rx#: [id number] Octreotide 500 mcg In 494.584 234.167 Sodium Chloride 0.9% 250 ml @ 50 MCG/HR 25 mls/hr IV .Q10H JAYDEN Rx#: [id number] propofoL 1,000 mg In 388.14 275.26 Empty Bag 1 bag @ Titrate IV .Q0M JAYDEN Rx#: [id number] Output: Gastric Drainage 300 200 Urine 690 385 20 Stool 1 1 Other: Voiding Method Indwelling Catheter Indwelling Catheter # Bowel Movements 1 1 ABP, PAP, CO, CI - Last Documented Arterial Blood Pressure 151/75 - Exam General appearance: The patient is sedated and intubated. Nika tube and helmet in place HET: Head is normocephalic and atraumatic. Conjunctiva pink. Sclera anicteric. Neck: Supple without lymphadenopathy. Abdomen: Soft, nondistended with bowel sounds. No guarding or rigidity. Extremities: Normal skin color and turgor. No pedal edema Skin: No rashes, no jaundice Neurological: Sedated and intubated. - Labs CBC & Chem 7: 07/14/21 13:02 07/14/21 04:09 Labs: Abnormal Lab Results - Last 24 Hours (Table) 07/13/21 07/13/21 07/13/21 Range/Units 11:51 17:40 23:44 WBC 13.8 H (3.8-10.6) k/uL RBC 3.19 L (4.30-5.90) m/uL Hgb 10.0 L (13.0-17.5) gm/dL Hct 29.5 L (39.0-53.0) % RDW 18.4 H (11.5-15.5) % Plt Count 88 L (150-450) k/uL Neutrophils # 9.9 H (1.3-7.7) k/uL Neutrophils # (Manual) (1.3-7.7) k/uL Lymphocytes # (Manual) (1.0-4.8) k/uL Eosinophils # 1.1 H (0-0.7) k/uL Eosinophils # (Manual) (0-0.7) k/uL ABG pO2 (83-108) mmHg ABG HCO3 (21-25) mmol/L ABG Total CO2 (19-24) mmol/L ABG O2 Saturation (94-97) % Sodium (137-145) mmol/L Chloride (98-107) mmol/L Creatinine (0.66-1.25) mg/dL Glucose (74-99) mg/dL POC Glucose (mg/dL) 113 H 129 H (75-99) mg/dL Calcium (8.4-10.2) mg/dL Total Protein (6.3-8.2) g/dL Albumin (3.5-5.0) g/dL 07/13/21 07/14/21 07/14/21 Range/Units 23:48 00:00 04:09 WBC (3.8-10.6) k/uL RBC (4.30-5.90) m/uL Hgb (13.0-17.5) gm/dL Hct (39.0-53.0) % RDW (11.5-15.5) % Plt Count (150-450) k/uL Neutrophils # (1.3-7.7) k/uL Neutrophils # (Manual) (1.3-7.7) k/uL Lymphocytes # (Manual) (1.0-4.8) k/uL Eosinophils # (0-0.7) k/uL Eosinophils # (Manual) (0-0.7) k/uL ABG pO2 48 L* (83-108) mmHg ABG HCO3 26 H (21-25) mmol/L ABG Total CO2 27 H (19-24) mmol/L ABG O2 Saturation 84.0 L (94-97) % Sodium 136 L (137-145) mmol/L Chloride 109 H (98-107) mmol/L Creatinine 0.54 L (0.66-1.25) mg/dL Glucose 124 H (74-99) mg/dL POC Glucose (mg/dL) 134 H (75-99) mg/dL Calcium 7.1 L (8.4-10.2) mg/dL Total Protein 4.3 L (6.3-8.2) g/dL Albumin 1.8 L (3.5-5.0) g/dL 07/14/21 07/14/21 07/14/21 Range/Units 04:09 06:12 06:30 WBC 14.3 H (3.8-10.6) k/uL RBC 3.29 L (4.30-5.90) m/uL Hgb 10.2 L (13.0-17.5) gm/dL Hct 30.7 L (39.0-53.0) % RDW 18.9 H (11.5-15.5) % Plt Count 91 L (150-450) k/uL Neutrophils # (1.3-7.7) k/uL Neutrophils # (Manual) 10.87 H (1.3-7.7) k/uL Lymphocytes # (Manual) 0.86 L (1.0-4.8) k/uL Eosinophils # (0-0.7) k/uL Eosinophils # (Manual) 1.72 H (0-0.7) k/uL ABG pO2 140 H (83-108) mmHg ABG HCO3 26 H (21-25) mmol/L ABG Total CO2 28 H (19-24) mmol/L ABG O2 Saturation 99.6 H (94-97) % Sodium (137-145) mmol/L Chloride (98-107) mmol/L Creatinine (0.66-1.25) mg/dL Glucose (74-99) mg/dL POC Glucose (mg/dL) 126 H (75-99) mg/dL Calcium (8.4-10.2) mg/dL Total Protein (6.3-8.2) g/dL Albumin (3.5-5.0) g/dL Microbiology - Last 24 Hours (Table) 07/09/21 13:02 Blood Culture Gram Stain - Final Blood Blood Culture - Final Staph hominis sub sp. hominis Assessment and Plan (1) GI bleed Narrative/Plan: 51-year-old male who presented to the emergency department yesterday with complaints of acute onset of abdominal pain associated with nausea and vomiting. States he began to vomit bright red and dark red blood. He was concern for esophageal varices as he has a history of previous esophageal variceal bleed status post banding approximately 5 years ago done at [facility]. He admits to a history of alcohol abuse for which he quit a few months ago. States he was drinking a few beers a day at least for last 10-15 years. States he has been diagnosed in the past with cirrhosis of the liver but does not follow up with anyone. The patient continued to have several episodes of large amounts of hematemesis while in the ER and through the night during his admission to ICU. Patient has history of esophageal varices related to portal hypertension. He is been transfused 4 units of PRBC transfusion and 2 units FFP. Plan is to proceed today with EGD. Patient is currently on Sandostatin as well. He has undergone upper endoscopy on 2 separate occasions during this admission. His last one on 07/12/2021 with placement of Nika tube and helmet. He had an additional 500-600 mL of maroon colored output today. Hemoglobin has been stable at 10.2. He is becoming tachycardic however blood pressure is stable and he has been afebrile. Recommendation is for transfer to a tertiary center for TIPS procedure. Awaiting accepting hospital. Continue octreotide. Current Visit: Yes Status: Acute Code(s): K92.2 - GASTROINTESTINAL HEMORRH AGE, UNSPECIFIED SNOMED Code(s): 10483538 (2) Gastric varices Narrative/Plan: Recommend transfer to tertiary center for TIPS procedure for gastric varices secondary to portal hypertension from alcoholic cirrhosis of the liver. Recommend NG tube. Continue ICU management consider some sedation related to agitation. This was discussed with Primary Medical team Dr. Bleibel. Repeat EGD with Nika tube placed. Still recommend transfer to tertiary center for TIPS procedure. Continue with Nika tube for now. Current Visit: Yes Status: Acute Code(s): I86.4 - GASTRIC VARICES SNOMED Code(s): 96887093 (3) History of esophageal varices Current Visit: Yes Status: Acute Code(s): Z87.19 - PERSONAL HISTORY OF OTHER DISEASES OF THE DIGESTIVE SYSTEM SNOMED Code(s): 05115542891433318 (4) History of alcohol abuse Current Visit: Yes Status: Acute Code(s): F10.11 - ALCOHOL ABUSE, IN REMISSION SNOMED Code(s): 368714502 (5) Alcoholic cirrhosis of liver Current Visit: No Status: Acute Code(s): K70.30 - ALCOHOLIC CIRRHOSIS OF LIVER WITHOUT ASCITES SNOMED Code(s): 733927020 Plan: 1. Continue symptomatic and supportive care as per ICU management 2. NPO 3. Continue Octreotide 4. Continue to monitor hemoglobin, transfuse Hg less than 7. Avoid over transfusing at may increase portal hypertension and risk for gastric variceal bleed. 5. EGD performed with evidence of gastric varices, recommendation is for transf er the patient to tertiary center for TIPS procedure 6. Alcohol abstinence 7. EGD with Nika tube and helmet placed 8. Continued recommendation for transfer to tertiary center. Primary medicine as well as case management has reached out to several tertiary hospitals and at this time there are still no beds available for transfer. Continue to check daily. Thank you for allowing us to participate in the care of the patient, the GI service will sign off, gastroenterology will not be available at this hospital.. Dr. Aryan Moncada I agree with the dictator's note, documented as a scribe by Virginia Ackerman.
[2021-07-14 14:28] LABS: Partial Thromboplastin Time 23.8 sec (22.0-30.0)
[2021-07-14 18:16] LABS: Glucose,Whole Blood 128 mg/dL (75-99)
[2021-07-14] MEDS: CISATRACURIUM 200 MG in SODIUM CHLORIDE 0.9% 180 ML IV SCH (20:04)
[2021-07-14] MEDS: ARTIFICIAL TEARS-HYPROMELLOSE DROPS 15 ML BTL BOTH EYES SCH (21:12)
[2021-07-14] MEDS: 1: AMINO ACID 5%-D20W+LYTES*E* 1,000 ML 2: MVI, ADULT NO.4 WITH VIT K 10 ML, TRACE (CON IV SCH ×3 (21:46)
[2021-07-14 23:24] LABS: Anisocytosis Slight; Basophils # (A) 0.1 k/uL (0-0.2); Basophils % (A) 0 %; Eosinophils % (A) 7 %; HCT 31.9 % (39.0-53.0); HGB 10.3 gm/dL (13.0-17.5); Lymphocytes # (A) 1.3 k/uL (1.0-4.8); Lymphocytes % (A) 9 %; MCH 30.5 pg (25.0-35.0); MCHC 32.2 g/dL (31.0-37.0); MCV 94.7 fL (80.0-100.0); Macrocytosis Slight; Mean Platelet Volume 8.5; Monocytes % (A) 7 %; Neutrophils % (A) 76 %; Platelet Count 112 k/uL (150-450); Poikilocytosis Slight; RBC 3.37 m/uL (4.30-5.90); RDW 19.8 % (11.5-15.5); WBC 14.5 k/uL (3.8-10.6)
[2021-07-15] MEDS: ARTIFICIAL TEARS-HYPROMELLOSE DROPS 15 ML BTL BOTH EYES SCH ×4 (00:26→13:22)
[2021-07-15 00:32] LABS: Glucose,Whole Blood 139 mg/dL (75-99)
[2021-07-15 02:12] LABS: Anisocytosis Moderate; Basophils # (A) 0.1 k/uL (0-0.2); Basophils % (A) 0 %; Eosinophils # (A) 1.1 k/uL (0-0.7); Eosinophils % (A) 8 %; HCT 26.7 % (39.0-53.0); Hypochromasia Slight; Lymphocytes # (A) 2.7 k/uL (1.0-4.8); Lymphocytes % (A) 19 %; MCH 31.4 pg (25.0-35.0); MCHC 32.4 g/dL (31.0-37.0); Macrocytosis Slight; Mean Platelet Volume 8.5; Monocytes # (A) 0.9 k/uL (0-1.0); Monocytes % (A) 6 %; Neutrophils # (A) 9.1 k/uL (1.3-7.7); Neutrophils % (A) 64 %; Platelet Count 110 k/uL (150-450); Poikilocytosis Slight; RBC 2.75 m/uL (4.30-5.90); WBC 14.2 k/uL (3.8-10.6)
[2021-07-15 02:15] LABS: HGB 8.6 gm/dL (13.0-17.5)
[2021-07-15] MEDS: NOREPINEPHRINE 8 MG in SODIUM CHLORIDE 0.9% 250 ML IV SCH ×4 (03:11→10:57)
[2021-07-15] MEDS: SODIUM CHLORIDE 0.9% 50 ML with VASOPRESSIN 20 UNIT IVPB SCH ×4 (03:46→09:37)
[2021-07-15 06:15] LABS: Glucose,Whole Blood 142 mg/dL (75-99)
[2021-07-15 06:22] LABS: ABG Base Excess -1.2 mmol/L; ABG HCO3 25 mmol/L (21-25); ABG Oxygen Saturation 99.7 % (94-97); ABG PCO2 45 mmHg (35-45); ABG PH 7.35 (7.35-7.45); ABG PO2 144 mmHg (83-108); ABG TCO2 26 mmol/L (19-24)
[2021-07-15 06:37] LABS: Allen Test Performed? No
--- NOTE | 2021-07-15 06:49 | XR ---
EXAMINATION TYPE: XR chest 1V portable DATE OF EXAM: 07/15/2021 COMPARISON: 07/14/2021 HISTORY: Shortness of breath TECHNIQUE: Single frontal view of the chest is obtained. FINDINGS: There are moderate bilateral pleural effusions and retrocardiac opacity unchanged compared to previous. The mid and upper lung zones are clear. The pulmonary vasculature is not congested and the heart size is normal. There is an ET tube 6 cm above the maxwell. There is a left-sided central ve nous catheter tip which is in the SVC/R junction. There is a Nika tube within the stomach The osseous structures are intact. IMPRESSION: ET tube 6 cm above the maxwell. No change in the acute cardiopulmonary disease as describ ed above.
[2021-07-15] MEDS: CHLORHEXIDINE GLUCONATE 15 ML CUP MUCOUS MEM SCH (08:09)
[2021-07-15] MEDS: PANTOPRAZOLE 40 MG/10 ML VIAL IVP SCH (08:09)
[2021-07-15] MEDS ORDERED: propofoL 100 ML IV ONE ×2 (09:34→12:52)
[2021-07-15 09:54] LABS: Anisocytosis Slight; HCT 31.8 % (39.0-53.0); HGB 10.6 gm/dL (13.0-17.5); MCH 31.6 pg (25.0-35.0); MCHC 33.3 g/dL (31.0-37.0); MCV 94.8 fL (80.0-100.0); Macrocytosis Slight; Mean Platelet Volume 8.5; Platelet Count 112 k/uL (150-450); Poikilocytosis Slight; RBC 3.36 m/uL (4.30-5.90); RDW 17.8 % (11.5-15.5)
[2021-07-15 10:18] LABS: Band Neutrophils % 1 %; Lymphocytes # (M) 1.75 k/uL (1.0-4.8); Metamyelocytes # (M) 0.58 k/uL (0); Metamyelocytes % 2 %; Monocytes # (M) 2.63 k/uL (0-1.0); Myelocytes # (M) 0.58 k/uL (0); Myelocytes % 2 %; Neutrophils % (M) 82 %; Nucleated Red Blood Cells 1 /100 WBC (0-0); Total Cells Counted 200; WBC 29.2 k/uL (3.8-10.6)
[2021-07-15 10:19] LABS: Polychromasia Present
[2021-07-15] MEDS: OCTREOTIDE 500 MCG in SODIUM CHLORIDE 0.9% 250 ML IV SCH (11:02)
--- NOTE | 2021-07-15 11:35 | P.PN ---
Subjective Progress Note Date: 07/15/21 Principal diagnosis: GI bleed 51-year-old white male patient with past medical history of EtOH abuse, history of liver cirrhosis with esophageal varices with previous banding 2 years ago at [facility], and previous GI bleeding, current every day smoker, who came into the emergency department on 07/09/2021 with complaints of abdominal pain, hematemesis, and passing black stools. Patient was having palpitations, he was chilled. Denied any shortness of breath, no chest pain, no cough, no dyspnea, no phlegm production. Patient was noted to be hypotensive in the emergency department with a blood pressure of 76/30. He was having episodes of large volume of hematemesis. Initial hemoglobin was 10.6, platelet count was 218, INR was 1.2, plasma lactic acid was 5.8 on presentation, renal profile was within normal limits with BUN of 15 creatinine 0.94, troponin was negative. Lipase was 421. COVID-19 PCR was negative, LFTs were within normal limits. Patient was transfused with 4 units of packed red blood cells, 4 subsequent drop in hemoglobin down to 7.8, and he will be receiving another unit of packed red blood cells this morning. He received 2 units of fresh frozen plasma, he also received 4 L in fluid boluses, and his maintenance IV fluids is 0.9 normal sinus at a rate of 75 ML per hour, patient's blood culture was positive for gram- positive cocci, and patient is on combination of Rocephin and vancomycin. Today's labs reveal white blood cell count of 11.9, hemoglobin of 7.8 as mentioned above with fifth unit of packed cells infusing, platelet count is 113, sodium is 136, potassium is 5.3, chloride is 1:15, CO2 is 18, BUN is 23, creatinine is 0.68. Patient is on Sandostatin at 50 mics per hour, he is on Protonix 40 mg twice daily, Zofran. He is awake and alert, breathing comfortably, it appears to be in no acute distress. No shortness of breath no chest pain, room air pulse ox is 94%, current blood pressure is 82/55. In sinus mechanism with a rate of 75 BPM, afebrile. Chest x-ray shows no acute cardiopulmonary disease. CT of the abdomen and pelvis showed no evidence of active GI bleeding, splenic varices consistent with portal venous hypertension, no focal liver defect. GI service has been consulted and patient is boarded for EGD this afternoon On 07/11/2021 patient seen in follow-up in intensive care unit, he is awake and alert, appears a bit fatigued and pale but no acute distress, abdomen is soft, no nausea or vomiting, no episodes of hematemesis or melena overnight. He was transfused with 5 units of packed red blood cells yesterday and 2 units of fresh frozen plasma, today's labs show hemoglobin of 8.2, platelet count is 95, his BNP is still pending for today. His white count is 8.0. Breathing comfortable, no complaints of shortness of breath or chest pain. Tolerating sips of clear liquids. He is status post EGD which showed large fundal varix with the nipple sign suggestive of recent gastric variceal bleeding but no active bleeding, small clots in the fundus of the stomach, and no evidence of esophageal varices. The recommendation was made by the GI service to continue on IV Sandostatin, a nd to transfer the patient to a tertiary care facility for TIPS procedure to prevent recurrent gastric variceal bleeding. Patient continues on H&H's every 6 hours per GI service recommendations. He is not requiring any vasopressor support, he is in sinus mechanism, he remains on Sandostatin 50 mg per hour, and point tenderness and uterine rate of 75 ML per hour. On 07/12/2021 patient seen in follow-up in the intensive care unit, this morning he had 2 large bloody bowel movements. He was started on some clear liquids yesterday, today his breakfast has been held, he is increasingly more confused, he is hypotensive, his hemoglobin is down to 7.9 this morning, 1 unit of packed red blood cells has been ordered. His 0.9 normal saline is infusing a rate of 75 ML per hour, he is on room air with pulse ox of 93%, he is tachycardic, in sinus mechanism. He is nauseous, has not vomited, his had blood pressures as low as 77/63. Abdomen is soft. Patient is currently #13 on the waiting list f or [facility]. The [place] system, and [facility] are not accepting transfers at all due to no availability of beds. Patient continues on octreotide at 50 mg per hour. He is on Protonix 40 mg twice daily and empiric antibiotics in the form of Rocephin. His blood cultures came back positive for coagulase-negative staph and Staphylococcus epidermidis, compatible with contamination. Discharge planning also reached out to [facility], which does not offer the service the patient needs. Discussed case with the GI service and apparently the gastric varix is rather large and patient does need the TIPS procedure with possible banding. NG tube was inserted, and bloody output was suctioned out of patient's stoma, at the same time patient decompensated acutely, and the decision was made to intubate and place the patient on mechanical ventilator, patient was given 1 L bolus, he is being urgently transfused with 2 more units of blood for a total of 3 units of blood today, and 2 units of fresh frozen plasma were ordered and pending at this time. Patient was successfully intubated by Dr. Pace, placed on mechanical ventilator, left IJ central line was placed, and right radial arterial line was placed. Blood gas was obtained and pO2 was greater than 400, pCO2 was 39, and pH of 7.21. This is on the ventilator settings assist control with a rate of 24, tidal volumes 450, FiO2 of 100% and PEEP of 5. Chest x-ray shows satisfactory position of the new ET tube and orogastric tubes, no pneumothorax after left-sided central venous catheter placement, diminished inspiration with new small to tiny left pleural effusion and associated left basilar atelectasis. On 07/13/2021 patient seen in follow-up in intensive care unit, yesterday he was emergently intubated, placed on mechanical ventilator because of hemorrhagic shock. He was given multiple blood products, 6 units of pack red blood cells yesterday for a total of 11 units this admission, and 2 units of FFP yesterday for a total of 4 units of FFP this admission. Nika tube was placed by GI service. It still remains in place this morning, has been minimal bloody output from the gastric port of the Nika tube overnight, hemodynamically patient is stable, norepinephrine drip was used overnight, and was discontinued this morning. His 0.9 normal saline is running at 75 ML per hour, and Diprivan is at 50 mics per kilo per minute. Nimbex is a 2 mics per kilo per minute. Sandostatin infusing at 50 mics per hour. His vent settings are assist-control with a rate of 24, tidal vital was 450, FiO2 40% and PEEP of 5. His blood gas this morning shows pH of 7.51, a CO2 of 31, and pO2 of 68 this was done and the above-mentioned vent settings and subsequently his rate was dropped down to 18. This morning's chest x-ray shows persistent small to moderate-sized bilateral pleural effusions with associated bibasilar atelectasis. This morning's blood work has been reviewed showing white blood cell count of 13.9, hemoglobin of 10.9, sodium is 137, potassium is 3.7, chloride is 112, CO2 is 23, BUN is 11, creatinine 0.59. Patient's blood cultures showed staph hominis, and Staphylococcus epidermidis. Patient remains on Rocephin. Patient is afebrile. Yesterday multiple attempts were made to transfer the patient to tertiary care facility including [facility], [facility], [facility], [facility], [facility] in [place], and all facilities have no available beds. Abdomen is soft, overnight p atient did have a few maroon-colored liquid stools. Urine output is dark, and in the order of 10-15 ML per hour. We'll give the patient on dose of IV Lasix today. His total weight is up by 6 kg since admission. On 07/14/2021 patient seen in follow-up in the intensive care unit, he remains intubated, sedated and paralyzed on assist-control mode of ventilation with a rate of 18, Tylenol level was 150, FiO2 of 60% and PEEP of 10, this morning's blood gas shows pO2 of 140, pCO2 of 42, and pH of 7.41, this was done and FiO2 of 70% and subsequently ability has been dropped down to 60 and then 50%. He is currently on Diprivan at 50 mics per kilo per minute, Sandostatin 50 mics per hour, Nimbex is at 1 mics per kilo per minute and 0.9 normal saline at a rate of 75 ML per hour, he was started on TPN at 30 ML per hour yesterday for nutritional support. Today's chest x-ray shows persistent small to moderate- sized bilateral pleural effusions with associated bibasilar atelectasis. No significant change from one day earlier. Nika tube still remains in place, patient has put out 600 mL of dark bloody drainage from the gastric port of the Nika tube. Patient did have one maroon colored dark bowel movement last night. His been afebrile, he remains on Rocephin for empiric antibiotic coverage. Sputum culture has been sent, pending, patient received 1 dose of Lasix yesterday, he has produced 1.5 L in the urine output, overall remains significantly positive fluid balance, overall 10 kg since admission. Today's labs have been reviewed, hemoglobin is 10.2, platelet count is 91, white count of 14.3, sodium is 136, potassium is 4.0, chloride is 109, BUN is 13, creatinine of 0.54. LFTs are within normal limits. Urine output remains low in the order of 20-35 ML per hour. We're still trying to find bed availability at multiple tertiary care facilities, with no success The patient is seen today 07/15/2021 in follow-up in the intensive care unit. He remains intubated and on the mechanical ventilator. Current settings are assist-control mode at a rate of 18, tidal volume 450, FiO2 40% and a PEEP of 10. Morning blood gases reveal a P O2 of 144, pCO2 44, pH 7.35. He remains sedated on propofol at 60 mcg/kg/m. Nimbex at 2 mcg/kg/m. He is requiring norepinephrine at 40 mcg/m, vasopressin at 0.04 units per minute. He is continued on octreotide at 50 g per hour. he is on TPN at 61 ML's per hour. 0.9 normal saline at KVO. chest x-ray reveals moderate bilateral pleural effusions and retrocardiac opacities unchanged compared to previous.endotracheal tube 6 cm above the maxwell. Left-sided central line in place. Nika tube within the stomach. White count 29.2. Hemoglobin 10.6. Platelets 112,000. Glucose 142. The patient did have maroon stools again this morning. Awaiting transfer to tertiary care center. Objective - Vital Signs Vital signs: Vital Signs Temp 99.3 F 07/15/21 08:00 Pulse 88 07/15/21 11:00 Resp 18 07/15/21 11:00 BP 126/80 07/15/21 11:00 Pulse Ox 98 12/18/21 11:00 Intake & Output 07/14/21 07/15/21 07/15/21 18:59 06:59 18:59 Intake Total 1477.00 2801.496 1160.829 Output Total 1030 960 465 Balance 447.00 1841.496 695.829 Weight 96 kg 100.5 kg Intake: IV 727 1450 104 Mvi, Adult No.4 with Vit 360 150 K 10 ml Trace (Conc-1Ml/ Dose) 1 ml In Amino Acid 5%-D20w+Lytes*E* 1,000 ml @ 30 mls/hr IV .Q24H JAYDEN Rx#:[id number] Sodium Chloride 0.9% 1, 295 1240 80 000 ml @ 20 mls/hr IV . Q24H JAYDEN Rx#:[id number] pressure bag 72 60 24 Intake, IV Titration 750.00 1041.496 746.829 Amount Cisatracurium 200 mg In 181.654 62.744 Sodium Chloride 0.9% 180 ml @ 1 MCG/KG/MIN 5.52 mls/hr IV .Q24H JAYDEN Rx#: [id number] Magnesium Sulfate-D5w Pmx 200 1 gm In Dextrose/Water 1 100ml.bag @ 100 mls/hr IVPB Q1H JAYDEN Rx#: [id number] Norepinephrine 8 mg In 428.592 334.085 Sodium Chloride 0.9% 250 ml @ 0.05 MCG/KG/MIN 8. 901 mls/hr IV .Q24H JAYDEN Rx#:[id number] Octreotide 500 mcg In 250 231.25 250 Sodium Chloride 0.9% 250 ml @ 50 MCG/HR 25 mls/hr IV .Q10H JAYDEN Rx#: [id number] propofoL 1,000 mg In 300.00 200 100 Empty Bag 1 bag @ Titrate IV .Q0M JAYDEN Rx#: [id number] Blood Product 310 310 Rc As-1 Unit 0 310 [id number] Rc Irr As1 Unit 310 [id number] Output: Gastric Drainage 150 Urine 830 960 165 Oral Regurgitation 50 300 Other: Voiding Method Indwelling Catheter Indwelling Catheter Indwelling Catheter # Bowel Movements 1 ABP, PAP, CO, CI - Last Documented Arterial Blood Pressure 144/81 - Exam GENERAL EXAM: Intubated, sedated 51-year-old white male,he is on Sandostatin infusion for acute GI bleeding, gastric port of the Nika tube is draining bloody output, HEAD: Normocephalic/atraumatic. Nika helmet in place EYES: Normal reaction of pupils, equal size. Conjunctiva pink, sclera white. NOSE: Clear with pink turbinates. NGT in place MOUTH: ETT in place, Nika tube is in place connected to a helmet on head THROAT: No erythema or exudates. NECK: No masses, no JVD, no thyroid enlargement, no adenopathy. CHEST: No chest wall deformity. Symmetrical expansion. LUNGS: Equal air entry with crackles in the posterior bases, few scattered rhonchi. CVS: Regular rate and rhythm, normal S1 and S2, no gallops, no murmurs, no rubs ABDOMEN: Soft, nontender. No hepatosplenomegaly, normal bowel sounds, no guarding or rigidity. EXTREMITIES: No clubbing, no edema, no cyanosis, 2+ pulses and upper and lower extremities. MUSCULOSKELETAL: Muscle strength and tone normal. SPINE: No scoliosis or deformity SKIN: No rashes CENTRAL NERVOUS SYSTEM: Sedated, and intubated, and paralyzed. No focal deficits, tone is normal in all 4 extremities. - Labs CBC & Chem 7: 07/15/21 09:06 07/14/21 04:09 Labs: Abnormal Lab Results - Last 24 Hours (Table) 07/09/21 07/14/21 07/14/21 Range/Units 12:30 11:28 12:11 WBC (3.8-10.6) k/uL RBC (4.30-5.90) m/uL Hgb (13.0-17.5) gm/dL Hct (39.0-53.0) % RDW (11.5-15.5) % Plt Count (150-450) k/uL Neutrophils # (1.3-7.7) k/uL Neutrophils # (Manual) (1.3-7.7) k/uL Monocytes # (Manual) (0-1.0) k/uL Eosinophils # (0-0.7) k/uL Metamyelocytes # (Man) (0) k/uL Myelocytes # (Manual) (0) k/uL Nucleated RBCs (0-0) /100 WBC ABG pO2 (83-108) mmHg ABG Total CO2 (19-24) mmol/L ABG O2 Saturation (94-97) % POC Glucose (mg/dL) 118 H 117 H (75-99) mg/dL Crossmatch See Detail 07/14/21 07/14/21 07/14/21 Range/Units 13:02 18:14 23:10 WBC 14.9 H 14.5 H (3.8-10.6) k/uL RBC 3.53 L 3.37 L (4.30-5.90) m/uL Hgb 10.9 L 10.3 L (13.0-17.5) gm/dL Hct 32.6 L 31.9 L (39.0-53.0) % RDW 18.6 H 19.8 H (11.5-15.5) % Plt Count 111 L 112 L (150-450) k/uL Neutrophils # 11.3 H 11.0 H (1.3-7.7) k/uL Neutrophils # (Manual) (1.3-7.7) k/uL Monocytes # (Manual) (0-1.0) k/uL Eosinophils # 1.3 H 1.0 H (0-0.7) k/uL Metamyelocytes # (Man) (0) k/uL Myelocytes # (Manual) (0) k/uL Nucleated RBCs (0-0) /100 WBC ABG pO2 (83-108) mmHg ABG Total CO2 (19-24) mmol/L ABG O2 Saturation (94-97) % POC Glucose (mg/dL) 128 H (75-99) mg/dL Crossmatch 07/15/21 07/15/21 07/15/21 Range/Units 00:31 02:00 02:24 WBC 14.2 H (3.8-10.6) k/uL RBC 2.75 L (4.30-5.90) m/uL Hgb 8.6 L D (13.0-17.5) gm/dL Hct 26.7 L (39.0-53.0) % RDW 20.0 H (11.5-15.5) % Plt Count 110 L (150-450) k/uL Neutrophils # 9.1 H (1.3-7.7) k/uL Neutrophils # (Manual) (1.3-7.7) k/uL Monocytes # (Manual) (0-1.0) k/uL Eosinophils # 1.1 H (0-0.7) k/uL Metamyelocytes # (Man) (0) k/uL Myelocytes # (Manual) (0) k/uL Nucleated RBCs (0-0) /100 WBC ABG pO2 (83-108) mmHg ABG Total CO2 (19-24) mmol/L ABG O2 Saturation (94-97) % POC Glucose (mg/dL) 139 H (75-99) mg/dL Crossmatch See Detail 07/15/21 07/15/21 07/15/21 Range/Units 05:39 06:14 09:06 WBC 29.2 H (3.8-10.6) k/uL RBC 3.36 L (4.30-5.90) m/uL Hgb 10.6 L (13.0-17.5) gm/dL Hct 31.8 L (39.0-53.0) % RDW 17.8 H (11.5-15.5) % Plt Count 112 L (150-450) k/uL Neutrophils # (1.3-7.7) k/uL Neutrophils # (Manual) 24.20 H (1.3-7.7) k/uL Monocytes # (Manual) 2.63 H (0-1.0) k/uL Eosinophils # (0-0.7) k/uL Metamyelocytes # (Man) 0.58 H (0) k/uL Myelocytes # (Manual) 0.58 H (0) k/uL Nucleated RBCs 1 H (0-0) /100 WBC ABG pO2 144 H (83-108) mmHg ABG Total CO2 26 H (19-24) mmol/L ABG O2 Saturation 99.7 H (94-97) % POC Glucose (mg/dL) 142 H (75-99) mg/dL Crossmatch Microbiology - Last 24 Hours (Table) 07/14/21 03:55 Gram Stain - Preliminary Sputum Sputum Culture - Preliminary 07/14/21 04:09 Blood Culture - Preliminary Blood No Growth after 24 hours 07/09/21 12:44 Blood Culture Gram Stain - Final Blood Blood Culture - Final Staphylococcus epidermidis Staph hominis sub sp. hominis Assessment and Plan Assessment: 1 Acute hypoxic respiratory failure related to shock, related to acute blood loss, patient required intubation and placement on mechanical ventilator on 07/12/2021 in part for airway maintenance as well. On 07/15/2021 he remains sedated and paralyzed, Nika tube is in place and patient remains on Sandostatin. Awaiting transfer to a tertiary care facility for TIPS procedure 2 Acute GI blood loss anemia, patient presented with multiple episodes of hematemesis, and melena, status post transfusion with 13 units of packed red blood cells and 4 units of FFP, today's hemoglobin is 10.6 on 07/15/2021 3 Hypotension, likely related to hemorrhagic shock related to acute GI blood loss anemia, requiring fluid resuscitation, and multiple blood products patient has received 13 units of packed red blood cells so far, and a total of 4 units of FFP. And requires both norepinephrine and vasopressin 4 Status post EGD on 07/09/2021 showing large fundal varix and evidence of recent gastric variceal bleeding, and small clots, no evidence of esophageal varices, continues on Sandostatin 5 History of esophageal varices, EtOH related liver cirrhosis, patient has a history of banding at [facility] 2 years ago 6 History of EtOH use, last drink was on 07/09/2021 7 Gram-positive bacteremia, patient was covered with Rocephin and vancomycin, blood cultures show staph epidermidis, coagulase negative staph and staph yarelis inis, likely related to a skin contaminant. Remains on Rocephin, Vancomycin has been discontinued 8 Lactic acidosis related to acute hemorrhagic shock, improved with IV hydration and blood transfusion 9 Current smoker 10 Reported history of seizures, used to be on Tegretol, currently not on any medication. Details of diagnosis is not known to us. Patient states has not had a seizure in a long time Plan: The patient was seen and evaluated Chest x-ray, ABGs and labs reviewed Decrease the PEEP to 5 Reposition the endotracheal tube down another 3-4 cm Awaiting input from GI/surgical services regarding the Nika tube Placement has been for 72 hours Awaiting transfer to tertiary care center Continue to monitor hemoglobin He is a DO NOT RESUSCITATE/DO NOT INTUBATE CODE STATUS now We will continue to follow and make further recommendations based on his clinical status Critical care time 38 minutes I, the cosigning physician, performed a history & physical examination of the patient. Lungs sounds with crackles in the posterior bases, few scattered rhonchi. Maintaining O2 saturations in the 90s on 40% FiO2 and a PEEP of 5 via the mechanical ventilatorr. I discussed the assessment and plan of care with my nurse practitioner, Eleanor Thao. I attest to the above note as dictated by her.
[2021-07-15 11:45] LABS: Glucose,Whole Blood 152 mg/dL (75-99)
[2021-07-15 12:02] VITALS: TEMP 99.2
[2021-07-15 12:03] VITALS: BP 126/80
[2021-07-15] MEDS ORDERED: MORPHINE SULFATE 4 MG/ML SYRINGE IV PRN (13:15)
[2021-07-15] MEDS: 1: AMINO ACID 5%-D20W+LYTES*E* 1,000 ML 2: MVI, ADULT NO.4 WITH VIT K 10 ML, TRACE (CON IV SCH ×3 (13:23)
[2021-07-15] MEDS ORDERED: MORPHINE SULFATE (100 MG/2 ML) 100 MG in SODIUM CHLORIDE 0.9% 100 ML IV SCH (13:30)
[2021-07-15] MEDS ORDERED: SCOPOLAMINE 1.5MG/72HR PATCH TRANSDERM SCH (13:30)
--- NOTE | 2021-07-15 13:59 | P.PN ---
Subjective Patient seen and examined at bedside. Patient continues to be vent dependent. Patient is now a DO NOT RESUSCITATE. Family is considering comfort measures. Objective - Vital Signs Vital signs: Vital Signs Temp 99.2 F 07/15/21 12:00 Pulse 94 07/15/21 13:00 Resp 18 07/15/21 13:00 BP 126/80 07/15/21 11:00 Pulse Ox 97 07/15/21 13:00 Intake & Output 07/14/21 07/15/21 07/15/21 18:59 06:59 18:59 Intake Total 1477.00 2801.496 1466.045 Output Total 1030 960 520 Balance 447.00 1841.496 946.045 Weight 96 kg 100.5 kg Intake: IV 727 1450 156 Mvi, Adult No.4 with Vit 360 150 K 10 ml Trace (Conc-1Ml/ Dose) 1 ml In Amino Acid 5%-D20w+Lytes*E* 1,000 ml @ 30 mls/hr IV .Q24H JAYDEN Rx#:[id number] Sodium Chloride 0.9% 1, 295 1240 120 000 ml @ 20 mls/hr IV . Q24H JAYDEN Rx#:[id number] pressure bag 72 60 36 Intake, IV Titration 750.00 9352.179 3779.045 Amount Cisatracurium 200 mg In 181.654 88.320 Sodium Chloride 0.9% 180 ml @ 1 MCG/KG/MIN 5.52 mls/hr IV .Q24H JAYDEN Rx#: [id number] Magnesium Sulfate-D5w Pmx 200 1 gm In Dextrose/Water 1 100ml.bag @ 100 mls/hr IVPB Q1H JAYDEN Rx#: [id number] Norepinephrine 8 mg In 428.592 461.725 Sodium Chloride 0.9% 250 ml @ 0.05 MCG/KG/MIN 8. 901 mls/hr IV .Q24H JAYDEN Rx#:[id number] Octreotide 500 mcg In 250 231.25 250 Sodium Chloride 0.9% 250 ml @ 50 MCG/HR 25 mls/hr IV .Q10H JAYDEN Rx#: [id number] propofoL 1,000 mg In 300.00 200 200 Empty Bag 1 bag @ Titrate IV .Q0M JAYDEN Rx#: [id number] Blood Product 310 310 Rc As-1 Unit 0 310 [id number] Rc Irr As1 Unit 310 [id number] Output: Gastric Drainage 150 Urine 830 960 220 Oral Regurgitation 50 300 Other: Voiding Method Indwelling Catheter Indwelling Catheter Indwelling Catheter # Bowel Movements 1 ABP, PAP, CO, CI - Last Documented Arterial Blood Pressure 111/81 - Exam General: Then dependent Derm: [warm], [dry] Head: [atraumatic], [normocephalic], [symmetric] Cardiovascular: [S1S2 reg], [no murmur], [positive posterior tibial pulse bilateral], Lungs: [CTA bilateral], [no rhonchi, no rales] , [no accessory muscle use] Abdominal: [soft], [ nontender to palpation], [no guarding], [no appreciable organomegaly] Ext: [no gross muscle atrophy], [no edema], [no contractures] - Labs CBC & Chem 7: 07/15/21 09:06 07/14/21 04:09 Labs: Abnormal Lab Results - Last 24 Hours (Table) 07/09/21 07/14/21 07/14/21 Range/Units 12:30 18:14 23:10 WBC 14.5 H (3.8-10.6) k/uL RBC 3.37 L (4.30-5.90) m/uL Hgb 10.3 L (13.0-17.5) gm/dL Hct 31.9 L (39.0-53.0) % RDW 19.8 H (11.5-15.5) % Plt Count 112 L (150-450) k/uL Neutrophils # 11.0 H (1.3-7.7) k/uL Neutrophils # (Manual) (1.3-7.7) k/uL Monocytes # (Manual) (0-1.0) k/uL Eosinophils # 1.0 H (0-0.7) k/uL Metamyelocytes # (Man) (0) k/uL Myelocytes # (Manual) (0) k/uL Nucleated RBCs (0-0) /100 WBC ABG pO2 (83-108) mmHg ABG Total CO2 (19-24) mmol/L ABG O2 Saturation (94-97) % POC Glucose (mg/dL) 128 H (75-99) mg/dL Crossmatch See Detail 07/15/21 07/15/21 07/15/21 Range/Units 00:31 02:00 02:24 WBC 14.2 H (3.8-10.6) k/uL RBC 2.75 L (4.30-5.90) m/uL Hgb 8.6 L D (13.0-17.5) gm/dL Hct 26.7 L (39.0-53.0) % RDW 20.0 H (11.5-15.5) % Plt Count 110 L (150-450) k/uL Neutrophils # 9.1 H (1.3-7.7) k/uL Neutrophils # (Manual) (1.3-7.7) k/uL Monocytes # (Manual) (0-1.0) k/uL Eosinophils # 1.1 H (0-0.7) k/uL Metamyelocytes # (Man) (0) k/uL Myelocytes # (Manual) (0) k/uL Nucleated RBCs (0-0) /100 WBC ABG pO2 (83-108) mmHg ABG Total CO2 (19-24) mmol/L ABG O2 Saturation (94-97) % POC Glucose (mg/dL) 139 H (75-99) mg/dL Crossmatch See Detail 07/15/21 07/15/21 07/15/21 Range/Units 05:39 06:14 09:06 WBC 29.2 H (3.8-10.6) k/uL RBC 3.36 L (4.30-5.90) m/uL Hgb 10.6 L (13.0-17.5) gm/dL Hct 31.8 L (39.0-53.0) % RDW 17.8 H (11.5-15.5) % Plt Count 112 L (150-450) k/uL Neutrophils # (1.3-7.7) k/uL Neutrophils # (Manual) 24.20 H (1.3-7.7) k/uL Monocytes # (Manual) 2.63 H (0-1.0) k/uL Eosinophils # (0-0.7) k/uL Metamyelocytes # (Man) 0.58 H (0) k/uL Myelocytes # (Manual) 0.58 H (0) k/uL Nucleated RBCs 1 H (0-0) /100 WBC ABG pO2 144 H (83-108) mmHg ABG Total CO2 26 H (19-24) mmol/L ABG O2 Saturation 99.7 H (94-97) % POC Glucose (mg/dL) 142 H (75-99) mg/dL Crossmatch 07/15/21 Range/Units 11:44 WBC (3.8-10.6) k/uL RBC (4.30-5.90) m/uL Hgb (13.0-17.5) gm/dL Hct (39.0-53.0) % RDW (11.5-15.5) % Plt Count (150-450) k/uL Neutrophils # (1.3-7.7) k/uL Neutrophils # (Manual) (1.3-7.7) k/uL Monocytes # (Manual) (0-1.0) k/uL Eosinophils # (0-0.7) k/uL Metamyelocytes # (Man) (0) k/uL Myelocytes # (Manual) (0) k/uL Nucleated RBCs (0-0) /100 WBC ABG pO2 (83-108) mmHg ABG Total CO2 (19-24) mmol/L ABG O2 Saturation (94-97) % POC Glucose (mg/dL) 152 H (75-99) mg/dL Crossmatch Microbiology - Last 24 Hours (Table) 07/14/21 03:55 Gram Stain - Preliminary Sputum Sputum Culture - Preliminary 07/14/21 04:09 Blood Culture - Preliminary Blood No Growth after 24 hours 07/09/21 12:44 Blood Culture Gram Stain - Final Blood Blood Culture - Final Staphylococcus epidermidis Staph hominis sub sp. hominis Assessment and Plan Plan: Variceal bleed - intubated patient is now a DO NOT RESUSCITATE family is considering comfort measures -CBC every 6 hours -PPI IV twice a day -Somatostatin drip -Due to gastric lysis due to gastric varices -Pulmonary consult -Maintain 2 large bore IVs -Hold home medications -Strict nothing by mouth -Ceftriaxone 1 g every 24 hours -Continue IV fluids Supraventricular tachycardia -Return to sinus rhythm after adenosine 6 mg push -Continue to monitor on telemetry -Should patient develop SVT again, will likely require amiodarone Alcoholic cirrhosis Alcohol abuse disorder - -Attempt to transfer the patient to multiple hospitals no success no beds available Patient currently is intubated and more stabilized discussed with gastroenterol aysha the patient needs urgent TIPS due to gastric varices Continue to try to attempt to transfer the patient to high level of care for TIPS procedure We will continue try to arrange for the patient to be transferred to high level of care status post balloon of the gastric varices
[2021-07-15 16:21] VITALS: PULSE 0; RESP 0
--- NOTE | 2021-07-15 17:51 | P.DS ---
Providers Date of admission: 07/09/21 17:09 Expected date of discharge: 07/15/21 Attending physician: Sarah Schmitt MD Consults: 07/09/21 17:08 Consult Physician Urgent Consulting Provider: Jovanna Moncada Consult Reason/Comments: GI bleed, suspected variceal bleed Do you want consulting provider notified?: Yes, Notify in am 07/09/21 17:09 Consult Physician Stat Consulting Provider: Kassandra Justice Consult Reason/Comments: Gi bleed, suspect variceal bleed Do you want consulting provider notified?: Already Contacted 07/12/21 10:11 Consult Physician Urgent Consulting Provider: Akira Urbina Consult Reason/Comments: varicies Do you want consulting provider notified?: Yes Primary care physician: Stated None Hospital Course: Admitting diagnosis: * Acute GI Bleed Discharge Diagnosis: * * hemorrhagic shock with VDRF * Acute GI bleed * Variceal bleed * SVT * Alcoholic cirrhosis * Alcohol Abuse 51-year-old white male patient with past medical history of EtOH abuse, history of liver cirrhosis with esophageal varices with previous banding 2 years ago at [facility], and previous GI bleeding, current every day smoker, who came into the emergency department on 07/09/2021 with complaints of abdominal pain, hematemesis, and passing black stools. Patient was having palpitations, he was chilled. Denied any shortness of breath, no chest pain, no cough, no dyspnea, no phlegm production. Patient was noted to be hypotensive in the emergency department with a blood pressure of 76/30. He was having episodes of large volume of hematemesis. Initial hemoglobin was 10.6, platelet count was 218, INR was 1.2, plasma lactic acid was 5.8 on presentation, renal profile was within normal limits with BUN of 15 creatinine 0.94, troponin was negative. Lipase was 421. COVID-19 PCR was negative, LFTs were within normal limits. Patient was transfused with 4 units of packed red blood cells, 4 subsequent drop in hemoglobin down to 7.8, and he will be receiving another unit of packed red blood cells this morning. He received 2 units of fresh frozen plasma, he also received 4 L in fluid boluses, and his maintenance IV fluids is 0.9 normal sinus at a rate of 75 ML per hour, patient's blood culture was positive for gram- positive cocci, and patient is on combination of Rocephin and vancomycin. Today's labs reveal white blood cell count of 11.9, hemoglobin of 7.8 as mentioned above with fifth unit of packed cells infusing, platelet count is 113, sodium is 136, potassium is 5.3, chloride is 1:15, CO2 is 18, BUN is 23, creatinine is 0.68. Patient is on Sandostatin at 50 mics per hour, he is on Protonix 40 mg twice daily, Zofran. He is awake and alert, breathing comfortably, it appears to be in no acute distress. No shortness of breath no chest pain, room air pulse ox is 94%, current blood pressure is 82/55. In sinus mechanism with a rate of 75 BPM, afebrile. Chest x-ray shows no acute cardiopulmonary disease. CT of the abdomen and pelvis showed no evidence of active GI bleeding, splenic varices consistent with portal venous hypertension, no focal liver defect. GI service has been consulted and patient is boarded for EGD this afternoon On 07/11/2021 patient seen in follow-up in intensive care unit, he is awake and alert, appears a bit fatigued and pale but no acute distress, abdomen is soft, no nausea or vomiting, no episodes of hematemesis or melena overnight. He was transfused with 5 units of packed red blood cells yesterday and 2 units of fresh frozen plasma, today's labs show hemoglobin of 8.2, platelet count is 95, his BNP is still pending for today. His white count is 8.0. Breathing comfortable, no complaints of shortness of breath or chest pain. Tolerating sips of clear liquids. He is status post EGD which showed large fundal varix with the nipple sign suggestive of recent gastric variceal bleeding but no active bleeding, small clots in the fundus of the stomach, and no evidence of esophageal varices. The recommendation was made by the GI service to continue on IV Sandostatin, and to transfer the patient to a tertiary care facility for TIPS procedure to prevent recurrent gastric variceal bleeding. Patient continues on H&H's every 6 hours per GI service recommendations. He is not requiring any vasopressor support, he is in sinus mechanism, he remains on Sandostatin 50 mg per hour, and point tenderness and uterine rate of 75 ML per hour. On 07/12/2021 51-year-old male with alcoholic cirrhosis, portal hypertension and concern for intermittent variceal bleeding. Patient did require intubation today for airway maintenance. Nasogastric tube was inserted with significant bleeding. Based on patient's current hemoglobin, he is receiving further transfusions. Patient is on octreotide therapy as well. GI has evaluated the patient and are recommending transfer for evaluation for shunting. At this point with intermittent variceal bleeding and patient's previous history of requiring banding, decompression with portosystemic shunting would be the next form of therapy. This is not a procedure that is performed in the [facility] and the patient is awaiting transfer to [facility] for definitive treatment. The only other surgical option that has shown success for surgical decompression is orthotopic liver transplantation. On 07/13/2021 Patient is afebrile. Yesterday multiple attempts were made to transfer the patient to tertiary care facility including [facility], [facility], [facility], [facility], [facility], [facility] in [place], and all facilities have no available beds. Abdomen is soft, overnight patient did have a few maroon-colored liquid stools. Urine output is dark, and in the order of 10-15 ML per hour. We'll give the patient on dose of IV Lasix today. His total weight is up by 6 kg since admission. 07/14/21 Patient remains on vent in critical condition awaiting transfer. On 07/15/21 Due to patients decompensated state, patient was made a DNR and comfort measures were placed. Patient passed shortly after doing so while on a morphine drip. Patient no follow-up care Patient Condition at Discharge: Critical Plan - Discharge Summary Discharge Rx Participant: No New Discharge Prescriptions: No Action Omeprazole Magnesium [PriLOSEC OTC] 20 mg PO BID Zolpidem [Ambien] 2.5 mg PO HS PRN PRN Reason: Insomnia Potassium Gluconate [Potassium Gluconate ER] 99 mg PO DAILY Cyanocobalamin (Vitamin B-12) [Vitamin B-12] 1,000 mcg PO DAILY ALPRAZolam [Xanax] 0.25 mg PO DAILY PRN #3 tab PRN Reason: Anxiety Multivitamins, Thera [Multivitamin (formulary)] 1 tab PO DAILY Discharge Medication List Omeprazole Magnesium [PriLOSEC OTC] 20 mg PO BID 03/01/21 [History] ALPRAZolam [Xanax] 0.25 mg PO DAILY PRN #3 tab 03/07/21 [Rx] Cyanocobalamin (Vitamin B-12) [Vitamin B-12] 1,000 mcg PO DAILY 07/09/21 [History] Multivitamins, Thera [Multivitamin (formulary)] 1 tab PO DAILY 07/09/21 [History] Potassium Gluconate [Potassium Gluconate ER] 99 mg PO DAILY 07/09/21 [History] Zolpidem [Ambien] 2.5 mg PO HS PRN 07/09/21 [History] Follow up Appointment(s)/Referral(s): None,Stated [Primary Care Provider] - [facility]-[address] [facility] - As Needed Discharge Disposition: - Preliminary Cause of Preliminary Cause of : hemorrhagic shock
== END 2021-07-15 17:00 | disposition expired | DRG 299 ==
LOC: EC 12:18 → 2SICU 17:09
PROVIDERS: ADMIT Internal Medicine; ATTEND Internal Medicine
PROC: 5A1945Z Respiratory Ventilation, 24-96 Consecutive Hours (ICD-10-PCS; principal; 2021-07-09)
PROC: 30233N1 Transfusion of Nonautologous Red Blood Cells into Peripheral Vein, Percutaneous Approach (ICD-10-PCS; 2021-07-09)
PROC: 0W3P8ZZ Control Bleeding in Gastrointestinal Tract, Via Natural or Artificial Opening Endoscopic (ICD-10-PCS; 2021-07-10)
PROC: 30233K1 Transfusion of Nonautologous Frozen Plasma into Peripheral Vein, Percutaneous Approach (ICD-10-PCS; 2021-07-10)
PROC: 0BH17EZ Insertion of Endotracheal Airway into Trachea, Via Natural or Artificial Opening (ICD-10-PCS; 2021-07-12)
PROC: 03HY32Z Insertion of Monitoring Device into Upper Artery, Percutaneous Approach (ICD-10-PCS; 2021-07-12)
PROC: 4A133B1 Monitoring of Arterial Pressure, Peripheral, Percutaneous Approach (ICD-10-PCS; 2021-07-12)
PROC: 4A133J1 Monitoring of Arterial Pulse, Peripheral, Percutaneous Approach (ICD-10-PCS; 2021-07-12)
PROC: 05HN33Z Insertion of Infusion Device into Left Internal Jugular Vein, Percutaneous Approach (ICD-10-PCS; 2021-07-12)
DX: I86.4 Gastric varices (principal); J96.01 Acute respiratory failure with hypoxia; D62 Acute posthemorrhagic anemia; E87.2 Acidosis; I47.1 Supraventricular tachycardia; J90 Pleural effusion, not elsewhere classified; J98.11 Atelectasis; K76.6 Portal hypertension; R78.81 Bacteremia; Z99.11 Dependence on respirator [ventilator] status; I85.10 Secondary esophageal varices without bleeding; Z66 Do not resuscitate; Z51.5 Encounter for palliative care; B96.89 Other specified bacterial agents as the cause of diseases classified elsewhere; F10.10 Alcohol abuse, uncomplicated; F17.200 Nicotine dependence, unspecified, uncomplicated; I86.8 Varicose veins of other specified sites; K70.30 Alcoholic cirrhosis of liver without ascites; R57.8 Other shock; Z20.822 Contact with and (suspected) exposure to COVID-19
CPT/HCPCS: 36415; 43235; 43255; 71045; 74018; 74178; 76705; 80048; 80053; 82533; 82805; 83605; 83690; 83735; 84100; 84443; 84484; 85025; 85027; 85610; 85730; 86850; 86900; 86901; 86920; 87040; 87070; 87077; 87186; 87205; 87635; 93005; 94002; 94003; 96361; 96365; 96366; 96367; 96375; 96376; 99291; 99292